=== PATIENT | male | born 1930 | race Caucasian/White ===

== ENCOUNTER 2018-12-18 16:31 | Emergency (ER) | payer OTHER ==
--- OUTSIDE RECORDS SUMMARY | 2018-12-18 16:33 | XMS REPORT | Clinical Summary ---
:1930 Author Organization [facility] Address [address] [place] [address] Care Team Providers Name Role Phone Sharpoliver Primary Care Provider Allergies Active Allergy Reactions Severity Noted Date Comments Quinidine-Quinine Analogues ([place] Anaphylaxis High 08/17/1952 Alkaloids) Medications Medication Sig Dispensed Refills Start Date End Date Status ramipril (ALTACE) 10 Take 10 mg by 0 Active MG capsule mouth every 12 (twelve) hours. simvastatin (ZOCOR) Take 20 mg by 0 Active 20 MG tablet mouth nightly. digoxin (LANOXIN) Take 250 mcg by 0 Active 0.25 MG tablet mouth daily. metFORMIN Take 500 mg by 0 Active (GLUCOPHAGE) 500 MG mouth 2 (two) tablet times daily with breakfast and dinner. omeprazole Take 20 mg by 0 Active (PRILOSEC) 20 MG mouth daily. capsule metoprolol Take 25 mg by 0 Active (TOPROL-XL) 25 MG 24 mouth daily. hr tablet apixaban (ELIQUIS) 5 Take 1 tablet (5 60 tablet 1 07/01/2017 Active mg Tab tablet mg total) by mouth 2 (two) times daily. amiodarone Take 1 tablet 60 tablet 0 07/01/2017 07/01/2018 (PACERONE) 100 MG (100 mg total) by tablet mouth 2 (two) times daily. aspirin 81 MG Take 1 tablet (81 30 tablet 0 07/02/2017 07/02/2018 chewable tablet mg total) by mouth daily. 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 Acute pulmonary insufficiency following thoracic surgery 06/24/2017 Hypertensive urgency 06/24/2017 Acute blood loss anemia 06/24/2017 Hyperglycemia 06/24/2017 SIRS (systemic inflammatory response syndrome) 06/24/2017 CAD (coronary artery disease) 06/23/2017 Family History Medical History Relation Name Comments Heart block Father Heart block Mother Lung cancer Sister Melanoma Sister Relation Name Status Comments Father Mother Sister Social History Tobacco Use Types Packs/Day Years Used Date Former Smoker Pipe 3 1953 - 1999 Smokeless Tobacco: Never Used Sex Assigned at Date Recorded Not on file Job Start Date Occupation Industry Not on file Not on file Not on file Travel History Travel Start Travel End No recent travel history available. Last Filed Vital Signs Not on file Plan of Treatment Not on file Implants Implanted Type [employer] Device Shelf Model / Identifier Expiration Serial / Date Lot Sut Surg Stl 7 18g 18in Mls Mp [id number] - Sna [place]/Arthroscop N/A: J &J: ETHICON 03/16/2022 [id number] / Implanted: Qty: 1 on 06/24/2017 by Jose G Nix MD y Sternum NA / [id number] Sut Surg Stl 7 18g 18in Mls Mp M655g - Sna [place]/Arthroscop N/A: J &J: ETHICON 01/14/2022 [id number] / Implanted: Qty: 2 on 06/24/2017 by Jose G Nix MD y Sternum NA / [id number] Sternal Zipfix Ndl Strl [id number] - Sna Cardiovascular N/A: SYNTHES: SYNTHE 03/16/2022 [id number] / Implanted: Qty: 1 on 06/24/2017 by Jose G Nix MD Sternum [facility] NA / [id number] Results Not on fileafter 12/17/2017 Insurance Payer Benefit Plan / Group Subscriber ID Type Phone Address MEDICARE MEDICARE A B xxxxxxxxxx Medicare AETNA - MGD CARE AETNA INDEMNITY NON CONTR xxxxxxxxx Comm Advance Directives For more information, please contact:[address] [phone] Code Status Date Activated Date Inactivated Comments Full Code 06/25/2017 4:22 PM 07/01/2017 3:53 PM This code status was determined by: Patient Full Code 06/24/2017 4:16 PM 06/25/2017 4:22 PM This code status was determined by: Patient Full Code 06/23/2017 9:48 PM 06/24/2017 4:16 PM This code status was determined by: Patient
--- OUTSIDE RECORDS SUMMARY | 2018-12-18 16:35 | XMS REPORT ---
:1930 [facility] Address [address] [place] [address] Care Team Providers Name Role Phone NEVAEH SANDOVAL Unavailable Unavailable Problems This patient has no known problems. Allergies, Adverse Reactions, Alerts This patient has no known allergies or adverse reactions. Medications This patient has no known medications. Results Test Description Test Time Test Comments Text Results Atomic Results Result Comments POCT-GLUCOSE METER 2017-07-01 12:09:00 Test Item Value Reference Range Comments POC-GLUCOSE METER (BEAKER) (test 110 mg/dL 70-110 TESTED AT [facility] [address] [facility] hesa=[id number]) [facility] [address] [id number] 11:44:00 Test Item Value Reference Range Comments MAGNESIUM (BEAKER) (test uxsv=327) 1.8 mg/dL 1.6-2.6 BASIC METABOLIC [id number] 11:44:00 Test Item Value Reference Range Comments SODIUM (BEAKER) (test 139 meq/L 136-145 nmqn=282) POTASSIUM (BEAKER) (test 4.4 meq/L 3.5-5.1 snrr=774) CHLORIDE (BEAKER) (test 105 meq/L 98-107 jfme=368) CO2 (BEAKER) (test 26 meq/L 22-29 itoc=078) BLOOD UREA NITROGEN 12 mg/dL 7-21 (BEAKER) (test irfd=935) CREATININE (BEAKER) (test 1.04 mg/dL 0.57-1.25 uejr=881) GLUCOSE RANDOM (BEAKER) 105 mg/dL 70-105 (test pefi=606) CALCIUM (BEAKER) (test 8.6 mg/dL 8.4-10.2 sofz=484) EGFR (BEAKER) (test 68 mL/min/1.73 sq m ESTIMATED GFR IS NOT dytz=6860) ACCURATE CREATININE CLEARANCE IN PREDICTING GLOMERULAR FILTRATION RATE. ESTIMATED GFR IS NOT APPLICABLE FOR DIALYSIS PATIENTS. CBC W/PLT COUNT & AUTO [id number] 11:26:00 Test Item Value Reference Range Comments WHITE BLOOD CELL COUNT (BEAKER) (test qkmm=728) 11.6 K/ L 3.5-10.5 RED BLOOD CELL COUNT (BEAKER) (test xkgn=562) 3.58 M/ L 4.63-6.08 HEMOGLOBIN (BEAKER) (test xoqq=885) 10.7 GM/DL 13.7-17.5 HEMATOCRIT (BEAKER) (test hlaq=946) 32.0 % 40.1-51.0 MEAN CORPUSCULAR VOLUME (BEAKER) (test atyf=144) 89.4 fL 79.0-92.2 MEAN CORPUSCULAR HEMOGLOBIN (BEAKER) (test 29.9 pg 25.7-32.2 izxg=481) MEAN CORPUSCULAR HEMOGLOBIN CONC (BEAKER) (test 33.4 GM/DL 32.3-36.5 bbtx=343) RED CELL DISTRIBUTION WIDTH (BEAKER) (test 13.2 % 11.6-14.4 kjrk=865) PLATELET COUNT (BEAKER) (test iojl=487) 273 K/CU MM 150-450 MEAN PLATELET VOLUME (BEAKER) (test mzyk=557) 9.4 fL 9.4-12.4 NUCLEATED RED BLOOD CELLS (BEAKER) (test 0 /100 WBC 0-0 xeja=300) NEUTROPHILS RELATIVE PERCENT (BEAKER) (test 68 % heaq=139) LYMPHOCYTES RELATIVE PERCENT (BEAKER) (test 19 % spbh=449) MONOCYTES RELATIVE PERCENT (BEAKER) (test 10 % kcdp=579) EOSINOPHILS RELATIVE PERCENT (BEAKER) (test 1 % npjd=189) BASOPHILS RELATIVE PERCENT (BEAKER) (test 1 % uabm=462) NEUTROPHILS ABSOLUTE COUNT (BEAKER) (test 7.92 K/ L 1.78-5.38 tzqe=631) LYMPHOCYTES ABSOLUTE COUNT (BEAKER) (test 2.16 K/ L 1.32-3.57 zrrq=362) MONOCYTES ABSOLUTE COUNT (BEAKER) (test 1.14 K/ L 0.30-0.82 ckzw=896) EOSINOPHILS ABSOLUTE COUNT (BEAKER) (test 0.16 K/ L 0.04-0.54 mwjj=209) BASOPHILS ABSOLUTE COUNT (BEAKER) (test 0.08 K/ L 0.01-0.08 mlsw=101) IMMATURE GRANULOCYTES-RELATIVE PERCENT (BEAKER) 1 % 0-1 (test ahjp=8229) POCT-GLUCOSE [id number] 07:11:00 Test Item Value Reference Range Comments POC-GLUCOSE METER (BEAKER) 127 mg/dL 70-110 TESTED AT [address] (test dvvn=2943) [facility] [address] POCT-GLUCOSE [id number] 22:25:00 Test Item Value Reference Range Comments POC-GLUCOSE METER (BEAKER) 123 mg/dL 70-110 TESTED AT [address] (test lkjn=4194) [place] [id number] POCT-GLUCOSE [id number] 17:17:00 Test Item Value Reference Range Comments POC-GLUCOSE METER (BEAKER) 142 mg/dL 70-110 TESTED AT [address] (test zure=9252) [place] [id number] POCT-GLUCOSE [id number] 11:25:00 Test Item Value Reference Range Comments POC-GLUCOSE METER (BEAKER) 122 mg/dL 70-110 TESTED AT [address] (test zimi=6809) [place] [id number] POCT-GLUCOSE [id number] 07:25:00 Test Item Value Reference Range Comments POC-GLUCOSE METER (BEAKER) 141 mg/dL 70-110 TESTED AT [address] (test vrih=7577) [place] [address] [id number] 06:33:00 Test Item Value Reference Range Comments MAGNESIUM (BEAKER) (test sjtb=000) 1.7 mg/dL 1.6-2.6 BASIC METABOLIC [id number] 06:33:00 Test Item Value Reference Range Comments SODIUM (BEAKER) (test 138 meq/L 136-145 xxls=927) POTASSIUM (BEAKER) (test 3.9 meq/L 3.5-5.1 gtnp=226) CHLORIDE (BEAKER) (test 104 meq/L 98-107 lneo=572) CO2 (BEAKER) (test 25 meq/L 22-29 zpbw=313) BLOOD UREA NITROGEN 15 mg/dL 7-21 (BEAKER) (test vxsm=466) CREATININE (BEAKER) (test 1.05 mg/dL 0.57-1.25 bjkf=064) GLUCOSE RANDOM (BEAKER) 131 mg/dL 70-105 (test wraz=035) CALCIUM (BEAKER) (test 8.7 mg/dL 8.4-10.2 rmmk=990) EGFR (BEAKER) (test 67 mL/min/1.73 sq m ESTIMATED GFR IS NOT tbzt=2366) ACCURATE CREATININE CLEARANCE IN PREDICTING GLOMERULAR FILTRATION RATE. ESTIMATED GFR IS NOT APPLICABLE FOR DIALYSIS PATIENTS. POCT-GLUCOSE [id number] 21:00:00 Test Item Value Reference Range Comments POC-GLUCOSE METER (BEAKER) 139 mg/dL 70-110 TESTED AT [address] (test hqxe=5847) [facility] [address] POCT-GLUCOSE [id number] 17:04:00 Test Item Value Reference Range Comments POC-GLUCOSE METER (BEAKER) 146 mg/dL 70-110 TESTED AT [address] (test lezw=1034) [place] [id number] POCT-GLUCOSE [id number] 12:17:00 Test Item Value Reference Range Comments POC-GLUCOSE METER (BEAKER) 142 mg/dL 70-110 TESTED AT [address] (test nrti=1557) [facility] [address] [id number] 08:50:00 Test Item Value Reference Range Comments MAGNESIUM (BEAKER) (test togq=971) 1.8 mg/dL 1.6-2.6 BASIC METABOLIC [id number] 08:50:00 Test Item Value Reference Range Comments SODIUM (BEAKER) (test 140 meq/L 136-145 wgxg=229) POTASSIUM (BEAKER) (test 3.9 meq/L 3.5-5.1 opgw=989) CHLORIDE (BEAKER) (test 106 meq/L 98-107 qpuk=028) CO2 (BEAKER) (test 28 meq/L 22-29 uqgh=768) BLOOD UREA NITROGEN 17 mg/dL 7-21 (BEAKER) (test psps=170) CREATININE (BEAKER) (test 1.03 mg/dL 0.57-1.25 hbpk=419) GLUCOSE RANDOM (BEAKER) 184 mg/dL 70-105 (test emoa=643) CALCIUM (BEAKER) (test 8.7 mg/dL 8.4-10.2 ckfx=254) EGFR (BEAKER) (test 69 mL/min/1.73 sq m ESTIMATED GFR IS NOT gtpj=7356) ACCURATE CREATININE CLEARANCE IN PREDICTING GLOMERULAR FILTRATION RATE. ESTIMATED GFR IS NOT APPLICABLE FOR DIALYSIS PATIENTS. POCT-GLUCOSE [id number] 07:57:00 Test Item Value Reference Range Comments POC-GLUCOSE METER (BEAKER) 208 mg/dL 70-110 TESTED AT [address] (test dalz=5060) [place] [id number] POCT-GLUCOSE [id number] 20:43:00 Test Item Value Reference Range Comments POC-GLUCOSE METER (BEAKER) 111 mg/dL 70-110 TESTED AT [address] (test caue=0712) [place] [address] POCT-GLUCOSE [id number] 16:39:00 Test Item Value Reference Range Comments POC-GLUCOSE METER (BEAKER) 108 mg/dL 70-110 TESTED AT [address] (test mfnz=6103) [place] [id number] POCT-GLUCOSE [id number] 12:11:00 Test Item Value Reference Range Comments POC-GLUCOSE METER (BEAKER) 105 mg/dL 70-110 TESTED AT [address] (test ebum=1493) [place] [address] POCT-GLUCOSE [id number] 08:59:00 Test Item Value Reference Range Comments POC-GLUCOSE METER (BEAKER) 170 mg/dL 70-110 TESTED AT [address] (test bxwb=1145) [place] [id number] BASIC METABOLIC [id number] 05:24:00 Test Item Value Reference Range Comments SODIUM (BEAKER) (test 139 meq/L 136-145 oshp=132) POTASSIUM (BEAKER) (test 3.6 meq/L 3.5-5.1 ecgw=485) CHLORIDE (BEAKER) (test 106 meq/L 98-107 cgdj=772) CO2 (BEAKER) (test 24 meq/L 22-29 wdwp=004) BLOOD UREA NITROGEN 18 mg/dL 7-21 (BEAKER) (test inpl=033) CREATININE (BEAKER) (test 0.91 mg/dL 0.57-1.25 afye=603) GLUCOSE RANDOM (BEAKER) 126 mg/dL 70-105 (test apfe=734) CALCIUM (BEAKER) (test 8.3 mg/dL 8.4-10.2 xexh=710) EGFR (BEAKER) (test 79 mL/min/1.73 sq m ESTIMATED GFR IS NOT ujmc=8045) ACCURATE CREATININE CLEARANCE IN PREDICTING GLOMERULAR FILTRATION RATE. ESTIMATED GFR IS NOT APPLICABLE FOR DIALYSIS PATIENTS. CBC W/PLT COUNT & AUTO [id number] 04:45:00 Test Item Value Reference Range Comments WHITE BLOOD CELL COUNT (BEAKER) (test lymi=162) 8.0 K/ L 3.5-10.5 RED BLOOD CELL COUNT (BEAKER) (test nxmi=685) 3.55 M/ L 4.63-6.08 HEMOGLOBIN (BEAKER) (test vcsc=499) 10.3 GM/DL 13.7-17.5 HEMATOCRIT (BEAKER) (test ljzz=189) 31.4 % 40.1-51.0 MEAN CORPUSCULAR VOLUME (BEAKER) (test hmop=401) 88.5 fL 79.0-92.2 MEAN CORPUSCULAR HEMOGLOBIN (BEAKER) (test 29.0 pg 25.7-32.2 adtt=192) MEAN CORPUSCULAR HEMOGLOBIN CONC (BEAKER) (test 32.8 GM/DL 32.3-36.5 hrly=804) RED CELL DISTRIBUTION WIDTH (BEAKER) (test 12.8 % 11.6-14.4 iuse=304) PLATELET COUNT (BEAKER) (test hfoa=415) 189 K/CU MM 150-450 MEAN PLATELET VOLUME (BEAKER) (test mpni=121) 10.3 fL 9.4-12.4 NUCLEATED RED BLOOD CELLS (BEAKER) (test 0 /100 WBC 0-0 gtiu=026) NEUTROPHILS RELATIVE PERCENT (BEAKER) (test 65 % lhgz=982) LYMPHOCYTES RELATIVE PERCENT (BEAKER) (test 21 % rykw=478) MONOCYTES RELATIVE PERCENT (BEAKER) (test 10 % ittw=802) EOSINOPHILS RELATIVE PERCENT (BEAKER) (test 3 % omxg=482) BASOPHILS RELATIVE PERCENT (BEAKER) (test 1 % rpzr=390) NEUTROPHILS ABSOLUTE COUNT (BEAKER) (test 5.22 K/ L 1.78-5.38 pmoy=021) LYMPHOCYTES ABSOLUTE COUNT (BEAKER) (test 1.65 K/ L 1.32-3.57 ghrr=080) MONOCYTES ABSOLUTE COUNT (BEAKER) (test 0.83 K/ L 0.30-0.82 lrvb=374) EOSINOPHILS ABSOLUTE COUNT (BEAKER) (test 0.21 K/ L 0.04-0.54 zjxd=762) BASOPHILS ABSOLUTE COUNT (BEAKER) (test 0.07 K/ L 0.01-0.08 qevn=410) IMMATURE GRANULOCYTES-RELATIVE PERCENT (BEAKER) 0 % 0-1 (test xpvi=7446) POCT-GLUCOSE [id number] 20:46:00 Test Item Value Reference Range Comments POC-GLUCOSE METER (BEAKER) 131 mg/dL 70-110 TESTED AT [address] (test mgns=5431) [place] [id number] POCT-GLUCOSE [id number] 16:38:00 Test Item Value Reference Range Comments POC-GLUCOSE METER (BEAKER) 121 mg/dL 70-110 TESTED AT [address] (test ltwu=6351) [place] [id number] POCT-GLUCOSE [id number] 08:45:00 Test Item Value Reference Range Comments POC-GLUCOSE METER (BEAKER) 208 mg/dL 70-110 TESTED AT [address] (test nvku=7187) [facility] [address] BASIC METABOLIC [id number] 07:45:00 Test Item Value Reference Range Comments SODIUM (BEAKER) (test 139 meq/L 136-145 ivwb=318) POTASSIUM (BEAKER) (test 3.8 meq/L 3.5-5.1 crng=447) CHLORIDE (BEAKER) (test 106 meq/L 98-107 xcvc=135) CO2 (BEAKER) (test 24 meq/L 22-29 vwel=379) BLOOD UREA NITROGEN 18 mg/dL 7-21 (BEAKER) (test sphp=988) CREATININE (BEAKER) (test 1.00 mg/dL 0.57-1.25 chzy=616) GLUCOSE RANDOM (BEAKER) 139 mg/dL 70-105 (test hxux=913) CALCIUM (BEAKER) (test 9.1 mg/dL 8.4-10.2 scmc=252) EGFR (BEAKER) (test 71 mL/min/1.73 sq m ESTIMATED GFR IS NOT qalf=5637) ACCURATE CREATININE CLEARANCE IN PREDICTING GLOMERULAR FILTRATION RATE. ESTIMATED GFR IS NOT APPLICABLE FOR DIALYSIS PATIENTS. [id number] 07:32:00 Test Item Value Reference Range Comments MAGNESIUM (BEAKER) (test anfr=567) 1.3 mg/dL 1.6-2.6 CBC W/PLT COUNT & AUTO [id number] 06:37:00 Test Item Value Reference Range Comments WHITE BLOOD CELL COUNT (BEAKER) (test ljyj=234) 11.1 K/ L 3.5-10.5 RED BLOOD CELL COUNT (BEAKER) (test ijot=736) 3.81 M/ L 4.63-6.08 HEMOGLOBIN (BEAKER) (test ncyt=219) 11.1 GM/DL 13.7-17.5 HEMATOCRIT (BEAKER) (test wyvt=209) 33.5 % 40.1-51.0 MEAN CORPUSCULAR VOLUME (BEAKER) (test bbrg=154) 87.9 fL 79.0-92.2 MEAN CORPUSCULAR HEMOGLOBIN (BEAKER) (test 29.1 pg 25.7-32.2 pwgi=091) MEAN CORPUSCULAR HEMOGLOBIN CONC (BEAKER) (test 33.1 GM/DL 32.3-36.5 ihuu=661) RED CELL DISTRIBUTION WIDTH (BEAKER) (test 13.0 % 11.6-14.4 eqoz=686) PLATELET COUNT (BEAKER) (test dirj=224) 187 K/CU MM 150-450 MEAN PLATELET VOLUME (BEAKER) (test ytxx=815) 11.0 fL 9.4-12.4 NUCLEATED RED BLOOD CELLS (BEAKER) (test 0 /100 WBC 0-0 imoe=157) NEUTROPHILS RELATIVE PERCENT (BEAKER) (test 70 % tuqg=423) LYMPHOCYTES RELATIVE PERCENT (BEAKER) (test 19 % czit=982) MONOCYTES RELATIVE PERCENT (BEAKER) (test 9 % efmn=350) EOSINOPHILS RELATIVE PERCENT (BEAKER) (test 1 % tpnr=622) BASOPHILS RELATIVE PERCENT (BEAKER) (test 1 % mvfj=233) NEUTROPHILS ABSOLUTE COUNT (BEAKER) (test 7.80 K/ L 1.78-5.38 ouxd=728) LYMPHOCYTES ABSOLUTE COUNT (BEAKER) (test 2.05 K/ L 1.32-3.57 mrjt=029) MONOCYTES ABSOLUTE COUNT (BEAKER) (test 0.99 K/ L 0.30-0.82 ssvc=678) EOSINOPHILS ABSOLUTE COUNT (BEAKER) (test 0.15 K/ L 0.04-0.54 svvw=073) BASOPHILS ABSOLUTE COUNT (BEAKER) (test 0.07 K/ L 0.01-0.08 fuzo=610) IMMATURE GRANULOCYTES-RELATIVE PERCENT (BEAKER) 1 % 0-1 (test dups=9575) POCT-GLUCOSE [id number] 21:19:00 Test Item Value Reference Range Comments POC-GLUCOSE METER (BEAKER) 125 mg/dL 70-110 TESTED AT [address] (test okhj=1414) [place] [address] POCT-GLUCOSE [id number] 17:34:00 Test Item Value Reference Range Comments POC-GLUCOSE METER (BEAKER) 171 mg/dL 70-110 TESTED AT [address] (test mkgc=1605) [place] [address] POCT-GLUCOSE [id number] 12:33:00 Test Item Value Reference Range Comments POC-GLUCOSE METER (BEAKER) 171 mg/dL 70-110 TESTED AT [address] (test auox=5472) [place] [address] HEMOGLOBIN [id number] 12:21:00 Test Item Value Reference Range Comments HEMOGLOBIN A1C (BEAKER) (test itmk=549) 6.0 % 4.3-6.1 POCT-GLUCOSE [id number] 08:37:00 Test Item Value Reference Range Comments POC-GLUCOSE METER (BEAKER) 159 mg/dL 70-110 TESTED AT [address] (test ysso=4791) [place] [address] RAD, CHEST, 1 VIEW, NON [id number] 07:43:00Reason for exam:-> sternotomyFINAL REPORT Chest one view. Clinical history : sternotomy Comparison: June 24, 2017 Discussion: A frontal chest is provided. Cardiomediastinal contours are unchanged. ET, left IJ line, and chest tubes have been removed. There is a suspected small left effusion. Patchy retrocardiac opacity can represent atelectasis or consolidation. No new airspace opacity. No pneumothorax. Signed: Edwin Solares Verified Date/Time : 06/26/2017 07:43:28 [facility] BASIC METABOLIC [id number] 06:37:00 Test Item Value Reference Range Comments SODIUM (BEAKER) (test 137 meq/L 136-145 dzbb=461) POTASSIUM (BEAKER) (test 3.7 meq/L 3.5-5.1 fuec=981) CHLORIDE (BEAKER) (test 106 meq/L 98-107 sfnx=629) CO2 (BEAKER) (test 22 meq/L 22-29 btfx=192) BLOOD UREA NITROGEN 15 mg/dL 7-21 (BEAKER) (test ezjg=740) CREATININE (BEAKER) (test 0.98 mg/dL 0.57-1.25 ypgm=042) GLUCOSE RANDOM (BEAKER) 149 mg/dL 70-105 (test jgip=151) CALCIUM (BEAKER) (test 8.8 mg/dL 8.4-10.2 rmlr=667) EGFR (BEAKER) (test 73 mL/min/1.73 sq m ESTIMATED GFR IS NOT tdwe=0142) ACCURATE CREATININE CLEARANCE IN PREDICTING GLOMERULAR FILTRATION RATE. ESTIMATED GFR IS NOT APPLICABLE FOR DIALYSIS PATIENTS. PROTHROMBIN [id number] 06:30:00 Test Item Value Reference Range Comments PROTIME (BEAKER) (test qjgn=741) 16.5 seconds 11.7-14.7 INR (BEAKER) (test bnjs=791) 1.3 <=5.9 RECOMMENDED COUMADIN/WARFARIN INR THERAPY RANGESSTANDARD DOSE: 2.0 - 3.0 Includes: PROPHYLAXIS forvenous thrombosis, systemic embolization; TREATMENT for venous thrombosis and/or pulmonary embolus.HIGH RISK: Target INR is 2.5-3.5 for patients with mechanical heart valves.[id number] 06:23:00 Test Item Value Reference Range Comments MAGNESIUM (BEAKER) (test asdu=712) 1.7 mg/dL 1.6-2.6 CBC W/PLT COUNT & AUTO [id number] 06:22:00 Test Item Value Reference Range Comments WHITE BLOOD CELL COUNT (BEAKER) (test evft=310) 13.5 K/ L 3.5-10.5 RED BLOOD CELL COUNT (BEAKER) (test pcze=911) 3.75 M/ L 4.63-6.08 HEMOGLOBIN (BEAKER) (test kqld=280) 11.0 GM/DL 13.7-17.5 HEMATOCRIT (BEAKER) (test ritt=000) 32.9 % 40.1-51.0 MEAN CORPUSCULAR VOLUME (BEAKER) (test kzon=183) 87.7 fL 79.0-92.2 MEAN CORPUSCULAR HEMOGLOBIN (BEAKER) (test 29.3 pg 25.7-32.2 psmb=053) MEAN CORPUSCULAR HEMOGLOBIN CONC (BEAKER) (test 33.4 GM/DL 32.3-36.5 nzri=637) RED CELL DISTRIBUTION WIDTH (BEAKER) (test 13.1 % 11.6-14.4 azjk=976) PLATELET COUNT (BEAKER) (test uinc=124) 160 K/CU MM 150-450 MEAN PLATELET VOLUME (BEAKER) (test xwnc=756) 10.7 fL 9.4-12.4 NUCLEATED RED BLOOD CELLS (BEAKER) (test 0 /100 WBC 0-0 ryyj=100) NEUTROPHILS RELATIVE PERCENT (BEAKER) (test 80 % emhe=381) LYMPHOCYTES RELATIVE PERCENT (BEAKER) (test 10 % ivkm=473) MONOCYTES RELATIVE PERCENT (BEAKER) (test 9 % onme=482) EOSINOPHILS RELATIVE PERCENT (BEAKER) (test 0 % wurg=312) BASOPHILS RELATIVE PERCENT (BEAKER) (test 0 % vjen=643) NEUTROPHILS ABSOLUTE COUNT (BEAKER) (test 10.79 K/ L 1.78-5.38 yodp=629) LYMPHOCYTES ABSOLUTE COUNT (BEAKER) (test 1.30 K/ L 1.32-3.57 hmfe=736) MONOCYTES ABSOLUTE COUNT (BEAKER) (test 1.21 K/ L 0.30-0.82 zddk=401) EOSINOPHILS ABSOLUTE COUNT (BEAKER) (test 0.04 K/ L 0.04-0.54 uztx=240) BASOPHILS ABSOLUTE COUNT (BEAKER) (test 0.05 K/ L 0.01-0.08 bjlv=215) IMMATURE GRANULOCYTES-RELATIVE PERCENT (BEAKER) 1 % 0-1 (test zfav=5824) POCT-GLUCOSE [id number] 21:25:00 Test Item Value Reference Range Comments POC-GLUCOSE METER (BEAKER) 145 mg/dL 70-110 TESTED AT [address] (test tqym=3511) [facility] [address] POCT-GLUCOSE [id number] 17:31:00 Test Item Value Reference Range Comments POC-GLUCOSE METER (BEAKER) 146 mg/dL 70-110 TESTED AT [address] (test knjh=1998) [place] [id number] POCT-GLUCOSE [id number] 11:43:00 Test Item Value Reference Range Comments POC-GLUCOSE METER (BEAKER) 133 mg/dL 70-110 TESTED AT [address] (test iexa=0118) [place] [id number] POCT-GLUCOSE [id number] 08:29:00 Test Item Value Reference Range Comments POC-GLUCOSE METER (BEAKER) 169 mg/dL 70-110 TESTED AT [address] (test bojr=1688) [facility] [address] BASIC METABOLIC [id number] 04:33:00 Test Item Value Reference Range Comments SODIUM (BEAKER) (test 140 meq/L 136-145 kwaj=584) POTASSIUM (BEAKER) (test 3.8 meq/L 3.5-5.1 gshy=430) CHLORIDE (BEAKER) (test 110 meq/L 98-107 fvdt=660) CO2 (BEAKER) (test 23 meq/L 22-29 lnrh=631) BLOOD UREA NITROGEN 17 mg/dL 7-21 (BEAKER) (test atnc=008) CREATININE (BEAKER) (test 1.16 mg/dL 0.57-1.25 cgzp=206) GLUCOSE RANDOM (BEAKER) 162 mg/dL 70-105 (test zhaf=765) CALCIUM (BEAKER) (test 8.6 mg/dL 8.4-10.2 iyzy=757) EGFR (BEAKER) (test 60 mL/min/1.73 sq m ESTIMATED GFR IS NOT rdpz=8105) ACCURATE CREATININE CLEARANCE IN PREDICTING GLOMERULAR FILTRATION RATE. ESTIMATED GFR IS NOT APPLICABLE FOR DIALYSIS PATIENTS. LACTIC ACID, ARTERIAL, WHOLE [id number] 04:31:00 Test Item Value Reference Range Comments LACTATE BLOOD ARTERIAL (2) (BEAKER) (test 1.0 mmol/L 0.5-2.2 hzja=9209) Effective 12/19/2015: Units/Reference Range ChangeNew: 0.5-2.2 mmol/L Previous: 5 -20 mg/[id number] 04:27:00 Test Item Value Reference Range Comments MAGNESIUM (BEAKER) (test yyfz=837) 2.0 mg/dL 1.6-2.6 CBC W/PLT COUNT & AUTO [id number] 04:18:00 Test Item Value Reference Range Comments WHITE BLOOD CELL COUNT (BEAKER) (test rerg=760) 12.9 K/ L 3.5-10.5 RED BLOOD CELL COUNT (BEAKER) (test vqjz=769) 3.75 M/ L 4.63-6.08 HEMOGLOBIN (BEAKER) (test ygag=001) 11.1 GM/DL 13.7-17.5 HEMATOCRIT (BEAKER) (test dsen=316) 32.6 % 40.1-51.0 MEAN CORPUSCULAR VOLUME (BEAKER) (test nxeh=221) 86.9 fL 79.0-92.2 MEAN CORPUSCULAR HEMOGLOBIN (BEAKER) (test 29.6 pg 25.7-32.2 wizx=324) MEAN CORPUSCULAR HEMOGLOBIN CONC (BEAKER) (test 34.0 GM/DL 32.3-36.5 vqga=687) RED CELL DISTRIBUTION WIDTH (BEAKER) (test 13.0 % 11.6-14.4 vnqg=129) PLATELET COUNT (BEAKER) (test kevb=213) 151 K/CU MM 150-450 MEAN PLATELET VOLUME (BEAKER) (test tacf=859) 9.7 fL 9.4-12.4 NUCLEATED RED BLOOD CELLS (BEAKER) (test 0 /100 WBC 0-0 gvkl=069) NEUTROPHILS RELATIVE PERCENT (BEAKER) (test 83 % lrbm=483) LYMPHOCYTES RELATIVE PERCENT (BEAKER) (test 7 % gnin=078) MONOCYTES RELATIVE PERCENT (BEAKER) (test 10 % rbvi=531) EOSINOPHILS RELATIVE PERCENT (BEAKER) (test 0 % lifq=747) BASOPHILS RELATIVE PERCENT (BEAKER) (test 0 % kooh=141) NEUTROPHILS ABSOLUTE COUNT (BEAKER) (test 10.72 K/ L 1.78-5.38 kwxe=421) LYMPHOCYTES ABSOLUTE COUNT (BEAKER) (test 0.85 K/ L 1.32-3.57 july=361) MONOCYTES ABSOLUTE COUNT (BEAKER) (test 1.23 K/ L 0.30-0.82 hxdo=741) EOSINOPHILS ABSOLUTE COUNT (BEAKER) (test 0.00 K/ L 0.04-0.54 idml=703) BASOPHILS ABSOLUTE COUNT (BEAKER) (test 0.03 K/ L 0.01-0.08 zdpy=346) IMMATURE GRANULOCYTES-RELATIVE PERCENT (BEAKER) 0 % 0-1 (test ghup=7215) POCT-GLUCOSE [id number] 02:44:00 Test Item Value Reference Range Comments POC-GLUCOSE METER (BEAKER) 143 mg/dL 70-110 TESTED AT [address] (test aldn=3998) [place] [address] POCT-GLUCOSE [id number] 01:32:00 Test Item Value Reference Range Comments POC-GLUCOSE METER (BEAKER) 185 mg/dL 70-110 TESTED AT [address] (test vxhb=5935) [place] [address] BLOOD GAS, [id number] 01:05:00 Test Item Value Reference Range Comments PH ARTERIAL (BEAKER) (test tfgo=469) 7.50 7.35-7.45 PCO2 ARTERIAL (BEAKER) (test tidf=202) 30 mmHg 35-45 PO2 ARTERIAL (BEAKER) (test hllj=568) 73 mmHg 80-90 O2 SATURATION ARTERIAL (BEAKER) (test sndv=929) 95.8 % 96.0-97.0 HCO3 ARTERIAL (BEAKER) (test gieb=699) 23 mmol/L 21-29 BASE EXCESS ARTERIAL (BEAKER) (test kofe=678) 0.4 mmol/L -2.0-3.0 PATIENT TEMPERATURE (BEAKER) (test grlv=8961) 37.2 C FIO2 (BEAKER) (test hygc=7598) 40.0 % Post extubation ABGPOCT-GLUCOSE [id number] 00:59:00 Test Item Value Reference Range Comments POC-GLUCOSE METER (BEAKER) 160 mg/dL 70-110 TESTED AT [address] (test cdit=4265) [place] [address] LACTIC ACID, ARTERIAL, WHOLE [id number] 23:02:00 Test Item Value Reference Range Comments LACTATE BLOOD ARTERIAL (2) (BEAKER) (test 1.3 mmol/L 0.5-2.2 baon=4306) Effective 12/19/2015: Units/Reference Range ChangeNew: 0.5-2.2 mmol/L Previous: 5 -20 mg/[id number] 23:01:00 Test Item Value Reference Range Comments MAGNESIUM (BEAKER) (test zwud=567) 1.8 mg/dL 1.6-2.6 CALCIUM, [id number] 22:48:00 Test Item Value Reference Range Comments CALCIUM IONIZED (BEAKER) (test bdfb=506) 1.13 mmol/L 1.12-1.27 PH, BLOOD (BEAKER) (test vauk=9689) 7.49 BLOOD GAS, [id number] 22:48:00 Test Item Value Reference Range Comments PH ARTERIAL (BEAKER) (test zblm=590) 7.49 7.35-7.45 PCO2 ARTERIAL (BEAKER) (test fsvg=987) 30 mmHg 35-45 PO2 ARTERIAL (BEAKER) (test scff=156) 72 mmHg 80-90 O2 SATURATION ARTERIAL (BEAKER) (test xtic=699) 95.6 % 96.0-97.0 HCO3 ARTERIAL (BEAKER) (test zvsu=833) 22 mmol/L 21-29 BASE EXCESS ARTERIAL (BEAKER) (test qsqf=303) -0.3 mmol/L -2.0-3.0 PATIENT TEMPERATURE (BEAKER) (test nbvj=7851) 37.2 C FIO2 (BEAKER) (test hgbf=7907) 40.0 % GLUCOSE-STAT [id number] 22:48:00 Test Item Value Reference Range Comments GLUCOSE RANDOM (BEAKER) (test leju=125) 173 mg/dL 70-110 HGB/HCT (H&H) - STAT [id number] 22:48:00 Test Item Value Reference Range Comments HEMOGLOBIN (BEAKER) (test liky=755) 12.3 g/dL 13.0-16.8 HEMATOCRIT (BEAKER) (test hego=153) 36.0 % 40.0-50.0 SODIUM NA-STAT [id number] 22:47:00 Test Item Value Reference Range Comments SODIUM (BEAKER) (test yrnq=115) 136 meq/L 135-148 POTASSIUM-STAT [id number] 22:47:00 Test Item Value Reference Range Comments POTASSIUM (BEAKER) (test trjj=555) 3.7 meq/L 3.6-5.5 SODIUM NA-STAT [id number] 18:58:00 Test Item Value Reference Range Comments SODIUM (BEAKER) (test ymvv=300) 135 meq/L 135-148 POTASSIUM-STAT [id number] 18:58:00 Test Item Value Reference Range Comments POTASSIUM (BEAKER) (test ycpz=309) 3.8 meq/L 3.6-5.5 BLOOD GAS, [id number] 18:58:00 Test Item Value Reference Range Comments PH ARTERIAL (BEAKER) (test cina=255) 7.41 7.35-7.45 PCO2 ARTERIAL (BEAKER) (test nxjs=008) 32 mmHg 35-45 PO2 ARTERIAL (BEAKER) (test dexw=768) 69 mmHg 80-90 O2 SATURATION ARTERIAL (BEAKER) (test jeuy=862) 94.5 % 96.0-97.0 HCO3 ARTERIAL (BEAKER) (test xnyt=640) 20 mmol/L 21-29 BASE EXCESS ARTERIAL (BEAKER) (test ygoi=143) -4.0 mmol/L -2.0-3.0 PATIENT TEMPERATURE (BEAKER) (test dkvx=5766) 36.7 C FIO2 (BEAKER) (test tbls=1466) 60.0 % GLUCOSE-STAT [id number] 18:58:00 Test Item Value Reference Range Comments GLUCOSE RANDOM (BEAKER) (test npkw=181) 197 mg/dL 70-110 HGB/HCT (H&H) - STAT [id number] 18:58:00 Test Item Value Reference Range Comments HEMOGLOBIN (BEAKER) (test aahp=275) 12.9 g/dL 13.0-16.8 HEMATOCRIT (BEAKER) (test vaum=385) 38.0 % 40.0-50.0 OXYGEN SATURATION, [id number] 18:57:00 Test Item Value Reference Range Comments O2 SATURATION (MEASURED) (BEAKER) (test zjvc=1370) 74.4 % CALCIUM, [id number] 18:57:00 Test Item Value Reference Range Comments CALCIUM IONIZED (BEAKER) (test qbxd=934) 1.15 mmol/L 1.12-1.27 PH, BLOOD (BEAKER) (test sver=7202) 7.41 BASIC METABOLIC [id number] 16:12:00 Test Item Value Reference Range Comments SODIUM (BEAKER) (test 138 meq/L 136-145 otkf=024) POTASSIUM (BEAKER) (test 4.0 meq/L 3.5-5.1 tfbv=643) CHLORIDE (BEAKER) (test 109 meq/L 98-107 mqgz=937) CO2 (BEAKER) (test 22 meq/L 22-29 zxcl=313) BLOOD UREA NITROGEN 14 mg/dL 7-21 (BEAKER) (test mnmh=018) CREATININE (BEAKER) (test 0.94 mg/dL 0.57-1.25 osny=469) GLUCOSE RANDOM (BEAKER) 157 mg/dL 70-105 (test ykpi=351) CALCIUM (BEAKER) (test 8.7 mg/dL 8.4-10.2 ghxr=657) EGFR (BEAKER) (test 76 mL/min/1.73 sq m ESTIMATED GFR IS NOT venl=6848) ACCURATE CREATININE CLEARANCE IN PREDICTING GLOMERULAR FILTRATION RATE. ESTIMATED GFR IS NOT APPLICABLE FOR DIALYSIS PATIENTS. Specimen slightly ictericLACTIC ACID, ARTERIAL, WHOLE [id number] 16:09:00 Test Item Value Reference Range Comments LACTATE BLOOD ARTERIAL (2) (BEAKER) (test 0.8 mmol/L 0.5-2.2 egum=0037) Effective 12/19/2015: Units/Reference Range ChangeNew: 0.5-2.2 mmol/L Previous: 5 -20 mg/dLBLOOD GAS, [id number] 16:01:00 Test Item Value Reference Range Comments PH ARTERIAL (BEAKER) (test rpsr=285) 7.36 7.35-7.45 PCO2 ARTERIAL (BEAKER) (test uyxk=277) 39 mmHg 35-45 PO2 ARTERIAL (BEAKER) (test teye=787) 71 mmHg 80-90 O2 SATURATION ARTERIAL (BEAKER) (test chlg=903) 94.0 % 96.0-97.0 HCO3 ARTERIAL (BEAKER) (test ozdp=933) 21 mmol/L 21-29 BASE EXCESS ARTERIAL (BEAKER) (test qaqi=614) -3.9 mmol/L -2.0-3.0 PATIENT TEMPERATURE (BEAKER) (test iznu=0647) 36.6 C FIO2 (BEAKER) (test gbmj=6333) 60.0 % GLUCOSE-STAT [id number] 16:01:00 Test Item Value Reference Range Comments GLUCOSE RANDOM (BEAKER) (test vefq=551) 154 mg/dL 70-110 CALCIUM, [id number] 16:00:00 Test Item Value Reference Range Comments CALCIUM IONIZED (BEAKER) (test mlrq=187) 1.20 mmol/L 1.12-1.27 PH, BLOOD (BEAKER) (test bzum=5204) 7.35 SODIUM NA-STAT [id number] 16:00:00 Test Item Value Reference Range Comments SODIUM (BEAKER) (test wewi=951) 137 meq/L 135-148 POTASSIUM-STAT [id number] 16:00:00 Test Item Value Reference Range Comments POTASSIUM (BEAKER) (test bjzx=465) 3.9 meq/L 3.6-5.5 HGB/HCT (H&H) - STAT [id number] 16:00:00 Test Item Value Reference Range Comments HEMOGLOBIN (BEAKER) (test qcbg=136) 13.8 g/dL 13.0-16.8 HEMATOCRIT (BEAKER) (test xevi=427) 41.0 % 40.0-50.0 RAD, CHEST, 1 VIEW, NON [id number] 15:59:00Reason for exam:->POST ACBShould this be performed at the bedside?->YesFINAL REPORT Chest one view. Clinical history: POST ACB Comparison: 06/24/2017 Discussion: A frontal chest is provided. ETT is 6 cm above the orquidea. A left IJ line projects overthe brachiocephalic vein. A feeding tube projects over the gastric fundus. There is a mediastinal catheter, and left chest tube. Cardiomediastinal contours are unchanged. There is subsegmental bibasilar atelectasis. No pneumothorax, or large effusion. Status post median sternotomy. Signed: Edwin Solares Verified Date/Time: 06/24/2017 15:59:15 Reading Location: [facility] C0[facility] Consult Reading Room CBC W/PLT COUNT & AUTO [id number] 15:55:00 Test Item Value Reference Range Comments WHITE BLOOD CELL COUNT (BEAKER) (test xplh=553) 14.7 K/ L 3.5-10.5 RED BLOOD CELL COUNT (BEAKER) (test rutb=437) 4.05 M/ L 4.63-6.08 HEMOGLOBIN (BEAKER) (test nbzf=577) 11.7 GM/DL 13.7-17.5 HEMATOCRIT (BEAKER) (test oret=183) 35.3 % 40.1-51.0 MEAN CORPUSCULAR VOLUME (BEAKER) (test wzhz=649) 87.2 fL 79.0-92.2 MEAN CORPUSCULAR HEMOGLOBIN (BEAKER) (test 28.9 pg 25.7-32.2 rnfg=447) MEAN CORPUSCULAR HEMOGLOBIN CONC (BEAKER) (test 33.1 GM/DL 32.3-36.5 ryah=713) RED CELL DISTRIBUTION WIDTH (BEAKER) (test 12.9 % 11.6-14.4 ocel=490) PLATELET COUNT (BEAKER) (test vvwd=666) 146 K/CU MM 150-450 MEAN PLATELET VOLUME (BEAKER) (test thfn=783) 10.0 fL 9.4-12.4 NUCLEATED RED BLOOD CELLS (BEAKER) (test 0 /100 WBC 0-0 ntit=719) NEUTROPHILS RELATIVE PERCENT (BEAKER) (test 78 % xjqm=248) LYMPHOCYTES RELATIVE PERCENT (BEAKER) (test 13 % sezf=330) MONOCYTES RELATIVE PERCENT (BEAKER) (test 7 % kxif=645) EOSINOPHILS RELATIVE PERCENT (BEAKER) (test 1 % njvb=675) BASOPHILS RELATIVE PERCENT (BEAKER) (test 0 % igps=939) NEUTROPHILS ABSOLUTE COUNT (BEAKER) (test 11.49 K/ L 1.78-5.38 reah=145) LYMPHOCYTES ABSOLUTE COUNT (BEAKER) (test 1.97 K/ L 1.32-3.57 putw=800) MONOCYTES ABSOLUTE COUNT (BEAKER) (test 0.98 K/ L 0.30-0.82 hwfw=576) EOSINOPHILS ABSOLUTE COUNT (BEAKER) (test 0.08 K/ L 0.04-0.54 luos=436) BASOPHILS ABSOLUTE COUNT (BEAKER) (test 0.04 K/ L 0.01-0.08 fjdv=148) IMMATURE GRANULOCYTES-RELATIVE PERCENT (BEAKER) 1 % 0-1 (test nojb=3301) OXYGEN SATURATION, [id number] 15:54:00 Test Item Value Reference Range Comments O2 SATURATION (MEASURED) (BEAKER) (test yilt=2774) 45.2 % [id number] 14:09:00 Test Item Value Reference Range Comments ACTIVATED CLOTTING TIME 142 sec TESTED AT [facility] [address] [facility] ([facility]) (test dwkq=885) [facility] [address] PLATELET [id number] 13:35:00 Test Item Value Reference Range Comments PLATELET COUNT (BEAKER) (test cayz=159) 104 K/CU MM 150-450 [id number] 13:32:00 Test Item Value Reference Range Comments ACTIVATED CLOTTING TIME > sec OUTSIDE MEASURING RANGETESTED AT ([facility]) (test aznx=455) [facility] [address] [facility] [address] PROTHROMBIN [id number] 13:23:00 Test Item Value Reference Range Comments PROTIME (BEAKER) (test oyot=898) 22.1 seconds 11.7-14.7 INR (BEAKER) (test bdbl=106) 1.9 <=5.9 RECOMMENDED COUMADIN/WARFARIN INR THERAPY RANGESSTANDARD DOSE: 2.0 - 3.0 Includes: PROPHYLAXIS forvenous thrombosis, systemic embolization; TREATMENT for venous thrombosis and/or pulmonary embolus.HIGH RISK: Target INR is 2.5-3.5 for patients with mechanical heart valves.[id number] 13:23:00 Test Item Value Reference Range Comments FIBRINOGEN LEVEL (BEAKER) (test xvwz=206) 288 mg/dl 225-434 [id number] 13:23:00 Test Item Value Reference Range Comments PARTIAL THROMBOPLASTIN TIME (BEAKER) (test 41.6 seconds 22.5-36.0 jcvh=613) BLOOD GAS, [id number] 12:56:00 Test Item Value Reference Range Comments PH ARTERIAL (BEAKER) (test ypnd=623) 7.41 7.35-7.45 PCO2 ARTERIAL (BEAKER) (test bqqy=531) 36 mmHg 35-45 PO2 ARTERIAL (BEAKER) (test kfus=341) 338 mmHg 80-90 O2 SATURATION ARTERIAL (BEAKER) (test ugwh=698) 99.8 % 96.0-97.0 HCO3 ARTERIAL (BEAKER) (test nsnf=751) 22 mmol/L 21-29 BASE EXCESS ARTERIAL (BEAKER) (test yojn=279) -2.4 mmol/L -2.0-3.0 PATIENT TEMPERATURE (BEAKER) (test ubbv=0410) 35.5 C FIO2 (BEAKER) (test thjt=6332) 50.0 % GLUCOSE-STAT [id number] 12:56:00 Test Item Value Reference Range Comments GLUCOSE RANDOM (BEAKER) (test ppds=285) 130 mg/dL 70-110 SODIUM NA-STAT [id number] 12:56:00 Test Item Value Reference Range Comments SODIUM (BEAKER) (test deve=730) 133 meq/L 135-148 HGB/HCT (H&H) - STAT [id number] 12:56:00 Test Item Value Reference Range Comments HEMOGLOBIN (BEAKER) (test kbrp=743) 9.4 g/dL 13.0-16.8 HEMATOCRIT (BEAKER) (test kggc=620) 28.0 % 40.0-50.0 POTASSIUM-STAT [id number] 12:54:00 Test Item Value Reference Range Comments POTASSIUM (BEAKER) (test ztjj=130) 3.7 meq/L 3.6-5.5 POTASSIUM-STAT [id number] 12:23:00 Test Item Value Reference Range Comments POTASSIUM (BEAKER) (test ezzv=429) 3.7 meq/L 3.6-5.5 BLOOD GAS, [id number] 12:23:00 Test Item Value Reference Range Comments PH ARTERIAL (BEAKER) (test pypq=127) 7.37 7.35-7.45 PCO2 ARTERIAL (BEAKER) (test xxgt=763) 42 mmHg 35-45 PO2 ARTERIAL (BEAKER) (test jpjd=003) 413 mmHg 80-90 O2 SATURATION ARTERIAL (BEAKER) (test lvxw=108) 99.8 % 96.0-97.0 HCO3 ARTERIAL (BEAKER) (test encm=817) 24 mmol/L 21-29 BASE EXCESS ARTERIAL (BEAKER) (test krvl=327) -2.0 mmol/L -2.0-3.0 PATIENT TEMPERATURE (BEAKER) (test ekpd=1370) 34.0 C FIO2 (BEAKER) (test jkax=5138) 80.0 % GLUCOSE-STAT [id number] 12:23:00 Test Item Value Reference Range Comments GLUCOSE RANDOM (BEAKER) (test iahd=195) 129 mg/dL 70-110 SODIUM NA-STAT [id number] 12:23:00 Test Item Value Reference Range Comments SODIUM (BEAKER) (test szlr=485) 133 meq/L 135-148 HGB/HCT (H&H) - STAT [id number] 12:23:00 Test Item Value Reference Range Comments HEMOGLOBIN (BEAKER) (test cvpf=990) 8.8 g/dL 13.0-16.8 HEMATOCRIT (BEAKER) (test ravq=710) 26.0 % 40.0-50.0 BLOOD GAS, [id number] 11:10:00 Test Item Value Reference Range Comments PH ARTERIAL (BEAKER) (test prkk=166) 7.38 7.35-7.45 PCO2 ARTERIAL (BEAKER) (test txki=893) 38 mmHg 35-45 PO2 ARTERIAL (BEAKER) (test stgl=329) 356 mmHg 80-90 O2 SATURATION ARTERIAL (BEAKER) (test uhfq=333) 99.8 % 96.0-97.0 HCO3 ARTERIAL (BEAKER) (test hyao=715) 23 mmol/L 21-29 BASE EXCESS ARTERIAL (BEAKER) (test kxfn=825) -2.5 mmol/L -2.0-3.0 PATIENT TEMPERATURE (BEAKER) (test ypop=3358) 36.0 C FIO2 (BEAKER) (test jhvg=7190) 100.0 % GLUCOSE-STAT [id number] 11:10:00 Test Item Value Reference Range Comments GLUCOSE RANDOM (BEAKER) (test mffw=276) 155 mg/dL 70-110 CALCIUM, [id number] 11:10:00 Test Item Value Reference Range Comments CALCIUM IONIZED (BEAKER) (test zivn=842) 1.08 mmol/L 1.12-1.27 PH, BLOOD (BEAKER) (test gebz=3351) 7.37 SODIUM NA-STAT [id number] 11:05:00 Test Item Value Reference Range Comments SODIUM (BEAKER) (test rmod=607) 136 meq/L 135-148 POTASSIUM-STAT [id number] 11:05:00 Test Item Value Reference Range Comments POTASSIUM (BEAKER) (test tpmd=740) 3.6 meq/L 3.6-5.5 HGB/HCT (H&H) - STAT [id number] 11:05:00 Test Item Value Reference Range Comments HEMOGLOBIN (BEAKER) (test fldv=974) 13.6 g/dL 13.0-16.8 HEMATOCRIT (BEAKER) (test uqce=489) 40.0 % 40.0-50.0 PLATELET AGGREGATION: FUNCTION [id number] 11:01:00 Test Item Value Reference Range Comments WEAK ADP RESULT(BEAKER) (test 91 % 60-91 odiz=7240) PLATELET FUNCTION SCREEN 60-100% indicates normal INTERP (BEAKER) (test platelet function actq=3614) [id number] (BEAKER) Rosa Maria Pitt MD (test yrkk=7902) (electronic signature) PLATELET COUNT AGG (BEAKER) 199 K/CU MM 150-450 (test dgwp=6444) for patients on clopidogrel in past two weeksPOCT-GLUCOSE [id number] 08:52: 00 Test Item Value Reference Range Comments POC-GLUCOSE METER (BEAKER) 142 mg/dL 70-110 TESTED AT [facility] [address] [facility] (test evhy=9681) [facility] [address] RAD, CHEST, 1 VIEW, NON [id number] 01:35:00Reason for exam:->Pre opShould this be performed at the bedside?->YesFINAL REPORT EXAMINATION: AP PORTABLE CHEST RADIOGRAPH CLINICAL INDICATION: Shortness of breath. IMPRESSION: No comparison studies are available. Thin curvilinear opacities arenoted in both lungs, most conspicuous in the perihilar regions and lung bases. Morphology and distribution favor subsegmental atelectasis and/or scarring. Mild superimposed edema is difficult to exclude. No evidence of lobar lung consolidation, large pleural effusion or pneumothorax. The heart is mildly prominent. Mediastinal contours are sharp with a calcified aortic arch. The right hemidiaphragm ismildly elevated. No evidence of an acute osseous abnormality. Signed: Amrita Braga MDReport VerifiedDate/Time: 06/24/2017 01:35:38 Reading Location: [address] Reading Room Electronically signed by: AMRITA BRAGA M.D. on 03/2017 01:35 AMCBC W/PLT COUNT & AUTO [id number] 00:39:00 Test Item Value Reference Range Comments WHITE BLOOD CELL COUNT (BEAKER) (test dnze=685) 11.7 K/ L 3.5-10.5 RED BLOOD CELL COUNT (BEAKER) (test uusx=313) 5.18 M/ L 4.63-6.08 HEMOGLOBIN (BEAKER) (test osqv=263) 15.3 GM/DL 13.7-17.5 HEMATOCRIT (BEAKER) (test xgtv=766) 45.6 % 40.1-51.0 MEAN CORPUSCULAR VOLUME (BEAKER) (test ntcd=850) 88.0 fL 79.0-92.2 MEAN CORPUSCULAR HEMOGLOBIN (BEAKER) (test 29.5 pg 25.7-32.2 woyh=337) MEAN CORPUSCULAR HEMOGLOBIN CONC (BEAKER) (test 33.6 GM/DL 32.3-36.5 uazp=424) RED CELL DISTRIBUTION WIDTH (BEAKER) (test 12.9 % 11.6-14.4 puxj=384) PLATELET COUNT (BEAKER) (test xjiq=668) 210 K/CU MM 150-450 MEAN PLATELET VOLUME (BEAKER) (test cbeq=306) 10.1 fL 9.4-12.4 NUCLEATED RED BLOOD CELLS (BEAKER) (test 0 /100 WBC 0-0 qntn=208) NEUTROPHILS RELATIVE PERCENT (BEAKER) (test 72 % fenj=530) LYMPHOCYTES RELATIVE PERCENT (BEAKER) (test 17 % crog=690) MONOCYTES RELATIVE PERCENT (BEAKER) (test 10 % njng=704) EOSINOPHILS RELATIVE PERCENT (BEAKER) (test 0 % zzpz=698) BASOPHILS RELATIVE PERCENT (BEAKER) (test 0 % vcql=340) NEUTROPHILS ABSOLUTE COUNT (BEAKER) (test 8.42 K/ L 1.78-5.38 sycp=879) LYMPHOCYTES ABSOLUTE COUNT (BEAKER) (test 2.03 K/ L 1.32-3.57 tyes=502) MONOCYTES ABSOLUTE COUNT (BEAKER) (test 1.12 K/ L 0.30-0.82 hxsz=623) EOSINOPHILS ABSOLUTE COUNT (BEAKER) (test 0.04 K/ L 0.04-0.54 tbhv=676) BASOPHILS ABSOLUTE COUNT (BEAKER) (test 0.05 K/ L 0.01-0.08 nhkb=840) IMMATURE GRANULOCYTES-RELATIVE PERCENT (BEAKER) 0 % 0-1 (test fnbn=2096) [id number] 00:09:00 Test Item Value Reference Range Comments MAGNESIUM (BEAKER) (test 1.7 mg/dL 1.6-2.6 Specimen slightly hemolyzed xvdp=285) BASIC METABOLIC [id number] 00:09:00 Test Item Value Reference Range Comments SODIUM (BEAKER) (test 137 meq/L 136-145 mnom=557) POTASSIUM (BEAKER) (test 4.0 meq/L 3.5-5.1 Specimen slightly hjfr=618) hemolyzed CHLORIDE (BEAKER) (test 101 meq/L 98-107 fwqn=275) CO2 (BEAKER) (test 23 meq/L 22-29 ympc=254) BLOOD UREA NITROGEN 15 mg/dL 7-21 (BEAKER) (test zrfl=748) CREATININE (BEAKER) (test 1.00 mg/dL 0.57-1.25 Specimen slightly sjtl=265) hemolyzed GLUCOSE RANDOM (BEAKER) 128 mg/dL 70-105 (test zfbx=777) CALCIUM (BEAKER) (test 9.3 mg/dL 8.4-10.2 qgqy=320) EGFR (BEAKER) (test 71 mL/min/1.73 sq m ESTIMATED GFR IS NOT xwvj=1715) ACCURATE CREATININE CLEARANCE IN PREDICTING GLOMERULAR FILTRATION RATE. ESTIMATED GFR IS NOT APPLICABLE FOR DIALYSIS PATIENTS. HEPATIC FUNCTION [id number] 00:09:00 Test Item Value Reference Range Comments TOTAL PROTEIN (BEAKER) (test 7.4 gm/dL 6.0-8.3 Specimen slightly hemolyzed sjvb=250) ALBUMIN (BEAKER) (test 3.9 g/dL 3.5-5.0 Specimen slightly hemolyzed asep=5619) BILIRUBIN TOTAL (BEAKER) (test 2.0 mg/dL 0.2-1.2 Specimen slightly hemolyzed sqqk=671) BILIRUBIN DIRECT (BEAKER) (test 0.6 mg/dL 0.1-0.5 Specimen slightly hemolyzed wnqi=582) ALKALINE PHOSPHATASE (BEAKER) 62 U/L 40-150 (test hqxq=002) AST (SGOT) (BEAKER) (test 21 U/L 5-34 Specimen slightly hemolyzed wumv=665) ALT (SGPT) (BEAKER) (test 24 U/L 6-55 Specimen slightly hemolyzed qapr=173) [id number] 23:44:00 Test Item Value Reference Range Comments PROTIME (BEAKER) (test glcn=910) 15.0 seconds 11.7-14.7 INR (BEAKER) (test oagy=585) 1.2 <=5.9 PARTIAL THROMBOPLASTIN TIME (BEAKER) (test 36.5 seconds 22.5-36.0 teqz=771) RECOMMENDED COUMADIN/WARFARIN INR THERAPY RANGESSTANDARD DOSE: 2.0 - 3.0 Includes: PROPHYLAXIS forvenous thrombosis, systemic embolization; TREATMENT for venous thrombosis and/or pulmonary embolus.HIGH RISK: Target INR is 2.5-3.5 for patients with mechanical heart valves.PROTHROMBIN [id number] 23:43: 00 Test Item Value Reference Range Comments PROTIME (BEAKER) (test wmgn=863) 15.0 seconds 11.7-14.7 INR (BEAKER) (test ksxw=866) 1.2 <=5.9 RECOMMENDED COUMADIN/WARFARIN INR THERAPY RANGESSTANDARD DOSE: 2.0 - 3.0 Includes: PROPHYLAXIS forvenous thrombosis, systemic embolization; TREATMENT for venous thrombosis and/or pulmonary embolus.HIGH RISK: Target INR is 2.5-3.5 for patients with mechanical heart valves.
--- NOTE | 2018-12-18 17:19 | RAD REPORT ---
EXAM DESCRIPTION: Luis Single View12/18/2018 5:08 pm CLINICAL HISTORY: Chest pain COMPARISON: August 2017 FINDINGS: The lungs appear clear of acute infiltrate. The heart is mildly enlarged. Postsurgical changes involve the chest. IMPRESSION: No acute abnormalities displayed
[2018-12-18 17:21] LABS: Absolute Lymphocytes (CBC) 1.8 K/uL (0.7-4.9); Absolute Monocytes 0.7 K/uL (0.1-1.3); Basophils % 1.1 % (0-1.3); Eosinophils % 0.9 % (0-4.4); Hematocrit 41.6 % (39.6-49.0); MPV 8.1 fL (7.6-11.3); Monocytes % 8.9 % (3.3-12.3); RBC Red Blood Cell Count 4.91 M/uL (4.33-5.43)
[2018-12-18 17:24] LABS: Protime INR 1.43
[2018-12-18 17:40] LABS: ALT/SGPT 19 U/L (12-78); AST/SGOT 18 U/L (15-37); Albumin 3.8 g/dL (3.4-5.0); Alkaline Phosphatase 74 U/L (45-117); BUN Blood Urea Nitrogen 12 mg/dL (7-18); Bicarbonate 26 mmol/L (21-32); Bilirubin Direct 0.2 mg/dL (0-0.2); Bilirubin Total 0.7 mg/dL (0.2-1.0); Glucose Level 124 mg/dL (74-106); Magnesium 1.9 mg/dL (1.8-2.4); NT PRO-BNP 773 pg/mL (<450); Potassium 4.5 mmol/L (3.5-5.1); Protein, Total 7.5 g/dL (6.4-8.2); Sodium Level 141 mmol/L (136-145); Troponin (Emerg Dept Use Only) < 0.02 ng/mL (0.0-0.045)
--- NOTE | 2018-12-18 18:23 | EDPHYS ---
Physician Documentation [facility] Name: David Hdz Age: 88 yrs Sex: Male : 1930 Arrival Date: 12/18/2018 Time: 16:32 Bed 5 Private MD: Dane Kelsey C ED Physician Roberto Carlos Pichardo HPI: 12/18 17:17 This 88 yrs old Male presents to ER via Ambulatory with complaints of ps1 Headache, High Blood Pressure. 17:17 Patient states that he had fleeting chest pain for 10 minutes into the right chest with ps1 no shortness of breath. His BP was elevated \R\170 systolic. He takes amlodipine, metoprolol, and lisinopril. He had a headache. States he is currently asymptomatic. Sent in by PCP for cardiac evaluation. . Historical: - Allergies: 16:48 Quinine Sulfate; ss 16:48 Sulfa (Sulfonamide Antibiotics); ss - PMHx: 16:48 skin cancer; Hypertension; Diabetes - NIDDM; ss - PSHx: 16:48 prostatectomy; Tonsillectomy; Hernia repair; hemorrhoidectomy; CABG; ss - Immunization history:: Adult Immunizations up to date. - Social history:: Smoking status: Patient/guardian denies using tobacco. - Ebola Screening: : Patient denies exposure to infectious person Patient denies travel to an Ebola-affected area in the 21 days before illness onset. ROS: 17:23 Constitutional: Negative for fever, chills, and weight loss, Eyes: Negative for injury, ps1 pain, redness, and discharge, ENT: Negative for injury, pain, and discharge, Respiratory: Negative for shortness of breath, cough, wheezing, and pleuritic chest pain, Abdomen/GI: Negative for abdominal pain, nausea, vomiting, diarrhea, and constipation, Back: Negative for injury and pain, MS/Extremity: Negative for injury and deformity, Skin: Negative for injury, rash, and discoloration. 17:23 Cardiovascular: Positive for chest pain. 17:23 Neuro: Positive for headache. Exam: 17:23 Constitutional: This is a well developed, well nourished patient who is awake, alert, ps1 and in no acute distress. Head/Face: Normocephalic, atraumatic. Eyes: Pupils equal round and reactive to light, extra-ocular motions intact. Lids and lashes normal. Conjunctiva and sclera are non-icteric and not injected. Chest/axilla: Normal chest wall appearance and motion. Nontender with no deformity. No lesions are appreciated. Cardiovascular: Regular rate and rhythm. No gallops, murmurs, or rubs. Normal PMI, no JVD. No pulse deficits. Respiratory: Lungs have equal breath sounds bilaterally, clear to auscultation and percussion. No rales, rhonchi or wheezes noted. No increased work of breathing, no retractions or nasal flaring. Abdomen/GI: Soft, non-tender, with normal bowel sounds. No distension or tympany. No guarding or rebound. No evidence of tenderness throughout. MS/ Extremity: Pulses equal, no cyanosis. Neurovascular intact. Full, normal range of motion. Neuro: Awake and alert, GCS 15, oriented to person, place, time, and situation. Cranial nerves II-XII grossly intact. Sensory grossly intact. Psych: Awake, alert, with orientation to person, place and time. Behavior, mood, and affect are within normal limits. Vital Signs: 16:46 BP 167 / 107; Pulse 102; Resp 18; Temp 98.5(O); Pulse Ox 97% on R/A; Weight 96.16 kg; ss Height 5 ft. 8 in. (172.72 cm); Pain 0/10; 18:04 BP 159 / 108; Pulse 101; Resp 16; Pulse Ox 98% on R/A; la1 16:46 Body Mass Index 32.23 (96.16 kg, 172.72 cm) ss MDM: 17:14 Patient medically screened. ps1 18:25 Data reviewed: vital signs, nurses notes, old medical records, lab test result(s), EKG, ps1 radiologic studies, and as a result, I will discharge patient. Counseling: I had a detailed discussion with the patient and/or guardian regarding: the historical points, exam findings, and any diagnostic results supporting the discharge/admit diagnosis, the presence of at least one elevated blood pressure reading (>120/80) during this emergency department visit, lab results, radiology results, the need for outpatient follow up. 12/18 16:49 Order name: CBC with Diff; Complete Time: 17:29 ps1 12/18 16:49 Order name: LFT's; Complete Time: 18:10 ps1 12/18 16:49 Order name: Magnesium; Complete Time: 18:10 ps1 12/18 16:49 Order name: NT PRO-BNP; Complete Time: 18:10 ps1 12/18 16:49 Order name: PT-INR; Complete Time: 17:29 ps1 12/18 16:49 Order name: Troponin (emerg Dept Use Only); Complete Time: 18:10 ps1 12/18 16:49 Order name: XRAY Chest (1 view); Complete Time: 17:29 ps1 12/18 16:49 Order name: EKG; Complete Time: 16:50 ps1 12/18 16:49 Order name: Cardiac monitoring; Complete Time: 16:51 ps1 12/18 16:49 Order name: EKG - Nurse/Tech; Complete Time: 16:51 ps1 12/18 16:49 Order name: IV Saline Lock; Complete Time: 17:14 ps1 12/18 16:49 Order name: CMP; Complete Time: 18:10 ps1 12/18 17:42 Order name: Urine Dipstick--Ancillary (enter results) em1 12/18 17:43 Order name: Urine Dipstick-Ancillary EDNH 12/18 16:49 Order name: Labs collected and sent; Complete Time: 17:14 ps1 12/18 16:49 Order name: O2 Per Protocol; Complete Time: 16:51 ps1 12/18 16:49 Order name: O2 Sat Monitoring; Complete Time: 16:51 ps1 12/18 17:42 Order name: Urine Dipstick-Ancillary (obtain specimen); Complete Time: 17:43 em1 EC:37 Rate is 101 beats/min. Rhythm is regular. QRS [place] is Normal. DC interval is shortened. ps1 QRS interval is prolonged. QT interval is prolonged at 508 msec. No Q waves. T waves are Inverted in leads II, III, aVF. No ST changes noted. Clinical impression: NSR w/ Non-specific ST/T Changes and RBBB. Interpreted by me. Administered Medications: No medications were administered Disposition: 12/18/18 18:22 Discharged to Home. Impression: Hypertension secondary to endocrine disorders. - Condition is Stable. - Discharge Instructions: Hypertension. - Medication Reconciliation Form, Thank You Letter, Antibiotic Education, Prescription Opioid Use form. - Follow up: Dane Kelsey MD; When: 1 week; Reason: Recheck today's complaints, Continuance of care, Re-evaluation by your physician. Follow up: Emergency Department; When: As needed; Reason: If symptoms return, Trouble breathing, Worsening of condition. - Problem is chronic. - Symptoms have improved. Signatures: Dispatcher [employer] EDRic Hahn em1 Mary Coronado RN RN ss Stephen Julian RN RN la1 Roberto Carlos Pichardo MD MD ps1 Corrections: (The following items were deleted from the chart) 17:24 17:17 Patient states that he had fleeting chest pain for 10 minutes into the right ps1 chest with no shortness of breath. He had a headache. . ps1 18:35 18:22 12/18/2018 18:22 Discharged to Home. Impression: Hypertension secondary to la1 endocrine disorders. Condition is Stable. Forms are Medication Reconciliation Form, Thank You Letter, Antibiotic Education, Prescription Opioid Use. Follow up: A Kelsey; When: 1 week; Reason: Recheck today's complaints, Continuance of care, Re-evaluation by your physician. Follow up: Emergency Department; When: As needed; Reason: If symptoms return, Trouble breathing, Worsening of condition. Problem is chronic. Symptoms have improved. ps1
--- NOTE | 2018-12-18 18:23 | ER ---
Nurse's Notes [facility] Name: David Hdz Age: 88 yrs Sex: Male : 1930 Arrival Date: 12/18/2018 Time: 16:32 Bed 5 Private MD: Dane Kelsey C Diagnosis: Hypertension secondary to endocrine disorders Presentation: 12/18 16:42 Presenting complaint: Patient states: headache, high blood pressure, sweating and ss "stomach issues", since today at lunch time. Denies pain, cough and or fever. Transition of care: patient was not received from another setting of care. Onset of symptoms was December 18, 2018. Risk Assessment: Do you want to hurt yourself or someone else? Patient reports no desire to harm self or others. Initial Sepsis Screen: Does the patient meet any 2 criteria? No. Patient's initial sepsis screen is negative. Does the patient have a suspected source of infection? No. Patient's initial sepsis screen is negative. Care prior to arrival: None. 16:42 Method Of Arrival: Ambulatory ss 16:42 Acuity: VLADIMIR 3 ss Triage Assessment: 18:35 Pain: Also complains of. la1 Historical: - Allergies: 16:48 Quinine Sulfate; ss 16:48 Sulfa (Sulfonamide Antibiotics); ss - PMHx: 16:48 skin cancer; Hypertension; Diabetes - NIDDM; ss - PSHx: 16:48 prostatectomy; Tonsillectomy; Hernia repair; hemorrhoidectomy; CABG; ss - Immunization history:: Adult Immunizations up to date. - Social history:: Smoking status: Patient/guardian denies using tobacco. - Ebola Screening: : Patient denies exposure to infectious person Patient denies travel to an Ebola-affected area in the 21 days before illness onset. Screenin:02 Abuse screen: Denies threats or abuse. Nutritional screening: No deficits noted. la1 Tuberculosis screening: No symptoms or risk factors identified. Fall Risk None identified. Assessment: 17:01 Reassessment: Pt denies COOK at this time, denies CP, denies SOB, states he had an la1 episode of diaphoresis at home this morning. General: Appears in no apparent distress. Behavior is calm, cooperative. Pain: Denies pain. Neuro: Level of Consciousness is awake, alert, obeys commands, Oriented to person, place, time, situation. Cardiovascular: Heart tones S1 S2 present Capillary refill < 3 seconds Patient's skin is warm and dry. Respiratory: Airway is patent Respiratory effort is even, unlabored, Respiratory pattern is regular, symmetrical, Breath sounds are clear bilaterally. GI: No signs and/or symptoms were reported involving the gastrointestinal system. : No signs and/or symptoms were reported regarding the genitourinary system. Vital Signs: 16:46 BP 167 / 107; Pulse 102; Resp 18; Temp 98.5(O); Pulse Ox 97% on R/A; Weight 96.16 kg; ss Height 5 ft. 8 in. (172.72 cm); Pain 0/10; 18:04 BP 159 / 108; Pulse 101; Resp 16; Pulse Ox 98% on R/A; la1 16:46 Body Mass Index 32.23 (96.16 kg, 172.72 cm) ED Course: 16:32 Patient arrived in ED. as 16:33 Dane Kelsey MD is Private Physician. as 16:43 Triage completed. ss 16:46 Arm band placed on right wrist. ss 16:48 Roberto Carlos Pichardo MD is Attending Physician. ps1 17:02 Call light in reach. Side rails up X 1. satellite project site monitor on. Pulse ox on. NIBP on. la1 17:03 No provider procedures requiring assistance completed. Patient maintains SpO2 la1 saturation greater than 95% on room air. 17:07 XRAY Chest (1 view) In Process Unspecified. EDMS 18:04 Stephen Julian RN is Primary Nurse. la1 18:20 Dane Kelsey MD is Referral Physician. ps1 18:35 IV discontinued, intact, bleeding controlled, No redness/swelling at site. Pressure la1 dressing applied. Administered Medications: No medications were administered Outcome: 18:22 Discharge ordered by . ps1 18:35 Discharged to home ambulatory. la1 18:35 Condition: stable 18:35 Discharge instructions given to patient, Instructed on discharge instructions, follow up and referral plans. medication usage, Demonstrated understanding of instructions, follow-up care. 18:35 Patient left the ED. la1 Signatures: Dispatcher [employer] Deepti Hathaway Shelby, RN RN Stephen Julian RN RN la1 Roberto Carlos Pichardo MD MD ps1 Corrections: (The following items were deleted from the chart) 16:47 16:42 Presenting complaint: Patient states: headache, sweating and "stomach issues", ss since today at lunch time. Denies pain, cough and or fever ss
[2018-12-18 18:47] VITALS: TEMP 98.5
[2018-12-18 18:48] VITALS: BP 159/108; O2SAT 98
[2018-12-18 20:23] LABS: Urine Blood NEGATIVE (NEG); Urine Glucose NEGATIVE (NEG); Urine Protein NEGATIVE (NEG)
--- NOTE | 2018-12-19 06:07 | EKG ---
Test Date: 2018-12-18 Test Time: 16:37:52 Routing Clerk: LA MEASUREMENT RESULTS: Intervals: Rate: 101 AK: 150 QRSD: 144 QT: 392 QTc: 508 Valier: P: 90 AK: 150 QRS: 16 T: -5 INTERPRETIVE STATEMENTS: Atrial flutter with variable AV block Right bundle branch block T wave abnormality, non specific Abnormal ECG Compared to ECG 08/26/2017 22:28:19 no significant change from previous ECG Electronically Signed On 12-19-18 06:06:57 CDT by Jose De Jesus Jaime
== END 2018-12-18 18:35 | disposition home or self-care (01) ==
LOC: ER 16:31
DX: I15.2 Hypertension secondary to endocrine disorders (principal); I45.10 Unspecified right bundle-branch block; E11.9 Type 2 diabetes mellitus without complications; C44.90 Unspecified malignant neoplasm of skin, unspecified; Z88.2 Allergy status to sulfonamides; Z88.8 Allergy status to other drugs, medicaments and biological substances
CPT/HCPCS: 36415; 71045; 80053; 80076; 81003; 83735; 83880; 84484; 85025; 85610; 93005; 99284

== ENCOUNTER 2020-11-10 07:44 | Inpatient (IN) | payer OTHER ==
--- OUTSIDE RECORDS SUMMARY | 2020-11-10 07:49 | XMS REPORT | Continuity of Care Document ---
:1930 Author Organization [facility] t Address [address] [place] [address] Care Team Providers Name Role Phone Trice SAUNDERS Primary Care Physician Unavailable CONSTANTINE SANDOVAL Attending Clinician Unavailable CONSTANTINE SANDOVAL Admitting Clinician Unavailable Problems Condition Condition Condition Status Onset Resolution Last Treating Co mments Source Name Details Category Date Date Treatment Clinician Date Atelectasi Atelectasi Disease Active 2016-[address] [facility] Fluid Fluid Disease Active 2016-[address] [facility] overload overload 08-25 [facility] NSTEMI NSTEMI Disease Active 2016-[address] [facility] (non-ST (non-ST 08-24 [facility] - elevated elevated 00:00: Medica l myocardial myocardial 00 Ce nter infarction infarction ) ) 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 2016-[address] 1 1 08-24 [facility] Acute Acute Disease Active 2016-[address] [facility] pulmonary pulmonary 08-24 [facility] - insufficie insufficie 00:00: Me dical ncy ncy 00 Center following following thoracic thoracic surgery surgery Hypertensi Hypertensi Disease Active 2016-[address] ve urgency ve urgency 08-24 Cindy k[facility] - 00:00: Medical 00 [facility] Acute Acute Disease Active 2016-[address] [facility] blood loss blood loss 08-24 Cindy kes - anemia anemia 00:00: Medical 00 [facility] Hyperglyce Hyperglyce Disease Active 2016-[address] marcelina marcelina 08-24 [facility] SIRS SIRS Disease Active 2016-[address] [facility] [address] (systemic (systemic 08-24 [facility] - inflammato inflammato 00:00: Me dical ry ry 00 Center response response syndrome) syndrome) CAD CAD Disease Active 2016-[address] [facility] (coronary (coronary 08-23 [facility] - artery artery 00:00: Medical disease) disease) 00 Center Allergies, Adverse Reactions, Alerts Allergy Allergy Status Severity Reaction(s) Onset Inactive Treating Comm ents Source Name Type Date Date Clinician Cecilia Roberts Active Anaphylaxis [facility] e-Quinin ty to 08-17 [facility] - e adverse 00:00: Medical Analogue reaction 00 Center s s ([place] a Alkaloid s) Family History Family Member Diagnosis Comments Start Date Stop Date Source Natural father Heart block [facility] Natural mother Heart block [facility] Natural sister Lung cancer [facility] Natural sister [facility] Social History Social Habit Start Date Stop Date Quantity Comments Source History of tobacco Pipe Smoker [facility] use [facility] Sex Assigned At [facility] Cigarettes smoked 2017-06-25 2017-06-25 [facility] - current (pack per 00:00:00 00:00:00 Medical Center day) - Reported Tobacco use and 2017-06-25 2017-06-25 Never used [facility] - exposure 00:00:00 00:00:00 [facility] Alcohol intake 2017-06-25 2017-06-25 [facility]3] es - 00:00:00 00:00:00 [facility] Smoking Status Start Date Stop Date Source Former smoker 2017-06-25 00:00:00 2017-06-25 00:00:00 [facility] Medications Ordered Filled Start Stop Current Ordering Indication Dosage Frequency Signature Comments Components Source Medication Medication Date Date Medication? Clinician (SIG) Name Name ramipril 2016-08 Yes 10mg Take [address] [facility] (ALTACE) 10 1-15 by mouth [facility] - MG capsule 13:52: every 12 Med ical 58 (twelve) Center hours. simvastatin 2016-08 Yes 20mg QD Take [address] [facility] (ZOCOR) 20 1-15 by mouth [facility] - MG tablet 13:52: nightly. Medi derick 58 Center digoxin 2016-08 Yes 250ug QD Take 250 [facility] (LANOXIN) 1-15 mcg by [facility] - 0.25 MG 13:52: mouth Medical tablet 58 daily. Center metFORMIN 2016-08 Yes 500mg Take [address] [facility] [address] (GLUCOPHAGE 1-15 mg by [facility] - ) 500 MG 13:52: mouth 2 Medica l tablet 58 (two) Center times daily with breakfast and dinner. omeprazole 2016-08 Yes 20mg QD Take [address] (PRILOSEC) 1-15 by mouth [facility] - 20 MG 13:52: daily. Medical capsule 58 Center metoprolol 2016-08 Yes 25mg QD Take [address] (TOPROL-XL) 1-15 by mouth [facility] - 25 MG 24 hr 13:52: daily. Medi derick tablet 58 Center apixaban 2016-08 Yes 5mg Q.5D Take [address] [facility] (ELIQUIS) 5 1-15 tablet (5 Severiano es - mg Tab 00:00: mg total) Medica l tablet 00 by mouth 2 Center (two) times daily. Procedures This patient has no known procedures. Results Test Description Test Time Test Comments Results Result Comments Source POCT-GLUCOSE METER 2017-07-01 12:09:00 Test Item Value Reference Range Interpretation [facility] POC-GLUCOSE METER (BEAKER) (test 110 mg/dL 70-110 TESTED AT [facility] [address] [facility] code = 1538) [facility] [id number] 11:44:00 Test Item Value Reference Range Interpretation Comments MAGNESIUM (BEAKER) (test code = 1.8 mg/dL 1.6-2.6 627) BASIC METABOLIC [id number] 11:44:00 Test Item Value Reference Range Interpretation Comments SODIUM (BEAKER) 139 meq/L 136-145 (test code = 381) POTASSIUM (BEAKER) 4.4 meq/L 3.5-5.1 (test code = 379) CHLORIDE (BEAKER) 105 meq/L 98-107 (test code = 382) CO2 (BEAKER) (test 26 meq/L 22-29 code = 355) BLOOD UREA NITROGEN 12 mg/dL 7-21 (BEAKER) (test code = 354) CREATININE (BEAKER) 1.04 mg/dL 0.57-1.25 (test code = 358) GLUCOSE RANDOM 105 mg/dL 70-105 (BEAKER) (test code = 652) CALCIUM (BEAKER) 8.6 mg/dL 8.4-10.2 (test code = 697) EGFR (BEAKER) (test 68 mL/min/1.73 ESTIMA YIMI GFR IS code = 1092) sq m NOT ACCURATE CREATININE CLEARANCE IN PREDICTING GLOMERULAR FILTRATION RATE . ESTIMATED GFR I S NOT APPLICABLE FOR DIALYSIS PATIEN TS. CBC W/PLT COUNT & AUTO [id number] 11:26:00 Test Item Value Reference Range Interpretation Comments WHITE BLOOD CELL COUNT (BEAKER) 11.6 K/ L 3.5-10.5 H (test code = 775) RED BLOOD CELL COUNT (BEAKER) 3.58 M/ L 4.63-6.08 L (test code = 761) HEMOGLOBIN (BEAKER) (test code = 10.7 GM/DL 13.7-17.5 L 410) HEMATOCRIT (BEAKER) (test code = 32.0 % 40.1-51.0 L 411) MEAN CORPUSCULAR VOLUME (BEAKER) 89.4 fL 79.0-92.2 (test code = 753) MEAN CORPUSCULAR HEMOGLOBIN 29.9 pg 25.7-32.2 (BEAKER) (test code = 751) MEAN CORPUSCULAR HEMOGLOBIN CONC 33.4 GM/DL 32.3-36.5 (BEAKER) (test code = 752) RED CELL DISTRIBUTION WIDTH 13.2 % 11.6-14.4 (BEAKER) (test code = 412) PLATELET COUNT (BEAKER) (test 273 K/CU MM 150-450 code = 756) MEAN PLATELET VOLUME (BEAKER) 9.4 fL 9.4-12.4 (test code = 754) NUCLEATED RED BLOOD CELLS 0 /100 WBC 0-0 (BEAKER) (test code = 413) NEUTROPHILS RELATIVE PERCENT 68 % (BEAKER) (test code = 429) LYMPHOCYTES RELATIVE PERCENT 19 % (BEAKER) (test code = 430) MONOCYTES RELATIVE PERCENT 10 % (BEAKER) (test code = 431) EOSINOPHILS RELATIVE PERCENT 1 % (BEAKER) (test code = 432) BASOPHILS RELATIVE PERCENT 1 % (BEAKER) (test code = 437) NEUTROPHILS ABSOLUTE COUNT 7.92 K/ L 1.78-5.38 H (BEAKER) (test code = 670) LYMPHOCYTES ABSOLUTE COUNT 2.16 K/ L 1.32-3.57 (AKER) (test code = 414) MONOCYTES ABSOLUTE COUNT (BEAKER) 1.14 K/ L 0.30-0.82 H (test code = 415) EOSINOPHILS ABSOLUTE COUNT 0.16 K/ L 0.04-0.54 (BEAKER) (test code = 416) BASOPHILS ABSOLUTE COUNT (AKER) 0.08 K/ L 0.01-0.08 (test code = 417) IMMATURE GRANULOCYTES-RELATIVE 1 % 0-1 PERCENT ([facility]) (test code = 2801) POCT-GLUCOSE [id number] 07:11:00 Test Item Value Reference Range Interpretation Comments POC-GLUCOSE METER 127 mg/dL 70-110 H TESTED AT [place] [address] ([facility]) (test code = [facility] Yaya [facility] 1538) [id number] POCT-GLUCOSE [id number] 22:25:00 Test Item Value Reference Range Interpretation Comments POC-GLUCOSE METER 123 mg/dL 70-110 H TESTED AT [place] [address] ([facility]) (test code = [facility] 1538) [id number] POCT-GLUCOSE [id number] 17:17:00 Test Item Value Reference Range Interpretation Comments POC-GLUCOSE METER 142 mg/dL 70-110 H TESTED AT [place] [address] ([facility]) (test code = [facility] 1538) [id number] POCT-GLUCOSE [id number] 11:25:00 Test Item Value Reference Range Interpretation Comments POC-GLUCOSE METER 122 mg/dL 70-110 H TESTED AT [place] [address] ([facility]) (test code = [facility] 1538) [id number] POCT-GLUCOSE [id number] 07:25:00 Test Item Value Reference Range Interpretation Comments POC-GLUCOSE METER 141 mg/dL 70-110 H TESTED AT [place] [address] ([facility]) (test code = [facility] 1538) [id number] 06:33:00 Test Item Value Reference Range Interpretation Comments MAGNESIUM ([facility]) (test code = 1.7 mg/dL 1.6-2.6 627) BASIC METABOLIC [id number] 06:33:00 Test Item Value Reference Range Interpretation Comments SODIUM (BEAKER) 138 meq/L 136-145 (test code = 381) POTASSIUM (BEAKER) 3.9 meq/L 3.5-5.1 (test code = 379) CHLORIDE (BEAKER) 104 meq/L 98-107 (test code = 382) CO2 (BEAKER) (test 25 meq/L 22-29 code = 355) BLOOD UREA NITROGEN 15 mg/dL 7-21 (BEAKER) (test code = 354) CREATININE (BEAKER) 1.05 mg/dL 0.57-1.25 (test code = 358) GLUCOSE RANDOM 131 mg/dL 70-105 H (BEAKER) (test code = 652) CALCIUM (BEAKER) 8.7 mg/dL 8.4-10.2 (test code = 697) EGFR (BEAKER) (test 67 mL/min/1.73 ESTIMA YIMI GFR IS code = 1092) sq m NOT ACCURATE CREATININE CLEARANCE IN PREDICTING GLOMERULAR FILTRATION RATE . ESTIMATED GFR I S NOT APPLICABLE FOR DIALYSIS PATIEN TS. POCT-GLUCOSE [id number] 21:00:00 Test Item Value Reference Range Interpretation Comments POC-GLUCOSE METER 139 mg/dL 70-110 H TESTED AT [facility] [address] (BEAKER) (test code = [facility] 1538) [id number] POCT-GLUCOSE [id number] 17:04:00 Test Item Value Reference Range Interpretation Comments POC-GLUCOSE METER 146 mg/dL 70-110 H TESTED AT [facility] [address] (BEAKER) (test code = [facility] 1538) [id number] POCT-GLUCOSE [id number] 12:17:00 Test Item Value Reference Range Interpretation Comments POC-GLUCOSE METER 142 mg/dL 70-110 H TESTED AT [facility] [address] (BEAKER) (test code = [facility] 1538) [id number] 08:50:00 Test Item Value Reference Range Interpretation Comments MAGNESIUM (BEAKER) (test code = 1.8 mg/dL 1.6-2.6 627) BASIC METABOLIC [id number] 08:50:00 Test Item Value Reference Range Interpretation Comments SODIUM (BEAKER) 140 meq/L 136-145 (test code = 381) POTASSIUM (BEAKER) 3.9 meq/L 3.5-5.1 (test code = 379) CHLORIDE (BEAKER) 106 meq/L 98-107 (test code = 382) CO2 (BEAKER) (test 28 meq/L 22-29 code = 355) BLOOD UREA NITROGEN 17 mg/dL 7-21 (BEAKER) (test code = 354) CREATININE (BEAKER) 1.03 mg/dL 0.57-1.25 (test code = 358) GLUCOSE RANDOM 184 mg/dL 70-105 H ([facility]) (test code = 652) CALCIUM (BEAKER) 8.7 mg/dL 8.4-10.2 (test code = 697) EGFR ([facility]) (test 69 mL/min/1.73 ESTIMA YIMI GFR IS code = 1092) sq m NOT ACCURATE CREATININE CLEARANCE IN PREDICTING GLOMERULAR FILTRATION RATE . ESTIMATED GFR I S NOT APPLICABLE FOR DIALYSIS PATIEN TS. POCT-GLUCOSE [id number] 07:57:00 Test Item Value Reference Range Interpretation Comments POC-GLUCOSE METER 208 mg/dL 70-110 H TESTED AT [place] [address] ([facility]) (test code = FIORELLA Javier [facility] 1538) [id number] POCT-GLUCOSE [id number] 20:43:00 Test Item Value Reference Range Interpretation Comments POC-GLUCOSE METER 111 mg/dL 70-110 H TESTED AT [place] [address] ([facility]) (test code = [facility] Javier [facility] 1538) [id number] POCT-GLUCOSE [id number] 16:39:00 Test Item Value Reference Range Interpretation Comments POC-GLUCOSE METER 108 mg/dL 70-110 TESTED AT [place] [address] ([facility]) (test code = [facility]ORE[facility] Javier [facility] 1538) [id number] POCT-GLUCOSE [id number] 12:11:00 Test Item Value Reference Range Interpretation Comments POC-GLUCOSE METER 105 mg/dL 70-110 TESTED AT [place] [address] ([facility]) (test code = [facility] Javier [facility] 1538) [id number] POCT-GLUCOSE [id number] 08:59:00 Test Item Value Reference Range Interpretation Comments POC-GLUCOSE METER 170 mg/dL 70-110 H TESTED AT [place] [address] ([facility]) (test code = [facility] [place] 1538) [id number] BASIC METABOLIC [id number] 05:24:00 Test Item Value Reference Range Interpretation Comments SODIUM (BEAKER) 139 meq/L 136-145 (test code = 381) POTASSIUM (BEAKER) 3.6 meq/L 3.5-5.1 (test code = 379) CHLORIDE (BEAKER) 106 meq/L 98-107 (test code = 382) CO2 (BEAKER) (test 24 meq/L 22-29 code = 355) BLOOD UREA NITROGEN 18 mg/dL 7-21 (BEAKER) (test code = 354) CREATININE (BEAKER) 0.91 mg/dL 0.57-1.25 (test code = 358) GLUCOSE RANDOM 126 mg/dL 70-105 H (BEAKER) (test code = 652) CALCIUM (BEAKER) 8.3 mg/dL 8.4-10.2 L (test code = 697) EGFR (BEAKER) (test 79 mL/min/1.73 ESTIMA YIMI GFR IS code = 1092) sq m NOT ACCURATE CREATININE CLEARANCE IN PREDICTING GLOMERULAR FILTRATION RATE . ESTIMATED GFR I S NOT APPLICABLE FOR DIALYSIS PATIEN TS. CBC W/PLT COUNT & AUTO [id number] 04:45:00 Test Item Value Reference Range Interpretation Comments WHITE BLOOD CELL COUNT (BEAKER) 8.0 K/ L 3.5-10.5 (test code = 775) RED BLOOD CELL COUNT (BEAKER) 3.55 M/ L 4.63-6.08 L (test code = 761) HEMOGLOBIN (BEAKER) (test code = 10.3 GM/DL 13.7-17.5 L 410) HEMATOCRIT (BEAKER) (test code = 31.4 % 40.1-51.0 L 411) MEAN CORPUSCULAR VOLUME (BEAKER) 88.5 fL 79.0-92.2 (test code = 753) MEAN CORPUSCULAR HEMOGLOBIN 29.0 pg 25.7-32.2 (BEAKER) (test code = 751) MEAN CORPUSCULAR HEMOGLOBIN CONC 32.8 GM/DL 32.3-36.5 (BEAKER) (test code = 752) RED CELL DISTRIBUTION WIDTH 12.8 % 11.6-14.4 (BEAKER) (test code = 412) PLATELET COUNT (BEAKER) (test 189 K/CU MM 150-450 code = 756) MEAN PLATELET VOLUME (BEAKER) 10.3 fL 9.4-12.4 (test code = 754) NUCLEATED RED BLOOD CELLS 0 /100 WBC 0-0 (BEAKER) (test code = 413) NEUTROPHILS RELATIVE PERCENT 65 % (BEAKER) (test code = 429) LYMPHOCYTES RELATIVE PERCENT 21 % (BEAKER) (test code = 430) MONOCYTES RELATIVE PERCENT 10 % (BEAKER) (test code = 431) EOSINOPHILS RELATIVE PERCENT 3 % (BEAKER) (test code = 432) BASOPHILS RELATIVE PERCENT 1 % (BEAKER) (test code = 437) NEUTROPHILS ABSOLUTE COUNT 5.22 K/ L 1.78-5.38 (BEAKER) (test code = 670) LYMPHOCYTES ABSOLUTE COUNT 1.65 K/ L 1.32-3.57 (BEAKER) (test code = 414) MONOCYTES ABSOLUTE COUNT (BEAKER) 0.83 K/ L 0.30-0.82 H (test code = 415) EOSINOPHILS ABSOLUTE COUNT 0.21 K/ L 0.04-0.54 (BEAKER) (test code = 416) BASOPHILS ABSOLUTE COUNT (BEAKER) 0.07 K/ L 0.01-0.08 (test code = 417) IMMATURE GRANULOCYTES-RELATIVE 0 % 0-1 PERCENT (BEAKER) (test code = 2801) POCT-GLUCOSE [id number] 20:46:00 Test Item Value Reference Range Interpretation Comments POC-GLUCOSE METER 131 mg/dL 70-110 H TESTED AT [place] [address] (BEAKER) (test code = [facility] 1538) [id number] POCT-GLUCOSE [id number] 16:38:00 Test Item Value Reference Range Interpretation Comments POC-GLUCOSE METER 121 mg/dL 70-110 H TESTED AT [place] [address] ([facility]) (test code = [facility] 1538) [id number] POCT-GLUCOSE [id number] 08:45:00 Test Item Value Reference Range Interpretation Comments POC-GLUCOSE METER 208 mg/dL 70-110 H TESTED AT [place] [address] ([facility]) (test code = [facility] 1538) [id number] BASIC METABOLIC [id number] 07:45:00 Test Item Value Reference Range Interpretation Comments SODIUM (BEAKER) 139 meq/L 136-145 (test code = 381) POTASSIUM (BEAKER) 3.8 meq/L 3.5-5.1 (test code = 379) CHLORIDE (BEAKER) 106 meq/L 98-107 (test code = 382) CO2 (BEAKER) (test 24 meq/L 22-29 code = 355) BLOOD UREA NITROGEN 18 mg/dL 7-21 (BEAKER) (test code = 354) CREATININE (BEAKER) 1.00 mg/dL 0.57-1.25 (test code = 358) GLUCOSE RANDOM 139 mg/dL 70-105 H (BEAKER) (test code = 652) CALCIUM (BEAKER) 9.1 mg/dL 8.4-10.2 (test code = 697) EGFR (BEAKER) (test 71 mL/min/1.73 ESTIMA YIMI GFR IS code = 1092) sq m NOT ACCURATE CREATININE CLEARANCE IN PREDICTING GLOMERULAR FILTRATION RATE . ESTIMATED GFR I S NOT APPLICABLE FOR DIALYSIS PATIEN TS. [id number] 07:32:00 Test Item Value Reference Range Interpretation Comments MAGNESIUM (BEAKER) (test code = 1.3 mg/dL 1.6-2.6 L 627) CBC W/PLT COUNT & AUTO [id number] 06:37:00 Test Item Value Reference Range Interpretation Comments WHITE BLOOD CELL COUNT (BEAKER) 11.1 K/ L 3.5-10.5 H (test code = 775) RED BLOOD CELL COUNT (BEAKER) 3.81 M/ L 4.63-6.08 L (test code = 761) HEMOGLOBIN (BEAKER) (test code = 11.1 GM/DL 13.7-17.5 L 410) HEMATOCRIT (BEAKER) (test code = 33.5 % 40.1-51.0 L 411) MEAN CORPUSCULAR VOLUME (BEAKER) 87.9 fL 79.0-92.2 (test code = 753) MEAN CORPUSCULAR HEMOGLOBIN 29.1 pg 25.7-32.2 (BEAKER) (test code = 751) MEAN CORPUSCULAR HEMOGLOBIN CONC 33.1 GM/DL 32.3-36.5 (BEAKER) (test code = 752) RED CELL DISTRIBUTION WIDTH 13.0 % 11.6-14.4 (BEAKER) (test code = 412) PLATELET COUNT (BEAKER) (test 187 K/CU MM 150-450 code = 756) MEAN PLATELET VOLUME (BEAKER) 11.0 fL 9.4-12.4 (test code = 754) NUCLEATED RED BLOOD CELLS 0 /100 WBC 0-0 (BEAKER) (test code = 413) NEUTROPHILS RELATIVE PERCENT 70 % (BEAKER) (test code = 429) LYMPHOCYTES RELATIVE PERCENT 19 % (BEAKER) (test code = 430) MONOCYTES RELATIVE PERCENT 9 % (BEAKER) (test code = 431) EOSINOPHILS RELATIVE PERCENT 1 % (BEAKER) (test code = 432) BASOPHILS RELATIVE PERCENT 1 % (BEAKER) (test code = 437) NEUTROPHILS ABSOLUTE COUNT 7.80 K/ L 1.78-5.38 H (BEAKER) (test code = 670) LYMPHOCYTES ABSOLUTE COUNT 2.05 K/ L 1.32-3.57 (BEAKER) (test code = 414) MONOCYTES ABSOLUTE COUNT (BEAKER) 0.99 K/ L 0.30-0.82 H (test code = 415) EOSINOPHILS ABSOLUTE COUNT 0.15 K/ L 0.04-0.54 (BEAKER) (test code = 416) BASOPHILS ABSOLUTE COUNT (BEAKER) 0.07 K/ L 0.01-0.08 (test code = 417) IMMATURE GRANULOCYTES-RELATIVE 1 % 0-1 PERCENT (BEAKER) (test code = 2801) POCT-GLUCOSE [id number] 21:19:00 Test Item Value Reference Range Interpretation Comments POC-GLUCOSE METER 125 mg/dL 70-110 H TESTED AT [place] [address] ([facility]) (test code = [facility] 1538) [id number] POCT-GLUCOSE [id number] 17:34:00 Test Item Value Reference Range Interpretation Comments POC-GLUCOSE METER 171 mg/dL 70-110 H TESTED AT [place] [address] ([facility]) (test code = [facility] 1538) [id number] POCT-GLUCOSE [id number] 12:33:00 Test Item Value Reference Range Interpretation Comments POC-GLUCOSE METER 171 mg/dL 70-110 H TESTED AT [place] [address] ([facility]) (test code = [facility] 1538) [address] HEMOGLOBIN [id number] 12:21:00 Test Item Value Reference Range Interpretation Comments HEMOGLOBIN A1C ([facility]) (test code = 6.0 % 4.3-6.1 368) POCT-GLUCOSE [id number] 08:37:00 Test Item Value Reference Range Interpretation Comments POC-GLUCOSE METER 159 mg/dL 70-110 H TESTED AT [facility] 67[address] (BEAKER) (test code = [facility] [place] 1538) [id number] RAD, CHEST, 1 VIEW, NON [id number] 07:43:00Reason for exam:->sternotomy FINAL REPORT Chest one view. Clinical history: sternotomy Comparison: June 24, 2017 Discussion: A frontal chest is provided. Cardiomediastinal contours are unchanged. ET, left IJ line, and chest tubes have been removed. There is a suspected small left effusion. Patchy retrocardiac opacity can represent atelectasis or consolidation. No new airspace opacity. No pneumothorax. Signed: Edwin Sol[place]port Verified Date/Time: 06/26/2017 07:43:28 Reading Location: [facility] Radiology Reading Room BASIC METABOLIC [id number] 06:37:00 Test Item Value Reference Range Interpretation Comments SODIUM (BEAKER) 137 meq/L 136-145 (test code = 381) POTASSIUM (BEAKER) 3.7 meq/L 3.5-5.1 (test code = 379) CHLORIDE (BEAKER) 106 meq/L 98-107 (test code = 382) CO2 (BEAKER) (test 22 meq/L 22-29 code = 355) BLOOD UREA NITROGEN 15 mg/dL 7-21 (BEAKER) (test code = 354) CREATININE (BEAKER) 0.98 mg/dL 0.57-1.25 (test code = 358) GLUCOSE RANDOM 149 mg/dL 70-105 H (BEAKER) (test code = 652) CALCIUM (BEAKER) 8.8 mg/dL 8.4-10.2 (test code = 697) EGFR (BEAKER) (test 73 mL/min/1.73 ESTIMA YIMI GFR IS code = 1092) sq m NOT ACCURATE CREATININE CLEARANCE IN PREDICTING GLOMERULAR FILTRATION RATE . ESTIMATED GFR I S NOT APPLICABLE FOR DIALYSIS PATIEN TS. PROTHROMBIN [id number] 06:30:00 Test Item Value Reference Range Interpretation Comments PROTIME (BEAKER) (test code = 16.5 seconds 11.7-14.7 H 759) INR (BEAKER) (test code = 370) 1.3 <=5.9 RECOMMENDED COUMADIN/WARFARIN INR THERAPY RANGESSTANDARD DOSE: 2.0 - 3.0 Includes: PROPHYLAXIS forvenous thrombosis, systemic embolization; TREATMENT for venous thrombosis and/or pulmonary embolus.HIGH RISK: Target INR is 2.5-3.5 for patients with mechanical heart valves.[id number] 06:23:00 Test Item Value Reference Range Interpretation Comments MAGNESIUM (BEAKER) (test code = 1.7 mg/dL 1.6-2.6 627) CBC W/PLT COUNT & AUTO [id number] 06:22:00 Test Item Value Reference Range Interpretation Comments WHITE BLOOD CELL COUNT (BEAKER) 13.5 K/ L 3.5-10.5 H (test code = 775) RED BLOOD CELL COUNT (BEAKER) 3.75 M/ L 4.63-6.08 L (test code = 761) HEMOGLOBIN (BEAKER) (test code = 11.0 GM/DL 13.7-17.5 L 410) HEMATOCRIT (BEAKER) (test code = 32.9 % 40.1-51.0 L 411) MEAN CORPUSCULAR VOLUME (BEAKER) 87.7 fL 79.0-92.2 (test code = 753) MEAN CORPUSCULAR HEMOGLOBIN 29.3 pg 25.7-32.2 (BEAKER) (test code = 751) MEAN CORPUSCULAR HEMOGLOBIN CONC 33.4 GM/DL 32.3-36.5 (BEAKER) (test code = 752) RED CELL DISTRIBUTION WIDTH 13.1 % 11.6-14.4 (BEAKER) (test code = 412) PLATELET COUNT (BEAKER) (test 160 K/CU MM 150-450 code = 756) MEAN PLATELET VOLUME (BEAKER) 10.7 fL 9.4-12.4 (test code = 754) NUCLEATED RED BLOOD CELLS 0 /100 WBC 0-0 (BEAKER) (test code = 413) NEUTROPHILS RELATIVE PERCENT 80 % (BEAKER) (test code = 429) LYMPHOCYTES RELATIVE PERCENT 10 % (BEAKER) (test code = 430) MONOCYTES RELATIVE PERCENT 9 % (BEAKER) (test code = 431) EOSINOPHILS RELATIVE PERCENT 0 % (BEAKER) (test code = 432) BASOPHILS RELATIVE PERCENT 0 % (BEAKER) (test code = 437) NEUTROPHILS ABSOLUTE COUNT 10.79 K/ L 1.78-5.38 H (BEAKER) (test code = 670) LYMPHOCYTES ABSOLUTE COUNT 1.30 K/ L 1.32-3.57 L (BEAKER) (test code = 414) MONOCYTES ABSOLUTE COUNT (BEAKER) 1.21 K/ L 0.30-0.82 H (test code = 415) EOSINOPHILS ABSOLUTE COUNT 0.04 K/ L 0.04-0.54 (BEAKER) (test code = 416) BASOPHILS ABSOLUTE COUNT (BEAKER) 0.05 K/ L 0.01-0.08 (test code = 417) IMMATURE GRANULOCYTES-RELATIVE 1 % 0-1 PERCENT (BEAKER) (test code = 2801) POCT-GLUCOSE [id number] 21:25:00 Test Item Value Reference Range Interpretation Comments POC-GLUCOSE METER 145 mg/dL 70-110 H TESTED AT [place] [address] ([facility]) (test code = [facility] 1538) [id number] POCT-GLUCOSE [id number] 17:31:00 Test Item Value Reference Range Interpretation Comments POC-GLUCOSE METER 146 mg/dL 70-110 H TESTED AT [place] [address] ([facility]) ([facility]) [id number] POCT-GLUCOSE [id number] 11:43:00 Test Item Value Reference Range Interpretation Comments POC-GLUCOSE METER 133 mg/dL 70-110 H TESTED AT [place] [address] ([facility]) (test code = [facility]38) [id number] POCT-GLUCOSE [id number] 08:29:00 Test Item Value Reference Range Interpretation Comments POC-GLUCOSE METER 169 mg/dL 70-110 H TESTED AT [place] [address] ([facility]) (test code = [facility] 1538) [id number] BASIC METABOLIC [id number] 04:33:00 Test Item Value Reference Range Interpretation Comments SODIUM (BEAKER) 140 meq/L 136-145 (test code = 381) POTASSIUM (BEAKER) 3.8 meq/L 3.5-5.1 (test code = 379) CHLORIDE (BEAKER) 110 meq/L 98-107 H (test code = 382) CO2 (BEAKER) (test 23 meq/L 22-29 code = 355) BLOOD UREA NITROGEN 17 mg/dL 7-21 (BEAKER) (test code = 354) CREATININE (BEAKER) 1.16 mg/dL 0.57-1.25 (test code = 358) GLUCOSE RANDOM 162 mg/dL 70-105 H (BEAKER) (test code = 652) CALCIUM (BEAKER) 8.6 mg/dL 8.4-10.2 (test code = 697) EGFR (BEAKER) (test 60 mL/min/1.73 ESTIMA YIMI GFR IS code = 1092) sq m NOT ACCURATE CREATININE CLEARANCE IN PREDICTING GLOMERULAR FILTRATION RATE . ESTIMATED GFR I S NOT APPLICABLE FOR DIALYSIS PATIEN TS. LACTIC ACID, ARTERIAL, WHOLE [id number] 04:31:00 Test Item Value Reference Range Interpretation Comments LACTATE BLOOD ARTERIAL (2) 1.0 mmol/L 0.5-2.2 (BEAKER) (test code = 2874) Effective 12/19/2015: Units/Reference Range ChangeNew: 0.5-2.2 mmol/L Previous: 5-20 mg/[id number] 04:27:00 Test Item Value Reference Range Interpretation Comments MAGNESIUM (BEAKER) (test code = 2.0 mg/dL 1.6-2.6 627) CBC W/PLT COUNT & AUTO [id number] 04:18:00 Test Item Value Reference Range Interpretation Comments WHITE BLOOD CELL COUNT (BEAKER) 12.9 K/ L 3.5-10.5 H (test code = 775) RED BLOOD CELL COUNT (BEAKER) 3.75 M/ L 4.63-6.08 L (test code = 761) HEMOGLOBIN (BEAKER) (test code = 11.1 GM/DL 13.7-17.5 L 410) HEMATOCRIT (BEAKER) (test code = 32.6 % 40.1-51.0 L 411) MEAN CORPUSCULAR VOLUME (BEAKER) 86.9 fL 79.0-92.2 (test code = 753) MEAN CORPUSCULAR HEMOGLOBIN 29.6 pg 25.7-32.2 (BEAKER) (test code = 751) MEAN CORPUSCULAR HEMOGLOBIN CONC 34.0 GM/DL 32.3-36.5 (BEAKER) (test code = 752) RED CELL DISTRIBUTION WIDTH 13.0 % 11.6-14.4 (BEAKER) (test code = 412) PLATELET COUNT (BEAKER) (test 151 K/CU MM 150-450 code = 756) MEAN PLATELET VOLUME (BEAKER) 9.7 fL 9.4-12.4 (test code = 754) NUCLEATED RED BLOOD CELLS 0 /100 WBC 0-0 (BEAKER) (test code = 413) NEUTROPHILS RELATIVE PERCENT 83 % (BEAKER) (test code = 429) LYMPHOCYTES RELATIVE PERCENT 7 % (BEAKER) (test code = 430) MONOCYTES RELATIVE PERCENT 10 % (BEAKER) (test code = 431) EOSINOPHILS RELATIVE PERCENT 0 % (BEAKER) (test code = 432) BASOPHILS RELATIVE PERCENT 0 % (BEAKER) (test code = 437) NEUTROPHILS ABSOLUTE COUNT 10.72 K/ L 1.78-5.38 H (BEAKER) (test code = 670) LYMPHOCYTES ABSOLUTE COUNT 0.85 K/ L 1.32-3.57 L (BEAKER) (test code = 414) MONOCYTES ABSOLUTE COUNT (BEAKER) 1.23 K/ L 0.30-0.82 H (test code = 415) EOSINOPHILS ABSOLUTE COUNT 0.00 K/ L 0.04-0.54 L (BEAKER) (test code = 416) BASOPHILS ABSOLUTE COUNT (BEAKER) 0.03 K/ L 0.01-0.08 (test code = 417) IMMATURE GRANULOCYTES-RELATIVE 0 % 0-1 PERCENT (BEAKER) (test code = 2801) POCT-GLUCOSE [id number] 02:44:00 Test Item Value Reference Range Interpretation Comments POC-GLUCOSE METER 143 mg/dL 70-110 H TESTED AT [place] [address] ([facility]) (test code = [place] [address]) [address] POCT-GLUCOSE [id number] 01:32:00 Test Item Value Reference Range Interpretation Comments POC-GLUCOSE METER 185 mg/dL 70-110 H TESTED AT [facility] ([facility]) (test code = [place] [address]) [address] BLOOD GAS, [id number] 01:05:00 Test Item Value Reference Range Interpretation Comments PH ARTERIAL ([facility]) (test code = 7.50 7.35-7.45 H 383) PCO2 ARTERIAL (BEAKER) (test code 30 mmHg 35-45 L = 384) PO2 ARTERIAL (BEAKER) (test code = 73 mmHg 80-90 L 385) O2 SATURATION ARTERIAL (BEAKER) 95.8 % 96.0-97.0 L (test code = 386) HCO3 ARTERIAL (BEAKER) (test code 23 mmol/L 21-29 = 388) BASE EXCESS ARTERIAL (BEAKER) 0.4 mmol/L -2.0-3.0 (test code = 387) PATIENT TEMPERATURE (BEAKER) (test 37.2 C code = 1818) FIO2 (BEAKER) (test code = 1819) 40.0 % Post extubation ABGPOCT-GLUCOSE [id number] 00:59:00 Test Item Value Reference Range Interpretation Comments POC-GLUCOSE METER 160 mg/dL 70-110 H TESTED AT [facility] [address] (BEAKER) (test code = [place] [address]) [address] LACTIC ACID, ARTERIAL, WHOLE [id number] 23:02:00 Test Item Value Reference Range Interpretation Comments LACTATE BLOOD ARTERIAL (2) 1.3 mmol/L 0.5-2.2 (BEAKER) (test code = 2874) Effective 12/19/2015: Units/Reference Range ChangeNew: 0.5-2.2 mmol/L Previous: 5-20 mg/[id number] 23:01:00 Test Item Value Reference Range Interpretation Comments MAGNESIUM (BEAKER) (test code = 1.8 mg/dL 1.6-2.6 627) CALCIUM, [id number] 22:48:00 Test Item Value Reference Range Interpretation Comments CALCIUM IONIZED (BEAKER) (test 1.13 mmol/L 1.12-1.27 code = 698) PH, BLOOD (BEAKER) (test code = 7.49 1810) BLOOD GAS, [id number] 22:48:00 Test Item Value Reference Range Interpretation Comments PH ARTERIAL (BEAKER) (test code = 7.49 7.35-7.45 H 383) PCO2 ARTERIAL (BEAKER) (test code 30 mmHg 35-45 L = 384) PO2 ARTERIAL (BEAKER) (test code 72 mmHg 80-90 L = 385) O2 SATURATION ARTERIAL (BEAKER) 95.6 % 96.0-97.0 L (test code = 386) HCO3 ARTERIAL (BEAKER) (test code 22 mmol/L 21-29 = 388) BASE EXCESS ARTERIAL (BEAKER) -0.3 mmol/L -2.0-3.0 (test code = 387) PATIENT TEMPERATURE (BEAKER) 37.2 C (test code = 1818) FIO2 (BEAKER) (test code = 1819) 40.0 % GLUCOSE-STAT [id number] 22:48:00 Test Item Value Reference Range Interpretation Comments GLUCOSE RANDOM (BEAKER) (test code 173 mg/dL 70-110 H = 652) HGB/HCT (H&H) - STAT [id number] 22:48:00 Test Item Value Reference Range Interpretation Comments HEMOGLOBIN (BEAKER) (test code = 12.3 g/dL 13.0-16.8 L 410) HEMATOCRIT (BEAKER) (test code = 36.0 % 40.0-50.0 L 411) SODIUM NA-STAT [id number] 22:47:00 Test Item Value Reference Range Interpretation Comments SODIUM (BEAKER) (test code = 381) 136 meq/L 135-148 POTASSIUM-STAT [id number] 22:47:00 Test Item Value Reference Range Interpretation Comments POTASSIUM (BEAKER) (test code = 3.7 meq/L 3.6-5.5 379) SODIUM NA-STAT [id number] 18:58:00 Test Item Value Reference Range Interpretation Comments SODIUM (BEAKER) (test code = 381) 135 meq/L 135-148 POTASSIUM-STAT [id number] 18:58:00 Test Item Value Reference Range Interpretation Comments POTASSIUM (BEAKER) (test code = 3.8 meq/L 3.6-5.5 379) BLOOD GAS, [id number] 18:58:00 Test Item Value Reference Range Interpretation Comments PH ARTERIAL (BEAKER) (test code = 7.41 7.35-7.45 383) PCO2 ARTERIAL (BEAKER) (test code 32 mmHg 35-45 L = 384) PO2 ARTERIAL (BEAKER) (test code 69 mmHg 80-90 L = 385) O2 SATURATION ARTERIAL (BEAKER) 94.5 % 96.0-97.0 L (test code = 386) HCO3 ARTERIAL (BEAKER) (test code 20 mmol/L 21-29 L = 388) BASE EXCESS ARTERIAL (BEAKER) -4.0 mmol/L -2.0-3.0 L (test code = 387) PATIENT TEMPERATURE (BEAKER) 36.7 C (test code = 1818) FIO2 (BEAKER) (test code = 1819) 60.0 % GLUCOSE-STAT [id number] 18:58:00 Test Item Value Reference Range Interpretation Comments GLUCOSE RANDOM (BEAKER) (test code 197 mg/dL 70-110 H = 652) HGB/HCT (H&H) - STAT [id number] 18:58:00 Test Item Value Reference Range Interpretation Comments HEMOGLOBIN (BEAKER) (test code = 12.9 g/dL 13.0-16.8 L 410) HEMATOCRIT (BEAKER) (test code = 38.0 % 40.0-50.0 L 411) OXYGEN SATURATION, [id number] 18:57:00 Test Item Value Reference Range Interpretation Comments O2 SATURATION (MEASURED) (BEAKER) 74.4 % (test code = 1455) CALCIUM, [id number] 18:57:00 Test Item Value Reference Range Interpretation Comments CALCIUM IONIZED (BEAKER) (test 1.15 mmol/L 1.12-1.27 code = 698) PH, BLOOD (BEAKER) (test code = 7.41 1810) BASIC METABOLIC [id number] 16:12:00 Test Item Value Reference Range Interpretation Comments SODIUM (BEAKER) 138 meq/L 136-145 (test code = 381) POTASSIUM (BEAKER) 4.0 meq/L 3.5-5.1 (test code = 379) CHLORIDE (BEAKER) 109 meq/L 98-107 H (test code = 382) CO2 (BEAKER) (test 22 meq/L 22-29 code = 355) BLOOD UREA NITROGEN 14 mg/dL 7-21 (BEAKER) (test code = 354) CREATININE (BEAKER) 0.94 mg/dL 0.57-1.25 (test code = 358) GLUCOSE RANDOM 157 mg/dL 70-105 H (BEAKER) (test code = 652) CALCIUM (BEAKER) 8.7 mg/dL 8.4-10.2 (test code = 697) EGFR (BEAKER) (test 76 mL/min/1.73 ESTIMA YIMI GFR IS code = 1092) sq m NOT ACCURATE CREATININE CLEARANCE IN PREDICTING GLOMERULAR FILTRATION RATE . ESTIMATED GFR I S NOT APPLICABLE FOR DIALYSIS PATIEN TS. Specimen slightly ictericLACTIC ACID, ARTERIAL, WHOLE [id number] 16:09:00 Test Item Value Reference Range Interpretation Comments LACTATE BLOOD ARTERIAL (2) 0.8 mmol/L 0.5-2.2 (BEAKER) (test code = 2874) Effective 12/19/2015: Units/Reference Range ChangeNew: 0.5-2.2 mmol/L Previous: 5-20 mg/dLBLOOD GAS, [id number] 16:01:00 Test Item Value Reference Range Interpretation Comments PH ARTERIAL (BEAKER) (test code = 7.36 7.35-7.45 383) PCO2 ARTERIAL (BEAKER) (test code 39 mmHg 35-45 = 384) PO2 ARTERIAL (BEAKER) (test code 71 mmHg 80-90 L = 385) O2 SATURATION ARTERIAL (BEAKER) 94.0 % 96.0-97.0 L (test code = 386) HCO3 ARTERIAL (BEAKER) (test code 21 mmol/L 21-29 = 388) BASE EXCESS ARTERIAL (BEAKER) -3.9 mmol/L -2.0-3.0 L (test code = 387) PATIENT TEMPERATURE (BEAKER) 36.6 C (test code = 1818) FIO2 (BEAKER) (test code = 1819) 60.0 % GLUCOSE-STAT [id number] 16:01:00 Test Item Value Reference Range Interpretation Comments GLUCOSE RANDOM (BEAKER) (test code 154 mg/dL 70-110 H = 652) CALCIUM, [id number] 16:00:00 Test Item Value Reference Range Interpretation Comments CALCIUM IONIZED (BEAKER) (test 1.20 mmol/L 1.12-1.27 code = 698) PH, BLOOD (BEAKER) (test code = 7.35 1810) SODIUM NA-STAT [id number] 16:00:00 Test Item Value Reference Range Interpretation Comments SODIUM (BEAKER) (test code = 381) 137 meq/L 135-148 POTASSIUM-STAT [id number] 16:00:00 Test Item Value Reference Range Interpretation Comments POTASSIUM (BEAKER) (test code = 3.9 meq/L 3.6-5.5 379) HGB/HCT (H&H) - STAT [id number] 16:00:00 Test Item Value Reference Range Interpretation Comments HEMOGLOBIN (BEAKER) (test code = 13.8 g/dL 13.0-16.8 410) HEMATOCRIT (BEAKER) (test code = 41.0 % 40.0-50.0 411) RAD, CHEST, 1 VIEW, NON [id number] 15:59:00Reason for exam:->POST ACBShould this be performed [...] [place] Verified Date/Time: 06/24/2017 15:59:15 Reading Location: [address] Consult Reading Room CBC W/PLT COUNT & AUTO DIFFERENTIAL 2017-06-24 15:55:00 Test Item Value Reference Range Interpretation Comments WHITE BLOOD CELL COUNT (BEAKER) 14.7 K/ L 3.5-10.5 H (test code = 775) RED BLOOD CELL COUNT (BEAKER) 4.05 M/ L 4.63-6.08 L (test code = 761) HEMOGLOBIN (BEAKER) (test code = 11.7 GM/DL 13.7-17.5 L 410) HEMATOCRIT (BEAKER) (test code = 35.3 % 40.1-51.0 L 411) MEAN CORPUSCULAR VOLUME (BEAKER) 87.2 fL 79.0-92.2 (test code = 753) MEAN CORPUSCULAR HEMOGLOBIN 28.9 pg 25.7-32.2 (BEAKER) (test code = 751) MEAN CORPUSCULAR HEMOGLOBIN CONC 33.1 GM/DL 32.3-36.5 (BEAKER) (test code = 752) RED CELL DISTRIBUTION WIDTH 12.9 % 11.6-14.4 (BEAKER) (test code = 412) PLATELET COUNT (BEAKER) (test 146 K/CU MM 150-450 L code = 756) MEAN PLATELET VOLUME (BEAKER) 10.0 fL 9.4-12.4 (test code = 754) NUCLEATED RED BLOOD CELLS 0 /100 WBC 0-0 (BEAKER) (test code = 413) NEUTROPHILS RELATIVE PERCENT 78 % (BEAKER) (test code = 429) LYMPHOCYTES RELATIVE PERCENT 13 % (BEAKER) (test code = 430) MONOCYTES RELATIVE PERCENT 7 % (BEAKER) (test code = 431) EOSINOPHILS RELATIVE PERCENT 1 % (BEAKER) (test code = 432) BASOPHILS RELATIVE PERCENT 0 % (BEAKER) (test code = 437) NEUTROPHILS ABSOLUTE COUNT 11.49 K/ L 1.78-5.38 H (BEAKER) (test code = 670) LYMPHOCYTES ABSOLUTE COUNT 1.97 K/ L 1.32-3.57 (BEAKER) (test code = 414) MONOCYTES ABSOLUTE COUNT (BEAKER) 0.98 K/ L 0.30-0.82 H (test code = 415) EOSINOPHILS ABSOLUTE COUNT 0.08 K/ L 0.04-0.54 (BEAKER) (test code = 416) BASOPHILS ABSOLUTE COUNT (BEAKER) 0.04 K/ L 0.01-0.08 (test code = 417) IMMATURE GRANULOCYTES-RELATIVE 1 % 0-1 PERCENT (BEAKER) (test code = 2801) OXYGEN SATURATION, [id number] 15:54:00 Test Item Value Reference Range Interpretation Comments O2 SATURATION (MEASURED) (BEAKER) 45.2 % (test code = 1455) [id number] 14:09:00 Test Item Value Reference Range Interpretation Comments ACTIVATED CLOTTING TIME 142 sec TEST ED AT [facility] [address] (BEAKER) (test code = [place] [address]) [address] PLATELET [id number] 13:35:00 Test Item Value Reference Range Interpretation Comments PLATELET COUNT (BEAKER) (test 104 K/CU MM 150-450 L code = 756) [id number] 13:32:00 Test Item Value Reference Range Interpretation Comments ACTIVATED CLOTTING TIME > sec OUTS [employer] MEASURING (BEAKER) (test code = VARSHA CARVAJAL AT [facility] [address]) [facility] [address] PROTHROMBIN [id number] 13:23:00 Test Item Value Reference Range Interpretation Comments PROTIME (BEAKER) (test code = 22.1 seconds 11.7-14.7 H 759) INR (BEAKER) (test code = 370) 1.9 <=5.9 RECOMMENDED COUMADIN/WARFARIN INR THERAPY RANGESSTANDARD DOSE: 2.0 - 3.0 Includes: PROPHYLAXIS forvenous thrombosis, systemic embolization; TREATMENT for venous thrombosis and/or pulmonary embolus.HIGH RISK: Target INR is 2.5-3.5 for patients with mechanical heart valves.[id number] 13:23:00 Test Item Value Reference Range Interpretation Comments FIBRINOGEN LEVEL (BEAKER) (test 288 mg/dl 225-434 code = 658) [id number] 13:23:00 Test Item Value Reference Range Interpretation Comments PARTIAL THROMBOPLASTIN TIME 41.6 seconds 22.5-36.0 H (BEAKER) (test code = 760) BLOOD GAS, [id number] 12:56:00 Test Item Value Reference Range Interpretation Comments PH ARTERIAL (BEAKER) (test code = 7.41 7.35-7.45 383) PCO2 ARTERIAL (BEAKER) (test code 36 mmHg 35-45 = 384) PO2 ARTERIAL (BEAKER) (test code 338 mmHg 80-90 H = 385) O2 SATURATION ARTERIAL (BEAKER) 99.8 % 96.0-97.0 H (test code = 386) HCO3 ARTERIAL (BEAKER) (test code 22 mmol/L 21-29 = 388) BASE EXCESS ARTERIAL (BEAKER) -2.4 mmol/L -2.0-3.0 L (test code = 387) PATIENT TEMPERATURE (BEAKER) 35.5 C (test code = 1818) FIO2 (BEAKER) (test code = 1819) 50.0 % GLUCOSE-STAT [id number] 12:56:00 Test Item Value Reference Range Interpretation Comments GLUCOSE RANDOM (BEAKER) (test code 130 mg/dL 70-110 H = 652) SODIUM NA-STAT [id number] 12:56:00 Test Item Value Reference Range Interpretation Comments SODIUM (BEAKER) (test code = 381) 133 meq/L 135-148 L HGB/HCT (H&H) - STAT [id number] 12:56:00 Test Item Value Reference Range Interpretation Comments HEMOGLOBIN (BEAKER) (test code = 9.4 g/dL 13.0-16.8 L 410) HEMATOCRIT (BEAKER) (test code = 28.0 % 40.0-50.0 L 411) POTASSIUM-STAT [id number] 12:54:00 Test Item Value Reference Range Interpretation Comments POTASSIUM (BEAKER) (test code = 3.7 meq/L 3.6-5.5 379) POTASSIUM-STAT [id number] 12:23:00 Test Item Value Reference Range Interpretation Comments POTASSIUM (BEAKER) (test code = 3.7 meq/L 3.6-5.5 379) BLOOD GAS, [id number] 12:23:00 Test Item Value Reference Range Interpretation Comments PH ARTERIAL (BEAKER) (test code = 7.37 7.35-7.45 383) PCO2 ARTERIAL (BEAKER) (test code 42 mmHg 35-45 = 384) PO2 ARTERIAL (BEAKER) (test code 413 mmHg 80-90 H = 385) O2 SATURATION ARTERIAL (BEAKER) 99.8 % 96.0-97.0 H (test code = 386) HCO3 ARTERIAL (BEAKER) (test code 24 mmol/L 21-29 = 388) BASE EXCESS ARTERIAL (BEAKER) -2.0 mmol/L -2.0-3.0 (test code = 387) PATIENT TEMPERATURE (BEAKER) 34.0 C (test code = 1818) FIO2 (BEAKER) (test code = 1819) 80.0 % GLUCOSE-STAT [id number] 12:23:00 Test Item Value Reference Range Interpretation Comments GLUCOSE RANDOM (BEAKER) (test code 129 mg/dL 70-110 H = 652) SODIUM NA-STAT [id number] 12:23:00 Test Item Value Reference Range Interpretation Comments SODIUM (BEAKER) (test code = 381) 133 meq/L 135-148 L HGB/HCT (H&H) - STAT [id number] 12:23:00 Test Item Value Reference Range Interpretation Comments HEMOGLOBIN (BEAKER) (test code = 8.8 g/dL 13.0-16.8 L 410) HEMATOCRIT (BEAKER) (test code = 26.0 % 40.0-50.0 L 411) BLOOD GAS, [id number] 11:10:00 Test Item Value Reference Range Interpretation Comments PH ARTERIAL (BEAKER) (test code = 7.38 7.35-7.45 383) PCO2 ARTERIAL (BEAKER) (test code 38 mmHg 35-45 = 384) PO2 ARTERIAL (BEAKER) (test code 356 mmHg 80-90 H = 385) O2 SATURATION ARTERIAL (BEAKER) 99.8 % 96.0-97.0 H (test code = 386) HCO3 ARTERIAL (BEAKER) (test code 23 mmol/L 21-29 = 388) BASE EXCESS ARTERIAL (BEAKER) -2.5 mmol/L -2.0-3.0 L (test code = 387) PATIENT TEMPERATURE (BEAKER) 36.0 C (test code = 1818) FIO2 (BEAKER) (test code = 1819) 100.0 % GLUCOSE-STAT [id number] 11:10:00 Test Item Value Reference Range Interpretation Comments GLUCOSE RANDOM (BEAKER) (test code 155 mg/dL 70-110 H = 652) CALCIUM, [id number] 11:10:00 Test Item Value Reference Range Interpretation Comments CALCIUM IONIZED (BEAKER) (test 1.08 mmol/L 1.12-1.27 L code = 698) PH, BLOOD (BEAKER) (test code = 7.37 1810) SODIUM NA-STAT [id number] 11:05:00 Test Item Value Reference Range Interpretation Comments SODIUM (BEAKER) (test code = 381) 136 meq/L 135-148 POTASSIUM-STAT [id number] 11:05:00 Test Item Value Reference Range Interpretation Comments POTASSIUM (BEAKER) (test code = 3.6 meq/L 3.6-5.5 379) HGB/HCT (H&H) - STAT [id number] 11:05:00 Test Item Value Reference Range Interpretation Comments HEMOGLOBIN (BEAKER) (test code = 13.6 g/dL 13.0-16.8 410) HEMATOCRIT (BEAKER) (test code = 40.0 % 40.0-50.0 411) PLATELET AGGREGATION: FUNCTION [id number] 11:01:00 Test Item Value Reference Range Interpretation Comments WEAK ADP 91 % 60-91 RESULT(AKER) (test code = 2135) PLATELET FUNCTION 60-100% indicates SCREEN INTERP (AKER) normal platelet (test code = 2173) function [id number] Rosa Maria Pitt MD ([facility]) (test code = (electronic signature) 6013) PLATELET COUNT AGG 199 K/CU MM 150-450 (BEAKER) (test code = 2656) for patients on clopidogrel in past two weeksPOCT-GLUCOSE [id number] 08:52:00 Test Item Value Reference Range Interpretation Comments POC-GLUCOSE METER 142 mg/dL 70-110 H TESTED AT [facility] ([facility]) (test code = [place] 15[address]) [address] RAD, CHEST, 1 VIEW, NON [id number] 01:35:00Reason for exam:->Pre opShould this be performed at the bedside?->YesFINAL REPORT EXAMINATION: AP PORTABLE CHEST RADIOGRAPH CLINICAL INDICATION:Shortness of breath. IMPRESSION: No comparison studies are [...] Braga MDReport VerifiedDate/Time: 06/24/2017 01:35:38 Reading Location: [address] Reading Room [facility] signed by: AMRITA BRAGA M.D. on 06/24/2017 01:35 AMCBC W/PLT COUNT & AUTO [id number] 00:39:00 Test Item Value Reference Range Interpretation Comments WHITE BLOOD CELL COUNT (BEAKER) 11.7 K/ L 3.5-10.5 H (test code = 775) RED BLOOD CELL COUNT (BEAKER) 5.18 M/ L 4.63-6.08 (test code = 761) HEMOGLOBIN (BEAKER) (test code = 15.3 GM/DL 13.7-17.5 410) HEMATOCRIT (BEAKER) (test code = 45.6 % 40.1-51.0 411) MEAN CORPUSCULAR VOLUME (BEAKER) 88.0 fL 79.0-92.2 (test code = 753) MEAN CORPUSCULAR HEMOGLOBIN 29.5 pg 25.7-32.2 (BEAKER) (test code = 751) MEAN CORPUSCULAR HEMOGLOBIN CONC 33.6 GM/DL 32.3-36.5 (BEAKER) (test code = 752) RED CELL DISTRIBUTION WIDTH 12.9 % 11.6-14.4 (BEAKER) (test code = 412) PLATELET COUNT (BEAKER) (test 210 K/CU MM 150-450 code = 756) MEAN PLATELET VOLUME (BEAKER) 10.1 fL 9.4-12.4 (test code = 754) NUCLEATED RED BLOOD CELLS 0 /100 WBC 0-0 (BEAKER) (test code = 413) NEUTROPHILS RELATIVE PERCENT 72 % (BEAKER) (test code = 429) LYMPHOCYTES RELATIVE PERCENT 17 % (BEAKER) (test code = 430) MONOCYTES RELATIVE PERCENT 10 % (BEAKER) (test code = 431) EOSINOPHILS RELATIVE PERCENT 0 % (BEAKER) (test code = 432) BASOPHILS RELATIVE PERCENT 0 % (BEAKER) (test code = 437) NEUTROPHILS ABSOLUTE COUNT 8.42 K/ L 1.78-5.38 H (BEAKER) (test code = 670) LYMPHOCYTES ABSOLUTE COUNT 2.03 K/ L 1.32-3.57 (BEAKER) (test code = 414) MONOCYTES ABSOLUTE COUNT (BEAKER) 1.12 K/ L 0.30-0.82 H (test code = 415) EOSINOPHILS ABSOLUTE COUNT 0.04 K/ L 0.04-0.54 (BEAKER) (test code = 416) BASOPHILS ABSOLUTE COUNT (BEAKER) 0.05 K/ L 0.01-0.08 (test code = 417) IMMATURE GRANULOCYTES-RELATIVE 0 % 0-1 PERCENT (BEAKER) (test code = 2801) [id number] 00:09:00 Test Item Value Reference Range Interpretation Comments MAGNESIUM (BEAKER) 1.7 mg/dL 1.6-2.6 Specimen slightly (test code = 627) hemolyzed BASIC METABOLIC [id number] 00:09:00 Test Item Value Reference Range Interpretation Comments SODIUM (BEAKER) 137 meq/L 136-145 (test code = 381) POTASSIUM (BEAKER) 4.0 meq/L 3.5-5.1 Specimen slightly (test code = 379) hemolyzed CHLORIDE (BEAKER) 101 meq/L 98-107 (test code = 382) CO2 (BEAKER) (test 23 meq/L 22-29 code = 355) BLOOD UREA NITROGEN 15 mg/dL 7-21 (BEAKER) (test code = 354) CREATININE (BEAKER) 1.00 mg/dL 0.57-1.25 Specimen slightly (test code = 358) hemolyzed GLUCOSE RANDOM 128 mg/dL 70-105 H (BEAKER) (test code = 652) CALCIUM (BEAKER) 9.3 mg/dL 8.4-10.2 (test code = 697) EGFR (BEAKER) (test 71 mL/min/1.73 ESTIMA YIMI GFR IS code = 1092) sq m NOT ACCURATE CREATININE CLEARANCE IN PREDICTING GLOMERULAR FILTRATION RATE . ESTIMATED GFR I S NOT APPLICABLE FOR DIALYSIS PATIEN TS. HEPATIC FUNCTION [id number] 00:09:00 Test Item Value Reference Range Interpretation Comments TOTAL PROTEIN (BEAKER) 7.4 gm/dL 6.0-8.3 Speci men slightly (test code = 770) hemolyzed ALBUMIN (BEAKER) (test 3.9 g/dL 3.5-5.0 Speci men slightly code = 1145) hemolyzed BILIRUBIN TOTAL 2.0 mg/dL 0.2-1.2 H Specimen sli ghtly (BEAKER) (test code = hemoly zed 377) BILIRUBIN DIRECT 0.6 mg/dL 0.1-0.5 H Specimen sl ightly (BEAKER) (test code = hemoly zed 706) ALKALINE PHOSPHATASE 62 U/L 40-150 (BEAKER) (test code = 346) AST (SGOT) (BEAKER) 21 U/L 5-34 Specimen slightly (test code = 353) hemolyzed ALT (SGPT) (BEAKER) 24 U/L 6-55 Specimen slightly (test code = 347) hemolyzed PT/[id number] 23:44:00 Test Item Value Reference Range Interpretation Comments PROTIME (BEAKER) (test code = 15.0 seconds 11.7-14.7 H 759) INR (BEAKER) (test code = 370) 1.2 <=5.9 PARTIAL THROMBOPLASTIN TIME 36.5 seconds 22.5-36.0 H (BEAKER) (test code = 760) RECOMMENDED COUMADIN/WARFARIN INR THERAPY RANGESSTANDARD DOSE: 2.0 - 3.0 Includes: PROPHYLAXIS forvenous thrombosis, systemic embolization; TREATMENT for venous thrombosis and/or pulmonary embolus.HIGH RISK: Target INR is 2.5-3.5 for patients with mechanical heart valves.PROTHROMBIN TIME/[id number] 23:43:00 Test Item Value Reference Range Interpretation Comments PROTIME (BEAKER) (test code = 15.0 seconds 11.7-14.7 H 759) INR (BEAKER) (test code = 370) 1.2 <=5.9 RECOMMENDED COUMADIN/WARFARIN INR THERAPY RANGESSTANDARD DOSE: 2.0 - 3.0 Includes: PROPHYLAXIS forvenous thrombosis, systemic embolization; TREATMENT for venous thrombosis and/or pulmonary embolus.HIGH RISK: Target INR is 2.5-3.5 for patients with mechanical heart valves.
[2020-11-10 08:31] LABS: Absolute Lymphocytes (CBC) 1.8 K/uL (0.7-4.9); Lymphocytes % 28.8 % (15.3-44.8); MPV 7.6 fL (7.6-11.3); RBC Red Blood Cell Count 4.72 M/uL (4.33-5.43)
[2020-11-10 08:40] LABS: Protime INR 1.3
[2020-11-10 08:51] LABS: Bilirubin Direct 0.2 mg/dL (0-0.2); Bilirubin Total 0.5 mg/dL (0.2-1.0); Potassium 4.3 mmol/L (3.5-5.1)
--- NOTE | 2020-11-10 09:16 | RAD REPORT ---
EXAM DESCRIPTION: CT - Abdomen Pelvis W Contrast - 11/10/2020 8:55 am CLINICAL HISTORY: Abdominal pain/rectal bleeding COMPARISON: 2019 TECHNIQUE: Computed axial tomography of the abdomen pelvis was obtained. 100 cc Isovue-300 was admin istered intravenously. Oral contrast was not requested which limits evaluation of bowel. All CT scans are performed using dose optimization technique as appropriate and may include automated exposure control or mA/KV adjustment according to patient size. FINDINGS: The liver, spleen, pancreas, adrenal and kidneys appear unremarkable. There is no evidence of diverticulitis. 4.3 centimeter mass is present within the sigmoid colon. Postsurgical changes right inguinal hernia repair. Prostatectomy with lymph node dissection noted. IMPRESSION: 4.3 centimeter mass the sigmoid colon likely neoplasm. Direct visualization recommended
--- NOTE | 2020-11-10 09:27 | ER ---
Nurse's Notes [facility] Name: David Hdz Age: 89 yrs Sex: Male : 1930 Arrival Date: 11/10/2020 Time: 07:48 Bed 8 Private MD: Dane Kelsey C Diagnosis: Mass of sigmoid colon;Rectal bleeding Presentation: 11/10 07:51 Chief complaint: Patient states: bright red blood in stool since yesterday morning , iw has had seven episodes, no hx of GI bleed , had abd pain yesterday denies vomiting. Coronavirus screen: At this time, the client does not indicate any symptoms associated with coronavirus-19. Ebola Screen: Patient negative for fever greater than or equal to 101.5 degrees Fahrenheit, and additional compatible Ebola Virus Disease symptoms Patient denies exposure to infectious person. Patient denies travel to an Ebola-affected area in the 21 days before illness onset. No symptoms or risks identified at this time. Initial Sepsis Screen: Does the patient meet any 2 criteria? No. Patient's initial sepsis screen is negative. Does the patient have a suspected source of infection? No. Patient's initial sepsis screen is negative. Risk Assessment: Do you want to hurt yourself or someone else? Patient reports no desire to harm self or others. Onset of symptoms was November 09, 2020. 07:51 Method Of Arrival: Ambulatory iw 07:51 Acuity: VLADIMIR 3 iw Historical: - Allergies: 07:53 Quinine Sulfate; iw 07:53 Sulfa (Sulfonamide Antibiotics); iw - Home Meds: 08:01 aspirin 81 mg oral TbEC once daily [Active]; omeprazole 20 mg Oral cpDR 1 cap once iw daily [Active]; Eliquis 5 mg oral tab 1 tab 2 times per day [Active]; magnesium oxide 400 mg Oral tab daily [Active]; metoprolol tartrate 50 mg Oral tab 1 tab 2 times per day [Active]; ramipril 10 mg Oral cap 1 cap 2 times per day [Active]; metformin 500 mg Oral tab 1 tab 2 times per day [Active]; amlodipine 5 mg tab 1 tab once daily [Active]; simvastatin 20 mg oral tab once daily [Active]; famotidine 40 mg Oral tab 1 tab once daily [Active]; - PMHx: 07:53 Diabetes - NIDDM; Hypertension; skin cancer; iw - PSHx: 07:53 prostatectomy; Tonsillectomy; Hernia repair; hemorrhoidectomy; CABG; iw - Immunization history:: Adult Immunizations up to date, Client reports receiving the 2nd dose of the Covid vaccine. - Social history:: Smoking status: Patient/guardian denies using tobacco, but has a distant history of tobacco abuse. - Family history:: not pertinent. - Hospitalizations: : No recent hospitalization is reported. Screenin:27 Abuse screen: Denies threats or abuse. Denies injuries from another. Nutritional hb screening: No deficits noted. Tuberculosis screening: No symptoms or risk factors identified. Fall Risk None identified. Assessment: 08:28 General: Appears in no apparent distress. Behavior is calm, cooperative. Pain: Denies hb pain. Neuro: Level of Consciousness is awake, alert, obeys commands, Oriented to person, place, time, situation. Cardiovascular: Patient's skin is warm and dry. Respiratory: Respiratory effort is even, unlabored, Respiratory pattern is regular, symmetrical. GI: Reports rectal bleeding. : No signs and/or symptoms were reported regarding the genitourinary system. EENT: No signs and/or symptoms were reported regarding the EENT system. Derm: Skin is pink, warm \\T\\ dry. Musculoskeletal: No signs and/or symptoms reported regarding the musculoskeletal system. 09:41 Reassessment: Patient appears in no apparent distress at this time. Patient and/or hb family updated on plan of care and expected duration. Pain level reassessed. Patient is alert, oriented x 3, equal unlabored respirations, skin warm/dry/pink. 09:59 Reassessment: COVID swab walked to outside lab by Lexi GRIMES. hb 10:45 Reassessment: Patient appears in no apparent distress at this time. Patient and/or hb family updated on plan of care and expected duration. Pain level reassessed. Patient is alert, oriented x 3, equal unlabored respirations, skin warm/dry/pink. Vital Signs: 07:51 BP 122 / 70; Pulse 93; Resp 16; Pulse Ox 98% on R/A; Weight 93.44 kg; Height 5 ft. 8 iw in. (172.72 cm); 09:41 BP 106 / 60; Pulse 81; Resp 15; Pulse Ox 99% on R/A; hb 11:00 BP 105 / 61; Pulse 74; Resp 17; Pulse Ox 99% on R/A; hb 07:51 Body Mass Index 31.32 (93.44 kg, 172.72 cm) ED Course: 07:48 Patient arrived in ED. mr 07:48 Dane Kelsey MD is Private Physician. mr 07:53 Triage completed. iw 07:54 Arm band placed on. iw 07:58 Nghia Bland MD is Attending Physician. rn 08:16 HELPER TEACHER. mh5 08:18 Patient has correct armband on for positive identification. Placed in gown. Bed in low mh5 position. Call light in reach. Side rails up X 1. Adult w/ patient. Warm blanket given. pvc monitor on. Pulse ox on. NIBP on. 08:24 Inserted saline lock: 20 gauge in left antecubital area, using aseptic technique. Blood hb collected. 08:26 Basic Metabolic Panel Sent. hb 08:26 CBC with Diff Sent. hb 08:27 Hepatic Function Sent. hb 08:55 CT Abd/Pelvis - IV Contrast Only In Process Unspecified. EDMS 09:26 Dane Kelsey MD is Hospitalizing Provider. rn 09:40 Shabana Zungia, RN is Primary Nurse. hb 09:59 COVID-19 : Document "Date of Symptom Onset" if Symptomatic. Sent. hb 10:57 CORONAVIRUS Sent. sv Administered Medications: No medications were administered Outcome: 09:27 Decision to Hospitalize by Provider. rn 12:58 Patient left the ED. hb Signatures: Dispatcher [employer] EDMS Joleen Patterson RN RN sv Rivera, Mary mr Williams, Irene, RN RN iw Nieto, Roman, MD MD rn Baxter, Heather, Rosalva Aguilar RN [facility]
--- NOTE | 2020-11-10 09:27 | EDPHYS ---
Physician Documentation [facility] Name: David Hdz Age: 89 yrs Sex: Male : 1930 Arrival Date: 11/10/2020 Time: 07:48 Bed 8 Private MD: Dane Kelsey C ED Physician Nghia Bland HPI: 11/10 08:17 This 89 yrs old Male presents to ER via Ambulatory with complaints of Rectal rn Bleeding. 08:17 The patient presents to the emergency department with bleeding from the rectum/anus, rn that is mild. 08:18 Onset: The symptoms/episode began/occurred yesterday. Context: the patient has no known rn special context relating to the rectal area complaint(s). Modifying factors: The symptoms are alleviated by nothing, The symptoms are aggravated by bowel movement. Associate signs and symptoms: Pertinent positives: abdominal pain in the lower abdomen. The patient has not experienced similar symptoms in the past. The patient has not recently seen a physician. Reports bright red rectal bleeding, small/moderate amounts, 7x since yesterday morning, had abd pain yesterday but none today. has seen Dr. Mclain several times for regular colonoscopy. Has never happened before, is on eliquis. Denies sob/dizzy/chest pain. Has been having diarrhea for a short period of time.. Historical: - Allergies: 07:53 Quinine Sulfate; iw 07:53 Sulfa (Sulfonamide Antibiotics); iw - Home Meds: 08:01 aspirin 81 mg oral TbEC once daily [Active]; omeprazole 20 mg Oral cpDR 1 cap once iw daily [Active]; Eliquis 5 mg oral tab 1 tab 2 times per day [Active]; magnesium oxide 400 mg Oral tab daily [Active]; metoprolol tartrate 50 mg Oral tab 1 tab 2 times per day [Active]; ramipril 10 mg Oral cap 1 cap 2 times per day [Active]; metformin 500 mg Oral tab 1 tab 2 times per day [Active]; amlodipine 5 mg tab 1 tab once daily [Active]; simvastatin 20 mg oral tab once daily [Active]; famotidine 40 mg Oral tab 1 tab once daily [Active]; - PMHx: 07:53 Diabetes - NIDDM; Hypertension; skin cancer; iw - PSHx: 07:53 prostatectomy; Tonsillectomy; Hernia repair; hemorrhoidectomy; CABG; iw - Immunization history:: Adult Immunizations up to date, Client reports receiving the 2nd dose of the Covid vaccine. - Social history:: Smoking status: Patient/guardian denies using tobacco, but has a distant history of tobacco abuse. - Family history:: not pertinent. - Hospitalizations: : No recent hospitalization is reported. ROS: 08:18 Constitutional: Negative for fever, chills, and weight loss, Eyes: Negative for injury, rn pain, redness, and discharge, Neck: Negative for injury, pain, and swelling, Cardiovascular: Negative for chest pain, palpitations, and edema, Respiratory: Negative for shortness of breath, cough, wheezing, and pleuritic chest pain, Abdomen/GI: + lower abd pain and rectal bleeding. Back: Negative for injury and pain, MS/Extremity: Negative for injury and deformity, Skin: Negative for injury, rash, and discoloration, Neuro: Negative for headache, weakness, numbness, tingling, and seizure. 08:18 All other systems are negative. Exam: 08:18 Constitutional: This is a well developed, well nourished patient who is awake, alert, rn and in no acute distress. Head/Face: Normocephalic, atraumatic. Eyes: Normal conjunctivae Cardiovascular: Regular rate and rhythm. No pulse deficits. Respiratory: No increased work of breathing, no retractions or nasal flaring. Abdomen/GI: soft, non-tender, non-distended Skin: Warm, dry MS/ Extremity: Pulses equal, no cyanosis Neuro: Awake and alert, GCS 15, oriented to person, place, time, and situation. Cranial nerves II-XII grossly intact. Motor strength 5/5 in all extremities. Sensory grossly intact. Vital Signs: 07:51 BP 122 / 70; Pulse 93; Resp 16; Pulse Ox 98% on R/A; Weight 93.44 kg; Height 5 ft. 8 iw in. (172.72 cm); 09:41 BP 106 / 60; Pulse 81; Resp 15; Pulse Ox 99% on R/A; hb 11:00 BP 105 / 61; Pulse 74; Resp 17; Pulse Ox 99% on R/A; hb 07:51 Body Mass Index 31.32 (93.44 kg, 172.72 cm) iw MDM: 07:58 Patient medically screened. rn 09:23 Differential diagnosis: hemorrhoids, fissure, rectal mass, carcinoma. Data reviewed: rn vital signs, nurses notes, lab test result(s), radiologic studies, CT scan, and as a result, I will admit patient. Counseling: I had a detailed discussion with the patient and/or guardian regarding: the historical points, exam findings, and any diagnostic results supporting the discharge/admit diagnosis, lab results, radiology results, the need for further work-up and treatment in the hospital. Response to treatment: There is no appreciated change of the patient's symptoms at this time, and as a result, I will admit patient. Admission orders: after a detailed discussion of the patient's condition and case, the admit orders are written by me. ED course: Consulted with Genaro Mclain, will consult on patient, has seen him before, vitals and hemoglobin stable, concern is for rectal carcinoma. . 11/10 08:05 Order name: Basic Metabolic Panel 11/10 08:05 Order name: CBC with Diff 11/10 08:05 Order name: Hepatic Function 11/10 08:05 Order name: Lipase; Complete Time: 09:18 11/10 08:05 Order name: Protime (+inr); Complete Time: 09:18 11/10 08:05 Order name: Ptt, Activated; Complete Time: 09: 11/10 08:05 Order name: CT Abd/Pelvis - IV Contrast Only; Complete Time: 09:18 11/10 08:05 Order name: Basic Metabolic Panel; Complete Time: 09:18 [facility] 11/10 08:05 Order name: CBC with Automated Diff; Complete Time: 09:18 [facility] 11/10 08:05 Order name: Liver (Hepatic) Function; Complete Time: 09:18 [facility] 11/10 08:51 Order name: CREATININE WHOLE BLOOD; Complete Time: 09:18 [facility] 11/10 09:41 Order name: COVID-19 : Document "Date of Symptom Onset" if Symptomatic. 11/10 10:13 Order name: CORONAVIRUS [facility]WI 11/10 10:52 Order name: SARS-COV-2 RT PCR [facility] 11/10 08:05 Order name: IV Saline Lock; Complete Time: : 11/10 08:05 Order name: Labs collected and sent; Complete Time: 08:27 rn Administered Medications: No medications were administered Disposition: 11/10/20 09:27 Hospitalization ordered by Dane Kelsey for Inpatient Admission. Preliminary diagnosis are Mass of sigmoid colon, Rectal bleeding. - Bed requested for Telemetry/MedSurg (Inpatient). - Status is Inpatient Admission. hb - Condition is Stable. - Problem is new. - Symptoms are unchanged. Signatures: Dispatcher [employer] EDMS Yamel Hargrove RN RN dw Williams, Irene, RN RN iw Nieto, Roman, MD MD rn Baxter, Heather, RN RN Corrections: (The following items were deleted from the chart) 11:58 09:27 Hospitalization Ordered by A Low ZUNIGA for Inpatient Admission. Preliminary dw diagnosis is Mass of sigmoid colon; Rectal bleeding. Bed requested for Telemetry/MedSurg (Inpatient). Status is Inpatient Admission. Condition is Stable. Problem is new. Symptoms are unchanged. rn 12:58 11:58 11/10/2020 09:27 Hospitalization Ordered by A Low ZUNIGA for Inpatient Admission. hb Preliminary diagnosis is Mass of sigmoid colon; Rectal bleeding. Bed requested for Telemetry/MedSurg (Inpatient). Status is Inpatient Admission. Condition is Stable. Problem is new. Symptoms are unchanged. dw
--- NOTE | 2020-11-10 12:38 | CON ---
Date of Consultation: 11/10/2020 Reason For Consultation: Cardiac clearance for colon surgery. History Of Present Illness: Mr. Hdz an 89-year-old white male, known him for many years. He has a history of chronic atrial fibrillation. He has a history of hypertension. He has a history of diabetes, dyslipidemia, gastroesophageal reflux disease, and has had a history of coronary artery di sease status post CABG. Just seen in the office earlier this week while he was doing well from a car diac standpoint without any cardiac symptoms. He is still not having any cardiac symptoms, but he ca me in with GI bleed and a CT scan of the abdomen reveals a 4 cm mass in the colon probably a neoplasm . Dr. Jett has been consulted. Dr. Kelsey and I discussed the case. He will need to have cardiac cl earance for surgery. In 2019, he underwent an echocardiogram that showed aortic sclerosis. Has had a negative stress test since as well. He does not have any cardiac symptoms. Denied any chest pain, shortness of breath, nausea, vomiting, diaphoresis, PND, orthopnea, pedal edema, palpitations, or sy ncope. His atrial fibrillation is chronic. He took his Eliquis today but that has been held. He sh ould be ready for surgery from an anticoagulation standpoint by Thursday. I do not recommend the use o f Lovenox at this point. Past Medical History: As stated above. Allergies: TO SULFA AND QUININE. Review of Systems: Negative. Social History: Negative. Family History: Negative. Medications: At home include Norvasc, digoxin, hydrochlorothiazide, Eliquis, metformin, metoprolol, omeprazole, ramipril, and Zocor. Physical Examination: Vital Signs: His vital signs were stable. He was afebrile. He was in atrial fibrillation at a rate of 80. General: Pleasant as usual. No acute distress. HEENT: Negative. Neck: Supple without any bruit, lymphadenopathy, JVD, or thyromegaly. Chest: Clear to auscultation and percussion. Cardiac: Revealed atrial fibrillation with a 2/6 systolic ejection murmur at the third intercostal s pace that did not radiate to the carotid. He had no gallops, no rubs. Abdomen: Benign. Extremities: Revealed no clubbing, cyanosis, or edema. Diagnostic Data: Fairly unremarkable. Chest x-ray was negative. CT of the abdomen was reported ear lier. His lab work is fairly normal. EKG shows chronic atrial fibrillation and flutter. Rate contr olled. Impression And Plan: Andreina is a patient with history of chronic atrial fibrillation on Eliquis, that he has taken this morning, this is held in preparation for surgery for Thursday. He has a histor y of coronary artery disease, status post coronary artery bypass graft in 2017 with a negative echo a nd negative stress test since then and the recent past. He has no cardiac symptoms. I think he is a t low risk for perioperative mortality. I would continue his present regimen, otherwise except for h olding the Eliquis. We can always resume the Eliquis a day or so after surgery, if it is okay with Cedric Jett. I will be available for questions if the need arises. His other problems including hypert ension, diabetes, dyslipidemia, and gastroesophageal reflux disease are stable at this point. I will continue to follow him along with Dr. Kelsey and Dr. Jett. MICHELLE/RAFI Voice ID: [id number] Report ID: [id number]
[2020-11-10] MEDS ORDERED: ONDANSETRON 4 MG/2 ML VIAL IV PRN (13:12)
[2020-11-10] MEDS: D5.45NS W/KCL 20MEQ 1,000 ML IV SCH (14:29)
[2020-11-10] MEDS ORDERED: MAGNESIUM CITRATE 300 ML BOT PO SCH (16:00)
[2020-11-10] MEDS ORDERED: GOLYTELY 4000 ML PO SCH (16:00)
[2020-11-10] MEDS: METOCLOPRAMIDE 10 MG/2mL INJ IV SCH ×3 (17:12→21:43)
--- NOTE | 2020-11-10 20:39 | HP ---
Date of Admission: 11/10/2020 Chief Complaint: Rectal bleeding. History Of Present Illness: This is an 89-year-old very pleasant male patient, who was doing fine in his normal usual state of health until yesterday, he started to have problem with rectal bleeding. The patient says that he had about 7 episodes of bright red blood per rectum between yesterday and to day, so he came into emergency room. After he was evaluated in the ER, he was admitted to the [facility]. He has some left lower quadrant abdominal discomfort that started yesterday as well. Denies any nausea, vomiting, fever, or chills. Allergies: QUININE CAUSING SWELLING. Medications: Amlodipine 5 mg 2 times a day, Eliquis 5 mg 2 times a day and last dose of Eliquis was this morning, aspirin 81 mg daily, famotidine 40 mg at bedtime, iron tablet daily, magnesium oxide 40 0 mg daily, metformin 500 mg 2 times a day, metoprolol succinate 50 mg 2 times a day, omeprazole 20 m g p.o. daily, Ramipril 10 mg p.o. 2 times a day, and simvastatin 20 mg p.o. daily in the evening. Review of Systems: GI: As mentioned above. All other systems reviewed and negative. Past Medical History: Significant for type 2 diabetes mellitus, obstructive sleep apnea, hypertensio n, hyperlipidemia, coronary artery disease, chronic atrial fibrillation, gastroesophageal reflux dise ase, prostate cancer. The patient had a nuclear stress test on April 20, 2020, which was normal. An echocardiogram from April 24, 2020 had shown ejection fraction 55% to 60%, moderate left ventr icular hypertrophy, and severe aortic stenosis. Cardiac cath from June 18, 2012 had shown 80% pro ximal and mid LAD stenosis and 30% mid RCA stenosis. Past Surgical History: Significant for tonsillectomy, hemorrhoid surgery, hernia repair, prostatecto my in 2000, and arthroscopic knee surgery. Family History: Father had COPD. Brother had prostate cancer. Sister with lung cancer. Social History: Prior history of smoking, not at present time. Use of alcohol negative. Physical Examination: Vital Signs: When he came into emergency room, blood pressure 122/70, pulse 93, respiratory rate 16, oxygen saturation 98%. Weight 93.44 kg, height 5 feet 8 inches. General: Awake, alert, oriented, not in distress. HEENT: Head atraumatic, normocephalic. Conjunctivae nonerythematous. Sclerae white. Mouth, no thr ush or edema noted. Ears/Nose, no mass, lesion, discharge noted. Neck: Supple. No JVD, lymph nodes, bruit, thyromegaly noted. Lungs: Bilateral good equal air entry. Clear to auscultation. No rhonchi. No rales. Heart: The patient has a systolic murmur. No gallop. Abdomen: Very minimum left lower quadrant tenderness present. No guarding. No rigidity. No reboun d tenderness. No hepatosplenomegaly. No bruit. Bowel sounds normoactive. Extremities: Bilateral trace leg edema. Skin: No rash, ulcer, cellulitis. Lymphatics: No lymph node enlargement in neck, supraclavicular, infraclavicular region. Neuro: No focal neurological deficit. Chest: Unremarkable. External Genitalia: Deferred. Rectal: Deferred. Laboratory Data: White count 6.1, hemoglobin 12.9, platelets 245. INR 1.30. Sodium 141, potassium 4.3, chloride 111, bicarb 22, BUN 15, creatinine 1.25, glucose 140. Liver function tests unremarkabl e. Lipase 38. COVID-19 test negative. CAT scan of the abdomen and pelvis with contrast shows 4.3 c m mass in the sigmoid colon. Impression: 1.Lower gastrointestinal bleeding. 2.Rule out sigmoid cancer. 3.Chronic atrial fibrillation. 4.Chronic anticoagulation therapy. 5.Coronary artery disease. 6.Hypertension. 7.Hyperlipidemia. 8.Type 2 diabetes mellitus. 9.Obstructive sleep apnea. 10.Gastroesophageal reflux disease. 11.Prostate cancer. 12.Anemia, iron deficiency. Plan: We will admit the patient to hospital for further evaluation and management of this problem. The patient is appropriate for inpatient and is expected to spend 2 midnights in the hospital. He to ok his last dose of Eliquis this morning. We will consult river transportation worker, Dr. Mclain to do colon oscopy and hopefully we can get colonoscopy done day after tomorrow, which is on 11/12/2020, and depending on how he does with the colonoscopy and findings of colonoscopy, we can plan to have maritza wilkins on Thursday. I have discussed details with the patient and his , who was at bedside, and I also called their daughter and discussed details with her. My plan is to also do CAT scan of the dm st to look for any metastatic disease. At this point, cardiac clearance was also requested from Dr. Lynn and I have discussed details with Dr. Lynn and I have also discussed details with Dr. Olivia lewis, general surgeon. The patient does not require any blood transfusion and will continue home medica tions per order except we will not give any anticoagulation therapy. Details and plan of treatment d iscussed with the patient. I will see him tomorrow for followup. BARAK/MODL Voice ID: [id number]
[2020-11-11] MEDS: D5.45NS W/KCL 20MEQ 1,000 ML IV SCH ×3 (00:35→19:12)
[2020-11-11] MEDS: METOCLOPRAMIDE 10 MG/2mL INJ IV SCH (04:10)
[2020-11-11 06:18] LABS: Absolute Lymphocytes (CBC) 1.9 K/uL (0.7-4.9); Hematocrit 34.6 % (39.6-49.0); Lymphocytes % 32.3 % (15.3-44.8); MPV 8.2 fL (7.6-11.3); RBC Red Blood Cell Count 4.16 M/uL (4.33-5.43)
[2020-11-11 06:37] LABS: Potassium 4.4 mmol/L (3.5-5.1)
[2020-11-11] MEDS ORDERED: LIDOCAINE 1% MPF 5 ML VIAL ONE (09:54)
[2020-11-11] MEDS ORDERED: Phenylephrine HCl 10 MG/ML 1 ML VIAL ONE (09:54)
[2020-11-11] MEDS ORDERED: propofoL 200 MG/20 ML VIAL IV ONE (09:54)
[2020-11-11] MEDS: NA CHLORIDE 0.9% 1,000 ML ONE ×2 (09:55→10:00)
[2020-11-11] MEDS ORDERED: EPINEPHRINE/PF 1 MG/ML AMP ONE (10:19)
--- NOTE | 2020-11-11 11:31 | PN ---
Date of Progress Note: 11/11/2020 Subjective: The patient was seen this morning for followup. No new complaints, problems reported by the patient, lying in bed, not in distress. No nausea, no vomiting. Objective: Vital signs: Reviewed. HEENT: Unremarkable. Lungs: Clear to auscultation. Heart: Sounds normal. Abdomen: Soft. Bowel sounds normal. No guarding, rigidity, distention. Minimum left lower quadran t tenderness present unchanged from yesterday. Extremities: No leg edema. Laboratory Data: White count 5.9, hemoglobin 11.6, platelets 192, sodium 141, potassium 4.4, chlorid e 110, bicarb 24, BUN 12, creatinine 0.97, glucose 102. Impression: 1.Bleeding. 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 3.Chronic atrial fibrillation. 4.Hypertension. 5.Coronary artery disease. Plan: We will go ahead and continue current medical management. The patient is on IV fluid, n.p.o. as Dr. Mclain is planning to do colonoscopy today and Dr. Mclain is aware of the patient's last dose of Eliquis, which was yesterday morning. The patient's vital signs are stable and after the colonosc opy, we will leave him on clear liquid diet and Dr. Jett to plan for surgery depending on the biopsy results. Details and plan of treatment discussed with the patient and patient's who was at [facility]. BARAK/MODL Voice ID: [id number] Report ID: [id number]
[2020-11-11] MEDS ORDERED: CEFOXITIN/SWI 1gm 1 GM/10 ML SYR IV SCH (11:45)
[2020-11-11] MEDS ORDERED: CEFOXITIN SODIUM 1 GM/VIAL IVPB SCH (12:00)
--- NOTE | 2020-11-11 12:10 | CON ---
Date of Consultation: 11/10/2020 Reason For Consultation: Rectal bleeding. History Of Present Illness: The patient is an 89-year-old gentleman, who came into the emergency faustino with rectal bleeding, about 7 episodes of bright red blood from Thursday to Thursday. He had a do p done in the ER including CAT scan, which showed a sigmoid mass most likely the source of the bleedi ng. He is on Eliquis for his AFib, which was held and today the patient underwent a colonoscopy by Cedric Mclain and I was present for the procedure. The patient essentially has a fungating mass in the m id sigmoid colon around 30 cm from the anal verge, this occluding the lumen. Remainder of the colono scopy just showed diverticulitis. No other significant disease was identified. So at this time, the patient would require a segmental colon resection and the sigmoid colon, for likely cancer. No sore throat, runny nose, cough, headaches, or dizziness. No chest pain. No abdominal pain and no fever or chills. Review of Systems: Otherwise unremarkable. Past Medical History: Type 2 diabetes, obstructive sleep apnea, hypertension, hyperlipidemia, villarreal ry artery disease, chronic AFib, GERD, and prostate cancer. Past Surgical History: Significant for tonsillectomy, hemorrhoid surgery, hernia repair, prostatecto my, and knee surgery. Allergies: QUININE. Social History: The patient used to smoke in the past, does not currently. Does not drink alcohol. Family History: Significant for prostate cancer in brother. Sister with lung cancer. Father with C OPD. Physical Examination: Vital Signs: Stable. He is afebrile. General: He is awake, alert, and oriented x3. The examination was done prior to the colonoscopy. Head and Neck: Cranial nerves 2 through 12 are grossly within normal limits. No neck masses. No JV D. Throat clear. Neck is supple. Chest: Clear. Heart: S1 and S2. Abdomen: Soft, nondistended, nontender. Positive bowel sounds. Extremities: Neurovascularly intact. Neuro: Nonfocal. Laboratory Data: Shows a white count of 5.9 and H and H are 11.6 and 34.6. There is no left shift. INR is 1.3. Chemistry reviewed, essentially within normal limits. A CT of the abdomen and pelvis r eviewed. The liver was unremarkable. There is a 4.3 cm mass present within the sigmoid colon. Post surgical changes, right inguinal hernia repair noted. Assessment: Sigmoid mass, likely cancer. Recommendations: We will await the pathology in the morning, following which, the patient will need a segmental colon resection and the risks, benefits, and alternatives were discussed with the af ter the colonoscopy was done. She understands and agrees, and we will discuss further details with t he patient when he is more awake. MAGNOLIA/RAFI Voice ID: [id number] Report ID: [id number]
--- NOTE | 2020-11-11 21:46 | CON ---
Date of Consultation: 11/11/2020 Reason For Consultation: Hematochezia with CT scan showing 4 cm sigmoid colon mass. History Of Present Illness: The patient is an 89-year-old white male with history of diabetes, hyper tension, hyperlipidemia, coronary artery disease, status post UT in the past, chronic atrial fibrilla tion, obstructive sleep apnea, gastroesophageal reflux disease, prostate cancer. The patient present ed to the hospital with hematochezia. CT scan in the emergency room revealed a 4 cm mass in the sigm oid colon. The patient is anemic with hemoglobin of 11.6 today. The patient reports colonoscopy travis e years ago, unsure how many years it has been. is at bedside and she cannot recall how many ye ars it has been as well exactly. Past Medical History: Significant for diabetes, hypertension, hyperlipidemia, coronary artery diseas e, status post myocardial infarction in the past, chronic atrial fibrillation, obstructive sleep apne a, gastroesophageal reflux disease, prostate cancer status post prostatectomy, tonsillectomy, hemorrh oid surgery, and arthroscopic knee surgery in the past. Medications: Include Eliquis, aspirin, ramipril, digoxin, Norvasc, hydrochlorothiazide, metformin, m etoprolol, omeprazole and Zocor. Allergies: TO QUININE AND SULFA. Social History: . No children. No tobacco though he quit some time ago. No alcohol. Family History: Father had COPD, brother with prostate cancer, son with prostate cancer, and of cour se he had prostate cancer, and sister with lung cancer. Review of Systems: The patient has hematochezia. Denies any syncope, hematemesis, coffee ground emesis, melena, hematur ia, dysuria, polyuria, polydipsia, hemoptysis, chest pain, shortness of breath, seizure, syncope, low er extremity edema, muscle aches, joint aches, backaches, depression, anxiety. Physical Examination: Vital Signs: The patient is 5 feet 8 inches, 206 pounds, BMI of 31.3 kg/sq m. Temperature of 97.9 d egrees Fahrenheit, pulse 83, respirations 17, blood pressure 128/68, O2 saturation 97%. General: He is an obese male, lying in bed, in no acute distress. HEENT: Normocephalic, atraumatic. Anicteric. Pupils equal, round, and reactive to light. Extraocu lar movements are intact. Oropharynx is clear. Neck: Supple. No masses. Respirations: Clear to auscultation bilaterally. Cardiac: Irregularly irregular with atrial fibrillation history. Abdomen: Positive bowel sounds. Soft, nontender, nondistended. No hepatosplenomegaly. Mildly obes e. Extremities: No clubbing or cyanosis. Mild edema. Neuro: Alert and oriented x3. Grossly nonfocal. 5/5 motor sensation, intact to light touch. Movin g lower extremities well. Laboratory Data: The patient has a white count of 5.9, hemoglobin of 11.6 down from 12.9 on admissio n yesterday; hematocrit 34.6; MCV 83; platelet count 192. Polys of 55%, lymphocytes 32%, monocytes 1 0%, eosinophils 1%. The patient has PT of 15.0, INR of 1.3, PTT of 39.5. The patient has a sodium o f 141, potassium 4.4, chloride 110, bicarb 24, BUN 12, creatinine of 0.97, glucose 102, calcium 8.1, total bilirubin of 0.5, direct bilirubin of 0.2, AST of 12, ALT of 19, alkaline phosphatase 84, total protein 7.0, albumin 3.0, lipase 38. Serology; the patient has COVID-19 PCR test that was negative. Imaging: CT abdomen and pelvis reveals a 4.3 cm mass in the sigmoid colon. Liver, spleen, pancrease , kidneys, adrenal glands appeared unremarkable. There was no lymphadenopathy noted. Impression: 1.Hematochezia, anemia. Hemoglobin down 11.65 secondary to 4 cm mass noted in the sigmoid colon. 2.Abnormal CT abdomen and pelvis, revealed a 4 cm mass in the sigmoid colon due to perceived urgent colonoscopy, retrieved prior colonoscopy report. 3.History of diabetes, hypertension, hyperlipidemia, coronary artery disease, status post myocardial infarction in the past, atrial fibrillation, obstructive sleep apnea, gastroesophageal reflux diseas e, prostate cancer status post prostatectomy, tonsillectomy, hemorrhoid surgery, and arthroscopic kne e surgery in the past. Recommendations: 1.Proceed with urgent colonoscopy. 2.Serial H and Hs and transfuse p.r.n. 3.Check CEA level. 4.Surgery consultation which has been done. 5.Hold Eliquis and aspirin. WS/MODAntonina Voice ID: [id number] Report ID: [id number]
[2020-11-12] MEDS: D5.45NS W/KCL 20MEQ 1,000 ML IV SCH ×3 (01:10→20:25)
[2020-11-12 06:02] LABS: Absolute Lymphocytes (CBC) 1.6 K/uL (0.7-4.9); Basophils % 1.3 % (0-1.3); Hematocrit 39.9 % (39.6-49.0); Lymphocytes % 31.9 % (15.3-44.8); MPV 8.3 fL (7.6-11.3); RBC Red Blood Cell Count 4.73 M/uL (4.33-5.43)
[2020-11-12 06:26] LABS: Magnesium 1.9 mg/dL (1.8-2.4); Potassium 4.3 mmol/L (3.5-5.1)
[2020-11-12 06:27] LABS: Carcinoembryonic Antigen 1.4 ng/mL (0-5.0)
[2020-11-12] MEDS ORDERED: METRONIDAZOLE 500mg IVPB 500 MG/100 ML BAG IV ONE ×2 (09:00→18:59)
[2020-11-12] MEDS ORDERED: NA CHLORIDE 0.9% 1,000 ML ONE (13:25)
[2020-11-12] MEDS ORDERED: LIDOCAINE 2% MPF 5 ML VIAL ONE (13:36)
[2020-11-12] MEDS ORDERED: FENTANYL CITR 100 MCG/2 ML ONE (13:36)
[2020-11-12] MEDS ORDERED: propofoL 200 MG/20 ML VIAL IV ONE (13:36)
[2020-11-12] MEDS ORDERED: ROCURONIUM 50 MG/5 ML VIAL IV ONE ×2 (13:37→15:23)
[2020-11-12] MEDS ORDERED: CEFOXITIN/SWI 1gm 1 GM/10 ML SYR ONE ×2 (13:47→18:58)
[2020-11-12] MEDS ORDERED: METRONIDAZOLE 500mg IVPB 0 MG/0 ML BAG IV ONE (13:47)
--- NOTE | 2020-11-12 13:47 | PN ---
Date of Progress Note: 11/12/2020 Subjective: The patient was seen this morning for followup. He was lying in bed, not in distress. Denies any abdominal pain, nausea, vomiting. His and daughter were at bedside. Objective: Vital Signs: Reviewed. HEENT: Unremarkable. Lungs: Clear to auscultation. Heart: Sounds normal. Abdomen: Soft. Bowel sounds normal. No guarding, rigidity, tenderness, distention. Extremities: No leg edema. Laboratory Data: White count 5, hemoglobin 13, platelets 229. Sodium 142, potassium 4.3, chloride 1 10, bicarb 25, BUN 5, creatinine 0.90, glucose 103. CEA level 1.4. Impression: 1.Lower gastrointestinal bleeding. 2.Sigmoid mass, probable colon cancer. 3.Hypertension. 4.Chronic atrial fibrillation. 5.Coronary artery disease. 6.Aortic stenosis. Plan: Details were discussed with Dr. Jett, general surgeon who is planning to do surgery today. Gabby rios informed me that he was in the endoscopy room with Dr. Mclain yesterday and he saw this sigmoid mas s and it is large enough that there is now potential concern about obstruction. If no intervention d one on the basis of gross appearance, he is definitely sure that this is colon cancer. We do not hav e pathologist's biopsy report back, but it is probably colon cancer, so we will proceed with surgical intervention today as Dr. Jett has recommended. The patient and family understands and agreeable with the plan of treatment as recommended by Dr. Jett and I will see him tomorrow for foll owup. BARAK/MODL Voice ID: [id number] Report ID: [id number]
[2020-11-12] MEDS ORDERED: Phenylephrine HCl 10 MG/ML 1 ML VIAL ONE (13:49)
[2020-11-12] MEDS ORDERED: NS 0.9% VIAL 10 ML ONE ×2 (13:50→15:00)
[2020-11-12] MEDS ORDERED: ETOMIDATE 20 MG/10 ML VIAL IV ONE (13:52)
[2020-11-12] MEDS: METRONIDAZOLE 500mg IVPB 500 MG/100 ML BAG IV ONE ×2 (14:00→18:45)
[2020-11-12] MEDS ORDERED: dexAMETHasone 4 MG/ML VIAL ONE (15:01)
[2020-11-12] MEDS ORDERED: BUPIVACAINE 0.25% PF 10 ML VIAL ONE (15:01)
[2020-11-12] MEDS ORDERED: ROPIVACAINE HCL ONE (15:10)
--- NOTE | 2020-11-12 15:25 | P.OP ---
Multiple Needle Stitcher: Hamida LIGHT Preoperative diagnosis: Bleeding Sigmoid Colon Mass Postoperative diagnosis: Same Primary procedure: Diag Lap, Ex Lap, RAJI and Sigmoid Rsxn with Anastamosis Anesthesia: General Estimated blood loss: min Specimen: Sigmoid Colon with Mass Findings: as above, Margins free Complications: None Drain(s): Nasogastric, Urinary catheter Transferred to: Recovery Room Condition: Good
[2020-11-12] MEDS ORDERED: ONDANSETRON 4 MG/2 ML VIAL IV PRN (15:42)
[2020-11-12] MEDS ORDERED: NALOXONE 0.4 MG/ML VIAL IV PRN (15:42)
[2020-11-12] MEDS ORDERED: SODIUM CHLORIDE 0.9% 10ML INJ IV PRN (15:42)
[2020-11-12] MEDS ORDERED: HYDROMORPHONE/PCA 10 MG/50 ML SYR IV PRN (15:42)
[2020-11-12] MEDS ORDERED: ROPIVACAINE HCL 20 ML ONE (15:55)
[2020-11-12] MEDS ORDERED: ONDANSETRON 4 MG/2 ML VIAL ONE (16:07)
[2020-11-12] MEDS: METRONIDAZOLE 500mg IVPB 500 MG/100 ML BAG IV SCH (18:00)
[2020-11-12] MEDS ORDERED: CEFOXITIN 1 GM in NA CHLORIDE 0.9% 100 ML IVPB SCH (18:00)
[2020-11-12] MEDS: CEFOXITIN/SWI 1gm 1 GM/10 ML SYR IVP SCH (18:45)
[2020-11-12] MEDS ORDERED: D5.45NS W/KCL 20MEQ 1,000 ML IV ONE (20:41)
[2020-11-13] MEDS: METRONIDAZOLE 500mg IVPB 500 MG/100 ML BAG IV SCH ×2 (00:04→05:27)
[2020-11-13] MEDS ORDERED: METRONIDAZOLE 500mg IVPB 500 MG/100 ML BAG IV ONE ×2 (00:16→05:37)
[2020-11-13] MEDS ORDERED: CEFOXITIN SODIUM 1 GM/VIAL ONE ×2 (00:18→05:37)
[2020-11-13] MEDS ORDERED: NA CHLORIDE 0.9% 50 ML ONE ×2 (00:18→05:38)
[2020-11-13] MEDS: HYDROMORPHONE HCL 1 MG/ML INJ IV PRN ×3 (00:40→20:12)
[2020-11-13] MEDS ORDERED: HYDROMORPHONE HCL 1 MG/ML INJ ONE ×3 (00:57→20:06)
[2020-11-13] MEDS: D5.45NS W/KCL 20MEQ 1,000 ML IV SCH ×3 (01:12→18:06)
--- NOTE | 2020-11-13 01:14 | OP ---
Date of Procedure: 11/12/2020 Surgeon: Ramin Jett [facility] Interviews Intern: KULDEEP Leo. Preoperative Diagnosis: Bleeding mass, sigmoid colon. Postoperative Diagnosis: Bleeding mass, sigmoid with adhesions. Procedures Performed: Diagnostic laparoscopy, lysis of adhesions, exploratory laparotomy, segments o f sigmoid colon resection with primary anastomosis. Estimated Blood Loss: Minimal. Specimen: Sigmoid colon. Findings: Margin is free. Anesthesia: General. Complications: None. Disposition: The patient tolerated the procedure in stable condition and taken to Recovery in good g eneral condition. Procedure In Detail: The patient was brought to the OR and placed in the supine position. General a nesthesia begun. The patient was prepped and draped in the usual sterile fashion in low lithotomy po sition and then Marcaine 0.5% was infiltrated locally where a skin incision was made and then 15-blad e was used to make a 1 cm left upper epigastric incision just above the umbilicus. Subcutaneous tiss ue was divided. Fascia was identified and divided. #1 Vicryl stay suture was placed. Peritoneal ca vity was entered with sharp and blunt dissection. A 12 mm trocar was placed into the peritoneal cavi ty under direct vision. Pneumoperitoneum was established. A 5 mm trocar was placed in the left lowe r quadrant. Laparoscopy revealed very thickened mesentery of the colon. The sigmoid colon was visib le however no discrete point where the mass could be ascertained laparoscopically. The liver was wit hin normal limits. The peritoneal surface was within normal limits. There was no other evidence of disease seen. There were some adhesions in the pelvis that were taken down with sharp and blunt diss ection. Bleeding was controlled with cautery. I made a small incision extending from the epigastric incision just through the umbilicus towards the pubis. Approximately 10 cm subcutaneous tissue divi ded. Fascia was identified and divided. Peritoneal cavity was entered and then exploratory laparoto my revealed normal GE junction, normal stomach, normal duodenal sweep, normal small bowel, normal asc ending colon, transverse colon, descending colon, sigmoid colon. In the mid region had a palpable la rge mass little bit bigger than a golf ball. The pelvis was within normal limits. The liver was wit hin normal limits. Peritoneal surface was within normal limits. Subsequently, the sigmoid colon and rectum were mobilized with sharp and blunt dissection and the mass was easily brought into the wound and then a 6 cm area where the bowel was away from the mass was excised with CELSA stapling device. M esentery was taken down to the root with ligature and distally 6 cm margin was also obtained and take n down with CELSA and then after adequate mobilization of the distal colon as well as the proximal colo n, 3-0 silk was used to reapproximate the antimesenteric tissue and then colotomy was made and the GI A stapling device 75 mm was placed and then anastomosis was created and the open end was closed with a TA 60. Good closure of the open area was performed, and frozen section did reveal 6 cm margins on the resected section. Then the colon was placed back in anatomical location. The mesentery was loos viola approximated with 3-0 silk suture and subsequently pelvis was irrigated. Effluent was clear. Th ere was no evidence of bleeding or bowel injury appreciated and subsequently #2 nylon was used to close the midline fascia. Wound was irrigated. Bleeding was controlled with caute ry and idalia used to close all the wounds. Sterile dressing was applied. The patient was awakened and taken to Recovery in good genera l condition. /MODL Voice ID: [id number] Report ID: [id number]
[2020-11-13] MEDS: CEFOXITIN/SWI 1gm 1 GM/10 ML SYR IVP SCH ×2 (05:26)
[2020-11-13 07:19] LABS: Absolute Lymphocytes (CBC) 0.7 K/uL (0.7-4.9); Basophils % 0.3 % (0-1.3); Hematocrit 37.2 % (39.6-49.0); Lymphocytes % 4.8 % (15.3-44.8); MPV 7.5 fL (7.6-11.3); RBC Red Blood Cell Count 4.44 M/uL (4.33-5.43)
[2020-11-13 07:41] LABS: Magnesium 1.7 mg/dL (1.8-2.4); Phosphorus 2.9 mg/dL (2.5-4.9); Potassium 4.7 mmol/L (3.5-5.1)
[2020-11-13] MEDS: PANTOPRAZOLE 40 MG INJ IVP SCH (08:18)
[2020-11-13] MEDS: ENOXAPARIN 40 MG/0.4 ML SQ SCH (08:18)
[2020-11-13] MEDS ORDERED: D5.45NS W/KCL 20MEQ 1,000 ML IV ONE ×2 (08:30→18:23)
[2020-11-13] MEDS ORDERED: PANTOPRAZOLE 40 MG INJ ONE (08:30)
[2020-11-13] MEDS ORDERED: ENOXAPARIN 40 MG/0.4 ML SQ ONE (08:30)
[2020-11-13] MEDS ORDERED: WATER FOR INJ,STERILE 10 ML ONE (08:30)
[2020-11-13 09:21] LABS: Blood Morphology Comment NOT SEEN (NOT SEEN); Platelet Estimate ADEQ; White Blood Cell Scan OK (OK)
--- NOTE | 2020-11-13 10:35 | PN ---
Date of Progress Note: 11/13/2020 Subjective: The patient is awake, alert. Pain is controlled well. His urine output is adequate. [facility] laboratory data was reviewed. His white count is slightly up at 14.5, H and H are stable at 12.4 a nd 37.2, and a slight left shift. Chemistry is pending. Objective: Abdomen: The dressing is clean, dry, and intact. It is distended, but soft. Hypoactive bowel sounds. Assessment: Status post colon resection with primary anastomosis, postop day 1. Recommendation: The patient is clinically doing very well. We will await physical therapy evaluatio n, get him out of bed today. Incentive spirometry is encouraged. Continue to monitor urine output a nd we will transfer the patient to the floor later today and hopefully, we will get the Anthony out wit [facility] the next 24 hours. /MODL Voice ID: [id number] Report ID: [id number]
[2020-11-13] MEDS ORDERED: NA CHLORIDE 0.9% 500 ML IV ONE (13:25)
[2020-11-13] MEDS ORDERED: NA CHLORIDE 0.9% 500 ML ONE (14:10)
[2020-11-13] MEDS ORDERED: ONDANSETRON 4 MG/2 ML VIAL ONE (16:21)
[2020-11-13 17:12] VITALS: BMI 31.4
[2020-11-13] MEDS ORDERED: MAGNESIUM SULFATE 1 gm IVPB 1 GM/100 ML BAG IV ONE ×2 (19:02→20:08)
[2020-11-14 04:15] LABS: Absolute Lymphocytes (CBC) 1.3 K/uL (0.7-4.9); Basophils % 0.7 % (0-1.3); Hematocrit 33.6 % (39.6-49.0); Lymphocytes % 11.5 % (15.3-44.8); MPV 7.9 fL (7.6-11.3); RBC Red Blood Cell Count 3.98 M/uL (4.33-5.43)
[2020-11-14] MEDS: D5.45NS W/KCL 20MEQ 1,000 ML IV SCH ×2 (04:26→15:11)
[2020-11-14 04:31] LABS: Magnesium 1.8 mg/dL (1.8-2.4); Potassium 4.9 mmol/L (3.5-5.1)
[2020-11-14] MEDS: HYDROMORPHONE HCL 1 MG/ML INJ IV PRN ×2 (05:36→20:46)
--- NOTE | 2020-11-14 07:38 | PN ---
Date of Progress Note: 11/13/2020 Subjective: The patient was seen for followup this morning. No new complaints or problems reported by him. He was in ICU. His and daughter were at bedside. Objective: Vital Signs: Reviewed. HEENT: Unremarkable. Lungs: Clear to auscultation. Heart: Sounds normal. Abdomen: Soft. Bowel sounds present. No guarding, rigidity, distention. Extremities: No leg edema. Laboratory Data: White count 14.5, hemoglobin 12.4, platelets 231. Sodium 141, potassium 4.7, chlor donna 111, bicarb 23, BUN 7, creatinine 1.42, glucose 191, magnesium 1.7. Impression: 1.Colon cancer, status post surgery. 2.Acute kidney injury. 3.Anemia. 4.Chronic atrial fibrillation. 5.Hypertension. 6.Coronary artery disease. Plan: We will continue current medication. Continue IV fluid. The patient remains n.p.o. and we wi ll go ahead and transfer him out of ICU to medical floor. He is medically stable for the transfer. Consult Physical therapy. Replace magnesium per order. I will see him tomorrow for followup. We will continue to follow with Dr. Jett for postop care. BARAK/MODL Voice ID: [id number] Report ID: [id number]
[2020-11-14] MEDS ORDERED: MAGNESIUM SULFATE 1 gm IVPB 1 GM/100 ML BAG IV ONE (08:00)
[2020-11-14] MEDS: ENOXAPARIN 40 MG/0.4 ML SQ SCH (09:23)
[2020-11-14] MEDS: PANTOPRAZOLE 40 MG INJ IVP SCH (09:24)
--- NOTE | 2020-11-14 12:35 | PN ---
Date of Progress Note: 11/14/2020 Subjective: The patient is awake, alert. No complaints. Has not had a bowel movement. Minimal fla tus yesterday. Objective: Vitals: Stable, afebrile. Abdomen: Soft, a little distended. Hypoactive bowel sounds but no peritonitis. Laboratory Data: White count is almost normal. Electrolytes are essentially within normal limits. Urine output was adequate and Anthony was removed earlier today. Assessment: Status post segmental sigmoid resection for colon cancer. Recommendations: We will discontinue the NG tube as it is hardly putting anything out. Keep him n.p .o. for the time being. Sips of water and ice chips at this time. Physical therapy, incentive rory metry. The patient is clinically doing well. /MODL Voice ID: [id number] Report ID: [id number]
--- NOTE | 2020-11-14 22:50 | PN ---
Date of Progress Note: 11/14/2020 Subjective: The patient was seen this morning for followup. No new complaints or problems reported by him. NG tube was present. Anthony catheter was present. Overall he feels better and looks better compared to yesterday. His family was with him at bedside. He is passing some gas per rectum. Denies any chest pain. No shortness of breath. Objective: Vital Signs: Reviewed. HEENT: Examination unremarkable. Lungs: Clear to auscultation. Heart: Sounds normal. Abdomen: Soft. Bowel sounds present. Extremities: No leg edema. Laboratory Data: Labs reviewed. Impression: 1. Acute kidney injury. 2. Colon cancer, status post small surgery. 3. Hypertension. 4. Chronic atrial fibrillation. 5. Coronary artery disease. 6. Hyperlipidemia. Plan: Continue current medications. Continue to follow with Dr. Jett. We will remove Anthony catheter. Ambulation was encouraged and I will see him tomorrow for followup. We will continue current anticoagulation therapy. BARAK/MODL Voice ID: [id number] Report ID: [id number] RAFAEL
[2020-11-15] MEDS: D5.45NS W/KCL 20MEQ 1,000 ML IV SCH ×4 (01:03→21:30)
[2020-11-15 07:27] LABS: Magnesium 1.8 mg/dL (1.8-2.4); Potassium 4.4 mmol/L (3.5-5.1)
[2020-11-15] MEDS: PANTOPRAZOLE 40 MG INJ IVP SCH (09:00)
[2020-11-15] MEDS: ENOXAPARIN 40 MG/0.4 ML SQ SCH (09:29)
--- NOTE | 2020-11-15 12:39 | PN ---
Date of Progress Note: 11/15/2020 Subjective: The patient is awake, alert. No complaints. Passing gas. Objective: Vital Signs: Stable, afebrile. Abdomen: Benign. Extremities: Dressing clean, dry, and intact. Wound yesterday was seen clean. No sign of infection . Assessment: Status post segmental colon resection. Recommendations: We will start him on sips of clear liquids. I encouraged incentive spirometry, amb ulating with PT. The patient is clinically doing well. /MODL Voice ID: [id number] Report ID: [id number]
--- NOTE | 2020-11-15 22:08 | PN ---
Date of Progress Note: 11/13/2020 Mr. Hdz was admitted and cleared for colon surgery by Dr. Jett because of colon mass. He und erwent an open laparotomy on 11/12/2020. He has done well. He remained anticoagulated. He is alert and oriented x3. Hemoglobin of 12.4. His white count was 14,000. He has no cardiac complication o f CHF. I will leave the decision regarding resuming Eliquis to Dr. Jett and Dr. Kelsey. Otherwise, richie garcia present regimen. MICHELLE/MODL Voice ID: [id number] Report ID: [id number]
[2020-11-16] MEDS: D5.45NS W/KCL 20MEQ 1,000 ML IV SCH (06:35)
[2020-11-16 06:50] LABS: Magnesium 1.7 mg/dL (1.8-2.4); Potassium 4.5 mmol/L (3.5-5.1)
--- NOTE | 2020-11-16 07:45 | PN ---
Date of Progress Note: 11/15/2020 Subjective: Patient was seen this morning for followup. No new complaints, problems reported by celso may. He was sitting in the chair. Denied any complaints. His NG tube was removed yesterday. Fole y catheter was removed. He is able to urinate without any difficulties. He also participates with p hysical therapy and ambulates. He is passing gas per rectum, but no bowel movement yet. No nausea, no vomiting. Objective: VITAL SIGNS: Reviewed. HEENT: Unremarkable. LUNGS: Clear to auscultation. CARDIAC: Heart sounds normal ABDOMEN: Soft. Bowel sounds normal. No guarding, rigidity. Some tenderness around surgical incisi on site. EXTREMITIES: No leg edema. Laboratory Data: Sodium 140, potassium 4.4, chloride 108, bicarb 25, BUN 5, creatinine 0.95, glucose 107, magnesium 1.8. Impression: 1.Colon cancer, sigmoid colon, status post surgery. 2.Chronic atrial fibrillation. 3.Hypertension. 4.Coronary artery disease. Plan: We will go ahead and continue to keep patient n.p.o. Continue to follow up with Dr. Jett. T he patient was encouraged to ambulate with therapy. Continue current Lovenox and I will see him yash rrow for followup. Hopefully, we will be able to get him started on some clear liquid diet either today or tomorrow depending on recommendation from Dr. Jett. BARAK/MODL Voice ID: [id number] Report ID: [id number]
[2020-11-16] MEDS ORDERED: HYDROCODONE/APAP 5/325 MG TAB PO PRN (08:18)
[2020-11-16] MEDS ORDERED: D5.45NS W/KCL 20MEQ 1,000 ML IV SCH (08:53)
[2020-11-16] MEDS ORDERED: MAGNESIUM SULFATE 1 gm IVPB 1 GM/100 ML BAG IV ONE (09:00)
[2020-11-16] MEDS: PANTOPRAZOLE 40 MG INJ IVP SCH (09:00)
[2020-11-16] MEDS: METOPROLOL TAR 25 MG TAB PO SCH ×2 (09:58→21:13)
[2020-11-16] MEDS: APIXABAN 5 MG TABLET PO SCH ×2 (09:58→21:13)
[2020-11-16] MEDS: FAMOTIDINE 20 MG TAB PO SCH (09:58)
--- NOTE | 2020-11-16 10:16 | RAD REPORT ---
EXAM DESCRIPTION: CT - Thorax W/ Con - 11/16/2020 9:10 am CLINICAL HISTORY: colon cancer COMPARISON: Thorax Wo Con dated 08/03/2018; Abdomen Pelvis W Contrast dated 11/10/2020 TECHNIQUE: Dynamically enhanced 5 mm thick images of the chest were obtained during administration o f 100 mL non-ionic IV contrast. All CT scans are performed using dose optimization technique as appropriate and may include automated exposure control or mA/KV adjustment according to patient size. FINDINGS: No new lung mass identified. A subpleural 5-6 mm nodule lateral right lower lobe has not c hanged. Small nodule in the posterior gutter on the right is diminished in size or absent. Patient velazquez s scarring and atelectasis changes that have progressed from 2018. A calcified nodule in the superior segment left lower lobe has not changed size but has increased in the amount of calcification. This is a benign finding. No suspicion for pulmonary metastatic disease. No pleural thickening or pleural effusion. No pneumothorax. No chest wall mass or abnormal axillary lymphadenopathy. No abnormal mediastinal or hilar mass or lymphadenopathy seen. Sternotomy wires are in place. IMPRESSION: Small calcified and noncalcified nodules, detailed above, are similar or less prominent when comparing back to 2018. No new finding seen suspicious for pulmonary metastatic disease. Progression of scarring and atelectasis changes since 2018.
--- NOTE | 2020-11-16 12:19 | PN ---
Date of Progress Note: 11/16/2020 Subjective: The patient was seen this morning for followup. No new complaints or problems reported by patient. Sitting in chair, not in any distress. His family was with him at bedside. Yesterday, he ambulated very well. Had a bowel movement yesterday and Dr. Jett has started him on clear liquid diet. Denies any nausea or vomiting. Objective: Vital Signs: Reviewed. HEENT: Unremarkable. Lungs: Clear to auscultation. Heart: Sounds normal. Abdomen: Soft. Bowel sounds normal. No guarding, rigidity, distention. Extremities: No leg edema. Laboratory Data: Sodium 140, potassium 4.5, chloride 109, bicarb 26, BUN 3, creatinine 0.92, glucose 114, magnesium 1.7. Impression: 1.Colon cancer, sigmoid colon, status post surgery. 2.Chronic atrial fibrillation. 3.Hypertension. 4.Coronary artery disease. Plan: We will go ahead and discontinue Lovenox. Start the patient on Eliquis. Start the patient on metoprolol 25 mg 2 times a day. We will continue to monitor vital signs and as time goes on, we kelsy l reintroduce his home medications. Details and plan of treatment discussed with the patient and his family. We will get a CAT scan of the chest done with contrast today. I will see him tomorrow for followup. Possible discharge to go home over this weekend. Social Service was consulted today to assist the patient with home health care and home physical therapy. BARAK/MODL Voice ID: [id number] Report ID: [id number]
[2020-11-17 06:47] LABS: Magnesium 1.9 mg/dL (1.8-2.4); Potassium 4.5 mmol/L (3.5-5.1)
[2020-11-17 08:21] VITALS: TEMP 97.3
[2020-11-17] MEDS: APIXABAN 5 MG TABLET PO SCH (08:53)
[2020-11-17] MEDS: FAMOTIDINE 20 MG TAB PO SCH (08:53)
[2020-11-17] MEDS: METOPROLOL TAR 25 MG TAB PO SCH (08:53)
[2020-11-17] MEDS: PANTOPRAZOLE 40 MG INJ IVP SCH (08:53)
[2020-11-17 10:17] VITALS: O2SAT 96
[2020-11-17 12:25] VITALS: BP 149/77
--- NOTE | 2020-11-17 12:26 | PN ---
Date of Progress Note: 11/17/2020 Subjective: The patient is awake, alert. Tolerating diet. Having bowel movements. Passing gas. N o pain. Objective: VITAL SIGNS: Stable, afebrile. ABDOMEN: Benign. Assessment: Status post colon resection for colon cancer. Pathology reviewed. 18 lymph nodes negat tatyana for metastatic disease. Margins free. Recommendation: The patient is unclear from surgery for discharge followup in my office in a week. Discharge instructions given. /MODL Voice ID: [id number] Report ID: [id number]
--- NOTE | 2020-11-17 14:32 | DS ---
Date of Discharge: 11/17/2020 The patient was seen this morning for followup. He was sitting in the chair. His was present with him at bedside. Denies any complaints. Had a bowel movement this morning. Has a good appetite. Denies any pain. Does not use any pain medication in over 24 hours. He is ambulating well without any problem. Not using any oxygen. Physical Examination: HEENT: Unremarkable. Lungs: Clear to auscultation. Heart: Sounds normal. Abdomen: Soft. Bowel sounds normal. No guarding, rigidity, tenderness, or distention. Extremities: No leg edema. Laboratory Data: Last CBC from 11/14/2020; white count 11.3, hemoglobin 11.2, platelet 219. His CEA level was 1.4. First CBC from 11/10/2020; white count 6.1, hemoglobin 12.9, platelets 245. Last chemistry from today sodium 140, potassium 4.5, chloride 106, bicarb 26, BUN 6, creatinine 0.99, glucose 96, magnesium 1.9. Hospital Course: This is an 89-year-old very pleasant male patient, came into emergency room with complaints of rectal bleeding. Please see dictated H and P for more information. After patient was evaluated in emergency room, he was admitted to the hospital. The patient was noted to have a 4.3 cm mass in the sigmoid colon on the CAT scan that was done in the emergency room. Dr. Mclain from GI was consulted, who did the colonoscopy and sigmoid mass biopsy was done and that came back as positive for adenocarcinoma. Dr. Jett from General Surgery was consulted and he did surgery for this sigmoid colon cancer. Postoperatively, the patient was in ICU for a day or so. He remained medically stable and subsequently was transferred out of ICU to regular room, where he continued to improve. Physical therapy was consulted. Initially, he had a Anthony catheter and NG tube and over period of time, we removed both of those. He started urinating well without any difficulties and subsequently he was started on clear liquid diet and now currently he is on soft diet. He is tolerating diet very well. CAT scan of the chest was done with contrast, which came back small pulmonary nodule, 1 in right lower lobe and 1 in left lower lobe, unchanged from prior CAT scan few years ago. There was no evidence of any pulmonary metastasis. I would recommend for patient to have a followup with oncologists on an elective outpatient basis and when he comes to office, we will go ahead and initiate that referral process. I have called the patient's daughter today and given her all the updates and I have also discussed all these details with the patient's and the patient today at the hospital. Final Diagnoses: 1. Colon cancer, sigmoid colon. 2. Lower gastrointestinal bleeding secondary to above. 3. Chronic atrial fibrillation. 4. Chronic anticoagulation therapy. 5. Coronary artery disease. 6. Hypertension. 7. Hyperlipidemia. 8. Type 2 diabetes mellitus. 9. Obstructive sleep apnea. 10. Gastroesophageal reflux disease. 11. Prostate cancer. 12. Anemia, due to iron deficiency. Discharge Medications And Instructions: 1. Continue all prior home medications except stop ramipril and stop amlodipine. 2. May use Tylenol 500 mg 4 times a day as needed for pain. 3. Follow up at my office next week on which is November 22, 2020. 4. Follow up with Dr. Jett per his instruction. 5. Social Service to help make arrangements for home health and home physical therapy per order. BARAK/MODL Voice ID: [id number] Report ID: [id number]
== END 2020-11-17 15:08 | disposition home health service (06) | DRG 330 ==
LOC: ER 07:44 → ERHOLD 09:33 → 2ND 12:24 → ERHOLD 11-12 17:50 → 2ND 11-13 20:18
PROVIDERS: ADMIT Internal Medicine; ATTEND Internal Medicine
PROC: 0D1M4ZP Bypass Descending Colon to Rectum, Percutaneous Endoscopic Approach (ICD-10-PCS; principal; 2020-11-12 13:45)
PROC: 0DBN4ZX Excision of Sigmoid Colon, Percutaneous Endoscopic Approach, Diagnostic (ICD-10-PCS; 2020-11-12 13:45)
DX: C18.7 Malignant neoplasm of sigmoid colon (principal); I48.20 Chronic atrial fibrillation, unspecified; N17.9 Acute kidney failure, unspecified; K64.8 Other hemorrhoids; K64.4 Residual hemorrhoidal skin tags; I10 Essential (primary) hypertension; E78.5 Hyperlipidemia, unspecified; I25.10 Atherosclerotic heart disease of native coronary artery without angina pectoris; D50.9 Iron deficiency anemia, unspecified; K21.9 Gastro-esophageal reflux disease without esophagitis; I35.0 Nonrheumatic aortic (valve) stenosis; K57.30 Diverticulosis of large intestine without perforation or abscess without bleeding; G47.33 Obstructive sleep apnea (adult) (pediatric); E11.9 Type 2 diabetes mellitus without complications; I25.2 Old myocardial infarction; Z88.8 Allergy status to other drugs, medicaments and biological substances; Z79.82 Long term (current) use of aspirin; Z79.01 Long term (current) use of anticoagulants; Z79.84 Long term (current) use of oral hypoglycemic drugs; Z79.899 Other long term (current) drug therapy; Z85.46 Personal history of malignant neoplasm of prostate; Z88.1 Allergy status to other antibiotic agents; Z85.828 Personal history of other malignant neoplasm of skin; Z95.1 Presence of aortocoronary bypass graft; Z20.822 Contact with and (suspected) exposure to COVID-19
CPT/HCPCS: 36415; 71260; 74177; 80048; 80076; 82378; 82565; 82947; 83690; 83735; 84100; 85018; 85025; 85610; 85730; 88305; 88309; 93005; 94010; 97110; 97116; 97161; 97530; 99284; C9113; J0171; J0694; J1100; J1170; J1650; J2370; J2405; J2704; J2765; J3010; J3475; J7030; J7040; Q9967; U0003

== ENCOUNTER 2020-12-07 10:27 | Emergency (ER) | payer OTHER ==
--- OUTSIDE RECORDS SUMMARY | 2020-12-07 10:31 | XMS REPORT | Continuity of Care Document ---
:1930 Author Organization [facility] t Address [address] [place] [address] Care Team Providers Name Role Phone Trice SAUNDERS Primary Care Physician Unavailable CONSTANTINE SANDOVAL Attending Clinician Unavailable CONSTANTINE SANDOVAL Admitting Clinician Unavailable Problems Condition Condition Condition Status Onset Resolution Last Treating Co mments Source Name Details Category Date Date Treatment Clinician Date Atelectasi Atelectasi Disease Active 2016-[address] [facility] [place] Fluid Fluid Disease Active 2016-[address] [facility] overload overload 08-25 [facility] [place] NSTEMI NSTEMI Disease Active 2016-[address] [facility] [address] [...] 08-24 [facility] k[facility] - 00:00: Medical 00 [place] Acute Acute Disease Active 2016-[address] [facility] [address] blood loss blood loss 08-24 Cindy kes - anemia anemia 00:00: Medical 00 [place] Hyperglyce Hyperglyce Disease Active 2016-08 [facility] [...] Stop Date Source Natural father Heart block [facility] Natural mother Heart block [facility] Natural sister Lung cancer [facility] Natural sister Melanoma [facility] Social History Social Habit Start Date Stop Date Quantity Comments Source History of tobacco Pipe Smoker [facility] use [facility] Sex Assigned At [facility] Cigarettes smoked 2017-06-25 2017-06-25 [facility] - current (pack per 00:00:00 00:00:00 Medical Center day) - Reported Tobacco use and 2017-06-25 2017-06-25 Never used [facility] - exposure 00:00:00 00:00:00 [facility] Alcohol intake 2017-06-25 2017-06-25 [facility] es - 00:00:00 00:00:00 [facility] Center Smoking Status Start Date Stop Date Source Former smoker 2017-06-25 00:00:00 2017-06-25 00:00:00 [facility] Medications Ordered Filled Start Stop [...] Test Item Value Reference Range Interpretation Comme [facility] POC-GLUCOSE METER (BEAKER) (test 110 mg/dL 70-110 TESTED AT [facility] [address] [facility] [place] code = 1538) [facility] [address] 0 [id number] 11:44:00 Test Item Value Reference Range Interpretation Comments MAGNESIUM (BEAKER) (test code = 1.8 mg/dL 1.6-2.6 627) BASIC METABOLIC [id number] 11:44:00 Test Item Value Reference Range Interpretation [...] PATIEN TS. CBC W/PLT COUNT & AUTO [id number] 11:26:00 Test Item Value Reference Range Interpretation [...] 417) IMMATURE GRANULOCYTES-RELATIVE 1 % 0-1 PERCENT ([facility]) (test code = 2801) POCT-GLUCOSE [id number] 07:11:00 Test Item Value Reference Range Interpretation Comments POC-GLUCOSE METER 127 mg/dL 70-110 H TESTED AT [place] [address] ([facility]) (test code = [facility] Yaya [facility] 1538) [address] POCT-GLUCOSE [id number] 22:25:00 Test Item Value Reference Range Interpretation Comments POC-GLUCOSE METER 123 mg/dL 70-110 H TESTED AT [place] [address] ([facility]) (test code = [facility] 1538) [address] POCT-GLUCOSE [id number] 17:17:00 Test Item Value Reference Range Interpretation Comments POC-GLUCOSE METER 142 mg/dL 70-110 H TESTED AT [place] [address] ([facility]) (test code = [facility] 1538) [address] POCT-GLUCOSE [id number] 11:25:00 Test Item Value Reference Range Interpretation Comments POC-GLUCOSE METER 122 mg/dL 70-110 H TESTED AT [place] [address] ([facility]) (test code = [facility] 1538) [address] POCT-GLUCOSE [id number] 07:25:00 Test Item Value Reference Range Interpretation Comments POC-GLUCOSE METER 141 mg/dL 70-110 H TESTED AT [place] [address] ([facility]) (test code = [facility] 1538) [address] [id number] 06:33:00 Test Item Value Reference Range Interpretation Comments MAGNESIUM ([facility]) (test code = 1.7 mg/dL 1.6-2.6 627) BASIC METABOLIC [id number] 06:33:00 Test Item Value Reference Range Interpretation [...] NOT APPLICABLE FOR DIALYSIS PATIEN TS. POCT-GLUCOSE [id number] 21:00:00 Test Item Value Reference Range Interpretation Comments POC-GLUCOSE METER 139 mg/dL 70-110 H TESTED AT [facility] 67[address] (BEAKER) (test code = [facility] 1538) [address] POCT-GLUCOSE [id number] 17:04:00 Test Item Value Reference Range Interpretation Comments POC-GLUCOSE METER 146 mg/dL 70-110 H TESTED AT [facility] 67[address] (BEAKER) (test code = [facility] 1538) [address] POCT-GLUCOSE [id number] 12:17:00 Test Item Value Reference Range Interpretation Comments POC-GLUCOSE METER 142 mg/dL 70-110 H TESTED AT [facility] 67[address] (BEAKER) (test code = [facility] 1538) [address] [id number] 08:50:00 Test Item Value Reference Range Interpretation Comments MAGNESIUM (BEAKER) (test code = 1.8 mg/dL 1.6-2.6 627) BASIC METABOLIC [id number] 08:50:00 Test Item Value Reference Range Interpretation [...] 358) GLUCOSE RANDOM 184 mg/dL 70-105 H ([facility]) (test code = 652) CALCIUM (BEAKER) 8.7 mg/dL 8.4-10.2 (test code = 697) EGFR ([facility]) (test 69 mL/min/1.73 ESTIMA YIMI GFR IS code = 1092) sq m NOT ACCURATE CREATININE CLEARANCE IN PREDICTING GLOMERULAR FILTRATION RATE . ESTIMATED GFR I S NOT APPLICABLE FOR DIALYSIS PATIEN TS. POCT-GLUCOSE [id number] 07:57:00 Test Item Value Reference Range Interpretation Comments POC-GLUCOSE METER 208 mg/dL 70-110 H TESTED AT [place] [address] ([facility]) (test code = FIORELLA Javier [facility] 1538) [address] POCT-GLUCOSE [id number] 20:43:00 Test Item Value Reference Range Interpretation Comments POC-GLUCOSE METER 111 mg/dL 70-110 H TESTED AT [place] [address] ([facility]) (test code = FIORELLA Javier [facility] 1538) [address] POCT-GLUCOSE [id number] 16:39:00 Test Item Value Reference Range Interpretation Comments POC-GLUCOSE METER 108 mg/dL 70-110 TESTED AT [place] [address] ([facility]) (test code = FIORELLA Javier [facility] 1538) [address] POCT-GLUCOSE [id number] 12:11:00 Test Item Value Reference Range Interpretation Comments POC-GLUCOSE METER 105 mg/dL 70-110 TESTED AT [place] [address] ([facility]) (test code = FIORELLA Javier [facility] 1538) [address] POCT-GLUCOSE [id number] 08:59:00 Test Item Value Reference Range Interpretation Comments POC-GLUCOSE METER 170 mg/dL 70-110 H TESTED AT [place] [address] ([facility]) (test code = [place] 1538) [address] BASIC METABOLIC [id number] 05:24:00 Test Item Value Reference Range Interpretation [...] PATIEN TS. CBC W/PLT COUNT & AUTO [id number] 04:45:00 Test Item Value Reference Range Interpretation [...] PERCENT (BEAKER) (test code = 2801) POCT-GLUCOSE [id number] 20:46:00 Test Item Value Reference Range Interpretation Comments POC-GLUCOSE METER 131 mg/dL 70-110 H TESTED AT [place] [address] (BEAKER) (test code = [facility] 1538) [address] POCT-GLUCOSE [id number] 16:38:00 Test Item Value Reference Range Interpretation Comments POC-GLUCOSE METER 121 mg/dL 70-110 H TESTED AT [place] [address] ([facility]) (test code = [facility] 1538) [address] POCT-GLUCOSE [id number] 08:45:00 Test Item Value Reference Range Interpretation Comments POC-GLUCOSE METER 208 mg/dL 70-110 H TESTED AT [place] [address] ([facility]) (test code = [facility] 1538) [address] BASIC METABOLIC [id number] 07:45:00 Test Item Value Reference Range Interpretation [...] S NOT APPLICABLE FOR DIALYSIS PATIEN TS. [id number] 07:32:00 Test Item Value Reference Range Interpretation Comments MAGNESIUM (BEAKER) (test code = 1.3 mg/dL 1.6-2.6 L 627) CBC W/PLT COUNT & AUTO [id number] 06:37:00 Test Item Value Reference Range Interpretation [...] PERCENT (BEAKER) (test code = 2801) POCT-GLUCOSE [id number] 21:19:00 Test Item Value Reference Range Interpretation Comments POC-GLUCOSE METER 125 mg/dL 70-110 H TESTED AT [place] [address] ([facility]) (test code = [facility] 1538) [address] POCT-GLUCOSE [id number] 17:34:00 Test Item Value Reference Range Interpretation Comments POC-GLUCOSE METER 171 mg/dL 70-110 H TESTED AT [place] [address] ([facility]) (test code = [facility] 1538) [address] POCT-GLUCOSE [id number] 12:33:00 Test Item Value Reference Range Interpretation Comments POC-GLUCOSE METER 171 mg/dL 70-110 H TESTED AT [place] [address] ([facility]) (test code = [facility] 1538) [address] HEMOGLOBIN [id number] 12:21:00 Test Item Value Reference Range Interpretation Comments HEMOGLOBIN A1C ([facility]) (test code = 6.0 % 4.3-6.1 368) POCT-GLUCOSE [id number] 08:37:00 Test Item Value Reference Range Interpretation Comments POC-GLUCOSE METER 159 mg/dL 70-110 H TESTED AT [facility] 67[address] (BEAKER) (test code = [place] 1538) [address] RAD, CHEST, 1 VIEW, NON [id number] 07:43:00Reason for exam:->sternotomy FINAL REPORT Chest one [...] [place] Verified Date/Time: 06/26/2017 07:43:28 Reading Location: [facility] Radiology Reading Room BASIC METABOLIC [id number] 06:37:00 Test Item Value Reference Range Interpretation [...] NOT APPLICABLE FOR DIALYSIS PATIEN TS. PROTHROMBIN [id number] 06:30:00 Test Item Value Reference Range Interpretation Comments PROTIME (BEAKER) (test code = 16.5 seconds 11.7-14.7 H 759) INR (BEAKER) (test code = 370) 1.3 <=5.9 RECOMMENDED COUMADIN/WARFARIN INR THERAPY RANGESSTANDARD DOSE: 2.0 - 3.0 Includes: PROPHYLAXIS forvenous thrombosis, systemic embolization; TREATMENT for venous thrombosis and/or pulmonary embolus.HIGH RISK: Target INR is 2.5-3.5 for patients with mechanical heart valves.[id number] 06:23:00 Test Item Value Reference Range Interpretation Comments MAGNESIUM (BEAKER) (test code = 1.7 mg/dL 1.6-2.6 627) CBC W/PLT COUNT & AUTO [id number] 06:22:00 Test Item Value Reference Range Interpretation [...] PERCENT (BEAKER) (test code = 2801) POCT-GLUCOSE [id number] 21:25:00 Test Item Value Reference Range Interpretation Comments POC-GLUCOSE METER 145 mg/dL 70-110 H TESTED AT [place] [address] ([facility]) (test code = FIORELLA Javier [facility] 1538) [address] POCT-GLUCOSE [id number] 17:31:00 Test Item Value Reference Range Interpretation Comments POC-GLUCOSE METER 146 mg/dL 70-110 H TESTED AT [place] [address] ([facility]) [facility] 1538) [address] POCT-GLUCOSE [id number] 11:43:00 Test Item Value Reference Range Interpretation Comments POC-GLUCOSE METER 133 mg/dL 70-110 H TESTED AT [place] [address] ([facility]) ([facility] = [facility] 1538) [address] POCT-GLUCOSE [id number] 08:29:00 Test Item Value Reference Range Interpretation Comments POC-GLUCOSE METER 169 mg/dL 70-110 H TESTED AT [place] [address] ([facility]) (test code = [facility] Yaya [facility] 1538) [address] BASIC METABOLIC [id number] 04:33:00 Test Item Value Reference Range Interpretation [...] DIALYSIS PATIEN TS. LACTIC ACID, ARTERIAL, WHOLE [id number] 04:31:00 Test Item Value Reference Range Interpretation Comments LACTATE BLOOD ARTERIAL (2) 1.0 mmol/L 0.5-2.2 (BEAKER) (test code = 2874) Effective 12/19/2015: Units/Reference Range ChangeNew: 0.5-2.2 mmol/L Previous: 5-20 mg/[id number] 04:27:00 Test Item Value Reference Range Interpretation Comments MAGNESIUM (BEAKER) (test code = 2.0 mg/dL 1.6-2.6 627) CBC W/PLT COUNT & AUTO [id number] 04:18:00 Test Item Value Reference Range Interpretation [...] PERCENT (BEAKER) (test code = 2801) POCT-GLUCOSE [id number] 02:44:00 Test Item Value Reference Range Interpretation Comments POC-GLUCOSE METER 143 mg/dL 70-110 H TESTED AT [place] [address] ([facility]) (test code = [place] 1538) [address] POCT-GLUCOSE [id number] 01:32:00 Test Item Value Reference Range Interpretation Comments POC-GLUCOSE METER 185 mg/dL 70-110 H TESTED AT [facility] 6720 ([facility]) (test code = [place] 1538) [address] BLOOD GAS, [id number] 01:05:00 Test Item Value Reference Range Interpretation Comments PH ARTERIAL ([facility]) (test code = 7.50 7.35-7.45 H 383) [...] = 1819) 40.0 % Post extubation ABGPOCT-GLUCOSE [id number] 00:59:00 Test Item Value Reference Range Interpretation Comments POC-GLUCOSE METER 160 mg/dL 70-110 H TESTED AT [facility] 6720 (BEAKER) (test code = [place] 1538) [address] LACTIC ACID, ARTERIAL, WHOLE [id number] 23:02:00 Test Item Value Reference Range Interpretation Comments LACTATE BLOOD ARTERIAL (2) 1.3 mmol/L 0.5-2.2 (BEAKER) (test code = 2874) Effective 12/19/2015: Units/Reference Range ChangeNew: 0.5-2.2 mmol/L Previous: 5-20 mg/[id number] 23:01:00 Test Item Value Reference Range Interpretation Comments MAGNESIUM (BEAKER) (test code = 1.8 mg/dL 1.6-2.6 627) CALCIUM, [id number] 22:48:00 Test Item Value Reference Range Interpretation Comments CALCIUM IONIZED (BEAKER) (test 1.13 mmol/L 1.12-1.27 code = 698) PH, BLOOD (BEAKER) (test code = 7.49 1810) BLOOD GAS, [id number] 22:48:00 Test Item Value Reference Range Interpretation [...] (test code = 1819) 40.0 % GLUCOSE-STAT [id number] 22:48:00 Test Item Value Reference Range Interpretation Comments GLUCOSE RANDOM (BEAKER) (test code 173 mg/dL 70-110 H = 652) HGB/HCT (H&H) - STAT [id number] 22:48:00 Test Item Value Reference Range Interpretation Comments HEMOGLOBIN (BEAKER) (test code = 12.3 g/dL 13.0-16.8 L 410) HEMATOCRIT (BEAKER) (test code = 36.0 % 40.0-50.0 L 411) SODIUM NA-STAT [id number] 22:47:00 Test Item Value Reference Range Interpretation Comments SODIUM (BEAKER) (test code = 381) 136 meq/L 135-148 POTASSIUM-STAT [id number] 22:47:00 Test Item Value Reference Range Interpretation Comments POTASSIUM (BEAKER) (test code = 3.7 meq/L 3.6-5.5 379) SODIUM NA-STAT [id number] 18:58:00 Test Item Value Reference Range Interpretation Comments SODIUM (BEAKER) (test code = 381) 135 meq/L 135-148 POTASSIUM-STAT [id number] 18:58:00 Test Item Value Reference Range Interpretation Comments POTASSIUM (BEAKER) (test code = 3.8 meq/L 3.6-5.5 379) BLOOD GAS, [id number] 18:58:00 Test Item Value Reference Range Interpretation [...] (test code = 1819) 60.0 % GLUCOSE-STAT [id number] 18:58:00 Test Item Value Reference Range Interpretation Comments GLUCOSE RANDOM (BEAKER) (test code 197 mg/dL 70-110 H = 652) HGB/HCT (H&H) - STAT [id number] 18:58:00 Test Item Value Reference Range Interpretation Comments HEMOGLOBIN (BEAKER) (test code = 12.9 g/dL 13.0-16.8 L 410) HEMATOCRIT (BEAKER) (test code = 38.0 % 40.0-50.0 L 411) OXYGEN SATURATION, [id number] 18:57:00 Test Item Value Reference Range Interpretation Comments O2 SATURATION (MEASURED) (BEAKER) 74.4 % (test code = 1455) CALCIUM, [id number] 18:57:00 Test Item Value Reference Range Interpretation Comments CALCIUM IONIZED (BEAKER) (test 1.15 mmol/L 1.12-1.27 code = 698) PH, BLOOD (BEAKER) (test code = 7.41 1810) BASIC METABOLIC [id number] 16:12:00 Test Item Value Reference Range Interpretation [...] TS. Specimen slightly ictericLACTIC ACID, ARTERIAL, WHOLE [id number] 16:09:00 Test Item Value Reference Range Interpretation Comments LACTATE BLOOD ARTERIAL (2) 0.8 mmol/L 0.5-2.2 (BEAKER) (test code = 2874) Effective 12/19/2015: Units/Reference Range ChangeNew: 0.5-2.2 mmol/L Previous: 5-20 mg/dLBLOOD GAS, [id number] 16:01:00 Test Item Value Reference Range Interpretation [...] (test code = 1819) 60.0 % GLUCOSE-STAT [id number] 16:01:00 Test Item Value Reference Range Interpretation Comments GLUCOSE RANDOM (BEAKER) (test code 154 mg/dL 70-110 H = 652) CALCIUM, [id number] 16:00:00 Test Item Value Reference Range Interpretation Comments CALCIUM IONIZED (BEAKER) (test 1.20 mmol/L 1.12-1.27 code = 698) PH, BLOOD (BEAKER) (test code = 7.35 1810) SODIUM NA-STAT [id number] 16:00:00 Test Item Value Reference Range Interpretation Comments SODIUM (BEAKER) (test code = 381) 137 meq/L 135-148 POTASSIUM-STAT [id number] 16:00:00 Test Item Value Reference Range Interpretation Comments POTASSIUM (BEAKER) (test code = 3.9 meq/L 3.6-5.5 379) HGB/HCT (H&H) - STAT [id number] 16:00:00 Test Item Value Reference Range Interpretation Comments HEMOGLOBIN (BEAKER) (test code = 13.8 g/dL 13.0-16.8 410) HEMATOCRIT (BEAKER) (test code = 41.0 % 40.0-50.0 411) RAD, CHEST, 1 VIEW, NON [id number] 15:59:00Reason for exam:->POST ACBShould this be performed [...] [place] Verified Date/Time: 06/24/2017 15:59:15 Reading Location: [address] Consult Reading Room CBC W/PLT COUNT [...] (BEAKER) (test code = 2801) OXYGEN SATURATION, [id number] 15:54:00 Test Item Value Reference Range Interpretation Comments O2 SATURATION (MEASURED) (BEAKER) 45.2 % (test code = 1455) [id number] 14:09:00 Test Item Value Reference Range Interpretation Comments ACTIVATED CLOTTING TIME 142 sec TEST ED AT [facility] 6720 (BEAKER) (test code = [place] [address]) [address] PLATELET [id number] 13:35:00 Test Item Value Reference Range Interpretation Comments PLATELET COUNT (BEAKER) (test 104 K/CU MM 150-450 L code = 756) [id number] 13:32:00 Test Item Value Reference Range Interpretation Comments ACTIVATED CLOTTING TIME > sec OUTS BIENVENIDO MEASURING (BEAKER) (test code = VARSHA CARVAJAL AT [facility] 6757 441) JASE [facility] [address] PROTHROMBIN [id number] 13:23:00 Test Item Value Reference Range Interpretation Comments PROTIME (BEAKER) (test code = 22.1 seconds 11.7-14.7 H 759) INR (BEAKER) (test code = 370) 1.9 <=5.9 RECOMMENDED COUMADIN/WARFARIN INR THERAPY RANGESSTANDARD DOSE: 2.0 - 3.0 Includes: PROPHYLAXIS forvenous thrombosis, systemic embolization; TREATMENT for venous thrombosis and/or pulmonary embolus.HIGH RISK: Target INR is 2.5-3.5 for patients with mechanical heart valves.[id number] 13:23:00 Test Item Value Reference Range Interpretation Comments FIBRINOGEN LEVEL (BEAKER) (test 288 mg/dl 225-434 code = 658) [id number] 13:23:00 Test Item Value Reference Range Interpretation Comments PARTIAL THROMBOPLASTIN TIME 41.6 seconds 22.5-36.0 H (BEAKER) (test code = 760) BLOOD GAS, [id number] 12:56:00 Test Item Value Reference Range Interpretation [...] (test code = 1819) 50.0 % GLUCOSE-STAT [id number] 12:56:00 Test Item Value Reference Range Interpretation Comments GLUCOSE RANDOM (BEAKER) (test code 130 mg/dL 70-110 H = 652) SODIUM NA-STAT [id number] 12:56:00 Test Item Value Reference Range Interpretation Comments SODIUM (BEAKER) (test code = 381) 133 meq/L 135-148 L HGB/HCT (H&H) - STAT [id number] 12:56:00 Test Item Value Reference Range Interpretation Comments HEMOGLOBIN (BEAKER) (test code = 9.4 g/dL 13.0-16.8 L 410) HEMATOCRIT (BEAKER) (test code = 28.0 % 40.0-50.0 L 411) POTASSIUM-STAT [id number] 12:54:00 Test Item Value Reference Range Interpretation Comments POTASSIUM (BEAKER) (test code = 3.7 meq/L 3.6-5.5 379) POTASSIUM-STAT [id number] 12:23:00 Test Item Value Reference Range Interpretation Comments POTASSIUM (BEAKER) (test code = 3.7 meq/L 3.6-5.5 379) BLOOD GAS, [id number] 12:23:00 Test Item Value Reference Range Interpretation [...] (test code = 1819) 80.0 % GLUCOSE-STAT [id number] 12:23:00 Test Item Value Reference Range Interpretation Comments GLUCOSE RANDOM (BEAKER) (test code 129 mg/dL 70-110 H = 652) SODIUM NA-STAT [id number] 12:23:00 Test Item Value Reference Range Interpretation Comments SODIUM (BEAKER) (test code = 381) 133 meq/L 135-148 L HGB/HCT (H&H) - STAT [id number] 12:23:00 Test Item Value Reference Range Interpretation Comments HEMOGLOBIN (BEAKER) (test code = 8.8 g/dL 13.0-16.8 L 410) HEMATOCRIT (BEAKER) (test code = 26.0 % 40.0-50.0 L 411) BLOOD GAS, [id number] 11:10:00 Test Item Value Reference Range Interpretation [...] (test code = 1819) 100.0 % GLUCOSE-STAT [id number] 11:10:00 Test Item Value Reference Range Interpretation Comments GLUCOSE RANDOM (BEAKER) (test code 155 mg/dL 70-110 H = 652) CALCIUM, [id number] 11:10:00 Test Item Value Reference Range Interpretation Comments CALCIUM IONIZED (BEAKER) (test 1.08 mmol/L 1.12-1.27 L code = 698) PH, BLOOD (BEAKER) (test code = 7.37 1810) SODIUM NA-STAT [id number] 11:05:00 Test Item Value Reference Range Interpretation Comments SODIUM (BEAKER) (test code = 381) 136 meq/L 135-148 POTASSIUM-STAT [id number] 11:05:00 Test Item Value Reference Range Interpretation Comments POTASSIUM (BEAKER) (test code = 3.6 meq/L 3.6-5.5 379) HGB/HCT (H&H) - STAT [id number] 11:05:00 Test Item Value Reference Range Interpretation Comments HEMOGLOBIN (BEAKER) (test code = 13.6 g/dL 13.0-16.8 410) HEMATOCRIT (BEAKER) (test code = 40.0 % 40.0-50.0 411) PLATELET AGGREGATION: FUNCTION [id number] 11:01:00 Test Item Value Reference Range Interpretation Comments WEAK ADP 91 % 60-91 RESULT(AKER) (test code = 2135) PLATELET FUNCTION 60-100% indicates SCREEN INTERP (AKER) normal platelet (test code = 2173) function [id number] Rosa Maria Pitt MD ([facility]) (test code = (electronic signature) 6750) PLATELET COUNT AGG 199 K/CU MM 150-450 (BEAKER) (test code = 2656) for patients on clopidogrel in past two weeksPOCT-GLUCOSE [id number] 08:52:00 Test Item Value Reference Range Interpretation Comments POC-GLUCOSE METER 142 mg/dL 70-110 H TESTED AT [facility] 6720 ([facility]) (test code = [place] 1538) [address] RAD, CHEST, 1 VIEW, NON [id number] 01:35:00Reason for exam:->Pre opShould this be performed [...] [place] VerifiedDate/Time: 06/24/2017 01:35:38 Reading Location: [address] Reading Room [facility] signed by: AMRITA BRAGA M.D. on 06/24/2017 01:35 AMCBC W/PLT COUNT & AUTO [id number] 00:39:00 Test Item Value Reference Range Interpretation [...] 0-1 PERCENT (BEAKER) (test code = 2801) [id number] 00:09:00 Test Item Value Reference Range Interpretation Comments MAGNESIUM (BEAKER) 1.7 mg/dL 1.6-2.6 Specimen slightly (test code = 627) hemolyzed BASIC METABOLIC [id number] 00:09:00 Test Item Value Reference Range Interpretation [...] APPLICABLE FOR DIALYSIS PATIEN TS. HEPATIC FUNCTION [id number] 00:09:00 Test Item Value Reference Range Interpretation [...] Specimen slightly (test code = 347) hemolyzed [id number] 23:44:00 Test Item Value Reference Range Interpretation [...] 2.5-3.5 for patients with mechanical heart valves.PROTHROMBIN [id number] 23:43:00 Test Item Value Reference Range Interpretation [...]
--- NOTE | 2020-12-07 14:28 | ER ---
Nurse's Notes [facility] Name: David Hdz Age: 89 yrs Sex: Male : 1930 Arrival Date: 12/07/2020 Time: 10:29 Bed Waiting Private MD: Diagnosis: Presentation: 12/07 10:44 Chief complaint: Sudden tingling all over while sitting at kitchen table that lasted ss for approx 10 minutes at 1030 today. Also reports home BP 190/100, 202/110. Reports recent HTN medication changes. Coronavirus screen: At this time, the client does not indicate any symptoms associated with coronavirus-19. Ebola Screen: No symptoms or risks identified at this time. Initial Sepsis Screen: Does the patient meet any 2 criteria? No. Patient's initial sepsis screen is negative. Does the patient have a suspected source of infection? No. Patient's initial sepsis screen is negative. Risk Assessment: Do you want to hurt yourself or someone else? Patient reports no desire to harm self or others. Onset of symptoms was December 07, 2020. 10:44 Method Of Arrival: Ambulatory ss 10:44 Acuity: VLADIMIR 3 ss Historical: - Allergies: 10:49 Quinine Sulfate; ss 10:49 Sulfa (Sulfonamide Antibiotics); ss - Home Meds: 10:50 aspirin 81 mg Oral TbEC once daily [Active]; Eliquis 5 mg Oral tab 1 tab 2 times per ss day [Active]; famotidine 40 mg Oral tab 1 tab once daily [Active]; magnesium oxide 400 mg Oral tab daily [Active]; metformin 500 mg Oral tab 1 tab 2 times per day [Active]; omeprazole 20 mg Oral cpDR 1 cap once daily [Active]; ramipril 10 mg Oral cap 1 cap 2 times per day [Active]; simvastatin 20 mg Oral tab once daily [Active]; metoprolol tartrate 25 mg oral tab [Active]; - PMHx: 10:49 Diabetes - NIDDM; Hypertension; skin cancer; ss - Immunization history:: Adult Immunizations up to date. - Social history:: Smoking status: Patient denies any tobacco usage or history of. Vital Signs: 10:44 BP 173 / 100; Pulse 92; Resp 16; Temp 97.8; Pulse Ox 100% on R/A; Pain 0/10; ss ED Course: 10:29 Patient arrived in ED. ds1 10:48 Triage completed. ss 10:49 Arm band placed on. ss Administered Medications: No medications were administered Outcome: 14:27 Patient left the ED. ss Signatures: Chelsea Simmons ds1 Mary Coronado, RN RN ss
[2020-12-07 14:42] VITALS: BP 173/100; TEMP 97.8; O2SAT 100
== END 2020-12-07 14:27 | disposition left against medical advice (07) ==
LOC: ER 10:27
DX: R20.2 Paresthesia of skin (principal); Z53.21 Procedure and treatment not carried out due to patient leaving prior to being seen by health care provider; E11.9 Type 2 diabetes mellitus without complications; I10 Essential (primary) hypertension; Z85.828 Personal history of other malignant neoplasm of skin; Z79.84 Long term (current) use of oral hypoglycemic drugs; Z79.01 Long term (current) use of anticoagulants
CPT/HCPCS: 99281

== ENCOUNTER 2021-12-21 00:01 | Inpatient (IN) | payer OTHER ==
--- OUTSIDE RECORDS SUMMARY | 2021-12-21 00:07 | XMS REPORT | Continuity of Care Document ---
:1930 Author Organization [facility] t Address [facility] [address] [place] [address] Care Team Providers Name Role Phone CONSTANTINE SANDOVAL Attending Clinician Unavailable CONSTANTINE SANDOVAL Admitting Clinician Unavailable Problems This patient has no known problems. Allergies, Adverse Reactions, Alerts This patient has no known allergies or adverse reactions. Medications This patient has no known medications. Procedures This patient has no known procedures. Results Test Description Test Time Test Comments Results Result Comments Source POCT-GLUCOSE METER 2017-07-01 12:09:00 Test Item Value Reference Range Interpretation Comme [facility] POC-GLUCOSE METER (BEAKER) (test 110 mg/dL 70-110 TESTED AT [facility] [address] [facility] code = 1538) [facility] 7703 0 [id number] 11:44:00 Test Item Value Reference Range Interpretation Comments MAGNESIUM (BEAKER) (test code = 1.8 mg/dL 1.6-2.6 627) BASIC METABOLIC [id number] 11:44:00 Test Item Value Reference Range Interpretation [...] PATIEN TS. CBC W/PLT COUNT & AUTO [id number] 11:26:00 Test Item Value Reference Range Interpretation [...] LYMPHOCYTES ABSOLUTE COUNT 2.16 K/ L 1.32-3.57 (BEAKER) (test code = 414) MONOCYTES ABSOLUTE COUNT (BEAKER) 1.14 K/ L 0.30-0.82 H (test code = 415) EOSINOPHILS ABSOLUTE COUNT 0.16 K/ L 0.04-0.54 (AKER) (test code = 416) BASOPHILS ABSOLUTE COUNT (AKER) 0.08 K/ L 0.01-0.08 (test code = 417) IMMATURE GRANULOCYTES-RELATIVE 1 % 0-1 PERCENT ([facility]) (test code = 2801) POCT-GLUCOSE [id number] 07:11:00 Test Item Value Reference Range Interpretation Comments POC-GLUCOSE METER 127 mg/dL 70-110 H TESTED AT [place] [address] ([facility]) (test code = [facility] 1538) [address] POCT-GLUCOSE [id number] 22:25:00 Test Item Value Reference Range Interpretation Comments POC-GLUCOSE METER 123 mg/dL 70-110 H TESTED AT [place] [address] ([facility]) (test code = [facility] 1538) [address] POCT-GLUCOSE [id number] 17:17:00 Test Item Value Reference Range Interpretation Comments POC-GLUCOSE METER 142 mg/dL 70-110 H TESTED AT [place] [address] ([facility]) (test code = [facility] 1538) [address] POCT-GLUCOSE [id number] 11:25:00 Test Item Value Reference Range Interpretation Comments POC-GLUCOSE METER 122 mg/dL 70-110 H TESTED AT [place] [address] ([facility]) (test code = [facility] 1538) [address] POCT-GLUCOSE [id number] 07:25:00 Test Item Value Reference Range Interpretation Comments POC-GLUCOSE METER 141 mg/dL 70-110 H TESTED AT [place] [address] ([facility]) (test code = [facility] 1538) [address] [id number] 06:33:00 Test Item Value Reference Range Interpretation Comments MAGNESIUM (BEAKER) (test code = 1.7 mg/dL 1.6-2.6 627) BASIC METABOLIC [id number] 06:33:00 Test Item Value Reference Range Interpretation [...] NOT APPLICABLE FOR DIALYSIS PATIEN TS. POCT-GLUCOSE [id number] 21:00:00 Test Item Value Reference Range Interpretation Comments POC-GLUCOSE METER 139 mg/dL 70-110 H TESTED AT [facility] 67[address] (BEAKER) (test code = [place] 1538) [address] POCT-GLUCOSE [id number] 17:04:00 Test Item Value Reference Range Interpretation Comments POC-GLUCOSE METER 146 mg/dL 70-110 H TESTED AT [facility] 6720 (BEAKER) (test code = [place] 1538) [address] POCT-GLUCOSE [id number] 12:17:00 Test Item Value Reference Range Interpretation Comments POC-GLUCOSE METER 142 mg/dL 70-110 H TESTED AT [facility] 67[address] (BEAKER) (test code = [place] 1538) [address] [id number] 08:50:00 Test Item Value Reference Range Interpretation Comments MAGNESIUM (BEAKER) (test code = 1.8 mg/dL 1.6-2.6 627) BASIC METABOLIC [id number] 08:50:00 Test Item Value Reference Range Interpretation Comments SODIUM (BEAKER) 140 meq/L 136-145 (test code = 381) POTASSIUM (BEAKER) 3.9 meq/L 3.5-5.1 (test code = 379) CHLORIDE (BEAKER) 106 meq/L 98-107 (test code = 382) CO2 (BEAKER) (test 28 meq/L 22-29 code = 355) BLOOD UREA NITROGEN 17 mg/dL 7-21 (BEAKER) (test code = 354) CREATININE ([facility]) 1.03 mg/dL 0.57-1.25 (test code = 358) GLUCOSE RANDOM 184 mg/dL 70-105 H ([facility]) (test code = 652) CALCIUM ([facility]) 8.7 mg/dL 8.4-10.2 (test code = 697) EGFR ([facility]) (test 69 mL/min/1.73 ESTIMA YIMI GFR IS code = 1092) sq m NOT ACCURATE CREATININE CLEARANCE IN PREDICTING GLOMERULAR FILTRATION RATE . ESTIMATED GFR I S NOT APPLICABLE FOR DIALYSIS PATIEN TS. POCT-GLUCOSE [id number] 07:57:00 Test Item Value Reference Range Interpretation Comments POC-GLUCOSE METER 208 mg/dL 70-110 H TESTED AT [place] [address] ([facility]) (test code = [facility] 1538) [address] POCT-GLUCOSE [id number] 20:43:00 Test Item Value Reference Range Interpretation Comments POC-GLUCOSE METER 111 mg/dL 70-110 H TESTED AT [place] [address] ([facility]) (test code = [facility] 1538) 55003 POCT-GLUCOSE [id number] 16:39:00 Test Item Value Reference Range Interpretation Comments POC-GLUCOSE METER 108 mg/dL 70-110 TESTED AT [place] [address] ([facility]) (test code = [facility] 1538) [address] POCT-GLUCOSE [id number] 12:11:00 Test Item Value Reference Range Interpretation Comments POC-GLUCOSE METER 105 mg/dL 70-110 TESTED AT [place] [address] ([facility]) (test code = [facility] 1538) 84151 POCT-GLUCOSE [id number] 08:59:00 Test Item Value Reference Range Interpretation Comments POC-GLUCOSE METER 170 mg/dL 70-110 H TESTED AT [place] [address] ([facility]) (test code = [facility] 1538) [address] BASIC METABOLIC [id number] 05:24:00 Test Item Value Reference Range Interpretation Comments SODIUM ([facility]) 139 meq/L 136-145 (test code = 381) POTASSIUM (BEAKER) 3.6 meq/L 3.5-5.1 (test code = 379) CHLORIDE (AKER) 106 meq/L 98-107 (test code = 382) [...] PATIEN TS. CBC W/PLT COUNT & AUTO [id number] 04:45:00 Test Item Value Reference Range Interpretation [...] PERCENT (BEAKER) (test code = 2801) POCT-GLUCOSE [id number] 20:46:00 Test Item Value Reference Range Interpretation Comments POC-GLUCOSE METER 131 mg/dL 70-110 H TESTED AT [place] [address] ([facility]) (test code = [facility] 1538) [address] POCT-GLUCOSE [id number] 16:38:00 Test Item Value Reference Range Interpretation Comments POC-GLUCOSE METER 121 mg/dL 70-110 H TESTED AT [place] [address] ([facility]) (test code = [facility] 1538) [address]105 POCT-GLUCOSE [id number] 08:45:00 Test Item Value Reference Range Interpretation Comments POC-GLUCOSE METER 208 mg/dL 70-110 H TESTED AT [place] [address] ([facility]) (test code = [facility] 1538) [address] BASIC METABOLIC [id number] 07:45:00 Test Item Value Reference Range Interpretation [...] S NOT APPLICABLE FOR DIALYSIS PATIEN TS. [id number] 07:32:00 Test Item Value Reference Range Interpretation Comments MAGNESIUM (BEAKER) (test code = 1.3 mg/dL 1.6-2.6 L 627) CBC W/PLT COUNT & AUTO [id number] 06:37:00 Test Item Value Reference Range Interpretation [...] PERCENT (BEAKER) (test code = 2801) POCT-GLUCOSE [id number] 21:19:00 Test Item Value Reference Range Interpretation Comments POC-GLUCOSE METER 125 mg/dL 70-110 H TESTED AT [place] [address] ([facility]) (test code = [facility] itravel [facility] 1538) [address] POCT-GLUCOSE [id number] 17:34:00 Test Item Value Reference Range Interpretation Comments POC-GLUCOSE METER 171 mg/dL 70-110 H TESTED AT [place] [address] ([facility]) (test code = [facility] itravel [facility] 1538) [address] POCT-GLUCOSE [id number] 12:33:00 Test Item Value Reference Range Interpretation Comments POC-GLUCOSE METER 171 mg/dL 70-110 H TESTED AT [place] [address] ([facility]) (test code = [facility] itravel [facility] 1538) [address] HEMOGLOBIN [id number] 12:21:00 Test Item Value Reference Range Interpretation Comments HEMOGLOBIN A1C ([facility]) (test code = 6.0 % 4.3-6.1 368) POCT-GLUCOSE [id number] 08:37:00 Test Item Value Reference Range Interpretation Comments POC-GLUCOSE METER 159 mg/dL 70-110 H TESTED AT [place] [address] ([facility]) (test code = [facility] itravel [facility] 1538) [address] RAD, CHEST, 1 VIEW, NON [id number] 07:43:00Reason for exam:->sternotomy FINAL REPORT Chest one [...] [place] Verified Date/Time: 06/26/2017 07:43:28 Reading Location: [facility] Radiology Reading Room BASIC METABOLIC [id number] 06:37:00 Test Item Value Reference Range Interpretation [...] NOT APPLICABLE FOR DIALYSIS PATIEN TS. PROTHROMBIN [id number] 06:30:00 Test Item Value Reference Range Interpretation Comments PROTIME (BEAKER) (test code = 16.5 seconds 11.7-14.7 H 759) INR (BEAKER) (test code = 370) 1.3 <=5.9 RECOMMENDED COUMADIN/WARFARIN INR THERAPY RANGESSTANDARD DOSE: 2.0 - 3.0 Includes: PROPHYLAXIS forvenous thrombosis, systemic embolization; TREATMENT for venous thrombosis and/or pulmonary embolus.HIGH RISK: Target INR is 2.5-3.5 for patients with mechanical heart valves.[id number] 06:23:00 Test Item Value Reference Range Interpretation Comments MAGNESIUM (BEAKER) (test code = 1.7 mg/dL 1.6-2.6 627) CBC W/PLT COUNT & AUTO [id number] 06:22:00 Test Item Value Reference Range Interpretation [...] PERCENT (BEAKER) (test code = 2801) POCT-GLUCOSE [id number] 21:25:00 Test Item Value Reference Range Interpretation Comments POC-GLUCOSE METER 145 mg/dL 70-110 H TESTED AT [place] [address] ([facility]) (test code = [place] Javier [facility] 1538) [address] POCT-GLUCOSE [id number] 17:31:00 Test Item Value Reference Range Interpretation Comments POC-GLUCOSE METER 146 mg/dL 70-110 H TESTED AT [place] [address] ([facility]) (test code = [place] Javier [facility] 1538) [address] POCT-GLUCOSE [id number] 11:43:00 Test Item Value Reference Range Interpretation Comments POC-GLUCOSE METER 133 mg/dL 70-110 H TESTED AT [place] [address] ([facility]) (test [facility] = [facility] 1538) [address] POCT-GLUCOSE [id number] 08:29:00 Test Item Value Reference Range Interpretation Comments POC-GLUCOSE METER 169 mg/dL 70-110 H TESTED AT [place] [address] ([facility]) (test code = [facility] Yaya [facility] 1538) [address] BASIC METABOLIC [id number] 04:33:00 Test Item Value Reference Range Interpretation [...] DIALYSIS PATIEN TS. LACTIC ACID, ARTERIAL, WHOLE [id number] 04:31:00 Test Item Value Reference Range Interpretation Comments LACTATE BLOOD ARTERIAL (2) 1.0 mmol/L 0.5-2.2 (BEAKER) (test code = 2874) Effective 12/19/2015: Units/Reference Range ChangeNew: 0.5-2.2 mmol/L Previous: 5-20 mg/[id number] 04:27:00 Test Item Value Reference Range Interpretation Comments MAGNESIUM (BEAKER) (test code = 2.0 mg/dL 1.6-2.6 627) CBC W/PLT COUNT & AUTO [id number] 04:18:00 Test Item Value Reference Range Interpretation [...] PERCENT (BEAKER) (test code = 2801) POCT-GLUCOSE [id number] 02:44:00 Test Item Value Reference Range Interpretation Comments POC-GLUCOSE METER 143 mg/dL 70-110 H TESTED AT [facility] 67 (BEAKER) (test code = [place]avier [place] 1538) [address] POCT-GLUCOSE [id number] 01:32:00 Test Item Value Reference Range Interpretation Comments POC-GLUCOSE METER 185 mg/dL 70-110 H TESTED AT [facility] 6720 (BEAKER) (test code = [facility] Yaya [place] 1538) [address] BLOOD GAS, [id number] 01:05:00 Test Item Value Reference Range Interpretation Comments PH ARTERIAL (BEAKER) (test code = 7.50 7.35-7.45 H 383) [...] = 1819) 40.0 % Post extubation ABGPOCT-GLUCOSE [id number] 00:59:00 Test Item Value Reference Range Interpretation Comments POC-GLUCOSE METER 160 mg/dL 70-110 H TESTED AT [facility] 6720 (BEAKER) (test code = [place] 1538) [address] LACTIC ACID, ARTERIAL, WHOLE [id number] 23:02:00 Test Item Value Reference Range Interpretation Comments LACTATE BLOOD ARTERIAL (2) 1.3 mmol/L 0.5-2.2 (BEAKER) (test code = 2874) Effective 12/19/2015: Units/Reference Range ChangeNew: 0.5-2.2 mmol/L Previous: 5-20 mg/[id number] 23:01:00 Test Item Value Reference Range Interpretation Comments MAGNESIUM (BEAKER) (test code = 1.8 mg/dL 1.6-2.6 627) CALCIUM, [id number] 22:48:00 Test Item Value Reference Range Interpretation Comments CALCIUM IONIZED (BEAKER) (test 1.13 mmol/L 1.12-1.27 code = 698) PH, BLOOD (BEAKER) (test code = 7.49 6920) BLOOD GAS, [id number] 22:48:00 Test Item Value Reference Range Interpretation [...] (test code = 1819) 40.0 % GLUCOSE-STAT [id number] 22:48:00 Test Item Value Reference Range Interpretation Comments GLUCOSE RANDOM (BEAKER) (test code 173 mg/dL 70-110 H = 652) HGB/HCT (H&H) - STAT [id number] 22:48:00 Test Item Value Reference Range Interpretation Comments HEMOGLOBIN (BEAKER) (test code = 12.3 g/dL 13.0-16.8 L 410) HEMATOCRIT (BEAKER) (test code = 36.0 % 40.0-50.0 L 411) SODIUM NA-STAT [id number] 22:47:00 Test Item Value Reference Range Interpretation Comments SODIUM (BEAKER) (test code = 381) 136 meq/L 135-148 POTASSIUM-STAT [id number] 22:47:00 Test Item Value Reference Range Interpretation Comments POTASSIUM (BEAKER) (test code = 3.7 meq/L 3.6-5.5 379) SODIUM NA-STAT [id number] 18:58:00 Test Item Value Reference Range Interpretation Comments SODIUM (BEAKER) (test code = 381) 135 meq/L 135-148 POTASSIUM-STAT [id number] 18:58:00 Test Item Value Reference Range Interpretation Comments POTASSIUM (BEAKER) (test code = 3.8 meq/L 3.6-5.5 379) BLOOD GAS, [id number] 18:58:00 Test Item Value Reference Range Interpretation [...] (test code = 1819) 60.0 % GLUCOSE-STAT [id number] 18:58:00 Test Item Value Reference Range Interpretation Comments GLUCOSE RANDOM (BEAKER) (test code 197 mg/dL 70-110 H = 652) HGB/HCT (H&H) - STAT [id number] 18:58:00 Test Item Value Reference Range Interpretation Comments HEMOGLOBIN (BEAKER) (test code = 12.9 g/dL 13.0-16.8 L 410) HEMATOCRIT (BEAKER) (test code = 38.0 % 40.0-50.0 L 411) OXYGEN SATURATION, [id number] 18:57:00 Test Item Value Reference Range Interpretation Comments O2 SATURATION (MEASURED) (BEAKER) 74.4 % (test code = 1455) CALCIUM, [id number] 18:57:00 Test Item Value Reference Range Interpretation Comments CALCIUM IONIZED (BEAKER) (test 1.15 mmol/L 1.12-1.27 code = 698) PH, BLOOD (BEAKER) (test code = 7.41 1810) BASIC METABOLIC [id number] 16:12:00 Test Item Value Reference Range Interpretation [...] TS. Specimen slightly ictericLACTIC ACID, ARTERIAL, WHOLE [id number] 16:09:00 Test Item Value Reference Range Interpretation Comments LACTATE BLOOD ARTERIAL (2) 0.8 mmol/L 0.5-2.2 (BEAKER) (test code = 2874) Effective 12/19/2015: Units/Reference Range ChangeNew: 0.5-2.2 mmol/L Previous: 5-20 mg/dLBLOOD GAS, [id number] 16:01:00 Test Item Value Reference Range Interpretation [...] (test code = 1819) 60.0 % GLUCOSE-STAT [id number] 16:01:00 Test Item Value Reference Range Interpretation Comments GLUCOSE RANDOM (BEAKER) (test code 154 mg/dL 70-110 H = 652) CALCIUM, [id number] 16:00:00 Test Item Value Reference Range Interpretation Comments CALCIUM IONIZED (BEAKER) (test 1.20 mmol/L 1.12-1.27 code = 698) PH, BLOOD (BEAKER) (test code = 7.35 1810) SODIUM NA-STAT [id number] 16:00:00 Test Item Value Reference Range Interpretation Comments SODIUM (BEAKER) (test code = 381) 137 meq/L 135-148 POTASSIUM-STAT [id number] 16:00:00 Test Item Value Reference Range Interpretation Comments POTASSIUM (BEAKER) (test code = 3.9 meq/L 3.6-5.5 379) HGB/HCT (H&H) - STAT [id number] 16:00:00 Test Item Value Reference Range Interpretation Comments HEMOGLOBIN (BEAKER) (test code = 13.8 g/dL 13.0-16.8 410) HEMATOCRIT (BEAKER) (test code = 41.0 % 40.0-50.0 411) RAD, CHEST, 1 VIEW, NON [id number] 15:59:00Reason for exam:->POST ACBShould this be performed [...] [place] Verified Date/Time: 06/24/2017 15:59:15 Reading Location: [facility] [id number] Consult Reading Room CBC W/PLT COUNT & [...] (BEAKER) (test code = 2801) OXYGEN SATURATION, [id number] 15:54:00 Test Item Value Reference Range Interpretation Comments O2 SATURATION (MEASURED) (BEAKER) 45.2 % (test code = 1455) [id number] 14:09:00 Test Item Value Reference Range Interpretation Comments ACTIVATED CLOTTING TIME 142 sec TEST ED AT [place] [address] ([facility]) (test code = FIORELLA Javier [facility] 441) [address] PLATELET [id number] 13:35:00 Test Item Value Reference Range Interpretation Comments PLATELET COUNT (BEAKER) (test 104 K/CU MM 150-450 L code = 756) [id number] 13:32:00 Test Item Value Reference Range Interpretation Comments ACTIVATED CLOTTING TIME > sec OUTS BIENVENIDO MEASURING (BEAKER) (test code = VAR[facility]OB[facility] AT [place] [address] 441) [facility] [address] PROTHROMBIN [id number] 13:23:00 Test Item Value Reference Range Interpretation Comments PROTIME (BEAKER) (test code = 22.1 seconds 11.7-14.7 H 759) INR (BEAKER) (test code = 370) 1.9 <=5.9 RECOMMENDED COUMADIN/WARFARIN INR THERAPY RANGESSTANDARD DOSE: 2.0 - 3.0 Includes: PROPHYLAXIS forvenous thrombosis, systemic embolization; TREATMENT for venous thrombosis and/or pulmonary embolus.HIGH RISK: Target INR is 2.5-3.5 for patients with mechanical heart valves.[id number] 13:23:00 Test Item Value Reference Range Interpretation Comments FIBRINOGEN LEVEL (BEAKER) (test 288 mg/dl 225-434 code = 658) [id number] 13:23:00 Test Item Value Reference Range Interpretation Comments PARTIAL THROMBOPLASTIN TIME 41.6 seconds 22.5-36.0 H (BEAKER) (test code = 760) BLOOD GAS, [id number] 12:56:00 Test Item Value Reference Range Interpretation [...] (test code = 1819) 50.0 % GLUCOSE-STAT [id number] 12:56:00 Test Item Value Reference Range Interpretation Comments GLUCOSE RANDOM (BEAKER) (test code 130 mg/dL 70-110 H = 652) SODIUM NA-STAT [id number] 12:56:00 Test Item Value Reference Range Interpretation Comments SODIUM (BEAKER) (test code = 381) 133 meq/L 135-148 L HGB/HCT (H&H) - STAT [id number] 12:56:00 Test Item Value Reference Range Interpretation Comments HEMOGLOBIN (BEAKER) (test code = 9.4 g/dL 13.0-16.8 L 410) HEMATOCRIT (BEAKER) (test code = 28.0 % 40.0-50.0 L 411) POTASSIUM-STAT [id number] 12:54:00 Test Item Value Reference Range Interpretation Comments POTASSIUM (BEAKER) (test code = 3.7 meq/L 3.6-5.5 379) POTASSIUM-STAT [id number] 12:23:00 Test Item Value Reference Range Interpretation Comments POTASSIUM (BEAKER) (test code = 3.7 meq/L 3.6-5.5 379) BLOOD GAS, [id number] 12:23:00 Test Item Value Reference Range Interpretation [...] (test code = 1819) 80.0 % GLUCOSE-STAT [id number] 12:23:00 Test Item Value Reference Range Interpretation Comments GLUCOSE RANDOM (BEAKER) (test code 129 mg/dL 70-110 H = 652) SODIUM NA-STAT [id number] 12:23:00 Test Item Value Reference Range Interpretation Comments SODIUM (BEAKER) (test code = 381) 133 meq/L 135-148 L HGB/HCT (H&H) - STAT [id number] 12:23:00 Test Item Value Reference Range Interpretation Comments HEMOGLOBIN (BEAKER) (test code = 8.8 g/dL 13.0-16.8 L 410) HEMATOCRIT (BEAKER) (test code = 26.0 % 40.0-50.0 L 411) BLOOD GAS, [id number] 11:10:00 Test Item Value Reference Range Interpretation [...] (test code = 1819) 100.0 % GLUCOSE-STAT [id number] 11:10:00 Test Item Value Reference Range Interpretation Comments GLUCOSE RANDOM (BEAKER) (test code 155 mg/dL 70-110 H = 652) CALCIUM, [id number] 11:10:00 Test Item Value Reference Range Interpretation Comments CALCIUM IONIZED (BEAKER) (test 1.08 mmol/L 1.12-1.27 L code = 698) PH, BLOOD (BEAKER) (test code = 7.37 1810) SODIUM NA-STAT [id number] 11:05:00 Test Item Value Reference Range Interpretation Comments SODIUM (BEAKER) (test code = 381) 136 meq/L 135-148 POTASSIUM-STAT [id number] 11:05:00 Test Item Value Reference Range Interpretation Comments POTASSIUM (BEAKER) (test code = 3.6 meq/L 3.6-5.5 379) HGB/HCT (H&H) - STAT [id number] 11:05:00 Test Item Value Reference Range Interpretation Comments HEMOGLOBIN (BEAKER) (test code = 13.6 g/dL 13.0-16.8 410) HEMATOCRIT (BEAKER) (test code = 40.0 % 40.0-50.0 411) PLATELET AGGREGATION: FUNCTION [id number] 11:01:00 Test Item Value Reference Range Interpretation Comments WEAK ADP 91 % 60-91 RESULT(BEAKER) (test code = 2135) PLATELET FUNCTION 60-100% indicates SCREEN INTERP (BEAKER) normal platelet (test code = 2173) function [id number] Rosa Maria Pitt MD (BEAKER) (test code = (electronic signature) 7482) PLATELET COUNT AGG 199 K/CU MM 150-450 (BEAKER) (test code = 2656) for patients on clopidogrel in past two weeksPOCT-GLUCOSE [id number] 08:52:00 Test Item Value Reference Range Interpretation Comments POC-GLUCOSE METER 142 mg/dL 70-110 H TESTED AT [facility] 6720 ([facility]) (test code = [place] 1538) [address] RAD, CHEST, 1 VIEW, NON [id number] 01:35:00Reason for exam:->Pre opShould this be performed [...] evidence of an acute osseous abnormality. Signed: Dequan Braga VerifiedDate/Time: 06/24/2017 01:35:38 Reading Location: [address] Reading Room [facility] signed by: DEQUAN BRAGA M.D. on 06/24/2017 01:35 AMCBC W/PLT COUNT & AUTO [id number] 00:39:00 Test Item Value Reference Range Interpretation [...] 0-1 PERCENT (BEAKER) (test code = 2801) [id number] 00:09:00 Test Item Value Reference Range Interpretation Comments MAGNESIUM (BEAKER) 1.7 mg/dL 1.6-2.6 Specimen slightly (test code = 627) hemolyzed BASIC METABOLIC [id number] 00:09:00 Test Item Value Reference Range Interpretation [...] APPLICABLE FOR DIALYSIS PATIEN TS. HEPATIC FUNCTION [id number] 00:09:00 Test Item Value Reference Range Interpretation [...] Specimen slightly (test code = 347) hemolyzed PT/[id number] 23:44:00 Test Item Value Reference Range Interpretation [...] 2.5-3.5 for patients with mechanical heart valves.PROTHROMBIN TIME/[id number] 23:43:00 Test Item Value Reference Range Interpretation [...]
[2021-12-21 02:10] LABS: Absolute Lymphocytes (CBC) 0.7 K/uL (0.7-4.9); Hematocrit 40.1 % (39.6-49.0); Lymphocytes % 6.2 % (15.3-44.8); MPV 7.7 fL (7.6-11.3); RBC Red Blood Cell Count 4.51 M/uL (4.33-5.43)
[2021-12-21 02:15] LABS: Protime INR 1.27
[2021-12-21 02:33] LABS: Albumin 3.7 g/dL (3.4-5.0); Bilirubin Direct 0.4 mg/dL (0-0.2); Bilirubin Total 0.9 mg/dL (0.2-1.0); Magnesium 1.9 mg/dL (1.8-2.4); Potassium 4.7 mmol/L (3.5-5.1); Protein, Total 7.4 g/dL (6.4-8.2); Troponin High Sensitivity 17.2 pg/mL (<58.9)
[2021-12-21] MEDS ORDERED: MORPHINE 2 MG/ML SYR ONE (02:57)
[2021-12-21] MEDS ORDERED: ONDANSETRON 4 MG/2 ML VIAL ONE (02:58)
[2021-12-21] MEDS ORDERED: FUROSEMIDE 20 MG/ 2ML VIAL ONE (05:51)
[2021-12-21 05:53] LABS: Urine Blood Trace-intact (Negative); Urine Glucose Trace (Negative); Urine Protein Trace (Negative); Urine Specific Gravity 1.025 (1.005-1.030)
--- NOTE | 2021-12-21 06:54 | ER ---
Nurse's Notes [facility] Name: David Hdz Age: 89 yrs Sex: Male : 1930 Arrival Date: 12/21/2021 Time: 00:06 Bed 17 Private MD: Diagnosis: Abdominal pain, Generalized;Chest pain, unspecified;Unspecified combined systolic (congestive) and diastolic (congestive) heart failure Presentation: 12/21 00:56 Chief complaint: Patient states: Per the son,"He was suppose to have a colonoscopy, but casandra they wouldn't do it. He's suppose to have a heart cath on Thursday.". Coronavirus screen: Vaccine status: Patient reports receiving the 2nd dose of the covid vaccine. Ebola Screen: Patient negative for fever greater than or equal to 101.5 degrees Fahrenheit, and additional compatible Ebola Virus Disease symptoms Patient denies exposure to infectious person. Patient denies travel to an Ebola-affected area in the 21 days before illness onset. Initial Sepsis Screen: Does the patient meet any 2 criteria? No. Patient's initial sepsis screen is negative. Does the patient have a suspected source of infection? No. Patient's initial sepsis screen is negative. Risk Assessment: Do you want to hurt yourself or someone else? Patient reports no desire to harm self or others. Onset of symptoms. 00:56 Method Of Arrival: Ambulatory casandra 00:56 Acuity: VLADIMIR 3 casandra Triage Assessment: 00:56 General: Appears in no apparent distress. Behavior is calm, cooperative. Pain: casandra Complains of pain in abdomen. GI: Abdomen is obese. Historical: - Allergies: 01:59 Quinine Sulfate; casandra 01:59 Sulfa (Sulfonamide Antibiotics); casandra - Home Meds: 01:59 aspirin 81 mg Oral TbEC once daily [Active]; Eliquis 5 mg Oral tab 1 tab 2 times per casandra day [Active]; famotidine 40 mg Oral tab 1 tab once daily [Active]; magnesium oxide 400 mg Oral tab daily [Active]; metformin 500 mg Oral tab 1 tab 2 times per day [Active]; metoprolol tartrate 25 mg Oral tab [Active]; omeprazole 20 mg Oral cpDR 1 cap once daily [Active]; ramipril 10 mg Oral cap 1 cap 2 times per day [Active]; simvastatin 20 mg Oral tab once daily [Active]; - PMHx: 01:59 Diabetes - NIDDM; Hypertension; skin cancer; casandra - Immunization history:: Client reports receiving the 2nd dose of the Covid vaccine. - Social history:: Smoking status: Patient denies any tobacco usage or history of. Screenin:05 Abuse screen: Denies threats or abuse. Denies injuries from another. Nutritional casandra screening: No deficits noted. Tuberculosis screening: No symptoms or risk factors identified. Fall Risk None identified. Assessment: 02:02 Reassessment: Patient appears in no apparent distress at this time. No changes from casandra previously documented assessment. This pt is familiar to me and has come tonight, accompanied by his son, that reports,"He was suppose to have a colonoscopy last week, but they said he needed a cardiac cath and that's scheduled for Thursday."Pt ambulated to the room \\T\\ [id number] in no distress and he and his son are visiting in the room, at this time. 02:05 GI: Bowel sounds present X 4 quads. casandra 02:06 GI: Abd is soft and non tender greatly distended, but pt is obese. casandra 02:45 Reassessment: The pt's son, at bedside, is quite needy. We have gotten multiple casandra blankets, pulled the pt up in the bed, despite him walking into the room, explained that he may be cold, due to the temperature in the ER, etc. The pt's son is constantly coming out of the room or calling from the room, when we are caring for other patients. 05:13 Reassessment: The pt is sleeping and his son remains at bedside. He has become much casandra more calm...the son. 05:55 Reassessment: The pt was taken to CT via wc and he has been able to give a urine casandra specimen, that was sent. 06:02 Reassessment: The pt has returned from CT. The son is helping his father change his casandra clothes. Vital Signs: 00:56 BP 154 / 80; Pulse 83; Resp 16; Temp 98.3; Pulse Ox 97% on R/A; Pain 0/10; casandra 01:00 BP 154 / 80; Pulse 83; Resp 16; Temp 98.3; Pulse Ox 97% on R/A; casandra 03:01 BP 151 / 96; Pulse 96; Resp 22; Temp 97.3; Pulse Ox 97% on R/A; Pain 5/10; casandra 04:32 BP 158 / 50; Pulse 75; Resp 22; Temp 98.3; Pulse Ox 95% on 2 lpm NC; casandra 06:01 BP 125 / 53; Pulse 88; Resp 20; Pulse Ox 97% on R/A; Pain 0/10; casandra ED Course: 00:06 Patient arrived in ED. ja2 00:56 Ra Penn MD is Attending Physician. 7 01:51 Ginger Lai, RN is Primary Nurse. casandra 01:59 Triage completed. casandra 02:02 Arm band placed on. casandra 02:05 No provider procedures requiring assistance completed. Inserted saline lock: 20 gauge casandra in left antecubital area, using aseptic technique. Blood collected. 02:06 Placed in gown. Bed in low position. Call light in reach. Side rails up X 1. Adult w/ casandra patient. 02:07 Lipase Sent. casandra 02:08 Basic Metabolic Panel Sent. casandra 02:08 CBC with Diff Sent. casandra 02:08 LFT's Sent. casandra 02:08 Magnesium Sent. casandra 02:08 NT PRO-BNP Sent. casandra 02:08 PT-INR Sent. casandra 02:08 Troponin HS Sent. casandra 03:09 XRAY Chest (1 view) In Process Unspecified. EDMS 06:07 CT Abd/Pelvis - Without Contrast In Process Unspecified. EDMS 06:53 Dane Kelsey MD is Hospitalizing Provider. 7 07:47 Attending Physician role handed off by Ra Penn MD nicole 07:47 Boris Herrera MD is Attending Physician. nicole 14:38 Patient admitted, IV remains in place. ld1 Administered Medications: 03:01 Drug: morphine 2 mg Route: IVP; Site: left antecubital; casandra 03:42 Follow up: Response: No adverse reaction; Pain is decreased casandra 03:01 Drug: Zofran (Ondansetron) 4 mg Route: IVP; Site: left antecubital; casandra 03:42 Follow up: Response: No adverse reaction casandra 06:09 Drug: Lasix (furosemide) 20 mg Route: IVP; Site: left antecubital; casandra 07:43 Follow up: Response: No adverse reaction ll1 08:00 Drug: Zosyn (piperacillin-tazobactam) 3.375 grams Route: IVPB; Infused Over: 60 mins; 1 Site: left antecubital; 09:00 Follow up: Response: No adverse reaction; IV Status: Completed infusion; IV Intake: ll1 100ml Intake: 09:00 IV: 100ml; Total: 100ml. [facility] Outcome: 02:06 Condition: stable casandra 06:53 Decision to Hospitalize by Provider. [facility] 14:38 Admitted to Med/surg accompanied by tech, room 230, Report called to SYDNEY Vasquez ld1 14:38 Instructed on the need for admit. 14:42 Patient left the ED. [facility] Signatures: Dispatcher [employer] EDMS Boris Herrera MD MD cha Lewis, Lynsay RN RN ll1 Ra Penn MD MD 7 Tori Chavira RN RN ld1 Nicolle Seymour Brenda, RN RN casandra
--- NOTE | 2021-12-21 06:54 | EDPHYS ---
Physician Documentation [facility] Name: David Hdz Age: 89 yrs Sex: Male : 1930 Arrival Date: 12/21/2021 Time: 00:06 Bed 17 Private MD: MALKA Physician Boris Herrera HPI: 12/21 01:30 This 89 yrs old Male presents to ER via Ambulatory with complaints of Abdominal Pain, mh7 Chest Pain, Constipation. 01:30 The patient presents with abdominal pain in the upper abdomen. mh7 01:30 Onset: The symptoms/episode began/occurred yesterday. The symptoms do not radiate. mh7 Associated signs and symptoms: Pertinent positives: constipation, nausea, Pertinent negatives: anorexia, blood in stools, chest pain, diarrhea, dysuria, fever, headache, hematuria, palpitations, shortness of breath, testicular pain, vomiting, vomiting blood. The symptoms are described as intermittent, vague, waxing/waning. Modifying factors: The symptoms are alleviated by nothing, the symptoms are aggravated by nothing. Severity of pain: At its worst the pain was moderate last night, in the emergency department the pain is unchanged. Historical: - Allergies: 01:59 Quinine Sulfate; casandra 01:59 Sulfa (Sulfonamide Antibiotics); casandra - Home Meds: 01:59 aspirin 81 mg Oral TbEC once daily [Active]; Eliquis 5 mg Oral tab 1 tab 2 times per casandra day [Active]; famotidine 40 mg Oral tab 1 tab once daily [Active]; magnesium oxide 400 mg Oral tab daily [Active]; metformin 500 mg Oral tab 1 tab 2 times per day [Active]; metoprolol tartrate 25 mg Oral tab [Active]; omeprazole 20 mg Oral cpDR 1 cap once daily [Active]; ramipril 10 mg Oral cap 1 cap 2 times per day [Active]; simvastatin 20 mg Oral tab once daily [Active]; - PMHx: 01:59 Diabetes - NIDDM; Hypertension; skin cancer; casandra - Immunization history:: Client reports receiving the 2nd dose of the Covid vaccine. - Social history:: Smoking status: Patient denies any tobacco usage or history of. ROS: 01:30 Constitutional: Negative for fever, chills, and weight loss, Eyes: Negative for injury, mh7 pain, redness, and discharge, ENT: Negative for injury, pain, and discharge, Neck: Negative for injury, pain, and swelling, Cardiovascular: Negative for chest pain, palpitations, and edema, Respiratory: Negative for shortness of breath, cough, wheezing, and pleuritic chest pain, Back: Negative for injury and pain, : Negative for injury, bleeding, discharge, and swelling, MS/Extremity: Negative for injury and deformity, Skin: Negative for injury, rash, and discoloration, Neuro: Negative for headache, weakness, numbness, tingling, and seizure, Psych: Negative for depression, anxiety, suicide ideation, homicidal ideation, and hallucinations, Allergy/Immunology: Negative for hives, rash, and allergies, Endocrine: Negative for neck swelling, polydipsia, polyuria, polyphagia, and marked weight changes, Hematologic/Lymphatic: Negative for swollen nodes, abnormal bleeding, and unusual bruising. Exam: 01:30 Constitutional: This is a well developed, well nourished patient who is awake, alert, mh7 and in no acute distress. Head/Face: Normocephalic, atraumatic. Eyes: Pupils equal round and reactive to light, extra-ocular motions intact. Lids and lashes normal. Conjunctiva and sclera are non-icteric and not injected. Cornea within normal limits. Periorbital areas with no swelling, redness, or edema. Neck: Trachea midline, no thyromegaly or masses palpated, and no cervical lymphadenopathy. Supple, full range of motion without nuchal rigidity, or vertebral point tenderness. No Meningismus. Chest/axilla: Normal chest wall appearance and motion. Nontender with no deformity. No lesions are appreciated. 01:30 Respiratory: Lungs have equal breath sounds bilaterally, clear to auscultation and percussion. No rales, rhonchi or wheezes noted. No increased work of breathing, no retractions or nasal flaring. 01:30 Back: No spinal tenderness. No costovertebral tenderness. Full range of motion. Skin: Warm, dry with normal turgor. Normal color with no rashes, no lesions, and no evidence of cellulitis. MS/ Extremity: Pulses equal, no cyanosis. Neurovascular intact. Full, normal range of motion. Neuro: Awake and alert, GCS 15, oriented to person, place, time, and situation. Cranial nerves II-XII grossly intact. Motor strength 5/5 in all extremities. Sensory grossly intact. Cerebellar exam normal. Normal gait. Psych: Awake, alert, with orientation to person, place and time. Behavior, mood, and affect are within normal limits. 01:30 Cardiovascular: Rate: normal, Rhythm: regular, Pulses: no pulse deficits are appreciated, Heart sounds: murmur, systolic, grade 2 over 6, heard in the aortic area, Edema: is not appreciated, JVD: is not appreciated. 01:30 Abdomen/GI: Inspection: obese Bowel sounds: normal, in all quadrants, Palpation: moderate abdominal tenderness, in the epigastric area, right upper quadrant and right lower quadrant, mass, is not appreciated, rebound tenderness, is not appreciated, voluntary guarding, is not appreciated, involuntary guarding, is not appreciated, no appreciated organomegaly, Rectal exam: the exam is deferred, because of patient request, Indicators: McBurney's point is not tender, Pugh's sign is negative, Rovsing's sign is negative, Obturator sign is negative, Psoas sign is negative, Liver: no appreciated palpable abnormalities, Hernia: not appreciated. Vital Signs: 00:56 BP 154 / 80; Pulse 83; Resp 16; Temp 98.3; Pulse Ox 97% on R/A; Pain 0/10; casandra 01:00 BP 154 / 80; Pulse 83; Resp 16; Temp 98.3; Pulse Ox 97% on R/A; casandra 03:01 BP 151 / 96; Pulse 96; Resp 22; Temp 97.3; Pulse Ox 97% on R/A; Pain 5/10; casandra 04:32 BP 158 / 50; Pulse 75; Resp 22; Temp 98.3; Pulse Ox 95% on 2 lpm NC; casandra 06:01 BP 125 / 53; Pulse 88; Resp 20; Pulse Ox 97% on R/A; Pain 0/10; casandra MDM: 06:51 Differential diagnosis: AAA, bowel obstruction, coronary artery disease, cholecystitis, mh7 Cholelithiasis, diverticulitis, gastritis, gastroesophageal reflux disease, Hepatitis, Irritable bowel syndrome, myocardia ischemia or infarction, non-specific abd pain, pancreatitis, Peptic Ulcer Disease, Ureterolithiasis, urinary tract infection. Data reviewed: vital signs, nurses notes, old medical records, lab test result(s), cardiac enzymes, CBC, electrolytes, urinalysis, EKG, radiologic studies, CT scan, plain films. Data interpreted: Pulse oximetry: on room air is 97 %. Interpretation: normal. Counseling: I had a detailed discussion with the patient and/or guardian regarding: the historical points, exam findings, and any diagnostic results supporting the discharge/admit diagnosis, lab results, radiology results, the need for further work-up and treatment in the hospital. Response to treatment: the patient's symptoms have mildly improved after treatment. 06:53 Patient medically screened. [facility] 12/21 01:28 Order name: Basic Metabolic Panel; Complete Time: 02:51 [facility] 12/21 01:28 Order name: CBC with Diff; Complete Time: 02:51 [facility] 12/21 01:28 Order name: LFT's; Complete Time: 02:51 [facility] 12/21 01:28 Order name: Magnesium; Complete Time: 02:51 [facility] 12/21 01:28 Order name: NT PRO-BNP; Complete Time: 02:51 [facility] 12/21 01:28 Order name: PT-INR; Complete Time: 02:51 [facility] 12/21 01:28 Order name: Troponin HS; Complete Time: 02:51 [facility] 12/21 01:28 Order name: Lipase; Complete Time: 02:51 [facility] 12/21 05:53 Order name: Urine Dipstick-Ancillary; Complete Time: 06:04 [facility] 12/21 06:59 Order name: SARS-COV-2 RT PCR (Document "Date of Onset" if Symptomatic) 12/21 07:02 Order name: Basic Metabolic Panel [facility] 12/21 07:02 Order name: Basic Metabolic Panel [facility] 12/21 07:02 Order name: CBC with Automated Diff [facility] 12/21 07:02 Order name: CBC with Automated Diff [facility] 12/21 01:28 Order name: XRAY Chest (1 view) [facility] 12/21 01:28 Order name: EKG; Complete Time: 01:29 [facility] 12/21 05:25 Order name: CT Abd/Pelvis - Without Contrast [facility] 12/21 06:54 Order name: US Abdomen Limited [facility] 12/21 07:02 Order name: 60g Consistent Carbohydrate (ADA 1800/2000) [facility] 12/21 07:02 Order name: EKG Electrocardiogram [facility] 12/21 07:02 Order name: NT PRO-BNP EDMS 12/21 07:02 Order name: NT PRO-BNP EDMS 12/21 07:02 Order name: Chest Single View EDMS 12/21 07:02 Order name: Chest Single View EDMS 12/21 08:23 Order name: US; Complete Time: 13:57 EDMS 12/21 11:43 Order name: Glucose, Ancillary Testing; Complete Time: 13:57 EDMS 12/21 01:28 Order name: Cardiac monitoring; Complete Time: 02:07 [facility] 12/21 01:28 Order name: EKG - Nurse/Tech; Complete Time: 02:07 7 12/21 01:28 Order name: IV Saline Lock; Complete Time: 02:07 [facility] 12/21 01:28 Order name: Labs collected and sent; Complete Time: 02:07 7 12/21 01:28 Order name: O2 Per Protocol; Complete Time: 02:08 [facility] 12/21 01:28 Order name: O2 Sat Monitoring; Complete Time: 02:08 [facility] 12/21 01:28 Order name: Urine Dipstick-Ancillary (obtain specimen); Complete Time: 06:30 [facility] 12/21 07:02 Order name: EKG Electrocardiogram EDMS Administered Medications: 03:01 Drug: morphine 2 mg Route: IVP; Site: left antecubital; casandra 03:42 Follow up: Response: No adverse reaction; Pain is decreased casandra 03:01 Drug: Zofran (Ondansetron) 4 mg Route: IVP; Site: left antecubital; casandra 03:42 Follow up: Response: No adverse reaction casandra 06:09 Drug: Lasix (furosemide) 20 mg Route: IVP; Site: left antecubital; casandra 07:43 Follow up: Response: No adverse reaction ll1 08:00 Drug: Zosyn (piperacillin-tazobactam) 3.375 grams Route: IVPB; Infused Over: 60 mins; ll1 Site: left antecubital; 09:00 Follow up: Response: No adverse reaction; IV Status: Completed infusion; IV Intake: ll1 100ml Disposition Summary: 12/21/21 06:53 Hospitalization Ordered Hospitalization Status: Inpatient Admission [facility] Provider: Dane Kelsey Location: Telemetry/MedSur (Inpatient) [facility] Condition: Stable [facility] Problem: new [facility] Symptoms: have improved mh Bed/Room Type: Standard [facility] Room Assignment: 203(12/21/21 13:30) dw Diagnosis - Abdominal pain, Generalized [facility] - Chest pain, unspecified [facility] - Unspecified combined systolic (congestive) and diastolic (congestive) heart failure [facility] Forms: - Medication Reconciliation Form 7 - SBAR form [facility] Signatures: Dispatcher [employer] Yamel Petersen RN RN dw Anderson, Corey, MD MD cha Lewis, Lynsay, RN RN 1 Ra Penn MD MD 7 Ginger Lai RN RN casandra Corrections: (The following items were deleted from the chart) 02:10 02:08 The patient presents with abdominal pain in the upper abdomen, [place] [id number] 13:30 06:53 [place]
[2021-12-21] MEDS ORDERED: IPRATROPIUM BROM 0.5MG/2.5ML NEB PRN (06:57)
[2021-12-21] MEDS ORDERED: MORPHINE 4 MG/ML SYR IV PRN (06:57)
[2021-12-21] MEDS ORDERED: ONDANSETRON 4 MG/2 ML VIAL IV PRN (06:57)
[2021-12-21] MEDS ORDERED: ALBUTEROL 2.5 MG/3 ML NEB SOL NEB PRN (06:57)
[2021-12-21] MEDS ORDERED: NA CHLORIDE 0.9% 100 ML IV ONE (07:48)
[2021-12-21] MEDS ORDERED: PIPERACIL/TAZO 3.375 GM VIAL IV ONE (07:48)
--- NOTE | 2021-12-21 08:22 | RAD REPORT ---
EXAM DESCRIPTION: US - Abdomen Exam Limited - 12/21/2021 8:06 am CLINICAL HISTORY: RUQ COMPARISON: Abdomen Pelvis Wo Contrast dated 12/21/2021bdomen Pelvis Wo Contrast dated 12/21/2021 FINDINGS: The gallbladder demonstrates no gallstones. No pericholecystic fluid or gallbladder wall t hickening. The common bile duct is normal measuring 3 mm. The liver demonstrates no findings of intrahepatic biliary dilatation. IMPRESSION: Unremarkable examination.
[2021-12-21] MEDS ORDERED: FUROSEMIDE 20 MG/ 2ML VIAL IV SCH ×2 (09:00→17:00)
--- NOTE | 2021-12-21 09:22 | EKG ---
Test Date: 2021-12-21 Test Time: 01:45:00 Tumbler Machine Operator: MYNOR MEASUREMENT RESULTS: Intervals: Rate: 84 WV: 274 QRSD: 162 QT: 426 QTc: 503 [place]: P: 68 WV: 274 QRS: 23 T: -39 INTERPRETIVE STATEMENTS: Sinus rhythm with 1st degree AV block Right bundle branch block T wave abnormality, consider inferolateral ischemia Abnormal ECG Compared to ECG 12/20/2021 07:34:56 No significant changes Electronically Signed On 12-21-21 09:22:04 CDT by Russell Lynn
[2021-12-21] MEDS ORDERED: ENOXAPARIN 40 MG/0.4 ML SQ ONE (09:47)
[2021-12-21] MEDS ORDERED: GLUCAGON 1 MG/VIAL IM PRN (09:47)
[2021-12-21] MEDS ORDERED: D50W 25 GM/50 ML SYRINGE IV PRN (09:47)
[2021-12-21] MEDS: INSULIN -REGULAR HUMAN 50 UNIT/0.5 ML ML SQ SCH ×3 (11:30→21:00)
[2021-12-21] MEDS ORDERED: HYDROCODONE/APAP 5/325 MG TAB PO PRN (16:20)
[2021-12-21] MEDS: METOPROLOL XL 50 MG TAB PO SCH (17:20)
[2021-12-21] MEDS: FAMOTIDINE 20 MG TAB PO SCH (21:18)
[2021-12-21] MEDS: APIXABAN 2.5 MG TABLET PO SCH (21:19)
[2021-12-21] MEDS: GABAPENTIN 300 MG CAP PO SCH (21:19)
[2021-12-21] MEDS: ATORVASTATIN 10 MG TAB PO SCH (21:19)
--- NOTE | 2021-12-21 21:46 | HP ---
Date of Admission: 12/21/2021 Chief Complaint: Abdominal pain. History Of Present Illness: This is an 89-year-old male patient who started to have right upper quad rant abdominal pain around 4:30 p.m. yesterday, came into emergency room during nighttime and after h e was evaluated, he was admitted to the hospital. I saw him this morning and visited him actually tw o times, first time when I visited him, his son was present with him and the patient's daughter who i s a physician assistant hall director later on came by to visit him, and I did go back and visit her and explained all the details as well. The patient was trying to get ready for colonoscopy, so this past week on . He actually took preparation for colonoscopy. Apparently that was canceled, but he did go through the colonoscopy preparation, so ever since that , he has not had a bowel movement, wh ich may not be unusual since he had just done a colonoscopy preparation. He denies any fever, chills , nausea, vomiting, but as of yesterday evening he started to have this right upper quadrant pain. N o aggravating or relieving factors. The patient states Dr. Lynn was planning to do cardiac cath o n outpatient basis, which is scheduled for Thursday, which is day after tomorrow and obviously we will have to cancel that and reschedule that at a later date. Allergies: TO QUININE CAUSING SWELLING. Medications: List reviewed. Review of Systems: GI: As mentioned above. All other systems reviewed and negative. Past Medical History: Significant for type 2 diabetes mellitus, obstructive sleep apnea, hypertensio n, hyperlipidemia, coronary artery disease, chronic atrial fibrillation, gastroesophageal reflux dise ase, prostate cancer, aortic stenosis, left ventricular hypertrophy, coronary artery disease and card iac cath in the past had shown on June 18, 2012, cardiac cath had shown 80% proximal and mid LAD s tenosis and 30% mid RCA stenosis. Past Surgical History: Tonsillectomy, hemorrhoid surgery, hernia repair, prostatectomy in 2000, and arthroscopic knee surgery. Family History: Father had COPD. Brother, prostate cancer. Sister, lung cancer. Social History: Prior history of smoking, not at present time. Use of alcohol, negative. Physical Examination: Vital Signs: When he first came into emergency room, blood pressure 154/80, pulse 83, respiratory ra te 16, temperature 98.3, oxygen saturation 97%. General: Awake, alert, oriented, not in distress. HEENT: Head atraumatic, normocephalic. Conjunctivae nonerythematous. Sclerae white. Mouth, no thr ush or edema noted. Ears/Nose, no mass, lesion, discharge noted. Neck: Supple. No JVD, lymph nodes, bruit, thyromegaly noted. Lungs: Bilateral good equal air entry. Clear to auscultation. No rhonchi. No rales. Heart: Presence of systolic murmur. No gallop. Abdomen: The patient's abdomen is soft. No distention, no guarding, no rigidity, but he does have p resence of tenderness in the right upper quadrant. No rebound tenderness. Bowel sounds are normoact tatyana. No hepatosplenomegaly. No bruit. Extremities: No calf tenderness. Bilateral trace leg edema. Skin: No rash, ulcer, cellulitis. Lymphatics: No lymph node enlargement in neck, supraclavicular, infraclavicular region. Neuro: No focal neurological deficit. Chest: Unremarkable. External Genitalia: Deferred. Rectal: Deferred. Laboratory Data: White count 11.9, hemoglobin 13.3, platelets 229. INR 1.27. Sodium 138, potassium 4.7, chloride 107, bicarb 24, BUN 22, creatinine 1.55, glucose 179. Liver function tests are unrema rkable except direct bilirubin 0.4, lipase 64. ProBNP 1146, troponin 17.2, which is within normal ra nge. Urinalysis; trace protein and trace blood. Abdominal ultrasound was unremarkable. This is right upper quadrant ultrasound. EKG has shown sinus rhythm with first-degree AV block and right bundle-branch block. Chest x-ray shows evidence of pulm onary edema. CAT scan of abdomen shows some fluid in the upper quadrant and pericholecystic region. Impression: 1.Acute pulmonary edema. 2.Chronic kidney disease, stage 3B. 3.Anemia due to chronic kidney disease. 4.Chronic atrial fibrillation. 5.Hypertension. 6.Type 2 diabetes mellitus. 7.Hyperlipidemia. 8.Coronary artery disease. 9.Obstructive sleep apnea. 10.Prostate cancer. 11.Gastroesophageal reflux disease. 12.Aortic stenosis. 13.Generalized weakness. 14.Debility. Plan: Admit the patient to hospital for further evaluation of this problem. The patient is appropri ate for inpatient and is expected to spend 2 midnights in the hospital. We will go ahead and start h im on IV diuretic therapy, which is Lasix 40 mg IV every 12 hours. I will communicate details with h is store grocery merchandiser, Dr. Lynn. Obviously, his cardiac cath for Thursday will be canceled. We will need to optimize his condition before he is able to have that procedure and that will need to be reschedu led on an outpatient basis in the near future with store grocery merchandiser. We will monitor electrolytes and re nal function. At this point, there is no evidence of any infection and we will monitor him for any n ew signs, symptoms, and also improvement as we are expecting with diuretic therapy. At this time, hi s pain in the right upper quadrant is likely due to perihepatic and pericholecystic fluid collection that we have seen on the CAT scan causing some irritation, likely to liver capsule and all these deta ils were discussed with the patient and the patient's son earlier and subsequently when I went back a lso discussed with the patient's daughter. I also talked to the patient earlier in presence of his s on about his code status and the patient remains full code as per his decision. We will consult Phys ical Therapy and fall precaution was ordered. Diabetes will be managed with sliding scale insulin an d other home medications will be continued for his gastroesophageal reflux disease, hypertension, and hyperlipidemia problem. We will continue his aspirin and Eliquis a lso per order. BARAK/MODL Voice ID: [id number]
[2021-12-22] MEDS: ACETAMINOPHEN 325 MG TABLET PO PRN (04:21)
[2021-12-22] MEDS: METOPROLOL XL 50 MG TAB PO SCH ×2 (05:54→17:51)
[2021-12-22] MEDS: PANTOPRAZOLE 40MG TABLET PO SCH (05:54)
[2021-12-22 06:21] LABS: Absolute Lymphocytes (CBC) 0.8 K/uL (0.7-4.9); Lymphocytes % 4.6 % (15.3-44.8); RBC Red Blood Cell Count 4.02 M/uL (4.33-5.43)
[2021-12-22 06:28] LABS: Magnesium 1.6 mg/dL (1.8-2.4); Potassium 3.8 mmol/L (3.5-5.1)
[2021-12-22] MEDS: INSULIN -REGULAR HUMAN 50 UNIT/0.5 ML ML SQ SCH ×4 (07:30→21:00)
--- NOTE | 2021-12-22 08:31 | RAD REPORT ---
EXAM DESCRIPTION: Luis Single View12/22/2021 6:44 am CLINICAL HISTORY: Chest pain COMPARISON: December 21, 2021 FINDINGS: Mild right basilar opacities have mildly worsened which may represent pneumonia. Left lung appears clear of acute infiltrate. Heart is mildly enlarged. Postsurgical changes involve the chest
[2021-12-22] MEDS ORDERED: AMLODIPINE 5 MG TAB PO SCH (09:00)
[2021-12-22] MEDS: MAGNESIUM OXIDE 400 MG TAB PO SCH (09:00)
[2021-12-22] MEDS ORDERED: PIPER TAZO 2.25 GM in NA CHLORIDE 0.9% 50 ML IV SCH (09:00)
[2021-12-22] MEDS ORDERED: ENOXAPARIN 40 MG/0.4 ML SQ SCH (09:00)
[2021-12-22] MEDS: ASPIRIN EC 81 MG TAB PO SCH (09:18)
[2021-12-22] MEDS: GABAPENTIN 300 MG CAP PO SCH ×2 (09:18→20:56)
[2021-12-22] MEDS: APIXABAN 2.5 MG TABLET PO SCH (09:19)
--- NOTE | 2021-12-22 09:40 | EKG ---
Test Date: 2021-12-21 Test Time: 22:25:32 Business Services Director: RT MEASUREMENT RESULTS: Intervals: Rate: 90 NH: 154 QRSD: 154 QT: 424 QTc: 518 [place]: P: 80 NH: 154 QRS: 10 T: -2 INTERPRETIVE STATEMENTS: Normal sinus rhythm Right bundle branch block Possible Inferior infarct, age undetermined Abnormal ECG Compared to ECG 12/21/2021 01:45:00 Myocardial infarct finding now present First degree AV block no longer present T-wave abnormality no longer present Possible ischemia no longer present Electronically Signed On 12-22-21 09:39:17 CDT by Russell Lynn
[2021-12-22] MEDS: PIPER TAZO 3.375 GM in NA CHLORIDE 0.9% 100 ML IV SCH ×2 (09:47→18:07)
--- NOTE | 2021-12-22 10:17 | PN ---
Date of Progress Note: 12/22/2021 Subjective: The patient was seen this morning for followup. His daughter was present with him at [facility] and just before my arrival, the patient had chills and earlier this morning his temperature had gone up to 101 degrees Fahrenheit. The patient still complains of right-sided abdominal pain that h as not changed any since yesterday. Denies any other new complaints. Objective: Vital Signs: Reviewed. HEENT: Unremarkable. Lungs: Clear to auscultation. Not in any respiratory distress. Heart: Sounds normal. Presence of systolic murmur unchanged. Abdomen: Soft. Bowel sounds normal. No guarding, rigidity, tenderness, or distention. Extremities: No leg edema. Laboratory Data: White count 16.2, hemoglobin 12, platelets 179. Sodium 135, potassium 3.8, chlorid e 103, bicarb 25, BUN 24, creatinine 1.41, glucose 122, magnesium 1.6. Impression: 1.Abdominal pain. 2.Anemia. 3.Chronic anticoagulation therapy. 4.Coronary artery disease. 5.Aortic stenosis. 6.Congestive heart failure. 7.Pulmonary edema. Plan: We will go ahead and continue current medication. We will keep his Lasix on hold today consid ering events of this morning and his current blood pressure. He remains on oxygen 3 to 4 L nasal can nula per minute, not in any respiratory distress when I saw him. We will continue Tylenol as needed for fever, body ache, and Jackson was ordered yesterday in place of morphine because morphine was makin g him too sleepy. Cultures were done in the emergency room yesterday and result pending, but I did o rder 2 more sets of blood culture because of the chills that he had and urinalysis, urine culture was also ordered this morning and we will start empiric antibiotic Zosyn. When I examined him, he did h ave tenderness in right upper and right lower quadrant of his abdomen. Daughter was present at [facility]. Details were discussed with daughter and I will see him again tomorrow morning for followup. Ph ysical Therapy to continue to work with the patient. The patient was encouraged to eat his meals. BARAK/MODL Voice ID: [id number] Report ID: [id number]
[2021-12-22 10:46] LABS: Blood Morphology Comment NOT SEEN (NOT SEEN); Platelet Estimate ADEQ; White Blood Cell Scan OK (OK)
[2021-12-22] MEDS ORDERED: NA CHLORIDE 0.9% 500 ML IV ONE (15:52)
[2021-12-22] MEDS ORDERED: PROMETHAZINE INJ 25 MG/ML AMP IV PRN ×2 (17:46→19:42)
[2021-12-22 17:57] LABS: Arterial Blood Carboxyhemoglob 1.1 % (0-1.5); Blood Gas Oxyhemoglobin 92.3 % (94-97); Blood O2 Saturation 94.4 % (92-98.5)
[2021-12-22 18:25] LABS: Absolute Lymphocytes (CBC) 0.3 K/uL (0.7-4.9); Hematocrit 36.1 % (39.6-49.0); Lymphocytes % 1.6 % (15.3-44.8); MPV 7.9 fL (7.6-11.3); RBC Red Blood Cell Count 4.03 M/uL (4.33-5.43)
[2021-12-22 18:46] LABS: Albumin 2.6 g/dL (3.4-5.0); Magnesium 1.7 mg/dL (1.8-2.4); Potassium 4.4 mmol/L (3.5-5.1); Protein, Total 6.2 g/dL (6.4-8.2)
[2021-12-22] MEDS: HEPARIN/D5W 25,000 UNIT/500 ML BAG IV SCH (19:56)
[2021-12-22] MEDS: NA CHLORIDE 0.9% 1,000 ML IV SCH (19:56)
[2021-12-22] MEDS: FAMOTIDINE 20 MG TAB PO SCH (20:55)
[2021-12-22] MEDS: ATORVASTATIN 10 MG TAB PO SCH (20:55)
[2021-12-22] MEDS ORDERED: MAGNESIUM SULFATE 1 gm IVPB 1 GM/100 ML BAG IV ONE (22:00)
[2021-12-23] MEDS: PIPER TAZO 3.375 GM in NA CHLORIDE 0.9% 100 ML IV SCH ×3 (00:30→16:43)
[2021-12-23 04:52] LABS: Absolute Lymphocytes (CBC) 0.4 K/uL (0.7-4.9); Hematocrit 36.6 % (39.6-49.0); Lymphocytes % 2.5 % (15.3-44.8); MPV 8.9 fL (7.6-11.3)
[2021-12-23 05:10] LABS: Urine Appearance Clear (Clear); Urine Blood 2+ (Negative); Urine Color Yellow (Yellow); Urine Glucose Negative (Negative); Urine Protein 2+ (Negative); Urine Specific Gravity >=1.030 (1.005-1.030); Urine Urobilinogen 0.2 mg/dL (0.2-1.0)
[2021-12-23 05:12] LABS: Albumin 2.5 g/dL (3.4-5.0); Bilirubin Total 1.6 mg/dL (0.2-1.0); Potassium 3.8 mmol/L (3.5-5.1); Protein, Total 6.3 g/dL (6.4-8.2)
[2021-12-23 05:17] LABS: Urine Microscopic Reflex ORDER UMIC
[2021-12-23 05:18] LABS: Urine Bilirubin NEGATIVE (Negative)
[2021-12-23 05:35] LABS: Urine Amorphous Sediment 3+ /HPF (NONE SEEN)
[2021-12-23] MEDS: METOPROLOL XL 50 MG TAB PO SCH (05:35)
[2021-12-23 05:36] LABS: Urine Bacteria <20 /HPF (NONE SEEN); Urine RBC <5 /HPF (NONE SEEN); Urine Urothelial Cells <5 /HPF (NONE SEEN)
[2021-12-23] MEDS: PANTOPRAZOLE 40MG TABLET PO SCH (05:37)
[2021-12-23] MEDS: INSULIN -REGULAR HUMAN 50 UNIT/0.5 ML ML SQ SCH ×4 (07:30→21:00)
[2021-12-23] MEDS: GABAPENTIN 300 MG CAP PO SCH ×2 (08:48→19:45)
[2021-12-23] MEDS: ASPIRIN EC 81 MG TAB PO SCH (08:48)
[2021-12-23] MEDS: METOPROLOL TAR 25 MG TAB PO SCH ×2 (08:48→19:44)
[2021-12-23] MEDS: MAGNESIUM OXIDE 400 MG TAB PO SCH (08:49)
--- NOTE | 2021-12-23 08:59 | EKG ---
Test Date: 2021-12-22 Test Time: 07:00:10 Rib Sawyer: LALO Pollard MEASUREMENT RESULTS: Intervals: Rate: 123 NE: 200 QRSD: 142 QT: 396 QTc: 566 [place]: P: NE: 200 QRS: 43 T: 47 INTERPRETIVE STATEMENTS: Sinus tachycardia with occasional premature ventricular complexes Right bundle branch block Abnormal ECG Compared to ECG 12/21/2021 22:25:32 Ventricular premature complex(es) now present Sinus rhythm no longer present Myocardial infarct finding no longer present Electronically Signed On 12-23-21 08:56:45 CDT by Russell Lynn
[2021-12-23] MEDS ORDERED: FUROSEMIDE 20 MG/ 2ML VIAL IV SCH (09:00)
--- NOTE | 2021-12-23 09:44 | P.CNS ---
Date of Consult: 12/23/21 Reason for consult: Abdominal pain History of present illness:Patient is a 89-year-old gentleman who was admitted Neptali night for abdominal pain that started midday Thursday. The pain started following a colonoscopy prep late last week. Patient was scheduled for a colonoscopy; however, he has critical aortic stenosis and the procedure was canceled. Patient was scheduled for aortic valve procedure in the near future and as part of his work-up he was going to have a cardiac cath today. This has been canceled as well because of his current symptomology and work-up in progress. Patient did have some nausea and vomiting yesterday. He has not had a bowel movement since the prep for the colonoscopy late last week. He is passing gas. Patient denies dysuria or hematuria. Patient denies sore throat, runny nose, cough, headaches, dizziness, chest pain, fever or chills. On chest x-ray patient also has pulmonary edema. His blood cultures are positive for gram-negative rods. Review of systems: Otherwise unremarkable Past medical history: Type 2 diabetes, obstructive sleep apnea, hypertension, hyperlipidemia, coronary artery disease, chronic A. fib, GERD, prostate cancer, colon cancer, aortic stenosis, left ventricular hypertrophy Past surgical history:Tonsillectomy, hemorrhoidectomy, hernia repair, prostatectomy, knee surgery and colon resection Allergies: Quinine and sulfa Social history: Patient currently does not smoke or drink alcohol Family history: COPD, prostate cancer and lung cancer runs in the family as well Vital signs: Stable, afebrileyesterday morning patient had a T-max of 101.5 Physical exam: Awake alert oriented x3 Head and neck exam: Cranial nerves II through XII grossly within normal limits, no neck masses, no JVD, throat clear and neck supple Chest: Clear Heart: S1-S2 Abdomen: Soft, mild distention, positive bowel sounds, mild tenderness in the right upper quadrant and epigastric region with no evidence of peritonitis Extremity: Neurovascular intact, nontender Neuro: Nonfocal Diagnostic data: Laboratory data and radiographic studies reviewedpatient has leukocytosis, ultrasound does not show any cholelithiasis however there is fluid around the liver and the gallbladder. Wall of the gallbladder is slightly enlarged. On the CAT scan of the abdomen and pelvis there is some suggestion that the patient may have cystic duct stone. Assessment: Abdominal pain in a the patient with leukocytosis, fever with gallbladder distention Plan/recommendation: Medical management per Dr. Kelsey and Dr. Lynn. We will go ahead and order a HIDA scan to rule out a calculus cholecystitis. We will await the results of the urine culture as well. As patient has critical aortic stenosis, patient is high risk for any procedure at this time. Plan of care discussed in detail with Dr. Kelsey as well as the family. CC: Dr. Kelsey's office
[2021-12-23] MEDS ORDERED: BISACODYL 10 MG RECTAL SUPP PR ONE (10:00)
[2021-12-23] MEDS: NA CHLORIDE 0.9% 1,000 ML IV SCH (10:31)
--- NOTE | 2021-12-23 12:11 | RAD REPORT ---
EXAM DESCRIPTION: CT - Abdomen Pelvis Wo Contrast - 12/21/2021 6:44 am CLINICAL HISTORY: The patient is 89 years old and is Male; Abdominal pain, acute TECHNIQUE: Axial computed tomography images of the abdomen and pelvis without intravenous contrast. Sagittal and coronal reformatted images were created and reviewed. This CT exam was performed usi ng one or more of the following dose reduction techniques: automated exposure control, adjustment o f the mA and/or kV according to patient size, and/or use of iterative reconstruction technique. COMPARISON: CT chest abdomen and pelvis December 11, 2021. FINDINGS: Lung bases: Bibasilar atelectasis. Heart: Coronary artery calcifications. ABDOMEN: Liver: Unremarkable. Gallbladder and bile ducts: There is a fold or septation of the gallbladder. No calcified stones. No ductal dilation. Pancreas: Unremarkable. No ductal dilation. Spleen: Unremarkable. No splenomegaly. Adrenals: Unremarkable. No mass. Kidneys and ureters: Moderate bilateral perinephric stranding which may be chronic. No obstructing stones. No hydronephrosis. Stomach and bowel: Scattered colonic diverticula. Postsurgical changes in the bowel. No obstruction. No mucosal thickening. PELVIS: Appendix: The appendix is normal. Bladder: Unremarkable. No stones. Reproductive: Unremarkable as visualized. ABDOMEN and PELVIS: Intraperitoneal space: Small amount of perihepatic free fluid. There may be a small amount of pe richolecystic fluid as well. Correlate with right upper quadrant ultrasound if clinically indicated. Postsurgical changes in the lower pelvis. No free air. Bones/joints: Disc space narrowing with degenerative endplate changes in the spine. Minimal anterolisthesis of L4 on L5. No acute fracture. No dislocation. Soft tissues: Unremarkable. Vasculature: Scattered atherosclerotic vascular calcifications. No abdominal aortic aneurysm. Lymph nodes: Unremarkable. No enlarged lymph nodes. IMPRESSION: 1. Small amount of perihepatic free fluid. There may be a small amount of pericholecys tic fluid as well. Correlate with right upper quadrant ultrasound if clinically indicated. 2. Additional non-emergent findings as above. Electronically signed by: Allen Greenfield MD 12/21/2021 6:34 AM CDT Due to temporary technical issues with the PACS/Fluency reporting system, reports are being signed by the in house radiologist without review as a courtesy to ensure prompt reporting. The interpreting r adiologist is fully responsible for the content of the report.
[2021-12-23] MEDS ORDERED: D10W 125 ML IV PRN (12:23)
--- NOTE | 2021-12-23 14:06 | RAD REPORT ---
EXAM DESCRIPTION: RAD - Chest Single View - 12/21/2021 3:07 am CLINICAL HISTORY: 89 years Male, CHEST PAIN COMPARISON: None. FINDINGS: Prominence of the cardiomediastinal silhouette and central vasculature. No focal consolidation, pneumothorax or pleural effusion. Status post median sternotomy. IMPRESSION: Findings suggestive of mild edema. Electronically signed by: Ze Jones MD 12/21/2021 3:53 AM CDT Due to temporary technical issues with the PACS/Fluency reporting system, reports are being signed by the in house radiologist without review as a courtesy to ensure prompt reporting. The interpreting r adiologist is fully responsible for the content of the report.
--- NOTE | 2021-12-23 14:50 | CON ---
The patient admitted to Dr. Kelsey's service on 12/21/2021. I was consulted on 12/23/2021 because of h ypotension and history of valvular heart disease. History Of Present Illness: Mr. Hdz is 89 years old. Has known critical aortic stenosis, cor onary artery disease, congestive heart failure, chronic renal disease, hypertension, diabetes, dyslip idemia, and sleep apnea. He remains a full code. We had plan to do a catheterization on him today _ TAVR, but that was canceled because of the present condition. He came in with fever, chill s, possible sepsis. He came in with anemia. He was hypotensive. His blood pressure is better today . No specific complaints. Allergies: HE IS ALLERGIC TO QUININE AND SULFA. Review of Systems: Negative. Social History: Negative. Family History: Negative. Medications: Include Zocor, metoprolol, Norvasc, and Eliquis. His Eliquis has been held. He is on heparin drip for now. Physical Examination: Vital Signs: Stable. His blood pressure was 130/71, O2 saturation 96% on 3 L nasal cannula. He was in atrial flutter at a rate of 95. HEENT: Negative. Neck: Supple with no bruit. Chest: Revealed rales at both bases. Cardiac: Revealed atrial flutter with aortic stenosis murmur. No gallops or rubs. Abdomen: Obese, but benign. Extremities: Revealed 2+ edema to the knees. Diagnostic Data: His troponin was 130. Glucose was 175, creatinine is 1.89. White count of 14,000. One blood culture came back negative . Impression And Plan: 1.Hypotension, possibly secondary to sepsis. 2.Atrial flutter, chronic. 3.Renal insufficiency, stage IV. 4.Anemia. 5.Severe aortic stenosis. 6.Coronary artery disease. 7.Chronic diastolic congestive heart failure. 8.Hypertension. 9.Diabetes. 10.Sleep apnea. 11.History of dyslipidemia. The patient is presently on Norvasc, heparin drip, antibiotics, aspirin , Lipitor, Lasix, and metoprolol. I would continue present regimen, definitely hold on the catheteri zation for at least a couple of weeks septic. Case was discussed with and daughter b y bedside. I will discuss the case further with Dr. Kelsey. I agree with his present regimen at this point. MARY Voice ID: [id number] Report ID: [id number]
--- NOTE | 2021-12-23 14:54 | RAD REPORT ---
EXAM DESCRIPTION: NM - Hepatobiliary System Imagin - 12/23/2021 2:47 pm CLINICAL HISTORY: Abdominal pain (RUQ) COMPARISON: Abdomen Exam Limited dated 12/21/2021 TECHNIQUE: The patient was administered 5.4 mCi Tc99m Choletec. Imaging of the right upper quadrant was performed initially for up to 60 minutes. FINDINGS: Normal hepatic uptake and excretion with appropriate clearance of background blood pool ac tivity. Normal visualization of biliary and small bowel activity. The gallbladder is nonvisualized throughout the study. IMPRESSION: Patient cystic duct and patent sphincter of Oddi. Nonvisualized gallbladder may be due t o recent meal, prolonged fasting or cholecystitis.
[2021-12-23] MEDS: ACETAMINOPHEN 325 MG TABLET PO PRN (15:44)
[2021-12-23 16:55] LABS: Potassium 3.6 mmol/L (3.5-5.1)
[2021-12-23 16:58] LABS: Absolute Lymphocytes (CBC) 0.3 K/uL (0.7-4.9); Hematocrit 36.1 % (39.6-49.0); Lymphocytes % 2.3 % (15.3-44.8); MPV 10.2 fL (7.6-11.3); RBC Red Blood Cell Count 4.05 M/uL (4.33-5.43)
[2021-12-23] MEDS: HEPARIN/D5W 25,000 UNIT/500 ML BAG IV SCH (17:42)
[2021-12-23] MEDS ORDERED: POTASSIUM CL SA 10 MEQ TAB PO ONE (18:04)
[2021-12-23] MEDS: ATORVASTATIN 10 MG TAB PO SCH (19:44)
[2021-12-23] MEDS: FAMOTIDINE 20 MG TAB PO SCH (19:46)
[2021-12-24] MEDS: PIPER TAZO 3.375 GM in NA CHLORIDE 0.9% 100 ML IV SCH ×3 (00:11→18:22)
[2021-12-24] MEDS: NA CHLORIDE 0.9% 1,000 ML IV SCH (00:12)
--- NOTE | 2021-12-24 01:43 | PN ---
Date of Progress Note: 12/23/2021 Subjective: The patient was seen this morning for followup. He was in ICU. Yesterday late afternoon or early evening hours, we transferred the patient from medical floor to ICU because his condition was deteriorating with low blood pressure. His blood pressure was 78/54. He was given 500 cc of IV fluid bolus and after he came to ICU, hemodynamically he remained stable. His cardiac enzymes were elevated and Eliquis was discontinued and heparin drip per protocol was started yesterday evening and Cardiology and General surgery consultation was requested. This morning, he denies any other complaints. He remains stable on nasal cannula oxygen. Continues to have right upper quadrant abdominal pain and his nausea is well controlled with Phenergan. Vital signs reviewed this morning. His blood pressure was 131/71, pulse 95. Physical Examination: HEENT: Examination unremarkable. LUNGS: Clear to auscultation except some rales noted with diminished air entry in the right lung basal area. Not in any respiratory distress. HEART: Sounds normal. ABDOMEN: Soft. Bowel sounds normal. No guarding, rigidity, tenderness, or distention. Extremities: No leg edema. Laboratory Data: White count 14.9, hemoglobin 12.1, and platelet count 115. Sodium 134, potassium 3.8, chloride 103, bicarb 24, BUN 40, creatinine 1.89. Troponin this morning was 130.9 and yesterday was 151. Magnesium was low at 1.7. Blood culture preliminary report today shows a culture definite identification sensitivity result pending. His blood culture was collected yesterday. Impression: 1. Sepsis. 2. Acute kidney injury. 3. Known ST-elevation myocardial infarction. 4. Aortic stenosis. 5. Coronary artery disease. 6. Hypomagnesemia. 7. Anemia. 8. Thrombocytopenia. 9. Generalized weakness. 10. Debility. 11. Acute respiratory failure with hypoxia. Plan: This morning when I saw the patient, he had significant weakness, required assistance by two people to even sit up in the bed. We will have Physical Therapy continue to work with the patient. Details were discussed with Dr. Jett General Surgery. He has ordered a HIDA scan. We will follow up on that. Meanwhile, continue current empiric antibiotic, which is Zosyn. He seems to be responding well to that. We will continue heparin drip. Details were discussed with Dr. Baradhi from Cardiology Service and at this point, his overall prognosis is guarded. We will continue to keep him in ICU. Continue current oxygen replacement. The patient is maintaining adequate oxygenation with current nasal cannula oxygen. Yesterday's, arterial blood gas results reviewed. All the details were discussed with the patient's daughter this morning. The patient's creatinine had gone up yesterday up to 2.2 this morning. It is better than yesterday. We will continue IV fluid hydration also. Today, ICU nurse contacted me and informed me that the patient's daughter and brought out of hospital DNR and they have requested DNR order to be in place while in the hospital and at that time, the patient was downstair getting HIDA scan and I informed nurse to make sure to verify this DNR decision with the patient because at the time of admission, when I communicated with the patient regarding advance directive, he wanted everything done, so he has remained as full code. After my discussion with the nursing staff, she did communicate with the patient in presence of family members and the patient clearly informed that he wanted everything done, so he remains full code at this point. I will see him tomorrow for followup. Replace magnesium per protocol and we will repeat blood work tomorrow morning. BARAK/MODL Voice ID: [id number] Report ID: [id number]
[2021-12-24 05:09] LABS: Absolute Lymphocytes (CBC) 0.4 K/uL (0.7-4.9); Hematocrit 33.7 % (39.6-49.0); Lymphocytes % 2.6 % (15.3-44.8); MPV 9.1 fL (7.6-11.3)
[2021-12-24 05:25] LABS: Potassium 3.7 mmol/L (3.5-5.1)
[2021-12-24] MEDS: PANTOPRAZOLE 40MG TABLET PO SCH (05:31)
[2021-12-24] MEDS: INSULIN -REGULAR HUMAN 50 UNIT/0.5 ML ML SQ SCH ×4 (07:19→20:31)
[2021-12-24] MEDS: APIXABAN 2.5 MG TABLET PO SCH ×2 (07:56→20:31)
[2021-12-24] MEDS: METOPROLOL TAR 25 MG TAB PO SCH ×2 (07:56→20:32)
[2021-12-24] MEDS: ACETAMINOPHEN 325 MG TABLET PO PRN (07:56)
[2021-12-24] MEDS: GABAPENTIN 300 MG CAP PO SCH (07:57)
[2021-12-24] MEDS: ASPIRIN EC 81 MG TAB PO SCH (07:57)
[2021-12-24] MEDS: MAGNESIUM OXIDE 400 MG TAB PO SCH (07:57)
--- NOTE | 2021-12-24 08:36 | P.PN ---
Date of Service: 12/24/21 Subjective: Patient is awake and alert. He is tachypneic. His abdominal pain is better. Has not had a bowel movement. Objective: Vital signs are significant for increased respiratory rate with minimal wheezing, afebrile. White count is still elevated, platelets are decreasing and blood cultures growing E. coli. HIDA scan reviewedcystic duct is patent as well as the sphincter of Oddi, but the gallbladder is not visualized Abdomen: Soft, less distended, positive bowel sounds, minimal tenderness in the epigastric and right upper quadrant with no peritonitis Assessment: Possible acalculous cholecystitis in a patient with multiple medical problems including critical aortic stenosis and septicemia Plan: At this time, patient is high risk for any intervention. I discussed the case with Dr. Kelsey. We will continue treatment with antibiotics for the time being. Once his medical condition has improved and his aortic stenosis been fixed, only then would be consider any intervention in this patient. Plan of care discussed with patient and . CC:
--- NOTE | 2021-12-24 09:23 | RAD REPORT ---
EXAM DESCRIPTION: RAD - Chest Single View - 12/24/2021 8:56 am CLINICAL HISTORY: dyspnea COMPARISON: Portable 12/22/2021 TECHNIQUE: AP portable chest image was obtained 12/24/2021 8:56 am . FINDINGS: Lung volumes are low. Central vasculature and lung markings are prominent similar to the p rior study. Heart size is prominent, exaggerated by low lung volume affects and portable imaging. Ret rocardiac assessment is limited. No measurable pleural effusion and no pneumothorax. No acute bony abnormality seen. No acute aortic findings suspected. IMPRESSION: Heart, vasculature and lung markings are all prominent, accentuated by portable techniqu e and shallow inspiration. Exam is not substantially different from December 22. A mild failure or volume overload is possible.
[2021-12-24] MEDS ORDERED: FUROSEMIDE 40 MG/4 ML VIAL IV ONE (11:06)
[2021-12-24] MEDS ORDERED: FUROSEMIDE 40 MG/4 ML VIAL ONE (11:07)
[2021-12-24] MEDS: FUROSEMIDE 40 MG/4 ML VIAL IV SCH ×2 (11:16→21:00)
[2021-12-24 11:52] LABS: Blood Gas Oxyhemoglobin 81.4 % (94-97); Blood O2 Saturation 83.1 % (92-98.5)
--- NOTE | 2021-12-24 12:47 | P.CNS ---
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 He has been in remission ever since with recent CT imaging with no evidence of disease. Currently admitted with right upper quadrant pain and noted to have E.coli septicemia possibly from acute acalculus cholecystitis. He has been on broad spectrum antibiotics for the same. He is currently in the ICU secondary to deteriorating status, acute respiratory failure, along with NSTEMI, acute renal failure and sepsis. Hematology consulted for thrombocytopenia. Trends of platelet count reviewed. Platelet count seems to be downtrending since day 2 of admission even prior to h eparin use. Plt trend 12/20: 256 12/21: 229 12/22: 138 12/23: 105 12/24: 69 Eliquis 2.5mg bid last dose on 12/22/21 9am. Heparin drip: 12/22/21 1956 hrs onward until 12/24/21 0651 hrs. PMH: Type 2 DM, CAD, CHF, Aortic stenosis, A fib, HTN, Sleep apnea, GERD, Colon cancer, Prostate cancer PSH:Tonsillectomy, hemorrhoidectomy, hernia repair, prostatectomy, knee surgery and colon resection PsychoSocial History: Household Members: lives with / Deneis ETOH/ Smoking ROS: As above. Positive RUQ pain, SOB. EXAM: Vitals reviewed General Appearance: alert, in mild respiratory distress Head: normocephalic, atraumatic. Eyes: anicteric, no injection of conjunctivae; no pallor Respiratory: Decreased BS b/l bases. Cardiovascular: regular rate and rhythm, no murmurs, no cyanosis. Abdomen: soft, mild tenderness ruq, BS+ Neuro:Alert, responds to name, moving all extremities LE: pedal edema+ Labs reviewed in chart 12/20: Hb 14 on admission to 11.2 today Plt 69 Bi 1.6/ Direct bi 0.4 Creat 2.2 Assessment/ Plan: 89 year old patient with multiple medical problems, including significant cardiac issues like CAD, , admitted with E coli septicemia and acute respiratory failure. 1. Thrombocytopneia: Likely multifactorial Major cause likely to be sepsis. Other causes include consumptive coagulopathy, medications etc. Based on the time frame of introduction to withdrawal of heparin, likely to be low probability of MOISES. Platelet count started to trend down even prior to heparin use. Unlikely to be TTP. > Monitor plt counts for now. No evidence of bleeding. Adequate plt count for hemostasis. > Check PT/PTT, fibrinogen, smear, retic ct and smear evaluation. > Transfuse single donor plt if Plt count less than 20K; or if bleeding when less than 50K. Cryoprecipitate if bleeding if fibrinogen less than 150. > Hold eliquis if bleeding or if plt count < 50K. Avoid heparin based products for now. 2. Anemia: Came in with normal Hb > No intervention needed at this time. Gradual downtrend likely to be due to multiple acute issues, hemodilution etc. > Check iron panel, retic ct > Monitor for bleeding etc. > Transfuse PRBC if Hb < 8gm. 3. E coli septicemia/ Cholecystitis: Management as per primary team f/u Surgery recs 4. ARF: Likely due to Prob#3. Nephrology on board. 5. CAD/CHF/ / A fib: Follow up with Cardiology recommendations Guarded prognosis at this time. We will continue to monitor and follo wup work up to r/o other causes. Please feel free to call us if any concerns or questions.
[2021-12-24] MEDS ORDERED: ALBUTEROL 2.5 MG/3 ML NEB SOL NEB PRN (14:00)
[2021-12-24] MEDS ORDERED: IPRATROPIUM BROM 0.5MG/2.5ML NEB PRN (14:00)
--- NOTE | 2021-12-24 15:14 | RAD REPORT ---
EXAM DESCRIPTION: US - Renal Ultrasound-Complete - 12/24/2021 2:35 pm CLINICAL HISTORY: r/o obstruction Flank pain COMPARISON: Abdomen Exam Limited dated 12/21/2021; Abdomen Pelvis Wo Contrast dated 12/21/2021 FINDINGS: Both kidneys are normal in size, shape and echotexture. The right kidney measures 11.4 x 5.0 x 4.4 cm. No hydronephrosis, focal mass or perinephric fluid. The left kidney measures 13.4 x 5.1 x 4.9 cm. No hydronephrosis, focal mass or perinephric fluid. The urinary bladder is incompletely distended without gross abnormality seen. IMPRESSION: Unremarkable renal sonogram.
[2021-12-24 16:17] LABS: RBC Red Blood Cell Count 3.91 M/uL (4.33-5.43)
[2021-12-24 16:26] LABS: Protime INR 1.22
[2021-12-24] MEDS: GABAPENTIN 100 MG CAP PO SCH (20:30)
[2021-12-24] MEDS: ATORVASTATIN 10 MG TAB PO SCH (20:30)
[2021-12-24] MEDS: FAMOTIDINE 20 MG TAB PO SCH (20:31)
[2021-12-24] MEDS ORDERED: FUROSEMIDE 20 MG/ 2ML VIAL IV SCH (21:00)
--- NOTE | 2021-12-24 21:32 | CON ---
Date of Consultation: 12/24/2021 Reason For Consultation: Elevated BUN and creatinine, fluid management. History Of Present Illness: This is a pleasant 89-year-old gentleman with significant past medical history of chronic kidney disease, baseline creatinine 1.3, GFR of 51 as of November 2021; hypertension; hyperlipidemia; prostate cancer; colon cancer, on remission. The patient came to the hospital because of abdominal pain, which have been running for the last few weeks. The patient also had some chest pain. The patient supposed to have a colonoscopy, but because he was not stable enough, the patient did not have it. Also, the patient admitted with nnq-MS-uhpgjylth MD and congestive heart failure. Workup for the patient showed that the patient had ppo-ZN-yvllbicpu MD and septic shock with bacteremia secondary to E. coli. Upon presentation to the hospital, the patient had low blood pressure. The patient started having elevation in BUN and creatinine. For that reason, we have been consulted. Upon arrival to the hospital, creatinine was 1.5, currently rise to 2; GFR 42, rise to 34. The patient denied taking any nonsteroidal at home. The patient was started on diuresis to establish better volume control. Reviewing the record for the patient during the hospitalization, the patient also developed some thrombocytopenia, seen by Oncology. At home, the patient not on any PRETTY inhibitor or ARB, but the patient was on metformin. Past Medical History: Include, 1. Diabetes complicated with neuropathy. No retinopathy. 2. Obstructive sleep apnea. 3. Hypertension. 4. Hyperlipidemia. 5. CAD. 6. Atrial fibrillation. 7. Jerk. 8. Prostate cancer. 9. Colon cancer, on remission. 10. Aortic stenosis. Past Surgical History: Include, 1. Cardiac cath. 2. Hemorrhoid. 3. Hernia repair. 4. Prostatectomy. 5. Knee arthroscopy. Family History: Positive for COPD, prostate cancer, and lung cancer. Social History: Ex-smoker. Occasional alcohol. No drugs abuse. Review of Systems: Head and Neck: No red eye. No ear pain. GI: Has abdominal pain. Has abdominal distention. : Has polyuria. Fluid Designer: Not applicable. Respiratory: Has shortness of breath. Cardiovascular: No chest pain. Endocrine: No polydipsia. Skin: No rash. Physical Examination: Vital Signs: When I saw the patient, blood pressure 130/73. Reviewing the record for the patient, earlier his blood pressure down to 99. Chest: Faint crackles bilateral. Heart: S1, S2. Systolic murmur. Abdomen: Soft, nontender. Extremity: Trace edema. Neuro: Alert, difficulty hearing, no focality. Laboratory Data: Sodium 135, potassium 3.7, bicarb 24, BUN 46, creatinine 2, GFR of 31, calcium 7.8, magnesium of 2. Troponin 165. ABG, pH 7.39, CO2 of 37, O2 of 62. WBC 13.9, H and H 11.2/33.7. Urinalysis, specific gravity more than 1.030. CT abdomen, possible of cholecystitis; kidney, bilateral stranding, no obstruction. Current Medications: The patient on include Zosyn 3.375 t.i.d., promethazine, Eliquis, atorvastatin, gabapentin, Lasix 40 b.i.d., ipratropium, and Pepcid. Assessment And Plan: 1. Acute kidney injury, multifactorial. a. Prerenal secondary to poor perfusion acute tubular necrosis/toxic acute tubular necrosis secondary to septic shock and bacteremia. b. Questionable of obstructive uropathy given the history of prostate cancer before. Nonoliguric, slightly on the over-volume side. I agree with the Lasix. For the time being, we will give it on a slow infusion to avoid any low blood pressure and we will monitor. I am going to go ahead and send for renal ultrasound to rule out any obstructive uropathy and we will follow up the patient closely. 2. With the presence of the thrombocytopenia, there is no sign of any hemolysis. Just to complete the workup, I am going to send for LDH. 3. Hypertension. Currently, blood pressure on the lower side. We will utilize the blood pressure to establish better volume control. Continue diuresis. We will monitor. 4. Sepsis with bacteremia, questionable cholecystitis. Ultrasound was negative. Continue Zosyn dose appropriate. 5. Fpr-GN-fntlastch myocardial infarction as by Cardiology. 6. Diabetes as by primary. Thank you Dr. Kelsey for allowing us to participate in the care of your patient. time spend exam the patient face to face , reviewing the [facility]ernice lab and radiology , discussing the case with the patient , placing order , discussing the case with other steam plant operator including hospitalist 65 min MICK/RAFI Voice ID: [id number] Report ID: [id number] [facility] HOSPITALCedric
[2021-12-25] MEDS: PIPER TAZO 3.375 GM in NA CHLORIDE 0.9% 100 ML IV SCH ×3 (01:14→16:26)
--- NOTE | 2021-12-25 02:01 | PN ---
Date of Progress Note: 12/24/2021 Subjective: Patient was seen this morning for followup. New complaints or problems reported by patient. He was on nasal cannula oxygen 5-6 L/minute. No nausea. No vomiting overnight. Abdominal pain in the right upper quadrant. He still has it, but better than before. Objective: Vital Signs: Reviewed. HEENT: Unremarkable. Lungs: Bilateral good equal air entry. Presence of some rales noted in the right lower lung field unchanged from yesterday. Not using any accessory muscles of respiration. Some wheezing present. Heart: Heart sounds normal. Abdomen: Soft, bowel sounds normal. No guarding, rigidity, tenderness, except very minimal right upper quadrant tenderness, which is much better today than yesterday. No tenderness in right lower quadrant. Extremities: No leg edema. Laboratory Data: White count 13.9, hemoglobin 11.2, platelets 69. Blood culture, gram-negative rods and it came back as E coli. It is sensitive to Zosyn that the patient is currently on. Chemistry results reviewed. Impression: 1. Sepsis, organism Escherichia coli. 2. Acute kidney injury. 3. Acute respiratory failure with hypoxia. 4. Thrombocytopenia. 5. Koc-BW-zaejzehwm myocardial infarction. Plan: This morning, after we looked at the patient's low platelet count, heparin drip was discontinued and he was started on Eliquis 2.5 mg 2 times a day. Blood work result reviewed showing thrombocytopenia, which appears to be less likely at this point considering other problems that we are dealing with, which is timeline of thrombocytopenia as well as current problem with sepsis. I have requested a Hematology consultation for further evaluation of this thrombocytopenia problem. During the course of day today he had more trouble with hypoxia and respiratory distress. Pulmonary consultation was requested and Lasix 40 mg IV day 2 times a day starting this morning was ordered. We will continue oxygen replacement therapy. Continue current antibiotics and overall prognosis is guarded. The patient remains full code as per his decision. IV fluid was discontinued this morning. Also request consultation from Nephrology Service, Dr. Rojas for acute kidney injury. BARAK/MODL Voice ID: [id number] Report ID: [id number] [facility]
[2021-12-25 05:00] LABS: Absolute Lymphocytes (CBC) 0.4 K/uL (0.7-4.9); Hematocrit 33.9 % (39.6-49.0); MPV 9.7 fL (7.6-11.3); RBC Red Blood Cell Count 3.85 M/uL (4.33-5.43)
[2021-12-25 05:18] LABS: Albumin 1.9 g/dL (3.4-5.0); Magnesium 1.9 mg/dL (1.8-2.4); Phosphorus 2.7 mg/dL (2.5-4.9); Potassium 3.5 mmol/L (3.5-5.1); Uric Acid 5.7 mg/dL (3.5-7.2)
[2021-12-25] MEDS: PANTOPRAZOLE 40MG TABLET PO SCH (06:30)
[2021-12-25] MEDS: APIXABAN 2.5 MG TABLET PO SCH ×2 (07:30→21:00)
[2021-12-25] MEDS: INSULIN -REGULAR HUMAN 50 UNIT/0.5 ML ML SQ SCH ×4 (07:30→21:00)
[2021-12-25] MEDS: METOPROLOL TAR 25 MG TAB PO SCH ×2 (07:31→21:00)
[2021-12-25 07:39] LABS: Rheumatoid Factor NEG (NEG)
[2021-12-25] MEDS: FUROSEMIDE 40 MG/4 ML VIAL IV SCH (08:53)
[2021-12-25] MEDS: GABAPENTIN 100 MG CAP PO SCH ×2 (08:56→22:18)
[2021-12-25] MEDS: MAGNESIUM OXIDE 400 MG TAB PO SCH (08:56)
[2021-12-25] MEDS: FUROSEMIDE 40 MG in NA CHLORIDE 0.9% 50 ML IV SCH ×2 (10:53→22:18)
--- NOTE | 2021-12-25 11:46 | P.PN ---
Subjective Date of Service: 12/25/21 Chief Complaint: Respiratory failure Subjective: Improving (Patient is improving he is communicating although he is on high flow oxygen 90% feels better) Patient is subjectively improving he is sitting up on the bedside eating talking communicating with his relatives feeling better Review of Systems General: Weakness Respiratory: Shortness of Breath Physical Examination - Vital Signs Temperature: 98.5 F Blood Pressure: 118/66 Pulse: 109 Respirations: 22 Pulse Ox (%): 92 - Physical Exam General: Alert, Oriented x3, Mild distress Neck: Supple Respiratory: Clear to auscultation bilaterally, Diminished Cardiovascular: No edema, Normal S1 S2 Assessment And Plan - Current Problems (Diagnosis) (1) Septic shock Current Visit: Yes Status: Acute Plan: Patient is clearly improving he is not on any vasopressors although he is requiring considerable amount of oxygen patient is thrombocytopenic I suspect from sepsis renal function is slightly worse doubt urosepsis possible acalculous cholecystitis patient is on Zosyn
--- NOTE | 2021-12-25 11:46 | P.CNS ---
Date of Consult: 12/24/21 Chief Complaint: Respiratory failure History of Present Illness: Patient is 89 years of age admitted with abdominal pain developed low blood pressure and hypoxemia was transferred here to the ICU currently he remains hypoxic worsening renal function blood cultures are positive for E. coli symptoms consistent with sepsis so far the work-up has been nondiagnostic no evidence of cholecystitis Allergies quinine [Quinine] Adverse Reaction (Mild, Verified 12/20/21 08:14) SWELLING tongue and face Sulfa (Sulfonamid Allergy (Uncoded 12/20/21 08:14) Unknown Home Medications: Simvastatin 20 mg PO DAILY 05/07/12 Omeprazole 20 mg PO DAILY 10/17/14 Metformin HCl 500 mg PO BIDWM 06/22/17 Amlodipine [Norvasc*] 1 tab PO BID 11/11/20 Apixaban [Eliquis] 1 tab PO BID 11/11/20 Famotidine 1 tab PO DAILY 11/11/20 Magnesium Oxide [Magnesium] 1 tab PO DAILY 11/11/20 Metoprolol Tartrate 1 tab PO BID 11/11/20 - Past Medical/Surgical History Diabetic: Yes -: high cholesterol -: afib ~2001 -: htn -: dm 2014 -: alutiiq -: prostrate cancer 1999 -: skin cancer nose -: hernia repair -: knee reoair right knee -: hemrrhoidectomy -: prostatectomy -: tonsilectomy -: CABG - Family History Mother Medical History: Heart disease, Hypertension, Diabetes, Other (see notes) Notes: anemia, CHF,bypass sx. 2018,prostate cancer 20 yrs ago - Social History Smoking Status: Former smoker Alcohol use: No CD- Drugs: No Caffeine use: Yes Review of Systems is unable to be obtained Physical Examination Temp Pulse Resp BP Pulse Ox 98.5 F 109 H 22 H 118/66 92 12/25/21 11:46 12/25/21 11:46 12/25/21 11:46 12/25/21 11:46 12/25/21 11:46 General: Alert, Moderate distress Respiratory: Clear to auscultation bilaterally, Normal air movement Cardiovascular: No edema, Regular rate/rhythm Gastrointestinal: Normal bowel sounds, Soft and benign, Non-distended Musculoskeletal: No clubbing, No swelling - Problems (1) Septic shock Current Visit: Yes Status: Acute Plan: Patient is 89 years of age admitted with septic shock E. coli bacteremia is also hypoxic thrombocytopenia from sepsis but cultures positive possible acalculous cholecystitis no evidence of cystic duct obstruction continue with antibiotics volume replacement high flow nasal cannula oxygen possible BiPAP blood gases labs all reviewed chest x-ray diminished lung volumes otherwise clear
[2021-12-25] MEDS: MIDODRINE HCL 5 MG TABLET PO SCH ×2 (13:16→22:21)
--- NOTE | 2021-12-25 15:08 | PN ---
Date of Progress Note: 12/25/2021 Subjective: The patient still has shortness of breath. The patient is still over volume. Yesterday , we discontinued IV fluid, started the patient on diuresis. The patient received only 1 dose of diu resis because of the marginal blood pressure. Blood pressure dropped down to the 80s, the highest of 116. Physical Examination: Vital Signs: Blood pressure 101/62, pulse of 99, afebrile. Chest: Crackles bilateral with wheezing. Heart: S1, S2. Systolic murmur. Abdomen: Distended, soft. No guarding or rebound, but much better than yesterday. Extremity: Trace edema. Neuro: Alert, oriented. No focality. Laboratory Data: WBC 10.8, H and H 11.4/33.9, platelets 43. Sodium 136, potassium 3.5, bicarb 23, B UN 60, creatinine 2.4, GFR of 24, uric acid 5.7, calcium 7.8, phosphorus 2.7, magnesium 1.9, albumin 1.9, corrected calcium is 9.4. Current Medications: The patient on include Zosyn 3.375 every 8 hours, promethazine, Eliquis 2.5, at orvastatin, metoprolol 12.5, gabapentin 200 b.i.d., furosemide 40 b.i.d., Pepcid. Renal ultrasound; distended bladder, normal size kidney 11.4 x 13.4. Chest x-ray showing cardiomegal y with congestion bilaterally. Assessment And Plan: 1.Acute kidney injury, proteinuric, normal size kidney, obstructive uropathy has been ruled. The ac wesley kidney injury mainly secondary to cardiorenal with over volume status with the presence of anemia . We will send further workup for light chain disease. No activity on the urine to suspect any auto immune disease. The patient is still over volume with marginal low blood pressure. I am going to go ahead and change the Lasix to piggyback to avoid introduction of low blood pressure. Hemolysis was ruled out as LDH within normal limit. We will monitor the patient closely. I discussed with the celso may's family by bedside the option of treatment given current kidney function and given the good uri ne output. I do not see the need to initiate any renal replacement therapy for the time being. Fantasma salazar asked about CVVH. The patient does not need any renal replacement therapy to discuss about any modality for the time being. 2.Hypertension, currently blood pressure on the lower side. I am going to place the patient on mido drine to support the blood pressure and we will monitor the patient closely. Again, I switch the Las ix to piggyback. 3.Sepsis with bacteremia, questionable of cholecystitis, Escherichia coli bacteremia. The patient o n Zosyn dose appropriate. We will follow up. 4.Altered mental status, metabolic encephalopathy. Yesterday, we decreased the gabapentin. The pat ient more awake today. The patient does not have any significant pain, neuropathy currently. We kelsy l follow up on the gabapentin if we are needing to decrease further. 5.Diabetes as by primary. Time spent examining the patient [id number], placing order, discussing the case with the family by bedside, discussing the case with nursing staff in the ICU and with the hospitalist team and other salas bspecialty 45 minutes. DILIP Voice ID: [id number] Report ID: [id number]
[2021-12-25] MEDS: ATORVASTATIN 10 MG TAB PO SCH (22:18)
[2021-12-25] MEDS: FAMOTIDINE 20 MG TAB PO SCH (22:21)
[2021-12-26] MEDS: PIPER TAZO 3.375 GM in NA CHLORIDE 0.9% 100 ML IV SCH ×3 (01:29→17:42)
--- NOTE | 2021-12-26 02:24 | PN ---
Date of Progress Note: 12/25/2021 Subjective: Patient was seen this morning for followup. No new complaints or problems reported by t he patient or nursing staff. He was lying in bed in ICU, not in any distress, on high-flow oxygen, m aintaining adequate oxygen saturation. Objective: Vital Signs: Reviewed. HEENT: Unremarkable. Lungs: Bilateral good equal air entry. Not using accessory muscles of respiration at rest. Presenc e of some basal rales unchanged from yesterday. Cardiac: Heart sounds normal. Abdomen: Soft. Bowel sounds normal. No guarding, rigidity, tenderness, or distention. Extremities: No leg edema. Laboratory Data: White count 10.8, hemoglobin 11.4, platelets 43. Sodium 136, potassium 3.5, chlori de 104, bicarb 23, BUN 60, creatinine 2.48, glucose 149, albumin 1.9. Impression: 1.Acute respiratory failure with hypoxia. 2.Sepsis. 3.Thrombocytopenia. 4.Generalized weakness. 5.Debility. 6.Acute kidney injury. Plan: 1.We will go ahead and continue to follow up with customer contact sales associate and tobacco primer machine operator. The patient's drew telet count has dropped down today further. It appears that very likely it is due to sepsis and poss ibility of heparin-induced thrombocytopenia is low, but we are waiting on the appropriate test result s. Today's platelet count is lower compared to yesterday and nursing staff was advised to communicat e with trade sales assistant Dr. Knowles regarding test results this morning and also to see if she would a llow to continue Eliquis at this point or not. SCD was ordered. Physical Therapy to continue to wor k with the patient and we will repeat blood work tomorrow. Continue current antibiotics and I will see him tomorrow for followup. We will keep him i n ICU today. BARAK/MODL Voice ID: [id number] Report ID: [id number]
[2021-12-26 04:56] LABS: Absolute Lymphocytes (CBC) 0.5 K/uL (0.7-4.9); Hematocrit 32.7 % (39.6-49.0); Lymphocytes % 5.7 % (15.3-44.8); MPV 10.9 fL (7.6-11.3); RBC Red Blood Cell Count 3.75 M/uL (4.33-5.43)
[2021-12-26 05:06] LABS: Albumin 1.7 g/dL (3.4-5.0); Magnesium 2.1 mg/dL (1.8-2.4); Phosphorus 2.5 mg/dL (2.5-4.9); Potassium 3.1 mmol/L (3.5-5.1)
[2021-12-26] MEDS: APIXABAN 2.5 MG TABLET PO SCH ×3 (07:08→21:10)
[2021-12-26] MEDS: METOPROLOL TAR 25 MG TAB PO SCH ×2 (07:09→21:00)
[2021-12-26] MEDS: INSULIN -REGULAR HUMAN 50 UNIT/0.5 ML ML SQ SCH ×4 (07:09→21:00)
--- NOTE | 2021-12-26 08:29 | P.PN ---
Subjective Date of Service: 12/26/21 Chief Complaint: Respiratory failure Patient is improving doing better since yesterday patient requirements declining Review of Systems General: Weakness Respiratory: Shortness of Breath Physical Examination - Vital Signs Temperature: 97.7 F Blood Pressure: 103/65 Pulse: 104 Respirations: 23 Pulse Ox (%): 97 - Physical Exam General: Alert, Oriented x2 Respiratory: Clear to auscultation bilaterally, Diminished Assessment And Plan - Current Problems (Diagnosis) (1) E. coli sepsis Current Visit: Yes Status: Acute Plan: Patient admitted with E. coli bacteremia he is currently doing better eating and drinking hemodynamically stable oxygen requirements declining thrombocytopenic white count is declining patient is off vasopressors stable to be transferred to the floor Qualifiers: Severe sepsis acute organ dysfunction type: acute renal failure Acute renal failure type: unspecified
[2021-12-26] MEDS: FUROSEMIDE 40 MG in NA CHLORIDE 0.9% 50 ML IV SCH ×2 (08:46→21:10)
[2021-12-26] MEDS: GABAPENTIN 100 MG CAP PO SCH ×2 (08:46→21:10)
[2021-12-26] MEDS: MAGNESIUM OXIDE 400 MG TAB PO SCH (08:46)
[2021-12-26] MEDS: MIDODRINE HCL 5 MG TABLET PO SCH ×3 (08:46→21:10)
[2021-12-26] MEDS ORDERED: POTASSIUM CL SA 10 MEQ TAB PO ONE ×2 (09:00→17:00)
--- NOTE | 2021-12-26 13:30 | PN ---
Date of Progress Note: 12/24/2021 Mr. Hdz remains rather ill. His temperature is 100.6. He remained in flutter with a heart ra te of 95. Troponin is 165, which is slightly less than it was. He is back on Eliquis now. He remai ns on metoprolol. He remains on antibiotics. His creatinine is 2.02. Case was discussed with Dr. Dane figueroa. We will obviously still hold on his left and right heart catheterization regarding the aortic s tenosis until he approves. I will be available for question as long as in the hospital. We will con tinue his present regimen for now. MICHELLE/RAFI Voice ID: [id number] Report ID: [id number]
[2021-12-26 15:27] LABS: Absolute Lymphocytes (CBC) 0.6 K/uL (0.7-4.9); Hematocrit 34.2 % (39.6-49.0); Lymphocytes % 5.6 % (15.3-44.8); MPV 9.9 fL (7.6-11.3); RBC Red Blood Cell Count 3.92 M/uL (4.33-5.43)
--- NOTE | 2021-12-26 17:15 | PN ---
Date of Progress Note: 12/26/2021 Subjective: Yesterday, we started him on Lasix piggyback and started on midodrine. Blood pressure more stable, holding around 110-116, no episodes of hypotension, the lowest is 98. The patient started moving to the chair, still urinating well. Postvoid bladder scan was all done yesterday. Physical Examination: Vital Signs: When I saw the patient; blood pressure 116/65, pulse of 98, afebrile. The patient voiding with multiple wet diapers. Chest: Faint rales bilateral base. Heart: S1, S2. Systolic murmur. Abdomen: More soft. Extremities: Trace edema. Neuro: The patient is more awake. No focality. Laboratory Data: WBC 8.1, H and H 11.1/32.7, platelets 47. Sodium 137, potassium 3.1, bicarb 25, BUN 69, creatinine 2.5, plateaued. Calcium 7.9, phosphorus 2.5, magnesium of 2.1, albumin 1.7. Corrected calcium is 10. Current Medications: The patient on include Zosyn 3.375 t.i.d., breathing treatment, midodrine 5 mg t.i.d., Eliquis 2.5 b.i.d., metoprolol 12.5 b.i.d., atorvastatin, Tylenol, gabapentin 200 b.i.d., Lasix piggyback 40 mg, breathing treatment, Pepcid, Zofran, KCl. Assessment And Plan: 1. Acute kidney injury, multifactorial, secondary to questionable of obstructive uropathy given the prostate cancer before, currently voiding well, plateaued, still slightly on the over volume side. I am going to continue Lasix on piggyback b.i.d. and we will monitor the patient. The patient had improved in his urine output, swelling has been subsided and breathing status has been improved. We will continue current diuresis. 2. Hypertension, currently hypotension. I am going to continue current midodrine. We will utilize blood pressure for more diuresis. 3. Sepsis with bacteremia. The patient on Zosyn dose appropriate. 4. Altered mental status secondary to metabolic encephalopathy, currently more awake, no pain. We will continue current treatment. We will monitor. Continue antibiotic. 5. Hypokalemia, status post supplement. We will follow up with primary. 6. Diabetes as by primary. 7. Secondary hyperparathyroidism. Calcium on the goal, phosphorus on the goal. No need for supplement. No need for calcitriol. 8. 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 We are still waiting for serum protein electrophoresis and the quantification of the proteinuria. time spend exam the patient face to face , reviewing the data of lab and radiology , placing the order , discussing with the patient and the nursing staff , discussing with other wallpaper remover steam including hospitalist 35 min DILIP Voice ID: [id number] Report ID: [id number] RAFAEL
[2021-12-26] MEDS: ATORVASTATIN 10 MG TAB PO SCH (21:10)
[2021-12-26] MEDS: FAMOTIDINE 20 MG TAB PO SCH (21:11)
[2021-12-26] MEDS ORDERED: FUROSEMIDE 40 MG/4 ML VIAL ONE (21:19)
[2021-12-27] MEDS: PIPER TAZO 3.375 GM in NA CHLORIDE 0.9% 100 ML IV SCH ×3 (00:29→17:13)
[2021-12-27] MEDS ORDERED: POTASSIUM CL SA 10 MEQ TAB PO ONE ×3 (02:30→21:06)
[2021-12-27 05:16] LABS: Absolute Lymphocytes (CBC) 0.8 K/uL (0.7-4.9); Hematocrit 33.4 % (39.6-49.0); Lymphocytes % 6.5 % (15.3-44.8); MPV 9.8 fL (7.6-11.3); RBC Red Blood Cell Count 3.86 M/uL (4.33-5.43)
[2021-12-27 05:25] LABS: Albumin 1.8 g/dL (3.4-5.0); Phosphorus 2.4 mg/dL (2.5-4.9); Potassium 3.6 mmol/L (3.5-5.1)
[2021-12-27 05:33] VITALS: BMI 34.9
[2021-12-27] MEDS: INSULIN -REGULAR HUMAN 50 UNIT/0.5 ML ML SQ SCH ×4 (07:18→20:02)
[2021-12-27] MEDS: POTASS/SODIUM PHOSPHATE 1 PKT POWD.PACK PO SCH ×3 (08:05→12:15)
[2021-12-27] MEDS: MIDODRINE HCL 5 MG TABLET PO SCH ×3 (08:05→20:02)
[2021-12-27] MEDS: GABAPENTIN 100 MG CAP PO SCH ×2 (08:05→20:01)
[2021-12-27] MEDS: APIXABAN 2.5 MG TABLET PO SCH ×2 (08:06→20:04)
[2021-12-27] MEDS: FUROSEMIDE 40 MG in NA CHLORIDE 0.9% 50 ML IV SCH ×2 (08:08→20:00)
[2021-12-27] MEDS: METOPROLOL TAR 25 MG TAB PO SCH ×2 (09:00→20:03)
[2021-12-27] MEDS: MAGNESIUM OXIDE 400 MG TAB PO SCH (09:14)
--- NOTE | 2021-12-27 09:48 | PN ---
Date of Progress Note: 12/26/2021 Subjective: Patient was seen this morning for followup. He was lying in bed, not in distress. In I CU, on high-flow nasal cannula oxygen. Objective: Vital signs: Reviewed. General: Denies any abdominal pain anymore. No nausea, no vomiting. HEENT: Unremarkable. Lungs: Bilateral good and equal air entry. Clear to auscultation. Cardiac: Heart sounds normal. Abdomen: Soft, bowel sounds normal. No guarding, rigidity, tenderness, or distention. Extremities: No leg edema. Laboratory Data: White count 8.1, hemoglobin 11.1, platelets 47. Sodium 137, potassium 3.1, chlorid e 103, bicarb 25, BUN 69, creatinine 2.51, glucose 137, magnesium 2.1, albumin 1.7. Impression: 1.Sepsis. 2.Hypokalemia. 3.Acute kidney injury. 4.Anemia. 5.Thrombocytopenia. 6.Puo-CF-nobsjglot myocardial infarction. Plan: We will go ahead and repeat CBC this evening. If platelet count is 50 or higher, we will rest art Eliquis 2.5 mg 2 times a day as of this evening. Continue to follow with snowblower mechanic and nephro logist as well as opener tender. Continue current oxygen replacement therapy. Continue IV Lasix and metoprolol per order. We will continue current antibiotics. Replace potassium per order, and I will see him tomorrow for followup. We will repeat blood work tomorrow morning. BARAK/MODL Voice ID: [id number] Report ID: [id number]
--- NOTE | 2021-12-27 13:30 | P.PN ---
Subjective Date of Service: 12/27/21 Chief Complaint: Respiratory failure Subjective: No new changes Physical Examination - Vital Signs Temperature: 97.2 F Blood Pressure: 106/82 Pulse: 97 Respirations: 22 Pulse Ox (%): 99 - Physical Exam General: Other (Appears as his stated age) HEENT: Atraumatic, Normocephalic Neck: JVD not distended Respiratory: Other (Symmetric chest expansion) Cardiovascular: No rubs, No murmurs Gastrointestinal: Soft and benign, Non-distended Musculoskeletal: No clubbing Integumentary: No warmth Neurological: Normal tone Urinary: Other (No bladder distention) External genitalia: Deferred Rectal: Deferred Assessment And Plan - Plan 1. Acute kidney injury, multifactorial, secondary to ATN/sepsis +/- obstructive uropathy given the prostate cancer before. Currently voiding well. SCr improved to 2.4. Cont IV lasix. [place] po fluid intake. Monitor renal pane. 2. Hypotension. Cont Midodrine. 3. Sepsis with e coli bacteremia. Cholecystitis. On abx. No surgical intervention for gall bladder needed. 4. Metabolic encephalopathy. Improved. Monitor. 5. Hypokalemia. Improved. KCl repletion received today. 6. HypoPO4. Neutraphos received today. 7. DM2. Mngt per primary team
[2021-12-27 15:46] LABS: Hepatitis C Virus RNA (PCR)log <1.18 log IU/mL
[2021-12-27] MEDS: FAMOTIDINE 20 MG TAB PO SCH (20:02)
[2021-12-27] MEDS: ATORVASTATIN 10 MG TAB PO SCH (20:02)
[2021-12-27 22:22] LABS: UR PROTEIN 8.9 mg/dL (<11.9)
[2021-12-27 22:36] LABS: UR CREAT < 18.0 mg/dL (20-370)
[2021-12-28] MEDS: PIPER TAZO 3.375 GM in NA CHLORIDE 0.9% 100 ML IV SCH ×3 (02:11→16:47)
--- NOTE | 2021-12-28 02:34 | PN ---
Date of Progress Note: 12/27/2021 Subjective: The patient was seen this morning for followup, he was lying in bed in ICU, not in any d istress. He is on high-flow nasal cannula oxygen, but requiring less amount of oxygen compared to morning when I saw him. Denies any abdominal pain, nausea, vomiting. Objective: Vital Signs: Reviewed. HEENT: Unremarkable. Lungs: Clear to auscultation. Not using any accessory muscles of respiration. Heart: Heart sounds normal. Abdomen: Soft, bowel sounds normal. No guarding, rigidity, tenderness, or distention. Extremities: No leg edema. Laboratory Data: White count 12.7, hemoglobin 11.3, platelets 63. Sodium 138, potassium 3.6, chlori de 102, bicarb 29, BUN 65, creatinine 2.41, glucose 125, magnesium 2. Albumin 1.8. Blood culture, a ll the 4 bottles and blood culture growing E coli. Impression: 1.Sepsis. 2.Acute kidney injury. 3.Thrombocytopenia. 4.Hypokalemia. 5.Anemia. 6.Generalized weakness. 7.Debility. 8.Acute respiratory failure with hypoxia. Plan: We will go ahead and continue current medication. Continue to follow up with induction furnace operator and beam builder. Continue current antibiotics and the patient is medically stable for transfer out of ICU to regular room. See copy of transfer order for details and we will continue current medical ma nagement when we transfer the patient. Physical therapy to continue to work with the patient. We wi ll repeat blood work tomorrow morning. The patient's thrombocytopenia is improving and white count i s slightly elevated. At this point there is no evidence of any new infection and we will repeat bloo d work tomorrow morning. BARAK/MODL Voice ID: [id number] Report ID: [id number]
[2021-12-28] MEDS: INSULIN -REGULAR HUMAN 50 UNIT/0.5 ML ML SQ SCH ×4 (07:30→21:00)
[2021-12-28 07:55] LABS: Hematocrit 33.4 % (39.6-49.0); Lymphocytes % 6.3 % (15.3-44.8); MPV 9.5 fL (7.6-11.3); RBC Red Blood Cell Count 3.84 M/uL (4.33-5.43)
[2021-12-28 08:01] LABS: Potassium 3.4 mmol/L (3.5-5.1)
[2021-12-28] MEDS ORDERED: POTASSIUM CL SA 10 MEQ TAB PO ONE ×2 (08:35→09:30)
[2021-12-28] MEDS: GABAPENTIN 100 MG CAP PO SCH ×2 (08:36→21:04)
[2021-12-28] MEDS: MAGNESIUM OXIDE 400 MG TAB PO SCH (08:36)
[2021-12-28] MEDS: APIXABAN 2.5 MG TABLET PO SCH ×2 (08:36→21:04)
[2021-12-28] MEDS: METOPROLOL TAR 25 MG TAB PO SCH ×2 (08:36→21:05)
[2021-12-28] MEDS: MIDODRINE HCL 5 MG TABLET PO SCH ×3 (08:37→21:04)
[2021-12-28] MEDS ORDERED: FUROSEMIDE 40 MG in NA CHLORIDE 0.9% 50 ML IV SCH (09:00)
--- NOTE | 2021-12-28 10:05 | RAD REPORT ---
EXAM DESCRIPTION: RAD - Chest Single View - 12/28/2021 9:54 am CLINICAL HISTORY: follow up COMPARISON: Chest Single View dated 12/24/2021; Chest Single View dated 12/22/2021; Chest Single View d ated 12/21/2021; Chest Pa And Lat (2 Views) dated 12/20/2021 FINDINGS: Lines: None. Lungs: No evidence of edema or pneumonia. Pleural: No significant pleural effusions or pneumothorax. Cardiac: Cardiomegaly. Bones: No acute fractures. Sternotomy. Other: IMPRESSION: No acute cardiopulmonary disease.
[2021-12-28 10:54] LABS: Urine Appearance Clear (Clear); Urine Bilirubin Negative (Negative); Urine Blood Negative (Negative); Urine Color Yellow (Yellow); Urine Glucose Negative (Negative); Urine Protein Negative (Negative); Urine Urobilinogen 0.2 mg/dL (0.2-1.0)
[2021-12-28 11:02] LABS: Urine Microscopic Reflex ORDER UMIC
[2021-12-28 11:04] LABS: Urine Bacteria NONE SEEN /HPF (NONE SEEN); Urine RBC <5 /HPF (NONE SEEN)
--- NOTE | 2021-12-28 12:15 | RAD REPORT ---
EXAM DESCRIPTION: US - Abdomen Exam Complete - 12/28/2021 12:04 pm CLINICAL HISTORY: Abdominal pain COMPARISON: Renal Ultrasound-Complete dated 12/24/2021; Abdomen Exam Limited dated 12/21/2021; Abdomen Pelvis Wo Contrast dated 12/21/2021 FINDINGS: No aortic aneurysm. The liver has a homogeneous echotexture. The portal vein is patent. The IVC at the level of the liver is unremarkable. Gallbladder sludge. Small volume of pericholecystic fluid is noted. This could represent some adjacen t ascites. No biliary ductal dilatation. Negative sonographic Pugh's sign. The pancreas was not well-visualized. The right kidney measures 11 cm normal echotexture. No hydronephrosis. No suspicious masses. The left kidney measures 12.1 cm with a normal echotexture. No hydronephrosis. No suspicious masses. The spleen is mildly enlarged at 13.7 cm. IMPRESSION: Gallbladder sludge with trace pericholecystic fluid. The pericholecystic fluid is nonspe cific and could be related to ascites. Recommend correlation with LFTs. If there is high clinical con cern for acute cholecystitis, could consider HIDA scan.
--- NOTE | 2021-12-28 16:40 | PN ---
Date of Progress Note: 12/28/2021 Subjective: The patient was admitted with acute kidney injury, cholecystitis. Had acute kidney injury secondary to cardiorenal. The patient was having low blood pressure, started on midodrine. The blood pressure stabilized. The patient moved out of from ICU, feeling better. Physical Examination: Vital Signs: Blood pressure 130/59, pulse of 53, and afebrile. The patient had good urine output of 1000. Chest: Clear to auscultation. Heart: S1, S2. Regular. Abdomen: Soft and nontender. Extremities: Trace edema Neurologic: Alert. No focality. Laboratory Data: WBC 16.6, H and H 11.2/33.4, and platelet 104. Sodium 139, potassium 3.4, bicarb 28, BUN 58, creatinine 2.1, calcium 8.2, and magnesium of 2. Current Medications: The patient on include Zosyn 3.375, promethazine, albuterol, midodrine 5 mg t.i.d., Eliquis, atorvastatin, metoprolol, gabapentin, Lasix 40 mg b.i.d., ipratropium, Pepcid, and magnesium. Assessment And Plan: 1. Acute kidney injury secondary to cardiorenal kidney function trending down. The patient looked to me closer to his baseline and closer to be euvolemic. I am going to go ahead and get chest x-ray for better evaluation of his fluid status and we will follow up the patient. I am going to go ahead and change the Lasix to p.o. 2. Hypertension, currently hypotension. Blood pressure has been maintained good with current midodrine regimen. I will switch the patient to Lasix p.o. to avoid any hypotension. We will evaluate the need for b.i.d. or once a day depending on the finding on the chest x-ray and we will follow up. 3. Obstructive uropathy, stable. We will follow up with primary. 4. Sepsis with bacteremia. The patient is on Zosyn at the dose appropriate. 5. Altered mental status, metabolic back to his baseline. 6. Hypokalemia with hypomagnesemia. We will supplement. 7. Secondary hyperparathyroid. Calcium and phos on the goal. We will continue to monitor. No need for calcitriol. 8. Diabetes as by primary. time spend exam the patient face to face , reviewing the data of lab and radiology , placing the order , discussing with the patient and the nursing staff , discussing with other steam box operator including hospitalist 35 min DILIP Voice ID: [id number] Report ID: [id number] MTDD
[2021-12-28] MEDS: FUROSEMIDE 40 MG TABLET PO SCH (16:46)
--- NOTE | 2021-12-28 18:45 | PN ---
Date of Progress Note: 12/28/2021 Subjective: The patient was seen this morning for followup. He was out of ICU in regular room. His was present with him at bedside. Denies any complaints. Overall feels better. Denies any abd ominal pain. No shortness of breath. Has some dry cough. Denies any diarrhea or any dysuria. Objective: Vital signs: Reviewed. He remains afebrile, hemodynamically stable. HEENT: Unremarkable. Lungs: Bilateral good equal air entry, not in respiratory distress. Presence of some diminished air entry in the right lung base. Heart: Sounds normal. Abdomen: Soft. Bowel sounds normal. No guarding, rigidity, tenderness, or distention. Extremities: No leg edema. Laboratory Data: White count has gone up to 16.6, hemoglobin 11.2, platelets 104. Sodium 139, potas sium 3.4, chloride 103, bicarb 28, BUN 58, creatinine 2.16, glucose 128, magnesium 2. Impression: 1.Sepsis, organism Escherichia coli. 2.Congestive heart failure, chronic, diastolic, with acute exacerbation. 3.Acute kidney injury. 4.Anemia. 5.Thrombocytopenia. 6.Hypokalemia. 7.Generalized weakness. 8.Debility. Plan: We will go ahead and continue current medical management, continue current antibiotic which is Zosyn, continue Eliquis and Lasix. The patient's WBC count has gone up. Yesterday, it was 12, day before yesterday it was 10 and today it is 16. He does not have any other specific complaints that w ould indicate any specific area or site of infection. We will get a chest x-ray done today. I have ordered urinalysis, urine culture, blood culture x2. We will get echo with Doppler to rule out any v egetation considering problem with E coli sepsis and we will get abdominal ultrasound done. Physical Therapy to continue to work with the patient. I will see him tomorrow for followup. BARAK/MODL Voice ID: [id number] Report ID: [id number]
[2021-12-28] MEDS: ATORVASTATIN 10 MG TAB PO SCH (21:04)
[2021-12-28] MEDS: FAMOTIDINE 20 MG TAB PO SCH (21:05)
[2021-12-29] MEDS: PIPER TAZO 3.375 GM in NA CHLORIDE 0.9% 100 ML IV SCH ×3 (01:07→16:06)
[2021-12-29] MEDS: INSULIN -REGULAR HUMAN 50 UNIT/0.5 ML ML SQ SCH ×4 (07:30→21:00)
[2021-12-29 07:46] LABS: Absolute Lymphocytes (CBC) 1.2 K/uL (0.7-4.9); Hematocrit 33.3 % (39.6-49.0); Lymphocytes % 7.9 % (15.3-44.8); MPV 9.3 fL (7.6-11.3); RBC Red Blood Cell Count 3.85 M/uL (4.33-5.43)
[2021-12-29 08:08] LABS: Albumin 1.9 g/dL (3.4-5.0); Bilirubin Total 0.7 mg/dL (0.2-1.0); C-Reactive Protein 79.6 mg/L (<3.00); Magnesium 1.9 mg/dL (1.8-2.4); Potassium 3.3 mmol/L (3.5-5.1); Protein, Total 5.9 g/dL (6.4-8.2)
[2021-12-29] MEDS ORDERED: POTASSIUM CL SA 10 MEQ TAB PO ONE (08:29)
[2021-12-29] MEDS: METOPROLOL TAR 25 MG TAB PO SCH ×2 (09:00→20:32)
[2021-12-29] MEDS: APIXABAN 2.5 MG TABLET PO SCH ×2 (09:03→20:32)
[2021-12-29] MEDS: FUROSEMIDE 40 MG TABLET PO SCH ×2 (09:04→16:07)
[2021-12-29] MEDS: MAGNESIUM OXIDE 400 MG TAB PO SCH (09:04)
[2021-12-29] MEDS: GABAPENTIN 100 MG CAP PO SCH ×2 (09:05→20:31)
[2021-12-29] MEDS: MIDODRINE HCL 5 MG TABLET PO SCH ×3 (09:05→20:32)
[2021-12-29] MEDS ORDERED: MAGNESIUM SULFATE 1 gm IVPB 1 GM/100 ML BAG IV ONE (11:17)
--- NOTE | 2021-12-29 13:02 | PN ---
Date of Progress Note: 12/29/2021 Subjective: The patient was admitted with acute kidney injury, abdominal pain, cholecystitis. The patient managed conservatively. His acute kidney injury was secondary to cardiorenal, poor perfusion, ATN secondary to low blood pressure. The patient also had bacteremia. Physical Examination: Vital Signs: When I saw the patient; blood pressure 111/72, pulse of 91, afebrile. The patient had good urine output of 2400, negative of 600. Chest: Clear to auscultation. The patient is on room air. Heart: S1, S2. Systolic murmur. Abdomen: Soft, nontender. Extremity: No edema. Neuro: Alert. No focality. Laboratory Data: WBC 15, H and H 11.3/33.3. Sodium 140, potassium 3.3, bicarb 27, BUN 51, creatinine down to 2, GFR of 31, calcium 8.2, magnesium 1.9. Albumin 1.9, corrected calcium 9.8. Current Medications: The patient on include Lasix 40 b.i.d., Zosyn 3.375 every 8 hours, midodrine 5 mg t.i.d., Eliquis, metoprolol 12.5 b.i.d., atorvastatin, gabapentin 200 b.i.d., Lasix 40 b.i.d., breathing treatment. Assessment And Plan: 1. Acute kidney injury secondary to cardiorenal, continued to recover, looked to me still on the over volume side. I am going to continue current diuresis and we will monitor the patient. 2. Hypertension, controlled, currently low blood pressure. The patient maintained on midodrine, tolerated very well. 3. Hypokalemia, hypomagnesemia. We will supplement. 4. Non-ST elevation myocardial infarction with congestive heart failure exacerbation as by Cardiology. We will continue current diuresis dose. 5. Sepsis with bacteremia, Escherichia coli. Repeated blood culture was negative. The patient maintained on Zosyn dose, appropriate. We will follow up with primary. 6. Altered mental status, metabolic. The patient recovering very well. We will follow up. time spend exam the patient face to face , reviewing the data of lab and radiology , placing the order , discussing with the patient and the nursing staff , discussing with other steam turbine assembler including hospitalist 35 min MICK/RAFI Voice ID: [id number] Report ID: [id number] MTDD
--- NOTE | 2021-12-29 13:23 | PN ---
Date of Progress Note: 12/29/2021 Subjective: The patient was seen this morning for followup. No new complaints or problems reported by the patient. He was sleeping, easily arousable, not in distress. was present with him at [facility] and the patient had uneventful day yesterday. His appetite is good. Denies any abdominal pain . No shortness of breath. This morning when I saw him, he was not using any oxygen. Objective: Vital Signs: Reviewed. HEENT: Unremarkable. Lungs: Clear to auscultation. Heart: Sounds normal. Abdomen: Soft. Bowel sounds normal. No guarding, rigidity, tenderness, or distention. Extremities: No leg edema. Laboratory Data: White count 15, hemoglobin 11.3, platelets 164. Sodium 140, potassium 3.3, chlorid e 105, bicarb 27, BUN 51, creatinine 2.01, glucose 128. Liver function tests unremarkable. Serum al bumin 1.9. Urinalysis from yesterday was normal. Abdominal ultrasound from yesterday showed evidenc e of gallbladder sludge with trace pericholecystic fluid. Chest x-ray was negative. Impression: 1.Sepsis. 2.Congestive heart failure. 3.Acute kidney injury. 4.Anemia. 5.Thrombocytopenia. 6.Generalized weakness. 7.Debility. Plan: Overall, the patient's condition has improved. Now, he has significant generalized weakness a nd debility which will require some rehab therapy. Tomorrow, we will consult Social Service to sebastian t with discharge planning and I did talk to the patient and the patient's regarding consideratio n of him to go to [facility] facility and she informs me that family already has started this di scussion and they are in agreement, so she will communicate with Social Service tomorrow and hopefull y we can plan to discharge him probably by Thursday or Thursday once arrangements gets completed and as long as his condition is stable. His WBC count is better today than yesterday. Platelet count is normal. We will continue current antibiotics. Continue Eliquis. I will see him tomorrow for follo wup. The patient does not have diarrhea. Also, a stool test was not done for C diff. BARAK/MODL Voice ID: [id number] Report ID: [id number]
[2021-12-29] MEDS: ATORVASTATIN 10 MG TAB PO SCH (20:32)
[2021-12-29] MEDS: FAMOTIDINE 20 MG TAB PO SCH (20:35)
[2021-12-30] MEDS: PIPER TAZO 3.375 GM in NA CHLORIDE 0.9% 100 ML IV SCH ×3 (01:20→16:19)
[2021-12-30 05:55] LABS: Absolute Lymphocytes (CBC) 1.3 K/uL (0.7-4.9); Hematocrit 33.2 % (39.6-49.0); Lymphocytes % 10.2 % (15.3-44.8); MPV 8.2 fL (7.6-11.3); RBC Red Blood Cell Count 3.84 M/uL (4.33-5.43)
[2021-12-30 06:02] LABS: Magnesium 2.2 mg/dL (1.8-2.4); Potassium 3.4 mmol/L (3.5-5.1)
[2021-12-30] MEDS: INSULIN -REGULAR HUMAN 50 UNIT/0.5 ML ML SQ SCH ×4 (07:30→21:00)
[2021-12-30] MEDS: MAGNESIUM OXIDE 400 MG TAB PO SCH (09:00)
[2021-12-30] MEDS ORDERED: POTASSIUM CL SA 10 MEQ TAB PO SCH (09:00)
[2021-12-30] MEDS: METOPROLOL TAR 25 MG TAB PO SCH ×2 (09:49→21:39)
[2021-12-30] MEDS: FUROSEMIDE 40 MG TABLET PO SCH ×2 (09:50→16:20)
[2021-12-30] MEDS: MIDODRINE HCL 5 MG TABLET PO SCH ×3 (09:51→21:39)
[2021-12-30] MEDS: GABAPENTIN 100 MG CAP PO SCH ×2 (09:51→21:38)
[2021-12-30] MEDS: APIXABAN 2.5 MG TABLET PO SCH ×2 (09:51→21:39)
--- NOTE | 2021-12-30 14:55 | ECHO ---
HEIGHT: 5 ft 8 in WEIGHT: 230 lb 4 oz DATE OF STUDY: 12/30/[address]: Diony Kelsey MD 2-DIMENSIONAL: YES M.MODE: YES DOPPLER: YES COLOR FLOW: YES TDS: PORTABLE: YES DEFINITY: BUBBLE STUDY: DIAGNOSIS: SEPSIS, RULE OUT ENDOCARDITIS CARDIAC HISTORY: CATHERIZATION: YES SURGERY: NO PROSTHETIC VALVE: NO PACEMAKER: NO MEASUREMENTS (cm) DIASTOLIC (NORMALS) SYSTOLIC (NORMALS) IVSd 1.4 (0.6-1.2) LA Diam 4.0 (1.9-4.0) LVEF 64% LVIDd 4.0 (3.5-5.7) LVIDs 2.6 (2.0-3.5) %FS 35% LVPWd 1.2 (0.6-1.2) Ao Diam 2.4 (2.0-3.7) 2 DIMENSIONAL ASSESSMENT: RIGHT ATRIUM: NORMAL LEFT ATRIUM: NORMAL RIGHT VENTRICLE: NORMAL LEFT VENTRICLE: NORMAL TRICUSPID VALVE: MILD TRICUSPID REGURGITATION MITRAL VALVE: MILD MITRAL REGURGITATION PULMONIC VALVE: NORMAL AORTIC VALVE: HEAVILY CALCIFIED AORTIC VALVE PERICARDIAL EFFUSION: NONE AORTIC ROOT: NORMAL LEFT VENTRICULAR WALL MOTION: NORMAL DOPPLER/COLOR FLOW: SEE BELOW COMMENTS: NORMAL LEFT VENTRICULAR EJECTION FRACTION 60-65% WITH NORAML WALL MOTION. MILD MITRAL REGURGITATION. MILD TRICUSPID REGURGITATION. HEAVILY CALCIFIED AORTIC VALVE WITH LIKELY MODERATE TO SEVERE AORTIC STENOSIS. NO CLEAR VEGETATION ON THE ECHOCARDIOGRAM (BUT WINDOWS ARE LIMITED). RECOMMEND TRANSESOPHAGEAL ECHOCARDIOGRAM TO FURTHER EVALUATE IF CLINICALLY INDICATED. TECHNOLOGIST: NURYS BURNS
[2021-12-30] MEDS: FAMOTIDINE 20 MG TAB PO SCH (21:38)
[2021-12-30] MEDS: ATORVASTATIN 10 MG TAB PO SCH (21:39)
[2021-12-31] MEDS: PIPER TAZO 3.375 GM in NA CHLORIDE 0.9% 100 ML IV SCH (00:21)
--- NOTE | 2021-12-31 02:06 | PN ---
Date of Progress Note: 12/30/2021 Chief Complaint: Acute kidney injury, sepsis with E coli. Bacteremia, cholecystitis. Subjective: The patient today denies complaints. He was admitted to the hospital with generalized w eakness . He was found to have acute kidney injury. The patient has nonoliguric urine out put. Electrolytes are stable. Overall, creatinine level has improved gradually over the last severa l days. The patient is on Lasix for volume control. He has history of congestive heart failure and fluid overload. Review of Systems: Denies . Denies PND or orthopnea. Denies lower urinary tract symptoms. Objective: Lungs: Clear to auscultation bilaterally. Heart: S1, S2. Abdomen: Soft, benign. Extremities: Minimal edema. Impression And Plan: 1.Acute kidney injury, multifactorial secondary to acute tubular necrosis, sepsis as well as obstruc tive uropathy. The patient has midline sepsis contributory to obstructive uropathy. Current voiding is obvious leak. Serum creatinine level has improved over the last few days from 2.4 to 1.9. The p atient will continue p.o. fluid intake and primary is to adjust Lasix as needed. 2.Hypotension. Continue midodrine. 3.Sepsis with Escherichia coli bacteremia due to complicated cholecystitis. Continue antibiotic. 4.Metabolic encephalopathy, improved. Continue to monitor mental status changes. Check electrolyte s. Continue to monitor blood pressure and bladder scan as needed to rule out increased postvoid resi dual volume. 5.Hypokalemia, improved. Continue potassium repletion. 6.Hypophosphatemia. . 7.Diabetes mellitus. Avoid metformin due to currently this patient has renal failure. He cannot take metformin. Continue insulin sliding scale. EB/MODL Voice ID: [id number] Report ID: [id number]
[2021-12-31 03:28] VITALS: O2SAT 92
[2021-12-31 09:06] VITALS: BP 128/73; TEMP 97
--- NOTE | 2021-12-31 09:42 | PN ---
Date of Progress Note: 12/30/2021 Subjective: The patient was seen this morning for followup. Denied any complaints. Lying in bed, n ot in any distress. Objective: Vital Signs: Reviewed. HEENT: Unremarkable. Lungs: Clear to auscultation. Heart: Sounds normal. Abdomen: Soft. Bowel sounds normal. No guarding, rigidity, tenderness, distention. Extremity: No leg edema. Laboratory Data: White count 13, hemoglobin 11.3, platelets 240. Sodium 139, potassium 3.4, chlorid e 104, bicarb 28, BUN 42, creatinine 1.90, glucose 139, magnesium 2.2. Impression: 1.Sepsis. 2.Hypokalemia. 3.Anemia. 4.Thrombocytopenia. 5.Paroxysmal atrial fibrillation. 6.Generalized weakness. 7.Debility. Plan: We will go ahead and continue current antibiotic. Replace potassium per order. Customer Care Assistant apy to continue to work with the patient and we will request Social Service to assist the patient and family with group home facility placement and possible discharge to go home either tomorrow or day after tomorrow once we make the arrangements and depending on the patient's condition. Details a nd plan of treatment discussed with the patient. We will continue current Eliquis 2.5 mg 2 times a day. BARAK/MODL Voice ID: [id number] Report ID: [id number]
--- NOTE | 2022-01-01 07:27 | DS ---
Date of Discharge: 12/31/2021 Disposition: [facility]charged [facility] to [facility]. Physical Examination: HEENT: Unremarkable. Lungs: Clear to auscultation. Heart: Heart sounds normal. Abdomen: Soft, bowel sounds normal. No guarding, rigidity, tenderness, distention. Extremities: No leg edema. Laboratory Data: Initial white count when the patient was admitted to the hospital was 11.9, hemoglo bin 13.3, platelets 229. His initial chemistry; sodium 138, potassium 4.7, chloride 107, bicarb 24, BUN 22, creatinine 1.55. Initial troponin was 17.2, which was normal. Echocardiogram on 12/30/2021 had shown ejection fraction 64%. Evidence of mild mitral regurgitation and tricuspid regurgitation. Heavily calcified aortic wall with [id number] aortic stenosis. Abdominal ultrasound from 12/28/2021 had shown gallbladder sludge with pericholecystic fluid. Renal ultrasound was unremarkable done on 12/24/2021, because the blood culture have grown E coli. Discharge Medications And Instructions: 1.Fall precautions. Consult Physical therapy and Occupational therapy at [facility]. 2.Diet; 2 g sodium, 2000 calorie ADA diet. 3.Tylenol 500 mg take 1 tablet by mouth 4 times a day as needed for pain. 4.Augmentin 500 mg 2 times a day with food for 5 days. 5.Fingerstick blood sugar a.c. and at bedtime with mild sliding scale. 6.Eliquis 2.5 mg 2 times a day. 7.Simvastatin 20 mg daily at bedtime. 8.Famotidine 40 mg daily at bedtime. 9.Furosemide 40 mg 2 times a day. 10.Gabapentin 300 mg 2 times a day. 11.Magnesium oxide daily. 12.Metoprolol succinate 25 mg 2 times a day. 13.Aspirin 81 mg daily with food. 14.Potassium chloride 20 mEq daily. 15.CBC, Chem-7 magnesium level tomorrow and then as per [facility] physician. Hospital Course: This is an -yvjp-tin very pleasant male patient who was admitted to the [facility] with abdominal pain. Please see dictated H and P for more information. The patient had righ t upper abdominal pain and tenderness and after he was evaluated he was admitted to the hospital. Th e patient was started on empiric antibiotic. He was transferred to ICU when his condition deteriorat ed and he never required ventilator support, but he did require oxygen supplemental therapy for hypox ia problem. Dr. Jett from General Surgery and Dr. Lynn from Cardiology Service was consulted. O riginally, Dr. Lynn was planning to do cardiac catheterization on outpatient basis, which was obvi ously canceled as the patient was admitted to the hospital. His cardiac enzymes did come back slight ly elevated and no further cardiac intervention was done except medical management. He was on Eliqui s, which was changed to IV heparin per protocol. The patient was noted to have thrombocytopenia and lowest platelet count was in range of 40-50 and at that time even prior to that we discontinued his I V heparin drip when he started to have thrombocytopenia and Hematology consultation was requested. Gabby rios did not have any bleeding episode. His thrombocytopenia recovered, which was thought to be multifa ctorial in origin, but not due to heparin, but heparin-induced thrombocytopenia was one of the possib ility was considered even though it was less likely and heparin was discontinued at that time. His t hrombocytopenia recovered without any special intervention and as his platelet count got better we re started his Eliquis at that time. He was given empiric antibiotic, Zosyn. Blood culture grew E coli and it was sensitive to Zosyn. His right upper quadrant abdominal tenderness resolved and this was thought to be acute cholecystitis. Dr. Jett was consulted from General Surgery and he also did a HI DA scan. The patient started tolerating diet very well and once his condition was stable in ICU he w as transferred out of ICU to regular room. He did develop some with Lasix. He also devel oped acute kidney injury and Nephrology consultation was requested and his renal function has started to show some improvement also. Congestive heart failure problem has resolved now. He has significa nt generalized weakness and debility. He lives at home with his and she will not be able to take care of him upon discharge, so requested [facility] facility placement and Social Service was c onsulted and once arrangements completed today, he was discharged to go his potassium was low, which was corrected with electrolyte replacement protocol. The patient's code status is full co de as per patient's decision. Final Diagnoses: 1.Sepsis, organism Escherichia coli. 2.Acute cholecystitis with gallstones. 3.Atrial fibrillation, resolving. 4.Hypertension. 5.Hyperlipidemia. 6.Acute kidney injury. 7.Coronary artery disease. 8.Aortic stenosis. 9.Gastroesophageal reflux disease. 10.Colon cancer. 11.Prostate cancer. 12.Diabetes mellitus. 13.Obstructive sleep apnea. 14.Thrombocytopenia. 15.Hypokalemia. 16.Anemia. 17.Acute respiratory failure with hypoxia. 18.Pulmonary edema. 19.Congestive heart failure, diastolic, with acute exacerbation. 20.Generalized weakness. 21.Debility. BARAK/MODL Voice ID: [id number] Report ID: [id number]
== END 2021-12-31 09:00 | DRG 871 ==
LOC: ER 00:01 → ERHOLD 06:56 → 2ND 14:20 → 3RD-ICU 12-22 17:27 → 2ND 12-27 21:50
PROVIDERS: ADMIT Internal Medicine; ATTEND Internal Medicine
DX: A41.51 Sepsis due to Escherichia coli [E. coli] (principal); I50.33 Acute on chronic diastolic (congestive) heart failure; J96.01 Acute respiratory failure with hypoxia; N17.0 Acute kidney failure with tubular necrosis; G93.41 Metabolic encephalopathy; I21.4 Non-ST elevation (NSTEMI) myocardial infarction; K80.00 Calculus of gallbladder with acute cholecystitis without obstruction; N25.81 Secondary hyperparathyroidism of renal origin; I13.0 Hypertensive heart and chronic kidney disease with heart failure and stage 1 through stage 4 chronic kidney disease, or unspecified chronic kidney disease; R65.20 Severe sepsis without septic shock; E78.5 Hyperlipidemia, unspecified; I25.10 Atherosclerotic heart disease of native coronary artery without angina pectoris; I35.0 Nonrheumatic aortic (valve) stenosis; K21.9 Gastro-esophageal reflux disease without esophagitis; G47.33 Obstructive sleep apnea (adult) (pediatric); D69.6 Thrombocytopenia, unspecified; E87.6 Hypokalemia; R53.81 Other malaise; I48.0 Paroxysmal atrial fibrillation; L89.151 Pressure ulcer of sacral region, stage 1; N13.9 Obstructive and reflux uropathy, unspecified; E83.39 Other disorders of phosphorus metabolism; E83.42 Hypomagnesemia; E11.22 Type 2 diabetes mellitus with diabetic chronic kidney disease; N18.32 Chronic kidney disease, stage 3b; D63.1 Anemia in chronic kidney disease; Z85.038 Personal history of other malignant neoplasm of large intestine; Z85.46 Personal history of malignant neoplasm of prostate; Z87.891 Personal history of nicotine dependence; Z88.2 Allergy status to sulfonamides; Z20.822 Contact with and (suspected) exposure to COVID-19
CPT/HCPCS: 36415; 71045; 74176; 76700; 76705; 76770; 78226; 80048; 80053; 80069; 80076; 81003; 81015; 82570; 82805; 82947; 83540; 83605; 83615; 83690; 83735; 83880; 83970; 84132; 84145; 84156; 84484; 84550; 85025; 85044; 85384; 85610; 85730; 86021; 86022; 86038; 86140; 86160; 86225; 86317; 86430; 86706; 87040; 87077; 87086; 87088; 87186; 87205; 87522; 93005; 93306; 94002; 94003; 96365; 96375; 97110; 97116; 97161; 97530; 99285; A9537; J1644; J1940; J2270; J2405; J2543; J2550; J3475; J7030; J7040; U0003

== ENCOUNTER 2022-01-22 16:35 | Inpatient (IN) | payer OTHER ==
--- OUTSIDE RECORDS SUMMARY | 2022-01-22 16:39 | XMS REPORT | Continuity of Care Document ---
:1930 Author Organization [facility] Address [facility] Farrukh Calloway [address] [place] [address] Care Team Providers Name Role Phone CONSTANTINE SANDOVAL Attending Clinician Unavailable CONSTANTINE SANDOVAL Admitting Clinician Unavailable Problems This patient has no known problems. Allergies, Adverse Reactions, Alerts This patient has no known allergies or adverse reactions. Medications This patient has no known medications. Procedures This patient has no known procedures. Results Test Description Test Time Test Comments Results Result Comments Source HEPATITIS B SURFACE ANTIBODY 2021-12-25 09:31:59 Test Item Value Reference Range Interpretation Comme nts HEPATITIS B SURFACE ANTIBODY (BEAKER) (test code = 647) < mIU/mL <8.0 Manager Critical Care ID - MARKUS MHEPATITIS B SURFACE [id number] 09:30:29 Test Item Value Reference Range Interpretation Comments HEPATITIS B SURFACE ANTIGEN (2) Nonreactive Nonreactive (BEAKER) (test code = 2585) Specimen is considered negative for HBsAg.HEPATITIS B CORE ANTIBODY, TOTAL 2021-12-25 09:30:29 Test Item Value Reference Range Interpretation Comments HEPATITIS B CORE TOTAL ANTIBODY Nonreactive Nonreactive (BEAKER) (test code = 497) Manager Critical Care ID - MARKUS MPOCT-GLUCOSE [id number] 12:09:00 Test Item Value Reference Range Interpretation Comments POC-GLUCOSE METER 110 mg/dL 70-110 TESTED AT [facility] 6720 (BEAKER) (test code = FIORELLA Javier [facility] 1538) [address] [id number] 11:44:00 Test Item Value Reference Range Interpretation Comments MAGNESIUM (BEAKER) (test code = 1.8 mg/dL 1.6-2.6 627) BASIC METABOLIC [id number] 11:44:00 Test Item Value Reference Range Interpretation [...] PATIEN TS. CBC W/PLT COUNT & AUTO [id number] 11:26:00 Test Item Value Reference Range Interpretation [...] code = 416) BASOPHILS ABSOLUTE COUNT (BEAKER) 0.08 K/ L 0.01-0.08 (test code = 417) IMMATURE GRANULOCYTES-RELATIVE 1 % 0-1 PERCENT (BEAKER) (test code = 2801) POCT-GLUCOSE [id number] 07:11:00 Test Item Value Reference Range Interpretation Comments POC-GLUCOSE METER 127 mg/dL 70-110 H TESTED AT [place] [address] [facility] ([facility] = [facility] 1538) [address] POCT-GLUCOSE [id number] 22:25:00 Test Item Value Reference Range Interpretation Comments POC-GLUCOSE METER 123 mg/dL 70-110 H TESTED AT [place] [address] (BEAKER) (test code = [facility] Yaya [facility] 1538) [address] POCT-GLUCOSE [id number] 17:17:00 Test Item Value Reference Range Interpretation Comments POC-GLUCOSE METER 142 mg/dL 70-110 H TESTED AT [place] [address] (BEAKER) (test code = [facility] Yaya [place] 1538) [address] POCT-GLUCOSE [id number] 11:25:00 Test Item Value Reference Range Interpretation Comments POC-GLUCOSE METER 122 mg/dL 70-110 H TESTED AT [place] [id number] (BEAKER) (test code = [facility] Yaya [facility] 1538) [address] POCT-GLUCOSE [id number] 07:25:00 Test Item Value Reference Range Interpretation Comments POC-GLUCOSE METER 141 mg/dL 70-110 H TESTED AT [facility] 6720 (BEAKER) (test code = [facility] Yaya [place] 1538) [address] [id number] 06:33:00 Test Item Value Reference Range Interpretation Comments MAGNESIUM (BEAKER) (test code = 1.7 mg/dL 1.6-2.6 627) BASIC METABOLIC [id number] 06:33:00 Test Item Value Reference Range Interpretation [...] NOT APPLICABLE FOR DIALYSIS PATIEN TS. POCT-GLUCOSE [id number] 21:00:00 Test Item Value Reference Range Interpretation Comments POC-GLUCOSE METER 139 mg/dL 70-110 H TESTED AT [facility] 6720 (BEAKER) (test code = [facility] Yaya [facility] 1538) [address] POCT-GLUCOSE [id number] 17:04:00 Test Item Value Reference Range Interpretation Comments POC-GLUCOSE METER 146 mg/dL 70-110 H TESTED AT [facility] 6720 (BEAKER) (test code = [facility] 1538) [address] POCT-GLUCOSE [id number] 12:17:00 Test Item Value Reference Range Interpretation Comments POC-GLUCOSE METER 142 mg/dL 70-110 H TESTED AT [facility] 6720 (BEAKER) (test code = [facility] 1538) [address] [id number] 08:50:00 Test Item Value Reference Range Interpretation Comments MAGNESIUM (BEAKER) (test code = 1.8 mg/dL 1.6-2.6 627) BASIC METABOLIC [id number] 08:50:00 Test Item Value Reference Range Interpretation [...] 358) GLUCOSE RANDOM 184 mg/dL 70-105 H (BEAKER) (test code = 652) CALCIUM (BEAKER) 8.7 mg/dL 8.4-10.2 (test code = 697) EGFR (BEAKER) (test 69 mL/min/1.73 ESTIMA YIMI GFR IS code = 1092) sq m NOT ACCURATE CREATININE CLEARANCE IN PREDICTING GLOMERULAR FILTRATION RATE . ESTIMATED GFR I S NOT APPLICABLE FOR DIALYSIS PATIEN TS. POCT-GLUCOSE [id number] 07:57:00 Test Item Value Reference Range Interpretation Comments POC-GLUCOSE METER 208 mg/dL 70-110 H TESTED AT [place] [address] ([facility]) (test code = FIORELLA Javier [facility] 1538) [address] POCT-GLUCOSE [id number] 20:43:00 Test Item Value Reference Range Interpretation Comments POC-GLUCOSE METER 111 mg/dL 70-110 H TESTED AT [place] [address] ([facility] (test code = [facility] [place] 1538) [address] POCT-GLUCOSE [id number] 16:39:00 Test Item Value Reference Range Interpretation Comments POC-GLUCOSE METER 108 mg/dL 70-110 TESTED AT [place] [id number] ([facility] (test code = FIORELL[place] Javier [place] 1538) [address] POCT-GLUCOSE [id number] 12:11:00 Test Item Value Reference Range Interpretation Comments POC-GLUCOSE METER 105 mg/dL 70-110 TESTED AT [facility] 6720 (BEAKER) (test code = FIORELL[place] Javier [place] 1538) [address] POCT-GLUCOSE [id number] 08:59:00 Test Item Value Reference Range Interpretation Comments POC-GLUCOSE METER 170 mg/dL 70-110 H TESTED AT [facility] 6720 (BEAKER) (test code = FIORELL[place] Javier [place] 1538) [address] BASIC METABOLIC [id number] 05:24:00 Test Item Value Reference Range Interpretation [...] PATIEN TS. CBC W/PLT COUNT & AUTO [id number] 04:45:00 Test Item Value Reference Range Interpretation [...] PERCENT (BEAKER) (test code = 2801) POCT-GLUCOSE [id number] 20:46:00 Test Item Value Reference Range Interpretation Comments POC-GLUCOSE METER 131 mg/dL 70-110 H TESTED AT [facility] 6720 [facility] (test code = [place] 1538) [address] POCT-GLUCOSE [id number] 16:38:00 Test Item Value Reference Range Interpretation Comments POC-GLUCOSE METER 121 mg/dL 70-110 H TESTED AT [facility] 6720 (BEAKER) (test code = [place] 1538) [address] POCT-GLUCOSE [id number] 08:45:00 Test Item Value Reference Range Interpretation Comments POC-GLUCOSE METER 208 mg/dL 70-110 H TESTED AT [facility] 6720 (BEAKER) (test code = [place] 1534) [address] BASIC METABOLIC [id number] 07:45:00 Test Item Value Reference Range Interpretation [...] S NOT APPLICABLE FOR DIALYSIS PATIEN TS. [id number] 07:32:00 Test Item Value Reference Range Interpretation Comments MAGNESIUM (BEAKER) (test code = 1.3 mg/dL 1.6-2.6 L 627) CBC W/PLT COUNT & AUTO [id number] 06:37:00 Test Item Value Reference Range Interpretation [...] PERCENT (BEAKER) (test code = 2801) POCT-GLUCOSE [id number] 21:19:00 Test Item Value Reference Range Interpretation Comments POC-GLUCOSE METER 125 mg/dL 70-110 H TESTED AT [facility] 6720 [facility] (test code = [place] 1538) [address] POCT-GLUCOSE [id number] 17:34:00 Test Item Value Reference Range Interpretation Comments POC-GLUCOSE METER 171 mg/dL 70-110 H TESTED AT [facility] 6720 (BEAKER) (test code = [place] 1538) [address] POCT-GLUCOSE [id number] 12:33:00 Test Item Value Reference Range Interpretation Comments POC-GLUCOSE METER 171 mg/dL 70-110 H TESTED AT [facility] 6720 (BEAKER) (test code = FIORELLA Javier [place] 1538) [address] HEMOGLOBIN [id number] 12:21:00 Test Item Value Reference Range Interpretation Comments HEMOGLOBIN A1C (BEAKER) (test code = 6.0 % 4.3-6.1 368) POCT-GLUCOSE [id number] 08:37:00 Test Item Value Reference Range Interpretation Comments POC-GLUCOSE METER 159 mg/dL 70-110 H TESTED AT [facility] 6720 (NAGI) (test code = FIORELLA Javier [place] 1538) [address] RAD, CHEST, 1 VIEW, NON [id number] 07:43:00Reason for exam:->sternotomy FINAL REPORT Chest one view. Clinical history: sternotomy Comparison: June 24, 2017 Discussion: A frontal chest is provided. Cardiomediastinal contours are unchanged. ET, left IJ line, and chest tubes have been removed. There is a suspected small left effusion. Patchy retrocardiac opacity can represent atelectasis or consolidation. No new airspace opacity. No pneumothorax. Signed: Edwin Solares Verified Date/Time: 06/26/2017 07:43:28 Reading Location: [facility] Radiology Reading Room BASIC METABOLIC [id number] 06:37:00 Test Item Value Reference Range Interpretation [...] NOT APPLICABLE FOR DIALYSIS PATIEN TS. PROTHROMBIN [id number] 06:30:00 Test Item Value Reference Range Interpretation Comments PROTIME (BEAKER) (test code = 16.5 seconds 11.7-14.7 H 759) INR (BEAKER) (test code = 370) 1.3 <=5.9 RECOMMENDED COUMADIN/WARFARIN INR THERAPY RANGESSTANDARD DOSE: 2.0 - 3.0 Includes: PROPHYLAXIS forvenous thrombosis, systemic embolization; TREATMENT for venous thrombosis and/or pulmonary embolus.HIGH RISK: Target INR is 2.5-3.5 for patients with mechanical heart valves.[id number] 06:23:00 Test Item Value Reference Range Interpretation Comments MAGNESIUM (BEAKER) (test code = 1.7 mg/dL 1.6-2.6 627) CBC W/PLT COUNT & AUTO [id number] 06:22:00 Test Item Value Reference Range Interpretation [...] PERCENT (BEAKER) (test code = 2801) POCT-GLUCOSE [id number] 21:25:00 Test Item Value Reference Range Interpretation Comments POC-GLUCOSE METER 145 mg/dL 70-110 H TESTED AT [place] [address] ([facility]) (test code = [facility] 1538) [address] POCT-GLUCOSE [id number] 17:31:00 Test Item Value Reference Range Interpretation Comments POC-GLUCOSE METER 146 mg/dL 70-110 H TESTED AT [place] [address] ([facility]) (test code = [facility] Yaya [facility] 1538) [address] POCT-GLUCOSE [id number] 11:43:00 Test Item Value Reference Range Interpretation Comments POC-GLUCOSE METER 133 mg/dL 70-110 H TESTED AT [place] [address] ([facility]) (test code = [facility] Yaya [facility] 1538) [address] POCT-GLUCOSE [id number] 08:29:00 Test Item Value Reference Range Interpretation Comments POC-GLUCOSE METER 169 mg/dL 70-110 H TESTED AT [place] [address] (BEAKER) (test code = [place] 1538) [address] BASIC METABOLIC [id number] 04:33:00 Test Item Value Reference Range Interpretation [...] DIALYSIS PATIEN TS. LACTIC ACID, ARTERIAL, WHOLE [id number] 04:31:00 Test Item Value Reference Range Interpretation Comments LACTATE BLOOD ARTERIAL (2) 1.0 mmol/L 0.5-2.2 (BEAKER) (test code = 2874) Effective 12/19/2015: Units/Reference Range ChangeNew: 0.5-2.2 mmol/L Previous: 5-20 mg/[id number] 04:27:00 Test Item Value Reference Range Interpretation Comments MAGNESIUM (BEAKER) (test code = 2.0 mg/dL 1.6-2.6 627) CBC W/PLT COUNT & AUTO [id number] 04:18:00 Test Item Value Reference Range Interpretation [...] PERCENT (BEAKER) (test code = 2801) POCT-GLUCOSE [id number] 02:44:00 Test Item Value Reference Range Interpretation Comments POC-GLUCOSE METER 143 mg/dL 70-110 H TESTED AT [facility] 6720 (BEAKER) (test code = [place] 1538) [address] POCT-GLUCOSE [id number] 01:32:00 Test Item Value Reference Range Interpretation Comments POC-GLUCOSE METER 185 mg/dL 70-110 H TESTED AT [facility] 67 ([facility]) (test code = FIORELLA Javier [facility] 1538) [address] BLOOD GAS, [id number] 01:05:00 Test Item Value Reference Range Interpretation [...] = 1819) 40.0 % Post extubation ABGPOCT-GLUCOSE [id number] 00:59:00 Test Item Value Reference Range Interpretation Comments POC-GLUCOSE METER 160 mg/dL 70-110 H TESTED AT [place] [address] ([facility]) (test code = [facility] Yaya [facility] 1538) [address] LACTIC ACID, ARTERIAL, WHOLE [id number] 23:02:00 Test Item Value Reference Range Interpretation Comments LACTATE BLOOD ARTERIAL (2) 1.3 mmol/L 0.5-2.2 (BEAKER) (test code = 2874) Effective 12/19/2015: Units/Reference Range ChangeNew: 0.5-2.2 mmol/L Previous: 5-20 mg/[id number] 23:01:00 Test Item Value Reference Range Interpretation Comments MAGNESIUM (BEAKER) (test code = 1.8 mg/dL 1.6-2.6 627) CALCIUM, [id number] 22:48:00 Test Item Value Reference Range Interpretation Comments CALCIUM IONIZED (BEAKER) (test 1.13 mmol/L 1.12-1.27 code = 698) PH, BLOOD (BEAKER) (test code = 7.49 1810) BLOOD GAS, [id number] 22:48:00 Test Item Value Reference Range Interpretation [...] (test code = 1819) 40.0 % GLUCOSE-STAT [id number] 22:48:00 Test Item Value Reference Range Interpretation Comments GLUCOSE RANDOM (BEAKER) (test code 173 mg/dL 70-110 H = 652) HGB/HCT (H&H) - STAT [id number] 22:48:00 Test Item Value Reference Range Interpretation Comments HEMOGLOBIN (BEAKER) (test code = 12.3 g/dL 13.0-16.8 L 410) HEMATOCRIT (BEAKER) (test code = 36.0 % 40.0-50.0 L 411) SODIUM NA-STAT [id number] 22:47:00 Test Item Value Reference Range Interpretation Comments SODIUM (BEAKER) (test code = 381) 136 meq/L 135-148 POTASSIUM-STAT [id number] 22:47:00 Test Item Value Reference Range Interpretation Comments POTASSIUM (BEAKER) (test code = 3.7 meq/L 3.6-5.5 379) SODIUM NA-STAT [id number] 18:58:00 Test Item Value Reference Range Interpretation Comments SODIUM (BEAKER) (test code = 381) 135 meq/L 135-148 POTASSIUM-STAT [id number] 18:58:00 Test Item Value Reference Range Interpretation Comments POTASSIUM (BEAKER) (test code = 3.8 meq/L 3.6-5.5 379) BLOOD GAS, [id number] 18:58:00 Test Item Value Reference Range Interpretation [...] (test code = 1819) 60.0 % GLUCOSE-STAT [id number] 18:58:00 Test Item Value Reference Range Interpretation Comments GLUCOSE RANDOM (BEAKER) (test code 197 mg/dL 70-110 H = 652) HGB/HCT (H&H) - STAT [id number] 18:58:00 Test Item Value Reference Range Interpretation Comments HEMOGLOBIN (BEAKER) (test code = 12.9 g/dL 13.0-16.8 L 410) HEMATOCRIT (BEAKER) (test code = 38.0 % 40.0-50.0 L 411) OXYGEN SATURATION, [id number] 18:57:00 Test Item Value Reference Range Interpretation Comments O2 SATURATION (MEASURED) (BEAKER) 74.4 % (test code = 1455) CALCIUM, [id number] 18:57:00 Test Item Value Reference Range Interpretation Comments CALCIUM IONIZED (BEAKER) (test 1.15 mmol/L 1.12-1.27 code = 698) PH, BLOOD (BEAKER) (test code = 7.41 1810) BASIC METABOLIC [id number] 16:12:00 Test Item Value Reference Range Interpretation [...] TS. Specimen slightly ictericLACTIC ACID, ARTERIAL, WHOLE [id number] 16:09:00 Test Item Value Reference Range Interpretation Comments LACTATE BLOOD ARTERIAL (2) 0.8 mmol/L 0.5-2.2 (BEAKER) (test code = 2874) Effective 12/19/2015: Units/Reference Range ChangeNew: 0.5-2.2 mmol/L Previous: 5-20 mg/dLBLOOD GAS, [id number] 16:01:00 Test Item Value Reference Range Interpretation [...] (test code = 1819) 60.0 % GLUCOSE-STAT [id number] 16:01:00 Test Item Value Reference Range Interpretation Comments GLUCOSE RANDOM (BEAKER) (test code 154 mg/dL 70-110 H = 652) CALCIUM, [id number] 16:00:00 Test Item Value Reference Range Interpretation Comments CALCIUM IONIZED (BEAKER) (test 1.20 mmol/L 1.12-1.27 code = 698) PH, BLOOD (BEAKER) (test code = 7.35 1810) SODIUM NA-STAT [id number] 16:00:00 Test Item Value Reference Range Interpretation Comments SODIUM (BEAKER) (test code = 381) 137 meq/L 135-148 POTASSIUM-STAT [id number] 16:00:00 Test Item Value Reference Range Interpretation Comments POTASSIUM (BEAKER) (test code = 3.9 meq/L 3.6-5.5 379) HGB/HCT (H&H) - STAT [id number] 16:00:00 Test Item Value Reference Range Interpretation Comments HEMOGLOBIN (BEAKER) (test code = 13.8 g/dL 13.0-16.8 410) HEMATOCRIT (BEAKER) (test code = 41.0 % 40.0-50.0 411) RAD, CHEST, 1 VIEW, NON [id number] 15:59:00Reason for exam:->POST ACBShould this be performed [...] effusion. Status post median sternotomy. Signed: [facility] Verified Date/Time: 06/24/2017 15:59:15 Reading Location: [facility] B1 [id number] Consult Reading Room CBC W/PLT COUNT [...] (BEAKER) (test code = 2801) OXYGEN SATURATION, [id number] 15:54:00 Test Item Value Reference Range Interpretation Comments O2 SATURATION (MEASURED) (BEAKER) 45.2 % (test code = 1455) [id number] 14:09:00 Test Item Value Reference Range Interpretation Comments ACTIVATED CLOTTING TIME 142 sec TEST ED AT [facility] 6720 ([facility]) (test code = [place] [address]) [address] PLATELET [id number] 13:35:00 Test Item Value Reference Range Interpretation Comments PLATELET COUNT (BEAKER) (test 104 K/CU MM 150-450 L code = 756) [id number] 13:32:00 Test Item Value Reference Range Interpretation Comments ACTIVATED CLOTTING TIME > sec OUTS BIENVENIDO MEASURING (BEAKER) (test code = RANGET ESTED AT [facility] 6720 [address]) [place] [address] PROTHROMBIN [id number] 13:23:00 Test Item Value Reference Range Interpretation Comments PROTIME (BEAKER) (test code = 22.1 seconds 11.7-14.7 H 759) INR (BEAKER) (test code = 370) 1.9 <=5.9 RECOMMENDED COUMADIN/WARFARIN INR THERAPY RANGESSTANDARD DOSE: 2.0 - 3.0 Includes: PROPHYLAXIS forvenous thrombosis, systemic embolization; TREATMENT for venous thrombosis and/or pulmonary embolus.HIGH RISK: Target INR is 2.5-3.5 for patients with mechanical heart valves.[id number] 13:23:00 Test Item Value Reference Range Interpretation Comments FIBRINOGEN LEVEL (BEAKER) (test 288 mg/dl 225-434 code = 658) [id number] 13:23:00 Test Item Value Reference Range Interpretation Comments PARTIAL THROMBOPLASTIN TIME 41.6 seconds 22.5-36.0 H (BEAKER) (test code = 760) BLOOD GAS, [id number] 12:56:00 Test Item Value Reference Range Interpretation [...] (test code = 1819) 50.0 % GLUCOSE-STAT [id number] 12:56:00 Test Item Value Reference Range Interpretation Comments GLUCOSE RANDOM (BEAKER) (test code 130 mg/dL 70-110 H = 652) SODIUM NA-STAT [id number] 12:56:00 Test Item Value Reference Range Interpretation Comments SODIUM (BEAKER) (test code = 381) 133 meq/L 135-148 L HGB/HCT (H&H) - STAT [id number] 12:56:00 Test Item Value Reference Range Interpretation Comments HEMOGLOBIN (BEAKER) (test code = 9.4 g/dL 13.0-16.8 L 410) HEMATOCRIT (BEAKER) (test code = 28.0 % 40.0-50.0 L 411) POTASSIUM-STAT [id number] 12:54:00 Test Item Value Reference Range Interpretation Comments POTASSIUM (BEAKER) (test code = 3.7 meq/L 3.6-5.5 379) POTASSIUM-STAT [id number] 12:23:00 Test Item Value Reference Range Interpretation Comments POTASSIUM (BEAKER) (test code = 3.7 meq/L 3.6-5.5 379) BLOOD GAS, [id number] 12:23:00 Test Item Value Reference Range Interpretation [...] (test code = 1819) 80.0 % GLUCOSE-STAT [id number] 12:23:00 Test Item Value Reference Range Interpretation Comments GLUCOSE RANDOM (BEAKER) (test code 129 mg/dL 70-110 H = 652) SODIUM NA-STAT [id number] 12:23:00 Test Item Value Reference Range Interpretation Comments SODIUM (BEAKER) (test code = 381) 133 meq/L 135-148 L HGB/HCT (H&H) - STAT [id number] 12:23:00 Test Item Value Reference Range Interpretation Comments HEMOGLOBIN (BEAKER) (test code = 8.8 g/dL 13.0-16.8 L 410) HEMATOCRIT (BEAKER) (test code = 26.0 % 40.0-50.0 L 411) BLOOD GAS, [id number] 11:10:00 Test Item Value Reference Range Interpretation [...] (test code = 1819) 100.0 % GLUCOSE-STAT [id number] 11:10:00 Test Item Value Reference Range Interpretation Comments GLUCOSE RANDOM (BEAKER) (test code 155 mg/dL 70-110 H = 652) CALCIUM, [id number] 11:10:00 Test Item Value Reference Range Interpretation Comments CALCIUM IONIZED (BEAKER) (test 1.08 mmol/L 1.12-1.27 L code = 698) PH, BLOOD (BEAKER) (test code = 7.37 1810) SODIUM NA-STAT [id number] 11:05:00 Test Item Value Reference Range Interpretation Comments SODIUM (BEAKER) (test code = 381) 136 meq/L 135-148 POTASSIUM-STAT [id number] 11:05:00 Test Item Value Reference Range Interpretation Comments POTASSIUM (BEAKER) (test code = 3.6 meq/L 3.6-5.5 379) HGB/HCT (H&H) - STAT [id number] 11:05:00 Test Item Value Reference Range Interpretation Comments HEMOGLOBIN (BEAKER) (test code = 13.6 g/dL 13.0-16.8 410) HEMATOCRIT (BEAKER) (test code = 40.0 % 40.0-50.0 411) PLATELET AGGREGATION: FUNCTION [id number] 11:01:00 Test Item Value Reference Range Interpretation Comments WEAK ADP 91 % 60-91 RESULT(BEAKER) (test code = 2135) PLATELET FUNCTION 60-100% indicates SCREEN INTERP (BEAKER) normal platelet (test code = 2173) function [id number] Rosa Maria Pitt MD (BEAKER) (test code = (electronic signature) 2942) PLATELET COUNT AGG 199 K/CU MM 150-450 (BEAKER) (test code = 2656) for patients on clopidogrel in past two weeksPOCT-GLUCOSE [id number] 08:52:00 Test Item Value Reference Range Interpretation Comments POC-GLUCOSE METER 142 mg/dL 70-110 H TESTED AT [facility] 6720 ([facility]) (test code = [place] 1538) [address] RAD, CHEST, 1 VIEW, NON [id number] 01:35:00Reason for exam:->Pre opShould this be performed [...] an acute osseous abnormality. Signed: Amrita Braga VerifiedDate/Time: 06/24/2017 01:35:38 Reading Location: [address] Reading Room Amol michelle signed by: AMRITA BRAGA M.D. on 06/24/2017 01:35 AMCBC W/PLT COUNT & AUTO [id number] 00:39:00 Test Item Value Reference Range Interpretation [...] 0-1 PERCENT (BEAKER) (test code = 2801) [id number] 00:09:00 Test Item Value Reference Range Interpretation Comments MAGNESIUM (BEAKER) 1.7 mg/dL 1.6-2.6 Specimen slightly (test code = 627) hemolyzed BASIC METABOLIC [id number] 00:09:00 Test Item Value Reference Range Interpretation [...] APPLICABLE FOR DIALYSIS PATIEN TS. HEPATIC FUNCTION [id number] 00:09:00 Test Item Value Reference Range Interpretation [...] Specimen slightly (test code = 347) hemolyzed PT/[id number] 23:44:00 Test Item Value Reference Range Interpretation [...] 2.5-3.5 for patients with mechanical heart valves.PROTHROMBIN TIME/[id number] 23:43:00 Test Item Value Reference Range Interpretation [...]
[2022-01-22 18:32] LABS: Urine Blood Trace-intact (Negative); Urine Glucose Negative (Negative); Urine Protein 2+ (Negative); Urine Specific Gravity 1.015 (1.005-1.030); Urine pH 6.5 (5.0-7.0)
[2022-01-22 18:42] LABS: Urine Bacteria <20 /HPF (NONE SEEN); Urine RBC <5 /HPF (NONE SEEN)
[2022-01-22 18:48] LABS: Absolute Lymphocytes (CBC) 1.2 K/uL (0.7-4.9); Hematocrit 31.9 % (39.6-49.0); Lymphocytes % 10.8 % (15.3-44.8); MPV 7.5 fL (7.6-11.3); RBC Red Blood Cell Count 3.56 M/uL (4.33-5.43)
[2022-01-22 19:07] LABS: Bilirubin Total 1.5 mg/dL (0.2-1.0); Potassium 4.6 mmol/L (3.5-5.1)
--- NOTE | 2022-01-22 21:46 | RAD REPORT ---
EXAM DESCRIPTION: CT - Abdomen Pelvis Wo Contrast - 01/22/2022 9:36 pm CLINICAL HISTORY: Abdominal pain COMPARISON: December 2021 TECHNIQUE: Computed axial tomography of the abdomen and pelvis was obtained. IV and oral contrast we re not requested. All CT scans are performed using dose optimization technique as appropriate and may include automated exposure control or mA/KV adjustment according to patient size. FINDINGS: The evaluation of solid organs, vessels and bowel is limited secondary to the lack of con trast administration. The gallbladder wall appears thickened. Moderate stranding within the fat adjacent to the gallbladder . The liver, spleen, pancreas, adrenals and kidneys appear grossly normal. The appendix is normal. There is no evidence of diverticulitis. Right inguinal hernia repair. Mild posterior subluxation of L2 on L3 IMPRESSION: Thickened gallbladder wall with stranding in adjacent fat likely indicating cholecystiti s.
--- NOTE | 2022-01-22 21:47 | RAD REPORT ---
EXAM DESCRIPTION: Luis Single View01/22/2022 6:25 pm CLINICAL HISTORY: Cough COMPARISON: December 2021 FINDINGS: The lungs appear clear of acute infiltrate. The heart is mildly enlarged. Postsurgical changes involve the chest
--- NOTE | 2022-01-22 22:00 | EDPHYS ---
Physician Documentation [facility] Name: David Hdz Age: 89 yrs Sex: Male : 1930 Arrival Date: 01/22/2022 Time: 16:39 Bed 19 Private MD: ED Physician Phil Kramer HPI: 01/22 17:30 This 89 yrs old Male presents to ER via Ambulatory with complaints of Fever, Abdominal cp Pain. 17:30 The patient reports fever, that was measured at 100 degrees Fahrenheit. cp 17:30 Onset: The symptoms/episode began/occurred last night. Associated signs and symptoms: cp Pertinent positives: abdominal pain, Pertinent negatives: altered mental status, backache, chest pain, cough, diarrhea, headache, skin rash, shortness of breath, sore throat, vomiting. Severity of symptoms: in the emergency department the symptoms are unchanged despite home interventions. The patient has experienced a previous episode, last month, diagnosed with abdominal infection and sepsis. admitted to ICU and treated with antibiotics. Historical: - Allergies: 16:46 Quinine Sulfate; ll1 16:46 Sulfa (Sulfonamide Antibiotics); ll1 - PMHx: 16:46 Diabetes - NIDDM; Hypertension; skin cancer; ll1 - Immunization history:: Client reports receiving the 2nd dose of the Covid vaccine. - Social history:: Smoking status: Patient denies any tobacco usage or history of. ROS: 17:35 Constitutional: Negative for body aches, chills, fever, poor PO intake. cp 17:35 Eyes: Negative for injury, pain, redness, and discharge. cp 17:35 ENT: Negative for drainage from ear(s), ear pain, sore throat, difficulty swallowing, difficulty handling secretions. 17:35 Cardiovascular: Negative for chest pain, palpitations. 17:35 Respiratory: Negative for cough, shortness of breath, wheezing. 17:35 Abdomen/GI: Positive for abdominal pain, Negative for vomiting, diarrhea, constipation, black/tarry stool, rectal bleeding. 17:35 Back: Negative for pain at rest, pain with movement. 17:35 : Negative for urinary symptoms, testicular pain 17:35 Skin: Negative for rash. 17:35 Neuro: Negative for altered mental status, dizziness, headache, weakness. 17:35 All other systems are negative. Exam: 17:40 Constitutional: The patient appears in no acute distress, alert, awake, cp non-diaphoretic, non-toxic, well developed, well nourished. 17:40 Head/Face: Normocephalic, atraumatic. cp 17:40 Eyes: Periorbital structures: appear normal, Conjunctiva: normal, no exudate, no injection, Sclera: no appreciated abnormality, Lids and lashes: appear normal, bilaterally. 17:40 ENT: External ear(s): are unremarkable, Nose: is normal, Mouth: Lips: moist, Oral mucosa: moist, Posterior pharynx: Airway: no evidence of obstruction, patent. 17:40 Neck: ROM/movement: is normal, is supple, without pain, no range of motions limitations. 17:40 Chest/axilla: Inspection: normal. 17:40 Cardiovascular: Rate: normal, Rhythm: regular, Edema: ankle edema, that is moderate, JVD: is not appreciated. 17:40 Respiratory: the patient does not display signs of respiratory distress, Respirations: normal, no use of accessory muscles, no retractions, labored breathing, is not present, Breath sounds: are clear throughout, no decreased breath sounds, no stridor, no wheezing. 17:40 Abdomen/GI: Inspection: abdomen appears normal, Bowel sounds: active, all quadrants, Palpation: soft, in all quadrants, mild abdominal tenderness, in the right upper quadrant and right lower quadrant, rebound tenderness, is not appreciated, voluntary guarding, is not appreciated, involuntary guarding, is not appreciated. 17:40 Back: CVA tenderness, is absent. 17:40 Skin: cellulitis, is not appreciated, no rash present. 17:40 Neuro: Orientation: to person, place \\T\\ time. Mentation: able to follow commands, slow to respond, Motor: moves all fours, strength is normal, Sensation: is normal. 22:45 ECG was reviewed by the Attending Physician. cp Vital Signs: 16:46 BP 131 / 66; Pulse 89; Resp 24; Temp 98.7; Pulse Ox 96% ; Weight 94.35 kg; Height 5 ft. ll1 8 in. (172.72 cm); Pain 5/10; 18:40 BP 129 / 72; Pulse 86; Resp 20; Pulse Ox 97% ; Pain 0/10; jh6 20:53 BP 111 / 65; Pulse 88; Resp 16 S; Temp 99.2; Pulse Ox 98% on R/A; bb 23:00 BP 116 / 56; Pulse 88; Resp 24 S; Pulse Ox 100% on 6% Nebulizer Mask; bb 01/23 00:19 BP 112 / 64; Pulse 87; Resp 22 S; Pulse Ox 97% on 2 lpm NC; bb 01:17 BP 92 / 54; Pulse 87; Resp 23 S; Pulse Ox 95% on 2 lpm NC; bb 01/22 16:46 Body Mass Index 31.63 (94.35 kg, 172.72 cm) ll1 MDM: 01/22 17:25 Patient medically screened. 18:00 Differential diagnosis: cholecystitis, sepsis, uti. 21:55 Physician consultation: Dane Kelsey MD was contacted at 21:50, regarding admission, to the telemetry unit. patient's condition, wants surgical consult with DR Jett if available as he has seen in past. 22:00 Data reviewed: vital signs, nurses notes, lab test result(s), radiologic studies, CT cp scan, plain films. 22:00 Counseling: I had a detailed discussion with the patient and/or guardian regarding: the historical points, exam findings, and any diagnostic results supporting the discharge/admit diagnosis, lab results, radiology results, the need for further work-up and treatment in the hospital. 22:15 Physician consultation: Eddie Finch MD was contacted at 22:15, regarding consult, patient's condition, requests DR Sullivan be consulted on patient as he will be unavailable. 22:30 Physician consultation: Petr Sullivan MD was called at 22:30, was contacted at 22:30, regarding consult, patient's condition, would like admission per Dr. Dane Kelsey MD. 01/22 17:41 Order name: CBC with Diff; Complete Time: 19:08 cp 01/22 19: Interpretation: Normal except: WBC 11.5; RBC 3.56; HGB 10.4; HCT 31.9; MCV 89.5; RDW cp 15.4; MPV 7.5; SARANYA% 82.1; LYM% 10.8; NEUT A 9.5. 01/22 17:41 Order name: CMP; Complete Time: 23:11 cp 01/22 19:09 Interpretation: Normal except: GLUC 121; BUN 33; CRE 1.94; GFR 32; AST 13; BILIT 1.5; cp ALB 3.0; GLOB 4.0; A/G 0.8. 01/22 17:41 Order name: Lipase; Complete Time: 23:11 cp 01/22 17:41 Order name: Urine Microscopic Only; Complete Time: 19:08 cp 01/22 17:42 Order name: COVID-19 SARS RT PCR (Document "Date of Onset" if Symptomatic); Complete cp Time: 21:45 01/22 17:42 Order name: Influenza Screen (a \\T\\ B); Complete Time: 19:08 cp 01/22 17:42 Order name: XRAY Chest (1 view); Complete Time: 21:53 cp 01/22 21:53 Interpretation: Report reviewed. 01/22 18:32 Order name: Urine Dipstick-Ancillary; Complete Time: 19:08 EDMS 01/22 19:10 Order name: CT Abd/Pelvis - Without Contrast; Complete Time: 21:53 01/22 21:59 Order name: EKG; Complete Time: 21:59 cp 01/22 17:41 Order name: IV Saline Lock; Complete Time: 22:04 cp 01/22 17:41 Order name: Labs collected and sent; Complete Time: 18:39 cp 01/22 17:41 Order name: Urine Dipstick-Ancillary (obtain specimen); Complete Time: 18:39 cp 01/22 21:59 Order name: EKG - Nurse/Tech; Complete Time: 22:47 01/22 23:31 Order name: CONS Physician Consult EDWA EC:45 Rate is 86 beats/min. Rhythm is regular. NC interval is normal. QRS interval is cp prolonged at 144 msec. QT interval is normal. T waves are Inverted in leads aVR, V2, V3. Interpreted by me. Reviewed by me. Administered Medications: 22:20 Drug: Zosyn (piperacillin-tazobactam) 3.375 grams Route: IVPB; Infused Over: 60 mins; Site: left antecubital; 23:30 Follow up: IV Status: Completed infusion; IV Intake: 100ml 22:59 Drug: Albuterol 2.5 mg Route: Inhalation; 01/23 00:20 Follow up: Response: No adverse reaction; No change in condition 01/22 22:59 Drug: AtroVENT (ipratropium) Aerosol 0.5 mg Route: Inhalation; 01/23 00:21 Follow up: Response: No adverse reaction; No change in condition bb Disposition: 01/22 22:24 Co-signature as Attending Physician, Phil MCKEON was immediately available on-site ms3 in the Emergency Department for consultation in the care of the patient. . Disposition Summary: 01/22/22 21:59 Hospitalization Ordered Hospitalization Status: Inpatient Admission cp Provider: Dane Kelsey cp Condition: Stable cp Problem: new cp Symptoms: have improved cp Bed/Room Type: Standard cp Location: Telemetry/MedSurg (Inpatient)(01/23/22 03:07) cg Room Assignment: [facility](01/23/22 03:09) Diagnosis - Cholecystitis, unspecified cp - Chronic kidney disease, unspecified cp Forms: - Medication Reconciliation Form cp - SBAR form cp Signatures: Dispatcher [employer] Ginger Grider RN RN bb Boris Hull PA PA cp Sally Henry RN RN cg Samantha Giron RN RN ll1 Phil Karmer DO DO ms3 Corrections: (The following items were deleted from the chart) 23:36 21:59 Telemetry/MedSurg (Inpatient) cp cg 23:36 21:59 cp cg 01/23 03:07 06/08 23:36 [facility] ER HOLD cg cg 01/23 03:07 08 23:36 ERHOLD- cg cg 01/23 03:09 03:07 [facility] cg
--- NOTE | 2022-01-22 22:00 | ER ---
Nurse's Notes [facility] Name: David Hdz Age: 89 yrs Sex: Male : 1930 Arrival Date: 01/22/2022 Time: 16:39 Bed 19 Private MD: Diagnosis: Cholecystitis, unspecified;Chronic kidney disease, unspecified Presentation: 01/22 16:46 Chief complaint: Patient states: RUQ abd pain with fever started last night. Admitted ll1 into ICU last month for the same. Coronavirus screen: Vaccine status: Patient reports receiving the 2nd dose of the covid vaccine. Client denies travel out of the [place] in the last 14 days. At this time, the client does not indicate any symptoms associated with coronavirus-19. Ebola Screen: Patient denies travel to an Ebola-affected area in the 21 days before illness onset. Initial Sepsis Screen: Does the patient meet any 2 criteria? RR > 20 per min. No. Patient's initial sepsis screen is negative. Does the patient have a suspected source of infection? Yes: Acute abdominal pain. Risk Assessment: Do you want to hurt yourself or someone else? Patient reports no desire to harm self or others. Onset of symptoms was January 21, 2022. 16:46 Method Of Arrival: Ambulatory [facility] 16:46 Acuity: VLADIMIR 3 ll1 Historical: - Allergies: 16:46 Quinine Sulfate; ll1 16:46 Sulfa (Sulfonamide Antibiotics); ll1 - PMHx: 16:46 Diabetes - NIDDM; Hypertension; skin cancer; ll1 - Immunization history:: Client reports receiving the 2nd dose of the Covid vaccine. - Social history:: Smoking status: Patient denies any tobacco usage or history of. Screenin:41 Abuse screen: Denies threats or abuse. Nutritional screening: No deficits noted. 6 Tuberculosis screening: No symptoms or risk factors identified. Fall Risk Gait- Weak (10 pts.). Assessment: 18:40 General: Appears in no apparent distress. comfortable, Behavior is calm, cooperative, jh6 pt moved to room 19 at this time. . Pain: Complains of pain in abdomen Pain currently is 5 out of 10 on a pain scale. Quality of pain is described as aching, Pain began 2-3 days ago. Is continuous. GI: Bowel sounds present X 4 quads. Abd is soft and non tender. 19:15 General: Appears in no apparent distress. pt sitting in chair at bedside for comfort bb spouse beside him. Neuro: Level of Consciousness is awake, alert, obeys commands, Oriented to person, place, time, situation. Cardiovascular: Capillary refill < 3 seconds Patient's skin is warm and dry. Respiratory: Airway is patent Respiratory effort is even, unlabored, Respiratory pattern is regular. GI: Abdomen is round. Derm: Skin is pink, warm \T\ dry. Musculoskeletal: Circulation, motion, and sensation intact. 20:52 Reassessment: Patient is alert, oriented x 3, equal unlabored respirations, skin bb warm/dry/pink. pt awaiting CT scan. 21:33 Reassessment: Patient is alert, oriented x 3, equal unlabored respirations, skin bb warm/dry/pink. pt returned from CT scan via wheelchair accompanied by biofuels technology manager. 22:33 Reassessment: pt resp labored, tachypneic, faint wheezing to left lobe Boris Page PA bb notified pt mediated see OCT. 01/23 00:19 Reassessment: pt resp less labored, faint wheezes to left lobe, family at bedside. bb 01:15 Reassessment: pt sleeping, eyes closed, resp slightly labored, family at bedside pt bb admitted to ED hold on hospital bed family at bedside. 03:36 Reassessment: report given to Annabel GRIMES for room 431. bb Vital Signs: 01/22 16:46 BP 131 / 66; Pulse 89; Resp 24; Temp 98.7; Pulse Ox 96% ; Weight 94.35 kg; Height 5 ft. ll1 8 in. (172.72 cm); Pain 5/10; 18:40 BP 129 / 72; Pulse 86; Resp 20; Pulse Ox 97% ; Pain 0/10; jh6 20:53 BP 111 / 65; Pulse 88; Resp 16 S; Temp 99.2; Pulse Ox 98% on R/A; bb 23:00 BP 116 / 56; Pulse 88; Resp 24 S; Pulse Ox 100% on 6% Nebulizer Mask; bb 01/23 00:19 BP 112 / 64; Pulse 87; Resp 22 S; Pulse Ox 97% on 2 lpm NC; bb 01:17 BP 92 / 54; Pulse 87; Resp 23 S; Pulse Ox 95% on 2 lpm NC; bb 01/22 16:46 Body Mass Index 31.63 (94.35 kg, 172.72 cm) 1 ED Course: 01/22 16:39 Patient arrived in ED. mr 16:41 Boris Hull PA is PHCP. cp 16:41 Phil Kramer DO is Attending Physician. cp 16:47 Triage completed. [facility] 18:22 Diana Newberry, RN is Primary Nurse. 6 18:27 XRAY Chest (1 view) In Process Unspecified. EDMS 18:41 Initial lab(s) drawn, by me, sent to lab. Urine collected: clean catch specimen, clear. [facility] 18:41 Bed in low position. Call light in reach. [facility] 20:54 Arm band placed on. bb 21:38 CT Abd/Pelvis - Without Contrast In Process Unspecified. EDMS 21:59 Dane Kelsey MD is Hospitalizing Provider. cp 22:04 Inserted saline lock: 20 gauge in left antecubital area, using aseptic technique. bb 23:35 Accessed peripheral vein via ultrasound, utilizing dynamic ultrasound technique bb Powerglide midline 20g, 10cm to left upper arm using hospital protocol, good blood return, flushes easily, pt tolerated well.. 01/23 00:20 No provider procedures requiring assistance completed. Patient admitted, IV remains in bb place. Administered Medications: 01/22 22:20 Drug: Zosyn (piperacillin-tazobactam) 3.375 grams Route: IVPB; Infused Over: 60 mins; bb Site: left antecubital; 23:30 Follow up: IV Status: Completed infusion; IV Intake: 100ml bb 22:59 Drug: Albuterol 2.5 mg Route: Inhalation; bb 01/23 00:20 Follow up: Response: No adverse reaction; No change in condition bb 01/22 22:59 Drug: AtroVENT (ipratropium) Aerosol 0.5 mg Route: Inhalation; bb 01/23 00:21 Follow up: Response: No adverse reaction; No change in condition bb Intake: 01/22 23:30 IV: 100ml; Total: 100ml. bb Outcome: 21:59 Decision to Hospitalize by Provider. cp 23:01 Instructed on the need for admit. bb 01/23 01:18 Admitted to ER Hold. Please see [employer] for further documentation. bb Condition: stable 03:56 Patient left the ED. mw2 Signatures: Dispatcher [employer] EDLanie Young Brenda, RN RN bb Boris Hull PA PA cp [place], MyKena mw2 Samantha Giron RN RN ll1 Diana Newberry RN RN jh6
[2022-01-22] MEDS ORDERED: PIPERACIL/TAZO 3.375 GM VIAL IV ONE (22:12)
[2022-01-22] MEDS ORDERED: NA CHLORIDE 0.9% 100 ML ONE (22:12)
[2022-01-22] MEDS ORDERED: ALBUTEROL 2.5 MG/3 ML NEB SOL ONE (22:59)
[2022-01-22] MEDS ORDERED: IPRATROPIUM BROM 0.5MG/2.5ML ONE (22:59)
[2022-01-22] MEDS ORDERED: MORPHINE 2 MG/ML SYR IV PRN (23:36)
[2022-01-22] MEDS ORDERED: GLUCAGON 1 MG/VIAL IM PRN (23:39)
[2022-01-22] MEDS ORDERED: D50W 25 GM/50 ML SYRINGE IV PRN (23:39)
[2022-01-22] MEDS: D5 0.9 NS 1,000 ML IV SCH (23:45)
[2022-01-22] MEDS ORDERED: D10W 125 ML IV PRN (23:55)
[2022-01-23] MEDS ORDERED: D5 0.9 NS 1,000 ML IV ONE (02:51)
[2022-01-23 04:23] LABS: Absolute Lymphocytes (CBC) 1.4 K/uL (0.7-4.9); Hematocrit 28.2 % (39.6-49.0); Lymphocytes % 14.7 % (15.3-44.8); MPV 8.2 fL (7.6-11.3); RBC Red Blood Cell Count 3.17 M/uL (4.33-5.43)
[2022-01-23 04:46] LABS: Albumin 2.5 g/dL (3.4-5.0); Bilirubin Direct 0.5 mg/dL (0-0.2); Bilirubin Total 1.3 mg/dL (0.2-1.0); Potassium 4.1 mmol/L (3.5-5.1); Protein, Total 6.1 g/dL (6.4-8.2)
--- NOTE | 2022-01-23 06:28 | EKG ---
Test Date: 2022-01-22 Test Time: 22:40:06 Wrist Closer: DANIELLE MEASUREMENT RESULTS: Intervals: Rate: 86 NC: 186 QRSD: 144 QT: 436 QTc: 521 [place]: P: 83 NC: 186 QRS: 10 T: -42 INTERPRETIVE STATEMENTS: Normal sinus rhythm Right bundle branch block T wave abnormality, consider inferolateral ischemia Abnormal ECG Compared to ECG 12/22/2021 07:00:10 T-wave abnormality now present Possible ischemia now present Sinus tachycardia no longer present Ventricular premature complex(es) no longer present Electronically Signed On 01-23-22 06:27:34 CDT by Russell Lynn
[2022-01-23] MEDS: INSULIN -REGULAR HUMAN 50 UNIT/0.5 ML ML SQ SCH ×4 (07:30→20:18)
[2022-01-23] MEDS: MAGNESIUM OXIDE 400 MG TAB PO SCH (08:58)
[2022-01-23] MEDS: FAMOTIDINE 20 MG TAB PO SCH (08:58)
[2022-01-23] MEDS: PANTOPRAZOLE 40MG TABLET PO SCH (08:58)
[2022-01-23] MEDS: METOPROLOL TAR 25 MG TAB PO SCH ×2 (08:58→20:21)
[2022-01-23] MEDS: PIPER TAZO 3.375 GM in NA CHLORIDE 0.9% 100 ML IV SCH ×2 (08:59→18:18)
[2022-01-23] MEDS ORDERED: HOME MED 1 EA UNK (Omeprazole [Omeprazole] 20 MG Tablet.Dr) PO SCH (09:00)
[2022-01-23] MEDS ORDERED: propofoL 200 MG/20 ML VIAL IV ONE (12:12)
[2022-01-23] MEDS ORDERED: ROCURONIUM 50 MG/5 ML VIAL IV ONE ×2 (12:12→15:24)
[2022-01-23] MEDS ORDERED: FENTANYL CITR 100 MCG/2 ML ONE ×2 (12:12→15:24)
[2022-01-23] MEDS ORDERED: LIDOCAINE 1% MPF 5 ML VIAL ONE ×2 (12:13)
[2022-01-23] MEDS ORDERED: ONDANSETRON 4 MG/2 ML VIAL ONE (12:13)
[2022-01-23] MEDS ORDERED: NA CHLORIDE 0.9% 1,000 ML ONE (12:29)
--- NOTE | 2022-01-23 12:40 | CON ---
Date of Consultation: 01/23/2022 Reason For Consultation: Cardiac clearance for cholecystitis and possible cholecystectomy. History Of Present Illness: Mr. Hdz is 89, known well from previous office visits. He has a history of chronic diastolic congestive heart failure with an ejection fraction of 68%. He has a his tory of severe aortic stenosis. He has a history of hypertension, diabetes, paroxysmal atrial fibril lation, dyslipidemia, coronary artery disease, and sleep apnea. He came in with fever, has known gal lstone, has had recent cholecystitis with sepsis before, now he has cholecystitis again, has been see n by Dr. Jett in the past. Dr. Jett is not available at this point and Dr. Sullivan has been consul christy for possible cholecystectomy. The patient is not having any cardiac symptoms at this point. He denied PND, orthopnea, pedal edema, palpitations, or syncope. Past Medical History: As stated above. Allergies: HE IS ALLERGIC TO SULFA AND QUININE. Review of Systems: Negative. Social History: Negative. Family History: Noncontributory. Medications: At home include metformin, Altace, metoprolol, Lasix, Pepcid, Eliquis, Zocor, potassium , aspirin, and Norvasc. Physical Examination: General: Today, he was very pleasant, no acute distress. Vital Signs: Stable, afebrile. HEENT: Negative. Neck: Supple without any lymphadenopathy JVD. He has bilateral carotid bruits, which are related to the aortic stenosis. Chest: Clear. Cardiac: Revealed a regular rhythm and rate with an aortic stenosis murmur, S4 gallops. No rubs. Abdomen: Benign except for some mild tenderness over the right upper quadrant. He has good bowel so unds. No hepatosplenomegaly. Extremity: He has no clubbing, cyanosis, or edema. Skin: Dry and intact. Neurologic: He was nonfocal. Pulses were present distally bilaterally. Diagnostic Data: His chest x-ray was negative. CT of the abdomen shows cholecystitis. Recent echo showed an ejection fraction 68% with aortic stenosis. Creatinine is 1.73. Impression And Plan: Mr. Hdz is a patient who is a moderate risk for perioperative mortality from his aortic stenosis and chronic diastolic congestive heart failure. He is, however, clinically stable cardiac zamudio. He has no chest pain or congestive heart failure signs or symptoms. Again, I t hink he is at moderate risk mostly because of his age and aortic stenosis and congestive heart failur e, but I would encourage Dr. Sullivan to do the surgery. I will be available for questions if the nee d arises. His other problems including hypertension and diabetes are stable. His atrial fibrillatio n is paroxysmal. We will need to hold his Eliquis for at least 24 hours prior to surgery. He is on metformin. He is on Zocor for his blood pressure and his dyslipidemia. He has coronary artery disea se that is stable. He has sleep apnea that is stable. As far as his aortic stenosis, we will still plan to do left and right heart catheterization sometime down the road to see if he is a candidate fo r transcatheter aortic valve replacement. His kidney function is moderately decreased and we will ke ep an eye on that as well. I will continue to follow Mr. Hdz along with Dr. Sullivan and Dr. Dane figueroa. I will be available for questions if the need arises. No need to repeat any cardiac workup at this point. MICHELLE/RAFI Voice ID: [id number] Report ID: [id number]
[2022-01-23] MEDS: D5 0.9 NS 1,000 ML IV SCH ×2 (13:05→18:19)
--- NOTE | 2022-01-23 13:52 | P.CNS ---
Date of Consult: 01/23/22 PC: This 89-year-old presents the emergency room with severe right upper quadrant abdominal pain for diagnosis and treatment. HPC: Patient has been experiencing right upper quadrant abdominal pain over the last few weeks and months. Most was most recently in the hospital with possible sepsis. At that time he was still undergoing a cardiac work-up and surgery was postponed. He presents back now with similar type pain and discomfort. PSHx: Previous heart PMHx: Oon-lpqacpa-vteicdayw diabetes Social Hx: Allergic to sulfa Sys R: No cough, wheeze, shortness of breath. No chest pain or palpitations. She says he has been tired over the last month or so with all the ylix-epo-blovu between the hospitals. 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 The arms. The possible need for an open and/or further surgeries and procedures was discussed. He understands and wants us to proceed. I have outlined my treatment with Dr. Kelsey. He is comfortable as well.
[2022-01-23] MEDS ORDERED: Phenylephrine HCl 10 MG/ML 1 ML VIAL ONE (14:39)
[2022-01-23] MEDS ORDERED: GLYCOPYRROLATE 0.2 MG/ML SYR ONE ×2 (16:01→16:26)
[2022-01-23] MEDS ORDERED: NEOSTIGMINE 1 MG/ML -10 ML VIAL ONE ×2 (16:10→16:27)
--- NOTE | 2022-01-23 16:25 | P.OP ---
Preoperative diagnosis: Cholecystitis with cholelithiasis Postoperative diagnosis: Gangrene of the gallbladder, ruptured gallbladder, sub hepatic abscess Primary procedure: Laparoscopy Secondary procedure: Open cholecystectomy Other procedure(s): Drainage of subhepatic abscess Anesthesia: General Estimated blood loss: Less than 20 cc Specimen: Gallbladder and contents Operative Technique: The patient brought the operating room and placed supine on the table. After the induction of adequate general endotracheal anesthesia, the area of the abdomen was prepped with a DuraPrep solution, and he was draped in usual aseptic manner. Attention was turned towards the right upper quadrant of the abdomen. A skin incision was made. This was brought down through the subcutaneous tissue. We were now able to use the Veress needle and after ensuring we had made it into peritoneal placement, and pneumoperitoneum was created. Using the same incision we were now able to place a 5 mm trocar in the right upper quadrant. We visualize the peritoneal cavity. We could see at the umbilicus that we could easily now placed our 12 mm trocar under direct vision. Another 5 mm trocar was placed in the upper midline. Attention was turned towards right upper quadrant. We could see that the omentum extended up over the liver. It was markedly inflamed with adhesions between the omentum and the liver capsule in the anterior peritoneum. 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 The omentum was detached from the anterior abdominal wall. We gradually dissected down the omentum off of the liver edge. However it was markedly fixed and firm in this area. We also encountered a large amount of purulent material coming from the inferior portion of the liver through the omentum itself. This was obviously consistent with a gangrenous type gallbladder. At this point I have made the determination that the procedure in my hands will be better handled as an open procedure. Because of this a subcostal incision was made. Brought down through the skin and subcutaneous tissue. The external oblique over the rectus was opened. The rest of this muscles were divided. The posterior sheath was grasped and we added access to the peritoneal cavity. The Bookwalter was now put in place. Under direct vision we were able to mobilize and take down the omentum from the top part of the liver. This having been done it was then gently dissected off of the gallbladder itself. The gallbladder was noted to bloat off the fundus of the gallbladder itself. We irrigated this area and suctioned around to clear the amount of purulent material that we had obtained. Once the effluent was clear, I p.o. was put down her Meraz's pouch. Applying lateral traction we did a retrograde dissection of the gallbladder from the liver bed. As we came downward we saw the vasculature which we were able to clean closed with clips. This led us into the where the cystic duct joined the common bile duct. We gently tease this off and we were able to control it using a free tie of silk and a clip. The cystic duct was now transected. The area was once again irrigated with a copious amount of a saline solution. A Dontrell-Saha drain was placed in Morison's pouch and brought out through that right lateral side trocar. At this point the abdomen was inspected to ensure adequate hemostasis. Most of the irrigating fluid and aspirated from the peritoneal cavity. At this point we closed the posterior sheath with a running stitch of Prolene The anterior was dealt with in a similar fashion. The skin was then closed with idalia. We also closed our initial trocar incisions with idalia as well. At the end of the procedure he was in a stable condition and was sent to the recovery room in a stable condition. Needle sponge instrument count were correct. Complications: None Drain(s): LETITIA drain Transferred to: ICU Condition: Good
[2022-01-23] MEDS: HYDROMORPHONE HCL 1 MG/ML INJ ONE ×4 (16:30→16:55)
[2022-01-23] MEDS ORDERED: LEVALBUTEROL 1.25 MG/3 ML NEB ONE (16:38)
[2022-01-23] MEDS ORDERED: MORPHINE 4 MG/ML SYR IV PRN (16:51)
[2022-01-23] MEDS: ATORVASTATIN 10 MG TAB PO SCH (20:23)
[2022-01-23] MEDS ORDERED: HOME MED 1 EA UNK (Simvastatin [Simvastatin] 20 MG Tablet) PO SCH (21:00)
[2022-01-24] MEDS: MORPHINE 2 MG/ML SYR IV PRN ×4 (00:23→17:16)
[2022-01-24] MEDS: PIPER TAZO 3.375 GM in NA CHLORIDE 0.9% 100 ML IV SCH ×3 (00:23→16:20)
[2022-01-24 06:03] LABS: Absolute Lymphocytes (CBC) 0.4 K/uL (0.7-4.9); Hematocrit 26.3 % (39.6-49.0); Lymphocytes % 4.1 % (15.3-44.8); MPV 8.5 fL (7.6-11.3); RBC Red Blood Cell Count 2.95 M/uL (4.33-5.43)
[2022-01-24 06:21] LABS: Albumin 2.3 g/dL (3.4-5.0); Bilirubin Total 1.2 mg/dL (0.2-1.0); Magnesium 1.8 mg/dL (1.8-2.4); Potassium 4.6 mmol/L (3.5-5.1); Protein, Total 5.6 g/dL (6.4-8.2)
[2022-01-24] MEDS: MAGNESIUM OXIDE 400 MG TAB PO SCH (07:41)
[2022-01-24] MEDS: PANTOPRAZOLE 40MG TABLET PO SCH (07:41)
[2022-01-24] MEDS: INSULIN -REGULAR HUMAN 50 UNIT/0.5 ML ML SQ SCH ×4 (07:41→20:40)
[2022-01-24] MEDS: FAMOTIDINE 20 MG TAB PO SCH (07:41)
--- NOTE | 2022-01-24 07:59 | RAD REPORT ---
EXAM DESCRIPTION: Luis Single View01/24/2022 5:28 am CLINICAL HISTORY: Shortness of breath COMPARISON: January 22 2022 FINDINGS: The lungs appear clear of acute infiltrate. The heart is mildly to moderately enlarged. Postsurgical changes involve chest IMPRESSION: No acute abnormalities displayed
[2022-01-24] MEDS ORDERED: NA CHLORIDE 0.9% 500 ML IV SCH (08:00)
[2022-01-24] MEDS: ONDANSETRON 4 MG/2 ML VIAL IV PRN ×2 (08:05→12:05)
[2022-01-24 08:44] LABS: Blood Morphology Comment NOT SEEN (NOT SEEN); Platelet Estimate ADEQ; White Blood Cell Scan OK (OK)
[2022-01-24] MEDS: METOPROLOL TAR 25 MG TAB PO SCH ×2 (09:25→20:39)
[2022-01-24] MEDS ORDERED: PROMETHAZINE INJ 25 MG/ML AMP IV PRN (09:54)
--- NOTE | 2022-01-24 14:24 | P.PN ---
Date of Service: 01/24/22 S: Patient feels better today, says his sharp pain that he was having prior to surgery is gone. Now just having some nausea and vomiting. Pain medicine he says is adequate. Just when she would stop vomiting. O: Vital signs are stable, adequate urine output. Incisions are clean, expected amount through LETITIA drain. Abdomen however is distended, and mildly tympanic. A: Well status post laparoscopy with open cholecystectomy. Appears to have some postop ileus PE: After discussion with the patient, I will place him NG tube. We will leave that in for about 24 hours until the ileus starts to resolve. He understands this and wants to proceed. In the meantime we will keep in the ICU and most likely transfer to floor in the a.m. He and his family are comfortable with this plan.
--- NOTE | 2022-01-24 15:04 | RAD REPORT ---
EXAM DESCRIPTION: RAD - Abdomen 1 View (KUB) - 01/24/2022 2:43 pm CLINICAL HISTORY: NGT placement COMPARISON: No comparisons FINDINGS: Motion degraded study shows NG/OG tube in place curled in the body of the stomach. Stomach is decompressed. No abnormal bend or kink of the tubing.
[2022-01-24] MEDS ORDERED: NA CHLORIDE 0.9% 500 ML IV ONE ×2 (15:54→16:01)
[2022-01-24] MEDS ORDERED: SODIUM CHLORIDE 0.9% 10ML INJ IV PRN (16:09)
[2022-01-24] MEDS ORDERED: FUROSEMIDE 40 MG/4 ML VIAL IV ONE ×2 (18:50→22:00)
[2022-01-24] MEDS: HEPARIN 5000 UNIT/ML 1 ML VIAL SQ SCH (20:38)
[2022-01-24] MEDS: ATORVASTATIN 10 MG TAB PO SCH (20:39)
[2022-01-24] MEDS ORDERED: D5 0.9 NS 1,000 ML IV SCH (21:00)
[2022-01-24] MEDS ORDERED: MINERAL OIL 30 ML UCUP PO ONE (21:00)
[2022-01-24] MEDS: D5 0.9 NS 1,000 ML IV SCH (22:01)
[2022-01-25] MEDS: PIPER TAZO 3.375 GM in NA CHLORIDE 0.9% 100 ML IV SCH ×3 (00:24→17:07)
[2022-01-25 06:27] VITALS: BMI 33.3
[2022-01-25 06:56] LABS: Absolute Lymphocytes (CBC) 1.2 K/uL (0.7-4.9); Lymphocytes % 13.2 % (15.3-44.8); RBC Red Blood Cell Count 3.01 M/uL (4.33-5.43)
[2022-01-25 07:03] LABS: Magnesium 1.7 mg/dL (1.8-2.4); Potassium 3.7 mmol/L (3.5-5.1)
[2022-01-25] MEDS: INSULIN -REGULAR HUMAN 50 UNIT/0.5 ML ML SQ SCH ×4 (07:30→20:14)
[2022-01-25] MEDS: MAGNESIUM OXIDE 400 MG TAB PO SCH (09:20)
[2022-01-25] MEDS: HEPARIN 5000 UNIT/ML 1 ML VIAL SQ SCH ×2 (09:20→20:13)
[2022-01-25] MEDS: METOPROLOL TAR 25 MG TAB PO SCH ×2 (09:20→20:13)
[2022-01-25] MEDS: PANTOPRAZOLE 40 MG INJ IVP SCH (09:20)
--- NOTE | 2022-01-25 12:08 | PN ---
Date of Progress Note: 01/24/2022 Mr. Hdz is 89. Has an extensive past medical history including diastolic congestive heart eddie lure, severe aortic stenosis, diabetes, hypertension, paroxysmal atrial fibrillation, dyslipidemia, c oronary artery disease, and sleep apnea. Cleared him for surgery by Dr. Sullivan for cholecystitis. The patient underwent the surgery successfully. He was transferred after surgery to the ICU. His vi siddhartha signs are stable. He is in sinus tachycardia at rate of 107, respiratory rate 23. He is afebril e. Glucose is 141. He is saturating 90% on 6 L of nasal cannula. His last creatinine is 1.86, hemo globin is 9.0. He is presently on Lipitor, Pepcid, heparin subcu, insulin, inhalers, metoprolol, ant ibiotics. He maybe slightly dehydrated. Fluid is being given cautiously. He may need some Lasix IV . I will continue to follow him along with Dr. Kelsey and Dr. Sullivan. MICHELLE/RAFI Voice ID: [id number] Report ID: [id number]
--- NOTE | 2022-01-25 12:23 | PN ---
Date of Progress Note: 01/25/2022 Subjective: The patient was seen this morning for followup. No new complaints or problems reported by the patient. Lying in bed, not in distress. He was in ICU. His and daughter were present w ith him at bedside. He is feeling much better this morning. Yesterday, NG tube was placed and signi ficant amount of liquid was obtained from NG tube and that actually has helped to resolve his nausea problem. Subsequently, he was getting IV fluid which was reduced yesterday evening as he was having shortness of breath and hypoxia with that and we were concerned about congestive heart failure proble m at that time and IV fluid was reduced and Lasix 40 mg x2 doses were given yesterday and that actual ly has helped to improve his condition. This morning when I saw him, he was very comfortable, not in any distress. Denies any complaints and feeling much better. Objective: Vital Signs: Reviewed. HEENT: Unremarkable. Lungs: Clear to auscultation. Heart: Sounds normal. Presence of systolic murmur unchanged. Abdomen: Soft. Bowel sounds present, slightly hypoactive. No guarding, rigidity. No tenderness or distention. Extremities: No leg edema. Laboratory Data: White count 9.2, hemoglobin 8.9, platelets 192. Sodium 142, potassium 3.7, chlorid e 108, bicarb 27, BUN 27, creatinine 1.85, glucose 110, magnesium 1.7. Impression: 1.Acute cholecystitis, status post surgery. 2.Aortic stenosis. 3.Coronary artery disease. 4.Congestive heart failure. 5.Anemia. 6.Chronic kidney disease. 7.Hypomagnesemia. Plan: We will go ahead and have Physical Therapy continue to work with the patient. We will continu e NG tube to low intermittent suction, continue IV fluid, and we will follow up with general surgeon, Dr. Little and continue heparin for DVT prophylaxis and SCDs per order. The patient is medically s table for transfer from ICU to regular room. See transfer order for details and I will see him tomor row for followup. BARAK/MODL Voice ID: [id number] Report ID: [id number]
[2022-01-25] MEDS ORDERED: MINERAL OIL 30 ML UCUP PO ONE (15:27)
--- NOTE | 2022-01-25 15:44 | P.PN ---
Date of Service: 01/25/22 S: Patient much more verbal today. Asking about if he is going to the regular floor, senior care placement, not complaining of any pain or discomfort. O: Vital signs remained stable, adequate urine output. Minimal out through the nasogastric tube. Abdomen is soft, mildly distended with occasional bowel sounds. Passing gas per rectum no bowel movements yet. Incisions clean. A: Patient still has mild postop ileus. However appears to be resolving. Stable from a gallbladder point of view. P: Patient will be transferred out to the regular floor. Has minimal out through the nasogastric tube which we will discontinue after he received some mineral oil today. Was patient is on the floor, hopefully we can get him more active, up to the chair, and start him on some clear liquids. After discussion, he may require rehab until he is able to reestablish his independence. We will discuss with the social security assessor.
[2022-01-25] MEDS: ATORVASTATIN 10 MG TAB PO SCH (20:13)
[2022-01-26] MEDS: PIPER TAZO 3.375 GM in NA CHLORIDE 0.9% 100 ML IV SCH ×3 (00:59→18:18)
[2022-01-26] MEDS: INSULIN -REGULAR HUMAN 50 UNIT/0.5 ML ML SQ SCH ×4 (07:30→21:00)
[2022-01-26] MEDS: METOPROLOL TAR 25 MG TAB PO SCH ×4 (09:00→21:03)
[2022-01-26] MEDS: HEPARIN 5000 UNIT/ML 1 ML VIAL SQ SCH ×2 (09:00→09:27)
[2022-01-26] MEDS: MAGNESIUM OXIDE 400 MG TAB PO SCH (09:27)
[2022-01-26] MEDS: PANTOPRAZOLE 40 MG INJ IVP SCH (09:27)
[2022-01-26] MEDS: D5 0.9 NS 1,000 ML IV SCH (09:43)
[2022-01-26] MEDS: APIXABAN 2.5 MG TABLET PO SCH ×2 (09:58→21:04)
--- NOTE | 2022-01-26 17:00 | P.PN ---
Date of Service: 01/26/22 S: Patient continues to improve, had some bowel movements today. Pain is well controlled. Asking about home versus rehab. O: Vital signs are stable, abdomen is soft, minimal output through the LETITIA drain. A: Surgically improved, postoperative ileus appears to be resolving P: Continue current therapy, advance diet as tolerated. We will allow social sciences lecturer to discuss needs with the family. Anticipate discharge soon.
[2022-01-26] MEDS: ATORVASTATIN 10 MG TAB PO SCH (21:03)
[2022-01-27] MEDS: PIPER TAZO 3.375 GM in NA CHLORIDE 0.9% 100 ML IV SCH ×3 (00:39→16:55)
[2022-01-27 05:01] LABS: Absolute Lymphocytes (CBC) 0.9 K/uL (0.7-4.9); Hematocrit 24.4 % (39.6-49.0); MPV 7.3 fL (7.6-11.3); RBC Red Blood Cell Count 2.78 M/uL (4.33-5.43)
[2022-01-27 05:14] LABS: Magnesium 1.7 mg/dL (1.8-2.4); Potassium 3.1 mmol/L (3.5-5.1)
[2022-01-27] MEDS: INSULIN -REGULAR HUMAN 50 UNIT/0.5 ML ML SQ SCH ×4 (07:30→20:38)
[2022-01-27] MEDS: PANTOPRAZOLE 40 MG INJ IVP SCH (09:01)
[2022-01-27] MEDS: METOPROLOL TAR 25 MG TAB PO SCH ×2 (09:02→20:42)
[2022-01-27] MEDS: MAGNESIUM OXIDE 400 MG TAB PO SCH (09:02)
[2022-01-27] MEDS: APIXABAN 2.5 MG TABLET PO SCH ×2 (09:02→20:42)
--- NOTE | 2022-01-27 13:40 | P.PN ---
Date of Service: 01/27/22 S: Patient feels good today, up sitting up in a chair. Trying to eat. Wants scrambled eggs. O: Vital signs are stable, adequate urine output. Minimal out through the LETITIA drain. Incisions are clean good effort on incentive spirometry A: Patient is surgically stable, anticipate discharge in a.m. P: Hep-Lock IV, DC LETITIA drain. Encourage p.o. intake. Contact health care social worker regarding home health care and discharge in a.m. He will require home physical therapy.
[2022-01-27] MEDS: ATORVASTATIN 10 MG TAB PO SCH (20:42)
[2022-01-28] MEDS: PIPER TAZO 3.375 GM in NA CHLORIDE 0.9% 100 ML IV SCH ×2 (00:23→08:56)
[2022-01-28] MEDS: INSULIN -REGULAR HUMAN 50 UNIT/0.5 ML ML SQ SCH ×2 (07:30→11:30)
[2022-01-28] MEDS: METOPROLOL TAR 25 MG TAB PO SCH (08:51)
[2022-01-28] MEDS: APIXABAN 2.5 MG TABLET PO SCH (08:51)
[2022-01-28] MEDS: MAGNESIUM OXIDE 400 MG TAB PO SCH (08:51)
[2022-01-28 12:27] VITALS: O2SAT 99
--- NOTE | 2022-01-28 14:17 | P.PN ---
Date of Service: 01/28/22 S: patient in very good spirits today. Sitting up in a chair, in no distress whatsoever. Anxious to go home. O: Vital signs are stable, abdomen is soft, wounds are clean A: Surgically stable, looks extremely well today P: From my point of view the patient may be discharged. He does not extremely well I have discussed with both him and his . Transportation is difficult for them both from getting a ride and for him to get in the car. I have explained to them that if visiting nurses call me about his wounds, we would be able to manage him at home. He and his are delighted with this idea. They will follow-up with their primary care doctor as well as the analog ic design architect but this would be helpful as there transportation options are limited. Okay to DC home. Does not require any more antibiotics.
--- NOTE | 2022-01-28 14:47 | HP ---
Date of Admission: 01/23/2022 Chief Complaint: Abdominal pain and fever. History Of Present Illness: This is an 89-year-old very pleasant male patient, who came into emergency room yesterday with abdominal pain and fever and after he was evaluated in ER, he was admitted to the hospital with acute cholecystitis problem. He denies any vomiting. No constipation or diarrhea. After he was admitted to the hospital, he was started on IV antibiotics, Zosyn. Cardiology consultation was obtained from Dr. Lynn for preop clearance and Dr. Lynn has evaluated him this morning prior to my arrival and general surgeon, Dr. Sullivan was consulted. Allergies: TO QUININE CAUSING SWELLING. Medications: List reviewed. Review of Systems: GI: As mentioned above. Constitutional: As mentioned. Above all other systems reviewed and negative. Past Medical History: Significant for type 2 diabetes mellitus, obstructive sleep apnea, hypertension, hyperlipidemia, coronary artery disease, chronic atrial fibrillation, gastroesophageal reflux disease, aortic stenosis, left ventricular hypertrophy. Past Surgical History: Tonsillectomy, hemorrhoid surgery, hernia repair, prostatectomy in 2000, and arthroscopic knee surgery. Family History: Father had COPD. Brother had prostate cancer. Sister had lung cancer. Social History: Prior history of smoking, but not at present time. Use of alcohol negative. Physical Examination: Vital Signs: This morning; temperature 98.1, pulse 87, respiratory rate 19, blood pressure 113/57, oxygen saturation 99%. Height 5 feet 8 inches, weight 208 pounds. General: Awake, alert, oriented, not in distress. HEENT: Head atraumatic, normocephalic. Conjunctivae nonerythematous. Sclerae white. Mouth, no thrush or edema noted. Ears/Nose, no mass, lesion, discharge noted. Neck: Supple. No JVD, lymph nodes, bruit, thyromegaly noted. Lungs: Bilateral good equal air entry. Clear to auscultation. No rhonchi. No rales. Heart: Normal heart sounds, no murmur or gallop. Abdomen: Soft. Bowel sounds normal. No guarding, rigidity, distention. No rebound tenderness. Bowel sounds normoactive. The patient does have moderate tenderness in the right upper quadrant region. Extremities: Trace leg edema. Skin: No rash, ulcer, cellulitis. Lymphatics: No lymph node enlargement in neck, supraclavicular, infraclavicular region. Neuro: No focal neurological deficit. Chest: Unremarkable. External Genitalia: Deferred. Rectal: Deferred. Laboratory Data: Yesterday; white count 11.5, hemoglobin 10.4, platelets 164. Today; white count 9.6, hemoglobin 9.4, platelets 148. Yesterday; sodium 137, potassium 4.6, chloride 104, bicarb 26, BUN 33, creatinine 1.94, glucose 121, total bilirubin 1.5. Rest of the liver function tests unremarkable. Lipase 35. This morning; sodium 136, potassium 4.1, chloride 107, bicarb 25, BUN 30, creatinine 1.73, glucose 108, total bilirubin 1.3, lipase 33. Urinalysis negative. COVID-19 test negative. CAT scan of the abdomen done in emergency room shows thickened gallbladder wall with stranding. Chest x-ray shows no acute cardiopulmonary changes. Impression: 1. Acute cholecystitis. 2. Chronic kidney disease, stage 3B. 3. Anemia due to chronic kidney disease. 4. Hypertension. 5. Type 2 diabetes mellitus. 6. Hyperlipidemia. 7. Coronary artery disease. 8. Chronic anticoagulation therapy. Plan: We will admit the patient to hospital for further evaluation and management of this problem. The patient is appropriate for inpatient and is expected to spend 2 midnights in hospital. We will go ahead and keep him n.p.o., continue IV fluid, IV antibiotics. The patient took his last dose of Eliquis yesterday morning, so it has been 24 hours since he took the last dose. Home medications will be continued per order. Details were discussed with Dr. Lynn from Cardiology Service and he has given his cardiac clearance for the patient to have gallbladder surgery and since the patient's last dose of Eliquis was 24 hours ago, duralumin metalworker has given okay to have surgery today. I also communicated with general surgeon, Dr. Sullivan and informed him about this cardiac clearance and he is planning to do surgery today. I will see the patient tomorrow for followup. Details and plan of treatment discussed with the patient and the patient's who was at bedside this morning. BARAK/MODL Voice ID: [id number] [facility] CENTERCedric
[2022-01-28 15:59] VITALS: BP 137/87; TEMP 97.3
[2022-01-29] MEDS ORDERED: PANTOPRAZOLE 40MG TABLET PO SCH (06:30)
--- NOTE | 2022-01-29 07:46 | DS ---
Date of Discharge: 01/28/2022 Disposition: Discharged to go home. Physical Examination: HEENT: Unremarkable. Lungs: Clear to auscultation. Heart: Heart sounds normal. Abdomen: Soft, bowel sounds normal. No guarding, rigidity, tenderness, distention. Extremities: No leg edema. Laboratory Data: At the time of admission on 01/22/2022, white count 11.5, hemoglobin 10.4, platelets 164. Yesterday, white count 6.2, hemoglobin 8.2, platelets 232. Last chemistry yesterday; sodium 140, potassium 3.1, chloride 107, bicarb 28, BUN 19, creatinine 1.48, glucose 107, magnesium 1.7. Upon admission, sodium 137, potassium 4.6 chloride 104, bicarb 26, BUN 33, creatinine 1.94, lipase 35. Hospital Course: This is an 89-year-old male patient who was admitted to the hospital with abdominal pain in the right upper quadrant and fever. Please see dictated H and P for more information. After patient was evaluated in the emergency room, he was admitted to the hospital with acute cholecystitis. He was started on antibiotic. General surgeon, Dr. Sullivan, was consulted and the patient was kept n.p.o. Cardiology consultation was requested from Dr. Lynn, who gave cardiac clearance for the surgery and Dr. Sullivan did surgery and the patient actually ended up having open cholecystectomy. Postoperatively, he was admitted to intensive care unit. He did have episode of low blood pressure and required IV fluid resuscitation for that and subsequently he showed signs of fluid overload and congestive heart failure type of problem which required use of IV Lasix and reduction in IV fluid administration. He also had postoperative ileus requiring nasogastric tube placement, which was subsequently removed. He was started on clear liquid diet. Subsequently, it was advanced as tolerated. Physical therapy was consulted and the patient started to ambulate well. At home, he takes Eliquis 5 mg 2 times a day for chronic atrial fibrillation, but lately most of his creatinine has been higher than 1.5 and in view of that along with his age more than 82 years he qualifies for a lower dose on Eliquis, which will be 2.5 mg 2 times a day. The patient is tolerating diet very well. He is ambulating well without any problem. His room air oxygen saturation has been 95% to 97% today and he was going for outpatient physical therapy prior to this hospital admission and he will restart diet. Final Diagnoses: 1. Acute cholecystitis. 2. Hypertension. 3. Type 2 diabetes mellitus. 4. Chronic atrial fibrillation. 5. Coronary artery disease. 6. Congestive heart failure, chronic, diastolic. 7. Anemia. 8. Chronic kidney disease, stage IIIB. 9. Chronic anticoagulation therapy. Discharge Medications And Instructions: 1. Continue all prior home medications except stop Eliquis 5 mg and start Eliquis 2.5 mg 2 times a day. 2. Take Augmentin 500 mg 2 times a day for 1 week. 3. Follow up at my office next week. 4. Stop metoprolol 50 mg 2 times a day and start metoprolol 25 mg once a day. 5. Hold amlodipine if systolic blood pressure is less than 130. BARAK/MODL Voice ID: [id number] Report ID: [id number]
--- NOTE | 2022-02-09 11:33 | PN ---
Date of Progress Note: 01/24/2022 Subjective: The patient was seen for followup this morning. DICTATION ENDS HERE BARAK/MODL Voice ID: [id number] Report ID: [id number]
--- NOTE | 2022-02-10 07:49 | PN ---
Date of Progress Note: 01/24/2022 Subjective: The patient was seen this morning for followup. No new complaints or problems reported by the patient. Lying in bed, not in distress. Had his gallbladder surgery yesterday. Denies any n ew complaints except some abdominal pain. Objective: Vital Signs: Reviewed. HEENT: Unremarkable. Lungs: Clear to auscultation. Heart: Sounds normal. Abdomen: Soft. Bowel sounds normal. No guarding, rigidity, tenderness, distention. Extremity: No leg edema. Laboratory Data: White count 9.8, hemoglobin 9, platelets 165. Sodium 139, potassium 4.6, chloride 109, bicarb 24, BUN 28, creatinine 1.86, glucose 202. Impression: 1.Acute cholecystitis, status post surgery. 2.Coronary artery disease. 3.Anemia. 4.Hypomagnesemia. 5.Aortic stenosis. 6.Congestive heart failure. 7.Chronic kidney disease. Plan: We will go ahead and continue current medication. Continue to follow with surgeon for postop care. We will continue physical therapy. Continue current DVT prophylaxis and current medical management. I will see him tomorrow f or followup. BARAK/MODL Voice ID: [id number] Report ID: [id number]
--- NOTE | 2022-02-10 07:55 | PN ---
Date of Progress Note: 01/27/2022 Subjective: The patient was seen this morning for followup. No new complaints or problems reported by the patient. Objective: Vital Signs: Reviewed. HEENT: Unremarkable. Lungs: Clear to auscultation. Heart: Sounds normal. Abdomen: Soft. Bowel sounds normal. No guarding, rigidity, tenderness, or distention. Extremities: No leg edema. Laboratory Data: White count 6.2, hemoglobin 8.2, platelets 232. Sodium 140, potassium 3.1, chlorid e 107, bicarb 28, BUN 19, creatinine 1.48, glucose 107, magnesium 1.7. Impression: 1.Acute cholecystitis, status post surgery. 2.Hypokalemia. 3.Hypomagnesemia. 4.Anemia. 5.Chronic kidney disease. Plan: We will go ahead and replace electrolytes per protocol. We will continue current medications. Physical Therapy to continue to work with the patient. Possible discharge to go home tomorrow. De tails were discussed with the patient. BARAK/MODL Voice ID: [id number] Report ID: [id number]
--- NOTE | 2022-02-10 07:55 | PN ---
Date of Progress Note: 01/26/2022 Subjective: The patient was seen this morning for followup. No new complaints or problems reported by the patient. He is participating well with Physical Therapy. No new complaints or problems repor chrsity. Objective: Vital Signs: Reviewed. HEENT: Unremarkable. Lungs: Clear to auscultation. Heart: Sounds normal. Abdomen: Soft. Bowel sounds normal. No guarding, rigidity, tenderness, or distention. Extremities: No leg edema. Laboratory Data: There were no new labs this morning. Fingerstick blood sugar readings reviewed. Impression: 1.Acute cholecystitis, status post surgery. 2.Aortic stenosis. 3.Coronary artery disease. 4.Hypertension. 5.Hyperlipidemia. 6.Chronic kidney disease. Plan: We will go ahead and continue current medications. We will continue physical therapy and DVT prophylaxis. Ambulation was encouraged and I will see him tomorrow for followup. BARAK/MODL Voice ID: [id number] Report ID: [id number]
== END 2022-01-28 17:07 | disposition home health service (06) | DRG 414 ==
LOC: ER 16:35 → ERHOLD 23:26 → 4TH 01-23 03:30 → 3RD-ICU 01-23 17:01 → 2ND 01-26 13:02
PROVIDERS: ADMIT Internal Medicine; ATTEND Internal Medicine
PROC: 0FJ44ZZ Inspection of Gallbladder, Percutaneous Endoscopic Approach (ICD-10-PCS; 2022-01-23)
PROC: 0FT40ZZ Resection of Gallbladder, Open Approach (ICD-10-PCS; principal; 2022-01-23 12:45)
DX: K80.12 Calculus of gallbladder with acute and chronic cholecystitis without obstruction (principal); K65.1 Peritoneal abscess; K82.A2 Perforation of gallbladder in cholecystitis; K91.89 Other postprocedural complications and disorders of digestive system; K56.7 Ileus, unspecified; I13.0 Hypertensive heart and chronic kidney disease with heart failure and stage 1 through stage 4 chronic kidney disease, or unspecified chronic kidney disease; I50.32 Chronic diastolic (congestive) heart failure; K82.A1 Gangrene of gallbladder in cholecystitis; I48.0 Paroxysmal atrial fibrillation; I35.0 Nonrheumatic aortic (valve) stenosis; E78.5 Hyperlipidemia, unspecified; E87.6 Hypokalemia; I25.10 Atherosclerotic heart disease of native coronary artery without angina pectoris; G47.30 Sleep apnea, unspecified; E83.42 Hypomagnesemia; K21.9 Gastro-esophageal reflux disease without esophagitis; E11.22 Type 2 diabetes mellitus with diabetic chronic kidney disease; N18.32 Chronic kidney disease, stage 3b; D63.1 Anemia in chronic kidney disease; Z20.822 Contact with and (suspected) exposure to COVID-19; Z79.01 Long term (current) use of anticoagulants
CPT/HCPCS: 36415; 71045; 74018; 74176; 80048; 80053; 80076; 81003; 81015; 82947; 83690; 83735; 85025; 87804; 88304; 93005; 94010; 96365; 97110; 97116; 97161; 97530; 97760; 99285; C9113; J1170; J1644; J1815; J1940; J2270; J2370; J2405; J2543; J2550; J2704; J2710; J3010; J7030; J7040; J7042; U0003

== ENCOUNTER 2022-02-10 06:47 | Day surgery (SDC) | payer OTHER ==
[2022-02-06 12:35] LABS: Absolute Lymphocytes (CBC) 1.8 K/uL (0.7-4.9); Hematocrit 28.2 % (39.6-49.0); Lymphocytes % 27.7 % (15.3-44.8); MCV 89.9 fL (80-100); RBC Red Blood Cell Count 3.13 M/uL (4.33-5.43)
[2022-02-06 12:42] LABS: Protime INR 1.33
[2022-02-06 12:49] LABS: Potassium 4.1 mmol/L (3.5-5.1)
[2022-02-06 13:05] LABS: SARS-CoV-2 Antigen Rapid Res Negative (Negative)
--- NOTE | 2022-02-08 17:33 | EKG ---
Test Date: 2022-02-06 Test Time: 12:06:14 Electrical Assembly Technician: SAMUEL MEASUREMENT RESULTS: Intervals: Rate: 92 DE: 216 QRSD: 162 QT: 426 QTc: 526 [place]: P: 85 DE: 216 QRS: 23 T: 6 INTERPRETIVE STATEMENTS: Sinus rhythm with 1st degree AV block with occasional premature ventricular complexes and fusion complexes Right bundle branch block Abnormal ECG Compared to ECG 01/22/2022 22:40:06 Fusion complex(es) now present Ventricular premature complex(es) now present First degree AV block now present T-wave abnormality no longer present Possible ischemia no longer present Electronically Signed On 02-08-22 17:30:11 CDT by López Jeffery
[2022-02-10] MEDS ORDERED: HEPA 1000U/500MLS 2,000 UNIT/1,000 ML BAG IV ONE (06:51)
[2022-02-10] MEDS ORDERED: LIDOCAINE 1% 20 ML MDV ONE (06:51)
[2022-02-10] MEDS ORDERED: NA CHLORIDE 0.9% 500 ML ONE (06:55)
[2022-02-10] MEDS ORDERED: NA CHLORIDE 0.9% 0 ML IV ONE (07:07)
[2022-02-10] MEDS ORDERED: HEPA 1000U/500MLS 1,000 UNIT/500 ML BAG IV ONE (07:08)
[2022-02-10] MEDS ORDERED: FENTANYL CITR 100 MCG/2 ML ONE (07:14)
[2022-02-10] MEDS ORDERED: NA CHLORIDE 0.9% 50 ML ONE (07:14)
[2022-02-10] MEDS ORDERED: ATROPINE SULF 1 MG/10 ML SYR IV ONE (07:14)
[2022-02-10] MEDS ORDERED: MIDAZOLAM HCL 2 MG/2 ML INJ ONE (07:14)
[2022-02-10] MEDS ORDERED: NITROGLYCERIN 100 MCG/ML SYR (for cath lab use only) IV ONE (07:17)
[2022-02-10] MEDS ORDERED: NITROGLYCERIN/D5W 25 MG/250 ML BTL IV ONE (07:17)
[2022-02-10] MEDS ORDERED: ACETYLCYST 20% 4 ML VIAL IH ONE (08:29)
[2022-02-10 10:01] VITALS: BP 136/79; O2SAT 99
--- NOTE | 2022-02-10 10:17 | OP ---
Surgeon: Russell Lynn MD [employer]: Ms. Patricia Demarco. Admitted today 02/10/2022 as an outpatient to the lab[facility] yard. He underwent left and right heart cathet erization, cardiac output measurement, O2 saturation, 1 selective coronary arteriogram, AUGUSTIN angiogra phy, and common femoral artery angiogram. Indication: Aortic stenosis, coronary artery disease status post CABG and AUGUSTIN. Mr. Hdz is 8 9. Documented aortic stenosis by echo, recurrent congestive heart failure on admission, normal eject ion fraction. Procedure In Detail: Brought to the laborer yard today, prepped and draped in routine sterile fashion. Given Versed and fentanyl for sedation. A 6-Divehi sheath was introduced in the right common femoral artery and a 7-Divehi sheath in the right common femoral vein using the Seldinger technique and 10 c c of Xylocaine. Left heart catheterization was done first. We had to use a JL5 catheter to cannulat e the left main after trying multiple catheters including Amplatz 1 and 2 and JL3.5 and JL4. Finally , we cannulated the left main with a JL5. He had a 99% ostial LAD stenosis, normal circumflex. A mo dified AR was used to cannulate the right main that was showing mild plaquing. It was dominant. A J R4 catheter was used to cannulate the AUGUSTIN. The AUGUSTIN was normal. [place]un catheter was introduced in the right common femoral vein all the way to the right atrium, right ventricle, pulmonary artery. Cardiac output was measured at 6.29 L/minute. The right ventricle and pulmonary artery pressure was in the 50s for systolic. The wedge was 28. O2 saturations are pending. I could not cross the valv e with a wire. There were no complications. Blood loss was 5 mL. Postoperative Diagnoses: Severe aortic stenosis by echo, moderate pulmonary hypertension, normal car diac output, 99% LAD with patent AUGUSTIN. Plan: For possible TAVR done in the near future. For now, the patient had an Angio-Seal done. The right common femoral artery angiogram was normal. He will be at bedrest for 2 hours and will go home . We will arrange followup down the road. Anesthesia: Total conscious sedation was 75 minutes. MICHELLE/RAFI Voice ID: [id number] Report ID: [id number]
== END 2022-02-10 10:15 | disposition home or self-care (01) ==
LOC: CCL 06:47
DX: I35.0 Nonrheumatic aortic (valve) stenosis (principal); I25.10 Atherosclerotic heart disease of native coronary artery without angina pectoris; I27.20 Pulmonary hypertension, unspecified; I48.91 Unspecified atrial fibrillation; I50.9 Heart failure, unspecified; Z95.1 Presence of aortocoronary bypass graft; Z20.822 Contact with and (suspected) exposure to COVID-19
CPT/HCPCS: 93005; 85025; 80048; 36415; 85610; 82947; 85730; 93461; 87811; C1893; G0269; C1877; J2250; J3010; J7040; J1644 ×2; 93456; 93457; J0583